=== PATIENT | female | born 1990 | race Two or more races ===

== ENCOUNTER 2016-10-07 01:01 | Emergency (ER) | payer MEDICARE ==
[~2016-10-07] VITALS: Ht 157.5 cm; Wt 86.2 kg
[~2016-10-07 01:01] MED LIST: CLOB10TA PO; CLON0.5T3 PO; ESCI10TA PO; LEVE10007 PO; LORA0.5T96 PO; PERA2TAB PO; PERA6TAB PO; ZONI100C PO; [UNRECOGNIZED DRUG - CODE] PO
[2016-10-07] MEDS ORDERED: 0.9 % SODIUM CHLORIDE 10 ML DISP.SYRIN. IV PRN (01:15)
[2016-10-07 01:32] LABS: BARBITURATES NEG (NEG); BENZODIAZEPINES POS (NEG); CANNABINOIDS NEG (NEG); COCAINE NEG (NEG); METHADONE NEG (NEG); OPIATES NEG (NEG); PHENCYCLIDINE NEG (NEG)
[2016-10-07 01:33] LABS: ETHANOL, URINE NEG (NEG)
[2016-10-07 01:50] LABS: NEG OBC UR NEG; POS OBC UR POS
[2016-10-07 01:53] LABS: BILIRUBIN,URINE NEGATIVE (NEG); GLUCOSE,URINE NEGATIVE (NEG); NITRITE,URINE NEGATIVE (NEG); PH,URINE 7.5; PROTEIN,URINE NEGATIVE (NEG-TRACE); UROBILINOGEN,URINE 0.2 mg/dL (0.2 mg/dL)
[2016-10-07 01:58] LABS: BACTERIA,URINE MODERATE /HPF (0-FEW); RBC,URINE 0 /HPF (0-2); SQUAMOUS EPITHELIAL CELL,UR MOD /LPF; WBC,URINE >40 /HPF (0-4)
[2016-10-07 02:18] LABS: BASO % 1 % (0-3); EOS % 2 % (0-3); HEMATOCRIT 32.2 % (36.0-47.0); HEMOGLOBIN 10.5 g/dL (12.0-15.5); LYMPH # 2.3 x10^3/uL (1.0-4.8); LYMPH % 28 % (24-48); MEAN CORPUSCULAR HEMOGLOBIN 29 pg (25-35); MEAN CORPUSCULAR HGB CONC 33 g/dL (31-37); MEAN CORPUSCULAR VOLUME 90 fL (79-100); MONO % 8 % (0-9); NEUT % 61 % (31-73); PLATELET COUNT 179 x10^3/uL (140-400); RED BLOOD COUNT 3.59 x10^6/uL (3.50-5.40); RED CELL DISTRIBUTION WIDTH 14.6 % (11.5-14.5)
[2016-10-07 02:29] LABS: CALCIUM 8.7 mg/dL (8.5-10.1); CREATININE 0.6 mg/dL (0.6-1.0); GFR 123.9; POTASSIUM 3.5 mmol/L (3.5-5.1)
[2016-10-07 02:34] LABS: ALBUMIN 3.2 g/dL (3.4-5.0); DIRECT BILIRUBIN 0.1 mg/dL (0.0-0.2); TOTAL BILIRUBIN 0.2 mg/dL (0.2-1.0); TOTAL PROTEIN 7.3 g/dL (6.4-8.2)
[2016-10-07 02:42] LABS: INR 1.2 (0.8-1.1); PROTHROMBIN TIME PATIENT 14.4 SEC (11.7-14.0)
[2016-10-07 03:30] VITALS: BP 93/57
[2016-10-07] MEDS ORDERED: NITR100C62 PO (03:43)
--- NOTE | 2016-10-07 03:43 | PHYS DOC ---
Past Medical History Past Medical History: Anxiety, Depression, Seizure, UTI Past Surgical History: Other Additional Past Surgical Histo: anti seizure device Alcohol Use: None Drug Use: None Adult General Chief Complaint Chief Complaint: SEIZURE HPI HPI 25-year-old female presenting to the emergency department today after having a seizure. She's had 2 seizures today and currently follows at the [facility]. They currently are aware that her seizures are getting worse. They're planning a surgery currently to attempt helping her with his epilepsy. She also reports lower abdominal pain in the suprapubic region that is sharp nonradiating without alleviating factors intermittent. Review of systems is negative for chest pain shortness of breath fevers chills. She denies being . All other review of systems is negative unless otherwise noted in history of present illness. Review of Systems Review of Systems See above. Current Medications Current Medications Current Medications Medications (Trade) Dose Ordered Sig/Brittny Start Time Stop Time Status Last Admin Dose Admin Sodium Chloride (Normal Saline Flush) 10 ml QSHIFT PRN 10/07/16 01:15 10/07/16 04:03 DC Allergies Allergies Allergies Coded Allergies Type Severity Reaction Last Updated Verified peanut Allergy Intermediate PEANUT BUTTER 08/30/14 Yes Physical Exam Physical Exam Constitutional: Well developed, well nourished, no acute distress, non-toxic appearance. HENT: Normocephalic, atraumatic, bilateral external ears normal, oropharynx moist, no oral exudates, nose normal. Eyes: PERRLA, EOMI, conjunctiva normal, no discharge. [] Neck: Normal range of motion, no tenderness, supple, no stridor. Cardiovascular:Heart rate regular rhythm, no murmur [] Lungs & Thorax: Bilateral breath sounds clear to auscultation Abdomen: Soft and nontender to palpation. Negative McBurney's point. Negative Watkins sign. No rebound tenderness or guarding present. Nondistended. Vaginal exam performed in the presence of a female nurse was unremarkable. No evidence of cervical motion tenderness or cervicitis. Normal vaginal discharge present. Skin: Warm, dry, no erythema, no rash. [] Back: No tenderness, no CVA tenderness. [] Extremities: No tenderness, no cyanosis, no clubbing, ROM intact, no edema. Neurologic: Mental status: Awake oriented and alert x3 Cranial nerves: Extraocular movements intact, eyebrows georgie bilaterally smile symmetric, uvula elevation, shoulder shrug intact, tongue protrusion normal DTRs: 2+ Sensation: equal and normal in all extremities Strength: 5/5 in upper and lower extremities bilaterally Psychologic: Affect normal, judgement normal, mood normal. [] Current Patient Data Vital Signs Vital Signs Date Time Temp Pulse Resp B/P Pulse Ox O2 Delivery O2 Flow Rate FiO2 10/07/16 03:30 76 16 93/57 98 Room Air Lab Values Laboratory Tests Test 10/07/16 01:09 10/07/16 01:10 10/07/16 02:10 10/07/16 02:24 Urine Collection Type Unknown Urine Color Yellow Urine Clarity Cloudy Urine pH 7.5 Urine Specific Wiseman 1.020 Urine Protein Negativemg/dL (NEG-TRACE) Urine Glucose (UA) Negativemg/dL (NEG) Urine Ketones (Stick) Negativemg/dL (NEG) Urine Blood Negative (NEG) Urine Nitrite Negative (NEG) Urine Bilirubin Negative (NEG) Urine Urobilinogen Dipstick 0.2mg/dL (0.2 mg/dL) Urine Leukocyte Esterase Large (NEG) Urine RBC 0/HPF (0-2) Urine WBC >40/HPF (0-4) Urine Squamous Epithelial Cells Mod/LPF Urine Amorphous Sediment Present/HPF Urine Bacteria Moderate/HPF (0-FEW) Urine Mucus Mod/LPF Urine Test Negative (NEG) Urine Opiates Screen Neg (NEG) Urine Methadone Screen Neg (NEG) Urine Barbiturates Neg (NEG) Urine Phencyclidine Screen Neg (NEG) Urine Amphetamine/Methamphetamine Neg (NEG) Urine Benzodiazepines Screen Pos (NEG) Urine Cocaine Screen Neg (NEG) Urine Cannabinoids Screen Neg (NEG) Urine Ethyl Alcohol Neg (NEG) White Blood Count 8.0x10^3/uL (4.0-11.0) Red Blood Count 3.59x10^6/uL (3.50-5.40) Hemoglobin 10.5g/dL (12.0-15.5) L Hematocrit 32.2% (36.0-47.0) L Mean Corpuscular Volume 90fL (79-100) Mean Corpuscular Hemoglobin 29pg (25-35) Mean Corpuscular Hemoglobin Concent 33g/dL (31-37) Red Cell Distribution Width 14.6% (11.5-14.5) H Platelet Count 179x10^3/uL (140-400) Neutrophils (%) (Auto) 61% (31-73) Lymphocytes (%) (Auto) 28% (24-48) Monocytes (%) (Auto) 8% (0-9) Eosinophils (%) (Auto) 2% (0-3) Basophils (%) (Auto) 1% (0-3) Neutrophils # (Auto) 4.8x10^3uL (1.8-7.7) Lymphocytes # (Auto) 2.3x10^3/uL (1.0-4.8) Monocytes # (Auto) 0.7x10^3/uL (0.0-1.1) Eosinophils # (Auto) 0.2x10^3/uL (0.0-0.7) Basophils # (Auto) 0.0x10^3/uL (0.0-0.2) Prothrombin Time 14.4SEC (11.7-14.0) H Prothrombin Time INR 1.2 (0.8-1.1) H PTT 39SEC (24-38) H Sodium Level 143mmol/L (136-145) Potassium Level 3.5mmol/L (3.5-5.1) Chloride Level 108mmol/L (98-107) H Carbon Dioxide Level 26mmol/L (21-32) Anion Gap 9 (6-14) Blood Urea Nitrogen 13mg/dL (7-20) Creatinine 0.6mg/dL (0.6-1.0) Estimated GFR (Cockcroft-Gault) 123.9 Glucose Level 90mg/dL (70-99) Lactic Acid Level 1.0mmol/L (0.4-2.0) Calcium Level 8.7mg/dL (8.5-10.1) Total Bilirubin 0.2mg/dL (0.2-1.0) Direct Bilirubin 0.1mg/dL (0.0-0.2) Aspartate Amino Transferase (AST) 11U/L (15-37) L Alanine Aminotransferase (ALT) 18U/L (14-59) Alkaline Phosphatase 157U/L (46-116) H Total Protein 7.3g/dL (6.4-8.2) Albumin 3.2g/dL (3.4-5.0) L Chlamydia DNA Probe Negative (Negative) Neisseria gonorrhoeae DNA Probe Negative (Negative) Laboratory Tests 10/07/16 02:10 Laboratory Tests 10/07/16 02:10 Microbiology 10/07/16 Wet Prep - Final, Complete 10/07/16 Urine Culture - Preliminary, Resulted 10/07/16 Urine Culture Result 1 (CLIFF) - Preliminary, Resulted EKG EKG [] Radiology/Procedures Radiology/Procedures [] Course & Med Decision Making Course & Med Decision Making Pertinent Labs and Imaging studies reviewed. (See chart for details) [25-year-old female presenting to the emergency department today with having 2 seizures over the past 4 hours and abdominal pain. Abdomen was soft and nontender. Neurologic exam was unremarkable. Vital signs showed mild probably physiologic soft systolic blood pressure. Otherwise blood work was sent. EKG obtained which was unremarkable. I discussed the case with the neurology team at the [facility] admissions counselor. I asked if they would be able to follow- up the patient in the short-term in the next day or 2. They stated that they would be able to convey this information to the patient's neurologist and get him in the clinic. The patient was back to baseline. Abdomen exam on repeat evaluation was nontender. Patient was escorted discharged home to follow-up with neurology at the [facility] in 1-2 days. Urinalysis suggestive of urinary tract infection. Patient was treated with antibiotics upon discharge. Dragon Disclaimer Dragon Disclaimer This electronic medical record was generated, in whole or in part, using a voice recognition dictation system. Departure Departure Impression: Primary Impression: Abdominal pain Additional Impressions: Seizure UTI (urinary tract infection) Disposition: 01 HOME, SELF-CARE Condition: STABLE Referrals: NO PCP (PCP) Patient Instructions: Seizure, Adult Additional Instructions: Thank you for allowing us to participate in your care today. Followup with your neurologist in 3-4 days. If you do not have a primary care provider you can ask for a list of our primary care providers. Return to the emergency department you have any new or concerning findings. This should be evaluated by the primary care physician and any necessary consulting services for continued management within a few days after discharge. Return to emergency room if you have any new or concerning symptoms including but not limited to fever, chills, nausea, vomiting, intractable pain, any new rashes, chest pain, shortness of air, uncontrolled bleeding, difficulty breathing, and/or vision loss. Scripts Nitrofurantoin Monohyd/M-Cryst (Macrobid 100 Mg Capsule)100 Mg Capsule1 Cap PO BID #[id number] CAP Prov:NEIL DAILEY MD 10/07/16 Problem Qualifiers NEIL DAILEY MD Oct 07, 2016 03:43
--- NOTE | 2016-10-07 06:16 | EKG ---
[facility] [address] [place] [address] Test Date: 2016-10-07 Test Time: 01:26:03 Pat Name: MISAEL JEWELL Department: Room: Gender: F [employer] Tender: : 1990 Requested By: NEIL DAILEY Order Number: [id number] Reading MD: Measurements Intervals [place] Rate: 80 P: 32 ID: 140 QRS: -18 QRSD: 112 T: 2 QT: 392 QTc: 456 Interpretive Statements SINUS RHYTHM LEFTWARD AXIS INCOMPLETE RIGHT BUNDLE BRANCH BLOCK OTHERWISE NORMAL ECG RI6.01 No previous ECG available for comparison
--- NOTE | 2016-10-09 14:30 | VNOTE ---
CALL BACK NOTE CALL BACK Microbiology 10/07/16 Wet Prep - Final, Complete 10/07/16 Urine Culture - Final, Complete 10/07/16 Urine Culture Result 1 (CLIFF) - Final, Complete 10/07/16 Antimicrobic Susceptibility - Final, Complete Patient was treated for UTI with Macrobid. She is resistant to it. I attempted to call patient to talk to her. Left a voicemail. I did attempt to call the alternate number provided, spoke with a boyfriend who hanged up on me. DIANE DUNN APRN Oct 09, 2016 14:30
--- NOTE | 2016-10-10 16:53 | VNOTE ---
CALL BACK NOTE CALL BACK Microbiology 10/07/16 Wet Prep - Final, Complete 10/07/16 Urine Culture - Final, Complete 10/07/16 Urine Culture Result 1 (CLIFF) - Final, Complete 10/07/16 Antimicrobic Susceptibility - Final, Complete Spoke with patient in regards to culture being positive for proteus mirabilis and gram negative rods. Patient had been placed on Macrobid which the sensitivity shows that it was resistant to this antibiotic. She was called in a prescription of Bactrim to the [facility] on [address]. Patient was instructed to stop taking the Macrobid and start on the Bactrim as soon as she picks its up. CHRISTOPHER MIGUEL HAUL TRUCK DRIVER Oct 10, 2016 16:53
== END 2016-10-07 04:03 | disposition home or self-care (01) ==
LOC: ER 01:01
DX: R56.9 Unspecified convulsions (principal); N39.0 Urinary tract infection, site not specified; Z91.010 Allergy to peanuts
CPT/HCPCS: 36415; 80048; 80076; 81001; 81025; 83605; 85027; 85610; 85730; 87086; 87491; 87591; 93005; 99285; G0481; Q0111

== ENCOUNTER 2016-12-24 22:06 | Emergency (ER) | payer MEDICARE, OTHER ==
[~2016-12-24 22:06] MED LIST changes: +NITR100C62 PO
[2016-12-24] MEDS ORDERED: LEVETIRACETAM 500 MG TABLET. PO ONE (23:00)
--- NOTE | 2016-12-24 23:02 | PHYS DOC ---
Past Medical History Past Medical History: Anxiety, Depression, Seizure, UTI Past Surgical History: Other Additional Past Surgical Histo: anti seizure device Alcohol Use: None Drug Use: None Adult General Chief Complaint Chief Complaint: SEIZURE HPI HPI 26-year-old female with a history of seizures and epilepsy who currently follows with the [facility] neurology team who presents the emergency department after having 3 seizures today she reports him being less than 5 minutes. Seizures spontaneously resolved. There with this by her boyfriend he who is here with her today. She also takes 1 g of Keppra every day for antiepileptic medications. She reports taking her medications as prescribed. She also has noticed some bumps in her left groin and has pain in her groin. Review of systems is negative for chest pain shortness of breath abdominal pain nausea vomiting fevers or chills. All other review of systems is negative unless otherwise noted in history of present illness. Review of Systems Review of Systems SEE ABOVE. Allergies Allergies Allergies Coded Allergies Type Severity Reaction Last Updated Verified peanut Allergy Intermediate PEANUT BUTTER 08/30/14 Yes Physical Exam Physical Exam Constitutional: Well developed, well nourished, no acute distress, non-toxic appearance. HENT: Normocephalic, atraumatic, bilateral external ears normal, oropharynx moist, no oral exudates, nose normal. [] Eyes: PERRLA, EOMI, conjunctiva normal, no discharge. Neck: Normal range of motion, no tenderness, supple, no stridor. [] Cardiovascular:Heart rate regular rhythm, no murmur Lungs & Thorax: Bilateral breath sounds clear to auscultation [] Abdomen: Bowel sounds normal, soft, no tenderness, no masses, no pulsatile masses. External genitalia exam performed in the presence of a female nurse shows small umbilicated papules on the left groin consistent with molluscum contagiosum. Skin: Warm, dry, no erythema, no rash. [] Back: No tenderness, no CVA tenderness. Extremities: No tenderness, no cyanosis, no clubbing, ROM intact, no edema. [] Neurologic: Mental status: Awake oriented and alert x3 Cranial nerves: Extraocular movements intact, eyebrows georgie bilaterally smile symmetric, uvula elevation, shoulder shrug intact, tongue protrusion normal DTRs: 2+ Sensation: equal and normal in all extremities Strength: 5/5 in upper and lower extremities bilaterally Psychologic: Affect normal, judgement normal, mood normal. Current Patient Data Vital Signs Vital Signs Date Time Temp Pulse Resp B/P Pulse Ox O2 Delivery O2 Flow Rate FiO2 12/24/16 22:15 97.5 76 16 109/67 100 Room Air 97.5 EKG EKG [] Radiology/Procedures Radiology/Procedures [] Course & Med Decision Making Course & Med Decision Making Pertinent Labs and Imaging studies reviewed. (See chart for details) [] 26-year-old female presenting after having 3 seizures today. Patient is feeling better now. Normal neurologic exam. Vaginal exam shows molluscum contagiosum I recommended she follow up with her primary care doctor for probable molluscum contagiosum. I discussed the case with our neurologist Dr. Navarrete who recommended that we give the patient 500 mg of oral Keppra in the emergency department and have the patient follow-up with her neurologist tomorrow morning for further evaluation workup and care. The patient was in discharged home in stable condition. Dragon Disclaimer Dragon Disclaimer This electronic medical record was generated, in whole or in part, using a voice recognition dictation system. Departure Departure Impression: Primary Impression: Seizures Additional Impression: Molluscum contagiosum Disposition: 01 HOME, SELF-CARE Condition: STABLE Referrals: NO PCP (PCP) LUZ MARINA DUMONT MD Patient Instructions: Seizure, Adult Additional Instructions: Thank you for allowing us to participate in your care today. Followup with your neurologist tomorrow morning. Follow-up with your primary care doctor within the next 4-5 days. If you do not have a primary care provider you can ask for a list of our primary care providers. Return to the emergency department you have any new or concerning findings. This should be evaluated by the primary care physician and any necessary consulting services for continued management within a few days after discharge. Return to emergency room if you have any new or concerning symptoms including but not limited to fever, chills, nausea, vomiting, intractable pain, any new rashes, chest pain, shortness of air, uncontrolled bleeding, difficulty breathing, and/or vision loss. You may have been prescribed medication that can change in your level of thinking and ability to operate machinery. These medications include hydrocodone and Ativan. Also, Benadryl has been known to do this as well. Be sure to check with your pharmacist and ask if the medications you've prescribed can affect your level of consciousness. I recommend not operating heavy machinery or driving while on medication such as these. Problem Qualifiers NEIL DAILEY MD Dec 24, 2016 23:02
[2016-12-24 23:11] VITALS: BP 108/65
== END 2016-12-24 23:19 | disposition home or self-care (01) ==
LOC: ER 22:06
DX: G40.909 Epilepsy, unspecified, not intractable, without status epilepticus (principal); B08.1 Molluscum contagiosum; F41.9 Anxiety disorder, unspecified; F32.9 Major depressive disorder, single episode, unspecified; Z87.440 Personal history of urinary (tract) infections; Z79.899 Other long term (current) drug therapy; Z91.010 Allergy to peanuts
CPT/HCPCS: 81025; 99282

== ENCOUNTER 2017-03-02 23:47 | Emergency (ER) | payer MEDICARE, OTHER ==
[~2017-03-02] VITALS: Ht 162.6 cm; Wt 90.7 kg
[~2017-03-02 23:47] MED LIST changes: -ESCI10TA PO; +ESCITALOPRAM OX10 MG PO
[2017-03-03] MEDS ORDERED: AMMONIA AROMATIC 15% INHALANT AMPUL. ONE (00:11)
--- NOTE | 2017-03-03 00:34 | RAD ---
EXAM: CT head without contrast HISTORY: Altered mental status. COMPARISON: March 03, 2016 TECHNIQUE: Computed tomographic images of the head were obtained without contrast. PQRS compliance statement: One or more of the following individualized dose reduction techniques were utilized for this examination: 1. Automated exposure control 2. Adjustment of the mA and/or kV according to patient size 3. Use of iterative reconstruction technique FINDINGS: There is no acute intracranial process identified. Specifically, there are no intracranial blood products, extra-axial fluid collections, mass effect or midline shift. Ventricles and basilar cisterns are maintained. The visualized portions of the orbits, paranasal sinuses and mastoid air cells are unremarkable. No suspicious calvarial lesion is seen. IMPRESSION: No acute intracranial findings. Electronically signed by: Alondra Anderson MD (03/03/2017 12:30 AM)
[2017-03-03 00:38] LABS: BASO # 0.1 x10^3/uL (0.0-0.2); BASO % 1 % (0-3); EOS % 2 % (0-3); HEMATOCRIT 36.5 % (36.0-47.0); HEMOGLOBIN 11.8 g/dL (12.0-15.5); LYMPH # 2.6 x10^3/uL (1.0-4.8); LYMPH % 35 % (24-48); MEAN CORPUSCULAR HEMOGLOBIN 30 pg (25-35); MEAN CORPUSCULAR HGB CONC 32 g/dL (31-37); MEAN CORPUSCULAR VOLUME 91 fL (79-100); MONO % 8 % (0-9); NEUT % 54 % (31-73); PLATELET COUNT 182 x10^3/uL (140-400); RED BLOOD COUNT 4.01 x10^6/uL (3.50-5.40); RED CELL DISTRIBUTION WIDTH 15.1 % (11.5-14.5); WHITE BLOOD COUNT 7.4 x10^3/uL (4.0-11.0)
--- NOTE | 2017-03-03 00:49 | PHYS DOC ---
Past Medical History Past Medical History: Anxiety, Depression, Seizure, UTI Past Surgical History: Other Additional Past Surgical Histo: anti seizure device Alcohol Use: None Drug Use: None Adult General Chief Complaint Chief Complaint: mental status changes HPI HPI 26-year-old female presenting to the emergency department today with generalized weakness and pain in the chest. He describes pain in her chest as a sharp shooting pain or sweats deep breaths. She denies unilateral leg swelling hemoptysis personal or family history of blood clotting disorders. She denies recent surgery or immobilization. She denies diabetes hypertension or hyperlipidemia. Her boyfriend is here with her today and reports she has been having decreased mental status since approximately noon today. She feels generally weak without a focus. She denies facial drooping or unilateral weakness. She denies vision changes. She denies abdominal pain nausea vomiting fevers or chills. She denies being suicidal or homicidal. Onset today. Location generalized. Duration intermittent. No alleviating or exacerbating factors. Review of systems is negative for headache fevers chills nausea or vomiting. All other review of systems is negative unless otherwise noted in history of present illness. ED course: 26-year-old female presenting to the emergency department with decreased mental status. Initially the patient opened her eyes spontaneously but would not answer our questions. Initial mental status was opens eyes spontaneously, does not answer questions verbally however this was seemingly intentional. Follows commands. Initially nursing report of non reactive pupils. on my exam pupils are equal and reactive. Neuro exam shows equal round reactive pupils. Symmetric facial smile. 5 out of 5 strength in all extremities. Sensation equal throughout. (Nursing documents different sensation) related to poor historian. During the patient's emergency department course her mental status improved significantly. She was able to walk without any assistance throughout the emergency department. She reports feeling better. Physical exam shows normal range of motion of the neck. Negative Brudzinski sign. Negative Kernig sign. pt is feeling much better. She was then discharged home. The patient was then discharged home in stable condition to follow up with their primary care physician over the next 2-3 days. They were to return if their symptoms worsened or if they were concerned for any reason. [id number] discharge instructions and return precautions were given. Patient's questions were answered to their satisfaction. Patient is comfortable plan. Review of Systems Review of Systems SEE ABOVE. Current Medications Current Medications Current Medications Medications (Trade) Dose Ordered Sig/Brittny Start Time Stop Time Status Last Admin Dose Admin Ammonia (Aromatic Spirit) (Amoply) 1 each STK-MED ONCE 03/03/17 00:11 03/03/17 00:12 DC Allergies Allergies Allergies Coded Allergies Type Severity Reaction Last Updated Verified peanut Allergy Intermediate PEANUT BUTTER 08/30/14 Yes Physical Exam Physical Exam Constitutional: Well developed, well nourished, no acute distress, non-toxic appearance. [] HENT: Normocephalic, atraumatic, bilateral external ears normal, oropharynx moist, no oral exudates, nose normal. [] Eyes: PERRLA, EOMI, conjunctiva normal, no discharge. [] Neck: Normal range of motion, no tenderness, supple, no stridor. [] Cardiovascular:Heart rate regular rhythm, no murmur [] Lungs & Thorax: Bilateral breath sounds clear to auscultation [] Abdomen: Bowel sounds normal, soft, no tenderness, no masses, no pulsatile masses. [] Skin: Warm, dry, no erythema, no rash. [] Back: No tenderness, no CVA tenderness. [] Extremities: No tenderness, no cyanosis, no clubbing, ROM intact, no edema. [] Neurologic: Alert and oriented X 3, normal motor function, normal sensory function, no focal deficits noted. [] Psychologic: Affect normal, judgement normal, mood normal. [] Current Patient Data Vital Signs Vital Signs Date Time Temp Pulse Resp B/P (MAP) Pulse Ox O2 Delivery O2 Flow Rate FiO2 03/03/17 00:14 98.4 59 12 100/55 (70) 100 Room Air 98.4 Lab Values Laboratory Tests Test 03/03/17 00:05 03/03/17 00:12 03/03/17 00:30 03/03/17 00:45 Glucose (Fingerstick) 72 mg/dL (70-99) White Blood Count 7.4 x10^3/uL (4.0-11.0) Red Blood Count 4.01 x10^6/uL (3.50-5.40) Hemoglobin 11.8 g/dL (12.0-15.5) L Hematocrit 36.5 % (36.0-47.0) Mean Corpuscular Volume 91 fL (79-100) Mean Corpuscular Hemoglobin 30 pg (25-35) Mean Corpuscular Hemoglobin Concent 32 g/dL (31-37) Red Cell Distribution Width 15.1 % (11.5-14.5) H Platelet Count 182 x10^3/uL (140-400) Neutrophils (%) (Auto) 54 % (31-73) Lymphocytes (%) (Auto) 35 % (24-48) Monocytes (%) (Auto) 8 % (0-9) Eosinophils (%) (Auto) 2 % (0-3) Basophils (%) (Auto) 1 % (0-3) Neutrophils # (Auto) 4.0 x10^3uL (1.8-7.7) Lymphocytes # (Auto) 2.6 x10^3/uL (1.0-4.8) Monocytes # (Auto) 0.6 x10^3/uL (0.0-1.1) Eosinophils # (Auto) 0.1 x10^3/uL (0.0-0.7) Basophils # (Auto) 0.1 x10^3/uL (0.0-0.2) Sodium Level 145 mmol/L (136-145) Potassium Level 3.7 mmol/L (3.5-5.1) Chloride Level 110 mmol/L (98-107) H Carbon Dioxide Level 25 mmol/L (21-32) Anion Gap 10 (6-14) Blood Urea Nitrogen 15 mg/dL (7-20) Creatinine 0.6 mg/dL (0.6-1.0) Estimated GFR (Cockcroft-Gault) 122.8 Glucose Level 86 mg/dL (70-99) Serum Osmolality 297 mOsm/Kg (279-304) Calcium Level 8.9 mg/dL (8.5-10.1) Total Bilirubin 0.2 mg/dL (0.2-1.0) Direct Bilirubin < 0.1 mg/dL (0.0-0.2) Aspartate Amino Transferase (AST) 16 U/L (15-37) Alanine Aminotransferase (ALT) 21 U/L (14-59) Alkaline Phosphatase 147 U/L (46-116) H Total Protein 7.5 g/dL (6.4-8.2) Albumin 3.9 g/dL (3.4-5.0) Lipase 116 U/L (73-393) Salicylates Level < 2.8 mg/dL (2.8-20.0) L Salicylate Last Dose Date Salicylate Last Dose Time Acetaminophen Level < 2 mcg/ml (10-30) L Acetaminophen Last Dose Date Acetaminophen Last Dose Time Ethyl Alcohol Level < 10 mg/dL (0-10) Urine Collection Type U cath Urine Color Yellow Urine Clarity Turbid Urine pH 7.0 Urine Specific [place] 1.025 Urine Protein Negative mg/dL (NEG-TRACE) Urine Glucose (UA) Negative mg/dL (NEG) Urine Ketones (Stick) Negative mg/dL (NEG) Urine Blood Large (NEG) Urine Nitrite Negative (NEG) Urine Bilirubin Negative (NEG) Urine Urobilinogen Dipstick 0.2 mg/dL (0.2 mg/dL) Urine Leukocyte Esterase Trace (NEG) Urine RBC Occ /HPF (0-2) Urine WBC Occ /HPF (0-4) Urine Squamous Epithelial Cells Occ /LPF Urine Amorphous Sediment Present /HPF Urine Bacteria 0 /HPF (0-FEW) Urine Mucus Marked /LPF Urine Opiates Screen Neg (NEG) Urine Methadone Screen Neg (NEG) Urine Barbiturates Neg (NEG) Urine Phencyclidine Screen Neg (NEG) Urine Amphetamine/Methamphetamine Neg (NEG) Urine Benzodiazepines Screen Pos (NEG) Urine Cocaine Screen Neg (NEG) Urine Cannabinoids Screen Neg (NEG) Urine Ethyl Alcohol Neg (NEG) Laboratory Tests 03/03/17 00:12 Laboratory Tests 03/03/17 00:12 EKG EKG [] Radiology/Procedures Radiology/Procedures [] Course & Med Decision Making Course & Med Decision Making Pertinent Labs and Imaging studies reviewed. (See chart for details) [] Dragon Disclaimer Dragon Disclaimer This electronic medical record was generated, in whole or in part, using a voice recognition dictation system. Departure Departure Impression: Primary Impression: Chest pain Disposition: 01 HOME, SELF-CARE Condition: STABLE Referrals: UNKNOWN PCP NAME (PCP) LUZ MARINA DUMONT MD Patient Instructions: Chest Pain (Nonspecific) Additional Instructions: Thank you for allowing us to participate in your care today. Followup with your primary care physician in 3 days if your symptoms do not improve. Call your Primary Doctor tomorrow and inform them of your visit today. If you do not have a primary care provider you can ask for a list of our primary care providers. Return to the emergency department you have any new or concerning findings. This should be evaluated by the primary care physician and any necessary consulting services for continued management within a few days after discharge. Return to emergency room if you have any new or concerning symptoms including but not limited to fever, chills, nausea, vomiting, intractable pain, any new rashes, chest pain, shortness of air, uncontrolled bleeding, difficulty breathing, and/or vision loss. NEIL DAILEY MD Mar 03, 2017 00:49
[2017-03-03 00:54] LABS: BILIRUBIN,URINE NEGATIVE (NEG); GLUCOSE,URINE NEGATIVE (NEG); NITRITE,URINE NEGATIVE (NEG); PROTEIN,URINE NEGATIVE (NEG-TRACE); UROBILINOGEN,URINE 0.2 mg/dL (0.2 mg/dL)
[2017-03-03 00:57] LABS: ANION GAP 10 (6-14); BLOOD UREA NITROGEN 15 mg/dL (7-20); CALCIUM 8.9 mg/dL (8.5-10.1); CARBON DIOXIDE 25 mmol/L (21-32); CHLORIDE 110 mmol/L (98-107); CREATININE 0.6 mg/dL (0.6-1.0); GFR 122.8; GLUCOSE 86 mg/dL (70-99); POTASSIUM 3.7 mmol/L (3.5-5.1); SODIUM 145 mmol/L (136-145)
[2017-03-03 01:04] LABS: ETHANOL < 10 mg/dL (0-10)
[2017-03-03 01:10] LABS: ALBUMIN 3.9 g/dL (3.4-5.0); ALK PHOS 147 U/L (46-116); ALT (SGPT) 21 U/L (14-59); AST (SGOT) 16 U/L (15-37); DIRECT BILIRUBIN < 0.1 mg/dL (0.0-0.2); TOTAL BILIRUBIN 0.2 mg/dL (0.2-1.0); TOTAL PROTEIN 7.5 g/dL (6.4-8.2)
[2017-03-03 01:10] LABS: BACTERIA,URINE 0 /HPF (0-FEW); RBC,URINE OCC /HPF (0-2); SQUAMOUS EPITHELIAL CELL,UR OCC /LPF; WBC,URINE OCC /HPF (0-4)
[2017-03-03 01:14] LABS: BARBITURATES NEG (NEG); BENZODIAZEPINES POS (NEG); CANNABINOIDS NEG (NEG); COCAINE NEG (NEG); METHADONE NEG (NEG); OPIATES NEG (NEG); PHENCYCLIDINE NEG (NEG)
[2017-03-03 01:54] VITALS: BP 109/65
== END 2017-03-03 02:08 | disposition home or self-care (01) ==
LOC: ER 23:47
DX: R07.89 Other chest pain (principal); R53.1 Weakness; R41.82 Altered mental status, unspecified; F32.9 Major depressive disorder, single episode, unspecified; F41.9 Anxiety disorder, unspecified; Z87.440 Personal history of urinary (tract) infections; Z91.010 Allergy to peanuts
CPT/HCPCS: 36415; 70450; 80048; 80076; 80305; 81001; 82962; 83690; 83930; 85027; 87086; 99285; G0480; P9612; 80320; 80329; G0481

== ENCOUNTER 2017-03-22 23:58 | Observation (INO) | payer MEDICARE, OTHER ==
[~2017-03-22] VITALS: Ht 157.5 cm; Wt 95.3 kg
[~2017-03-22 23:58] MED LIST changes: +CEPH-264 PO; +LEVE100020 PO; +PERA8TAB PO
[2017-03-23 00:59] LABS: BILIRUBIN,URINE NEGATIVE (NEG); GLUCOSE,URINE NEGATIVE (NEG); NITRITE,URINE NEGATIVE (NEG); PH,URINE 7.5; PROTEIN,URINE NEGATIVE (NEG-TRACE)
[2017-03-23] MEDS ORDERED: IV NORMAL SALINE 1000ML BAG 1,000 ML IV SCH ×2 (01:00→06:30)
[2017-03-23 01:04] LABS: BACTERIA,URINE MANY /HPF (0-FEW); RBC,URINE 0 /HPF (0-2); SQUAMOUS EPITHELIAL CELL,UR FEW /LPF; YEAST,URINE PRESENT /HPF
[2017-03-23 01:51] LABS: BASO % 1 % (0-3); EOS % 2 % (0-3); HEMATOCRIT 31.3 % (36.0-47.0); HEMOGLOBIN 10.3 g/dL (12.0-15.5); LYMPH # 1.8 x10^3/uL (1.0-4.8); LYMPH % 38 % (24-48); MEAN CORPUSCULAR HEMOGLOBIN 30 pg (25-35); MEAN CORPUSCULAR HGB CONC 33 g/dL (31-37); MEAN CORPUSCULAR VOLUME 92 fL (79-100); MONO % 10 % (0-9); NEUT % 49 % (31-73); PLATELET COUNT 182 x10^3/uL (140-400); RED BLOOD COUNT 3.41 x10^6/uL (3.50-5.40); RED CELL DISTRIBUTION WIDTH 15.3 % (11.5-14.5); WHITE BLOOD COUNT 4.7 x10^3/uL (4.0-11.0)
[2017-03-23 02:13] LABS: CALCIUM 8.2 mg/dL (8.5-10.1); CREATININE 0.7 mg/dL (0.6-1.0); GFR 102.8; POTASSIUM 3.5 mmol/L (3.5-5.1)
[2017-03-23 02:19] LABS: ALBUMIN 3.6 g/dL (3.4-5.0); ALBUMIN/GLOBULIN RATIO 1.1 (1.0-1.7); TOTAL BILIRUBIN 0.3 mg/dL (0.2-1.0); TOTAL PROTEIN 6.9 g/dL (6.4-8.2)
--- NOTE | 2017-03-23 02:32 | RAD ---
OB < 14 WKS Clinical Indication: PREG PELVIC PAIN . Quantitative beta hCG not available. Comparison: None. TECHNIQUE: Real-time ultrasound imaging of the pelvis is performed using transabdominal and transvaginal window. Findings: Transabdominal window is nondiagnostic. Uterus measures 6.8 x 5 x 4.8 cm. Uterus is retroverted. Endometrial stripe measures 16 mm. An intrauterine gestational sac is not identified. Right ovary measures 3.7 x 2.7 x 2.6 cm. There is a right ovarian cyst measuring 2.5 x 2 x 1.8 cm. There are a few internal echoes. Left ovary measures 2.9 x 1.3 x 1.2 cm. Normal blood flow in the ovaries. There is pelvic free fluid. IMPRESSION: Intrauterine is not identified. There is pelvic free fluid. There is a right ovarian complex cyst. Considerations include failed first trimester , early intrauterine , or ectopic . Suggest correlation with serial quantitative beta hCG. Electronically signed by: J Luis Khanna MD (03/23/2017 2:29 AM) [facility]
[2017-03-23 04:50] VITALS: BP 92/53
[2017-03-23] MEDS ORDERED: ONDANSETRON PF 4 MG/2 ML VIAL. IV PRN (06:30)
[2017-03-23] MEDS ORDERED: fentaNYL PF VIAL 100 MCG/2 ML VIAL IV PRN (06:30)
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
== END 2017-03-23 07:41 | disposition home or self-care (01) ==
LOC: ER 23:58 → 3 NORTH 03-23 03:17
PROVIDERS: ADMIT Specialist; ATTEND Specialist
DX: O20.9 Hemorrhage in early pregnancy, unspecified (principal); O99.351 Diseases of the nervous system complicating pregnancy, first trimester; G40.909 Epilepsy, unspecified, not intractable, without status epilepticus; O34.81 Maternal care for other abnormalities of pelvic organs, first trimester; N83.291 Other ovarian cyst, right side; O99.341 Other mental disorders complicating pregnancy, first trimester; F41.9 Anxiety disorder, unspecified; F32.9 Major depressive disorder, single episode, unspecified; Z3A.14 14 weeks gestation of pregnancy
CPT/HCPCS: 36415; 76801; 80053; 81001; 81025; 84702; 85027; 86900; 86901; 87086; 87491; 87591; 96360; 99285; G0378; J7030; Q0111; G0379

== ENCOUNTER 2017-03-29 23:43 | Emergency (ER) | payer MEDICARE ==
[~2017-03-29] VITALS: Ht 157.5 cm; Wt 99.8 kg
[2017-03-29 23:54] VITALS: BP 111/64
[2017-03-30 01:08] LABS: BILIRUBIN,URINE NEGATIVE (NEG); GLUCOSE,URINE NEGATIVE (NEG); PH,URINE 5.5
[2017-03-30 01:09] LABS: BACTERIA,URINE MODERATE /HPF (0-FEW); NITRITE,URINE NEGATIVE (NEG); PROTEIN,URINE NEGATIVE (NEG-TRACE); RBC,URINE 0 /HPF (0-2); SQUAMOUS EPITHELIAL CELL,UR MANY /LPF; UROBILINOGEN,URINE 0.2 mg/dL (0.2 mg/dL); YEAST,URINE PRESENT /HPF
--- NOTE | 2017-03-30 06:14 | PHYS DOC ---
Past Medical History Past Medical History: Seizure Past Surgical History: Other Additional Past Surgical Histo: Deep brain stimulator Alcohol Use: None Drug Use: None Adult General Chief Complaint Chief Complaint: MULTIPLE COMPLAINTS HPI HPI Patient is a 26 year old female who presents here today secondary to not feel well. Patient reports that she was seen at several hours ago and had an ultrasound that did not identify the fetus. Patient reports that after she was seen there she was sent to the [facility] doctors who evaluated her and also did an ultrasound that did not reveal the baby. Patient is . Patient reports she just feels like her stomach is big and she feels sick. Patient has no specific other complaints. Patient has any fevers shakes chills nausea vomiting diarrhea chest pain or short of breath. Patient has any cough cold runny nose. Patient is feels weak and tired and wants us to help her with that. Patient reports that she had a full workup at earlier on Wednesday which was less than 24 hours prior to arrival here in the told her everything looked normal. Patient's physical exam here is unremarkable. I discussed with the patient that we will check her labs, CBC chemistry and UA to assess her further and see if we can help her feel better. I did encourage the patient to seek medical care from one facility especially while she is so that they can coordinate her care better. I encouraged her to always other utilize [facility] ER always utilize for her care so that all her ultrasounds test results could be in one location. Patient's physical exam is unremarkable. Patient's alert awake oriented 3. Patient's abdomen was soft nontender no rebound or guarding. Assessment and plan this is a 26-year-old female who is who presents here today with generalized weakness and malaise. Patient left the ER without notifying me prior to completion of workup. Review of Systems Review of Systems Constitutional: Denies fever or chills [] Eyes: Denies change in visual acuity, redness, or eye pain [] Allergies Allergies Allergies Coded Allergies Type Severity Reaction Last Updated Verified No Known Drug Allergies 07/12/16 No Physical Exam Physical Exam Constitutional: Well developed, well nourished, no acute distress, non-toxic appearance. [] HENT: Normocephalic, atraumatic, bilateral external ears normal, oropharynx moist, no oral exudates, nose normal. [] Eyes: PERRLA, EOMI, conjunctiva normal, no discharge. [] Neck: Normal range of motion, no tenderness, supple, no stridor. [] Cardiovascular:Heart rate regular rhythm, no murmur [] Lungs & Thorax: Bilateral breath sounds clear to auscultation [] Abdomen: Bowel sounds normal, soft, no tenderness, no masses, no pulsatile masses. [] Skin: Warm, dry, no erythema, no rash. [] Back: No tenderness, no CVA tenderness. [] Extremities: No tenderness, no cyanosis, no clubbing, ROM intact, no edema. [] Neurologic: Alert and oriented X 3, normal motor function, normal sensory function, no focal deficits noted. [] Psychologic: Affect normal, judgement normal, mood normal. [] Current Patient Data Vital Signs Vital Signs Date Time Temp Pulse Resp B/P (MAP) Pulse Ox O2 Delivery O2 Flow Rate FiO2 03/29/17 23:54 98.3 70 16 111/64 (80) 100 Room Air 98.3 Lab Values Laboratory Tests Test 03/29/17 23:12 03/30/17 00:01 POC Urine HCG, Qualitative Hcg positive (Negative) Urine Collection Type U cath Urine Color Yellow Urine Clarity Cloudy Urine pH 5.5 Urine Specific [place] >=1.030 Urine Protein Negative mg/dL (NEG-TRACE) Urine Glucose (UA) Negative mg/dL (NEG) Urine Ketones (Stick) Negative mg/dL (NEG) Urine Blood Negative (NEG) Urine Nitrite Negative (NEG) Urine Bilirubin Negative (NEG) Urine Urobilinogen Dipstick 0.2 mg/dL (0.2 mg/dL) Urine Leukocyte Esterase Negative (NEG) Urine RBC 0 /HPF (0-2) Urine WBC 1-4 /HPF (0-4) Urine Squamous Epithelial Cells Many /LPF Urine Bacteria Moderate /HPF (0-FEW) Urine Mucus Marked /LPF Urine Yeast Present /HPF EKG EKG [] Radiology/Procedures Radiology/Procedures [] Course & Med Decision Making Course & Med Decision Making Pertinent Labs and Imaging studies reviewed. (See chart for details) [] Dragon Disclaimer Dragon Disclaimer This electronic medical record was generated, in whole or in part, using a voice recognition dictation system. Departure Departure Impression: Primary Impression: Left against medical advice Disposition: AGAINST MEDICAL ADVICE Condition: STABLE LUDY RAY MD Mar 30, 2017 06:14
== END 2017-03-30 01:03 | disposition left against medical advice (07) ==
LOC: ER 23:43 → MERGE 23:43 → ER 03-30 01:03
DX: O26.891 Other specified pregnancy related conditions, first trimester (principal); R53.1 Weakness; Z3A.01 Less than 8 weeks gestation of pregnancy
CPT/HCPCS: 81001; 81025; 87086; 99284

== ENCOUNTER 2017-06-19 00:12 | Emergency (ER) | payer MEDICARE ==
[~2017-06-19] VITALS: Ht 160 cm; Wt 95.3 kg
[2017-06-19 00:25] VITALS: BP 158/78
[2017-06-19 00:51] LABS: BILIRUBIN,URINE NEGATIVE (NEG); GLUCOSE,URINE NEGATIVE (NEG); NITRITE,URINE NEGATIVE (NEG); PH,URINE 7.5; PROTEIN,URINE NEGATIVE (NEG-TRACE); UROBILINOGEN,URINE 0.2 mg/dL (0.2 mg/dL)
[2017-06-19] MEDS ORDERED: fentaNYL PF VIAL 100 MCG/2 ML VIAL IV PRN (01:00)
[2017-06-19 01:08] LABS: BACTERIA,URINE 0 /HPF (0-FEW); RBC,URINE OCC /HPF (0-2); SQUAMOUS EPITHELIAL CELL,UR FEW /LPF; WBC,URINE OCC /HPF (0-4)
--- NOTE | 2017-06-19 01:09 | PHYS DOC ---
Past Medical History Past Medical History: Anxiety, Depression, Seizure, UTI Past Surgical History: Other Additional Past Surgical Histo: anti seizure device Alcohol Use: None Drug Use: None Adult General Chief Complaint Chief Complaint: ABDOMINAL PAIN IN HPI HPI Patient is a 26 year old female who presents with complaint of abdominal pain. Patient is reportedly 17 weeks though patient does not accurately confirm her last menstrual period. On chart review, the patient had a positive test and an observation admission on March 23, 2017. Her hCG level at that time was 829 consistent with an early . Ultrasound imaging showed no evidence of intrauterine at that time. The patient states that she has been following at [facility] for care. Patient states that suddenly at 2000 this evening she started to experience severe abdominal cramping and pain. The patient states that on the way here to the emergency department she suddenly felt like she may have lost fluid. Patient rates her pain as 10 out of 10. Patient denies any associated nausea or vomiting. Patient has not taken anything for her pain. Patient states that the pain feels like pressure and feels like "the baby is coming." Review of Systems Review of Systems Constitutional: Denies fever or chills [] Eyes: Denies change in visual acuity, redness, or eye pain [] HENT: Denies nasal congestion or sore throat [] Respiratory: Denies cough or shortness of breath [] Cardiovascular: Denies chest pain or edema[] GI: Abdominal pain, denies nausea, vomiting, bloody stools or diarrhea [] : Pelvic pressure, denies vaginal bleeding, dysuria or hematuria [] Musculoskeletal: Denies back pain or joint pain [] Integument: Denies rash or skin lesions [] Neurologic: Denies headache, focal weakness or sensory changes [] Current Medications Current Medications Current Medications Medications (Trade) Dose Ordered Sig/Brittny Start Time Stop Time Status Last Admin Dose Admin Fentanyl Citrate (Fentanyl 2ml Vial) 50 mcg PRN Q15MIN PRN 06/19/17 01:00 06/20/17 00:59 Ondansetron HCl (Zofran) 4 mg 1X ONCE 06/19/17 01:30 06/19/17 01:31 DC 06/19/17 01:34 4 MG Sodium Chloride 1,000 ml @ 1,000 mls/hr Q1H 06/19/17 01:30 06/19/17 02:29 DC 06/19/17 01:33 1,000 MLS/HR Allergies Allergies Allergies Coded Allergies Type Severity Reaction Last Updated Verified peanut Allergy Intermediate PEANUT BUTTER 08/30/14 Yes Physical Exam Physical Exam Constitutional: Alert, afebrile, appears in moderate to severe discomfort. [] HENT: Normocephalic, atraumatic, bilateral external ears normal, oropharynx moist, no oral exudates, nose normal. [] Eyes: PERRLA, EOMI, conjunctiva normal, no discharge. [] Neck: Normal range of motion, no tenderness, supple, no stridor. [] Cardiovascular:Heart rate regular rhythm, no murmur [] Lungs & Thorax: Bilateral breath sounds clear to auscultation [] Abdomen: Bowel sounds normal, soft, generalized tenderness to palpation in all 4 quadrants, no masses, no pulsatile masses. [] Skin: Warm, dry, no erythema, no rash. [] Back: No tenderness, no CVA tenderness. [] Extremities: No tenderness, no cyanosis, no clubbing, ROM intact, no edema. [] Neurologic: Alert and oriented X 3, normal motor function, normal sensory function, no focal deficits noted. [] Current Patient Data Vital Signs Vital Signs Date Time Temp Pulse Resp B/P (MAP) Pulse Ox O2 Delivery O2 Flow Rate FiO2 06/19/17 00:25 97.6 80 22 158/78 (104) 99 Room Air 97.6 Lab Values Laboratory Tests Test 06/19/17 00:35 06/19/17 00:38 06/19/17 01:25 Urine Collection Type Unknown Urine Color Yellow Urine Clarity Cloudy Urine pH 7.5 Urine Specific [place] 1.020 Urine Protein Negative mg/dL (NEG-TRACE) Urine Glucose (UA) Negative mg/dL (NEG) Urine Ketones (Stick) Negative mg/dL (NEG) Urine Blood Negative (NEG) Urine Nitrite Negative (NEG) Urine Bilirubin Negative (NEG) Urine Urobilinogen Dipstick 0.2 mg/dL (0.2 mg/dL) Urine Leukocyte Esterase Trace (NEG) Urine RBC Occ /HPF (0-2) Urine WBC Occ /HPF (0-4) Urine Squamous Epithelial Cells Few /LPF Urine Amorphous Sediment Present /HPF Urine Bacteria 0 /HPF (0-FEW) Urine Mucus Slight /LPF POC Urine HCG, Qualitative Hcg positive (Negative) White Blood Count 6.8 x10^3/uL (4.0-11.0) Red Blood Count 3.49 x10^6/uL (3.50-5.40) L Hemoglobin 10.8 g/dL (12.0-15.5) L Hematocrit 31.4 % (36.0-47.0) L Mean Corpuscular Volume 90 fL (79-100) Mean Corpuscular Hemoglobin 31 pg (25-35) Mean Corpuscular Hemoglobin Concent 34 g/dL (31-37) Red Cell Distribution Width 14.8 % (11.5-14.5) H Platelet Count 187 x10^3/uL (140-400) Neutrophils (%) (Auto) 62 % (31-73) Lymphocytes (%) (Auto) 28 % (24-48) Monocytes (%) (Auto) 8 % (0-9) Eosinophils (%) (Auto) 2 % (0-3) Basophils (%) (Auto) 1 % (0-3) Neutrophils # (Auto) 4.2 x10^3uL (1.8-7.7) Lymphocytes # (Auto) 1.9 x10^3/uL (1.0-4.8) Monocytes # (Auto) 0.5 x10^3/uL (0.0-1.1) Eosinophils # (Auto) 0.1 x10^3/uL (0.0-0.7) Basophils # (Auto) 0.1 x10^3/uL (0.0-0.2) Maternal Serum HCG Beta Subunit 65395 mIU/mL (0-5) H Sodium Level 139 mmol/L (136-145) Potassium Level 4.0 mmol/L (3.5-5.1) Chloride Level 107 mmol/L (98-107) Carbon Dioxide Level 22 mmol/L (21-32) Anion Gap 10 (6-14) Blood Urea Nitrogen 9 mg/dL (7-20) Creatinine 0.6 mg/dL (0.6-1.0) Estimated GFR (Cockcroft-Gault) 122.8 BUN/Creatinine Ratio 15 (6-20) Glucose Level 92 mg/dL (70-99) Calcium Level 9.1 mg/dL (8.5-10.1) Magnesium Level 1.5 mg/dL (1.8-2.4) L Total Bilirubin 0.1 mg/dL (0.2-1.0) L Aspartate Amino Transferase (AST) 28 U/L (15-37) Alanine Aminotransferase (ALT) 30 U/L (14-59) Alkaline Phosphatase 113 U/L (46-116) Total Protein 7.1 g/dL (6.4-8.2) Albumin 2.8 g/dL (3.4-5.0) L Albumin/Globulin Ratio 0.7 (1.0-1.7) L Laboratory Tests 06/19/17 01:25 Laboratory Tests 06/19/17 01:25 Microbiology 06/19/17 Wet Prep - Final, Complete EKG EKG Not performed[] Radiology/Procedures Radiology/Procedures [facility] [address] [place] [address] IMAGING REPORT Signed PATIENT: MISAEL JEWELL ACCOUNT: [id number] : 1990 LOCATION: ER AGE: 26 SEX: F EXAM STATUS: REG ER ORD. PHYSICIAN: YANY MALHOTRA MD REASON: abdominal pain, patient reports approximately 17 weeks EGA PROCEDURE: PREG MORE THAN OR EQ TO 14 WKS INDICATION: severe abd pain today COMPARISON: March 23, 2017 TECHNIQUE: Grayscale and color ultrasound images uterus and adnexa. FINDINGS: Placenta at anterior wall. Intrauterine is identified with a heart beat of 155. Estimated gestational age 17 weeks and 3 days with estimated due date of November 24, 2017. position is transverse at time of exam. Cervix is 4.8 cm. Placental edge is approximately 19 mm from the cervix at this time. Fluid is seen in the bladder. The maternal ovaries are not well seen in the adnexa. Estimated weight 198 g IMPRESSION: 1. Intrauterine gestational sac is identified with a pole with estimated gestational age of 17 weeks and 3 days with positive heartbeat. 2. The placenta is anterior and located approximately 19 mm from the internal cervical os. This should be followed on future examinations to ensure that there is no migration towards the cervical os. Recommend routine anomaly screening at 18-22 weeks. Electronically signed by: Yuval Mackey MD (06/19/2017 1:49 AM) [facility] DICTATED and SIGNED BY: YUVAL MACKEY MD DATE: 06/19/17 0144 CC: YANY MALHOTRA MD; NO PCP ~ [] Course & Med Decision Making Course & Med Decision Making Pertinent Labs and Imaging studies reviewed. (See chart for details) Patient was given IV fluids, fentanyl, and Zofran in the emergency department. Patient's ultrasound shows an intrauterine at 17 weeks and 3 days with normal heart rate and frequent movements. Patient shows no evidence of high white count and patient's metabolic panel is normal with exception of mildly decreased magnesium level. I do not identify a severe or potentially surgical cause for the patient's abdominal pain at this time. On reevaluation, the patient's pain has improved. Advised that the patient continue with oral hydration at home and continue with daily vitamin. Advise no strenuous activity and follow-up in 2 days with patient's RECLAMATION FURNACE OPERATOR for reevaluation. Recommended return to the emergency department for any worsening or severe symptoms. The patient voiced understanding and in agreement with treatment plan. Dragon Disclaimer Dragon Disclaimer This electronic medical record was generated, in whole or in part, using a voice recognition dictation system. Departure Departure Impression: Primary Impression: Abdominal pain during Disposition: 01 HOME, SELF-CARE Condition: IMPROVED Referrals: UNKNOWN PCP NAME (PCP) Patient Instructions: Abdominal Pain During Additional Instructions: Follow-up with your RECLAMATION FURNACE OPERATOR in 2 days for reevaluation. Be sure not to engage in any strenuous activity this weekend until you have followed up with her RECLAMATION FURNACE OPERATOR. Return to the emergency department for any worsening symptoms. Problem Qualifiers Primary Impression: Abdominal pain during Trimester: second trimester Qualified Codes: O26.892 - Other specified related conditions, second trimester; R10.9 - Unspecified abdominal pain YANY MALHOTRA MD Jun 19, 2017 01:09
[2017-06-19] MEDS ORDERED: ONDANSETRON PF 4 MG/2 ML VIAL. IV ONE (01:30)
[2017-06-19] MEDS ORDERED: IV NORMAL SALINE 1000ML BAG 1,000 ML IV SCH (01:30)
[2017-06-19 01:40] LABS: BASO # 0.1 x10^3/uL (0.0-0.2); BASO % 1 % (0-3); EOS % 2 % (0-3); HEMATOCRIT 31.4 % (36.0-47.0); HEMOGLOBIN 10.8 g/dL (12.0-15.5); LYMPH # 1.9 x10^3/uL (1.0-4.8); LYMPH % 28 % (24-48); MEAN CORPUSCULAR HEMOGLOBIN 31 pg (25-35); MEAN CORPUSCULAR HGB CONC 34 g/dL (31-37); MEAN CORPUSCULAR VOLUME 90 fL (79-100); MONO % 8 % (0-9); NEUT % 62 % (31-73); PLATELET COUNT 187 x10^3/uL (140-400); RED BLOOD COUNT 3.49 x10^6/uL (3.50-5.40); RED CELL DISTRIBUTION WIDTH 14.8 % (11.5-14.5); WHITE BLOOD COUNT 6.8 x10^3/uL (4.0-11.0)
--- NOTE | 2017-06-19 01:52 | RAD ---
INDICATION: severe abd pain today COMPARISON: March 23, 2017 TECHNIQUE: Grayscale and color ultrasound images uterus and adnexa. FINDINGS: Placenta at anterior wall. Intrauterine is identified with a heart beat of 155. Estimated gestational age 17 weeks and 3 days with estimated due date of November 24, 2017. position is transverse at time of exam. Cervix is 4.8 cm. Placental edge is approximately 19 mm from the cervix at this time. Fluid is seen in the bladder. The maternal ovaries are not well seen in the adnexa. Estimated weight 198 g IMPRESSION: 1. Intrauterine gestational sac is identified with a pole with estimated gestational age of 17 weeks and 3 days with positive heartbeat. 2. The placenta is anterior and located approximately 19 mm from the internal cervical os. This should be followed on future examinations to ensure that there is no migration towards the cervical os. Recommend routine anomaly screening at 18-22 weeks. Electronically signed by: Kenny Mackey MD (06/19/2017 1:49 AM) [facility]
[2017-06-19 02:03] LABS: CALCIUM 9.1 mg/dL (8.5-10.1); CREATININE 0.6 mg/dL (0.6-1.0); GFR 122.8
[2017-06-19 02:09] LABS: ALBUMIN 2.8 g/dL (3.4-5.0); ALBUMIN/GLOBULIN RATIO 0.7 (1.0-1.7); MAGNESIUM 1.5 mg/dL (1.8-2.4); TOTAL BILIRUBIN 0.1 mg/dL (0.2-1.0); TOTAL PROTEIN 7.1 g/dL (6.4-8.2)
== END 2017-06-19 03:40 | disposition home or self-care (01) ==
LOC: ER 00:12
DX: O26.892 Other specified pregnancy related conditions, second trimester (principal); R10.84 Generalized abdominal pain; O23.42 Unspecified infection of urinary tract in pregnancy, second trimester; Z3A.17 17 weeks gestation of pregnancy; Z91.010 Allergy to peanuts
CPT/HCPCS: 76805; 80053; 81001; 81025; 83735; 84702; 85025; 86850; 86900; 86901; 87086; 96361; 96374; 99285; J2405; J7030; P9612; Q0111; 36415; 87491; 87591

== ENCOUNTER 2017-06-24 05:19 | Emergency (ER) | payer MEDICARE ==
[~2017-06-24] VITALS: Ht 157.5 cm; Wt 99.8 kg
[2017-06-24 06:37] LABS: BILIRUBIN,URINE NEGATIVE (NEG); GLUCOSE,URINE NEGATIVE (NEG); NITRITE,URINE NEGATIVE (NEG); PH,URINE 6.5; PROTEIN,URINE 100 mg/dL (NEG-TRACE); UROBILINOGEN,URINE 0.2 mg/dL (0.2 mg/dL)
[2017-06-24 06:46] LABS: SQUAMOUS EPITHELIAL CELL,UR MANY /LPF
[2017-06-24 06:47] LABS: BACTERIA,URINE MANY /HPF (0-FEW); WBC,URINE >40 /HPF (0-4)
--- NOTE | 2017-06-24 06:49 | ED.ADGEN ---
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 Patient is , 17 weeks by ultrasound performed 4 days ago in the emergency department at [facility], states she has following a [facility] for her , and that her neurologist is aware of status, is managing her medications. Patient denies any missed doses of medications, states that she has been taking vitamins as instructed. Patient states that she is experiencing burning with urination, no significant change in vaginal discharge, which is white, no leakage of fluid, no vaginal bleeding, states was last sexually active in April, denies any possibility of STI exposure. She denies any nausea or vomiting, any fevers or chills, any weakness, numbness, tingling, headache, chest pain, shortness of breath or other complaints. States that she is experiencing suprapubic abdominal cramping worse with urination as well. No pain currently. Urinalysis pending. Patient states her next appointment with her OB is in 2 weeks. Review of Systems Review of Systems Constitutional: Denies fever or chills. [] Eyes: Denies change in visual acuity. [] HENT: Denies nasal congestion or sore throat. [] Respiratory: Denies cough or shortness of breath. [] Cardiovascular: Denies chest pain or edema. [] GI: Denies abdominal pain, nausea, vomiting, bloody stools or diarrhea. [] : Dysuria, denies any frequency or urgency. No hematuria. Denies any change in vaginal discharge aside from her typical white discharge. Musculoskeletal: Denies back pain or joint pain. [] Integument: Denies rash. [] Neurologic: Denies headache, focal weakness or sensory changes. [] Endocrine: Denies polyuria or polydipsia. [] Lymphatic: Denies swollen glands. [] Psychiatric: Denies depression or anxiety. [] Current Medications Current Medications Current Medications Medications (Trade) Dose Ordered Sig/Brittny Start Time Stop Time Status Last Admin Dose Admin Acetaminophen (Tylenol) 1,000 mg 1X ONCE 06/24/17 07:45 06/24/17 07:46 Cephalexin HCl (Keflex) 500 mg 1X ONCE 06/24/17 07:30 06/24/17 07:31 Phenazopyridine HCl (Pyridium) 200 mg 1X ONCE 06/24/17 07:45 06/24/17 07:46 Allergies Allergies Allergies Coded Allergies Type Severity Reaction Last Updated Verified peanut Allergy Intermediate PEANUT BUTTER 08/30/14 Yes Physical Exam Physical Exam Constitutional: Well developed, well nourished, no acute distress, non-toxic appearance. [] HENT: Normocephalic, atraumatic, bilateral external ears normal, oropharynx moist, no oral exudates, nose normal. [] Eyes: PERRLA, EOMI, conjunctiva normal, no discharge. [] Neck: Normal range of motion, no tenderness, supple, no stridor. [] Cardiovascular:Heart rate regular rhythm, no murmur, S1, S2, rubs or gallops. [] Lungs & Thorax: Bilateral breath sounds clear to auscultation, no wheezing, rhonchi, rales. No chest or crepitus or tenderness. [] Abdomen: Bowel sounds normal, soft, mild tenderness palpation in the suprapubic region, no rebound, rigidity, no guarding, no masses, no pulsatile masses. [] Skin: Warm, dry, no erythema, no rash. [] Back: No tenderness, no CVA tenderness. [] Extremities: No tenderness, no cyanosis, no clubbing, ROM intact, no edema. [] Neurologic: Alert and oriented X 3, normal motor function, normal sensory function, no focal deficits noted. [] Psychologic: Affect normal, judgement normal, mood normal. [] Pelvic examination: Patient with an external examination is unremarkable, no lesions or abnormalities identified. Bimanual examination reveals a closed os, with no adnexal masses or tenderness identified, no CMT. Patient with a small amount of white discharge noted on glove. Speculum examination performed without issue, normal-appearing cervix, slightly engorged, no evidence of friability or other abnormalities identified. Specimens taken without issue. heart tones: 140s to 160s by Doppler at bedside. Current Patient Data Vital Signs Vital Signs Date Time Temp Pulse Resp B/P (MAP) Pulse Ox O2 Delivery O2 Flow Rate FiO2 06/24/17 06:44 82 17 129/70 (89) Room Air 06/24/17 06:14 100 06/24/17 05:45 97.8 97.8 Lab Values Laboratory Tests Test 06/24/17 05:39 06/24/17 05:45 Urine Collection Type Void Urine Color Yellow Urine Clarity Cloudy Urine pH 6.5 Urine Specific [place] 1.020 Urine Protein 100 mg/dL (NEG-TRACE) Urine Glucose (UA) Negative mg/dL (NEG) Urine Ketones (Stick) Negative mg/dL (NEG) Urine Blood Trace (NEG) Urine Nitrite Negative (NEG) Urine Bilirubin Negative (NEG) Urine Urobilinogen Dipstick 0.2 mg/dL (0.2 mg/dL) Urine Leukocyte Esterase Moderate (NEG) Urine RBC 1-2 /HPF (0-2) Urine WBC >40 /HPF (0-4) Urine Squamous Epithelial Cells Many /LPF Urine Bacteria Many /HPF (0-FEW) Urine Mucus Marked /LPF POC Urine HCG, Qualitative Hcg positive (Negative) Microbiology 06/24/17 Wet Prep - Final, Complete EKG EKG Not indicated.[] Radiology/Procedures Radiology/Procedures [][facility] [address] [place], [place] [id number] IMAGING REPORT Signed PATIENT: MISAEL JEWELL ACCOUNT: [id number] : 1990 LOCATION: ER AGE: 26 SEX: F EXAM STATUS: REG ER ORD. PHYSICIAN: YANY MALHOTRA MD REASON: abdominal pain, patient reports approximately 17 weeks EGA PROCEDURE: PREG MORE THAN OR EQ TO 14 WKS INDICATION: severe abd pain today COMPARISON: March 23, 2017 TECHNIQUE: Grayscale and color ultrasound images uterus and adnexa. FINDINGS: Placenta at anterior wall. Intrauterine is identified with a heart beat of 155. Estimated gestational age 17 weeks and 3 days with estimated due date of November 24, 2017. position is transverse at time of exam. Cervix is 4.8 cm. Placental edge is approximately 19 mm from the cervix at this time. Fluid is seen in the bladder. The maternal ovaries are not well seen in the adnexa. Estimated weight 198 g IMPRESSION: 1. Intrauterine gestational sac is identified with a pole with estimated gestational age of 17 weeks and 3 days with positive heartbeat. 2. The placenta is anterior and located approximately 19 mm from the internal cervical os. This should be followed on future examinations to ensure that there is no migration towards the cervical os. Recommend routine anomaly screening at 18-22 weeks. Electronically signed by: Yuval Ashley MD (06/19/2017 1:49 AM) [facility] DICTATED and SIGNED BY: YUVAL ASHLEY MD DATE: 06/19/17 0144 CC: YANY MALHOTRA MD; NO PCP ~ Course & Med Decision Making Course & Med Decision Making Pertinent Labs and Imaging studies reviewed. (See chart for details) Patient's complaining of dysuria, no frequency or urgency, no discharge, bleeding, no flank or back pain, fevers, vomiting, or other concerning symptoms. Examination and history consistent with an uncomplicated urinary tract infection in a woman. No evidence of pyelonephritis and examination. Patient's urinalysis is positive for many bacteria, although also many wbc's greater than 40, and epithelial cells. Will treat with Keflex, review of cultures of previous cultures were normal matthew, given first dose of Keflex and Pyridium in the emergency department without issue, cultures are pending, wet prep is unremarkable, discussed importance of staying well-hydrated , continuing vitamins, and completing antibiotic course. Patient states she is an appointment to follow-up with her AD OPERATIONS COORDINATOR in 2 weeks, patient encouraged to call for an earlier appointment for test of cure in one week. We discussed concerning symptoms that prompt return to the ED for additional evaluation, patient voiced understanding and agreement with plan and precautions , discharged with prescription for Keflex, Pyridium, to continue acetaminophen as needed, and to return to the ED for any new or concerning symptoms as discussed. Dragon Disclaimer Dragon Disclaimer This electronic medical record was generated, in whole or in part, using a voice recognition dictation system. Departure Impression: Primary Impression: UTI (urinary tract infection) Additional Impression: Second trimester Disposition: HOME, SELF-CARE Condition: IMPROVED Scripts Cephalexin (KEFLEX) 500 Mg Capsule 1 CAP PO BID, #13 CAP 112 by mouth twice daily for 7 days to treat infection. First dose given in the ED, morning of 06/24. Prov: RUSSELL JACOBO DO 06/24/17 Phenazopyridine Hcl (PYRIDIUM) 200 Mg Tablet 200 MG PO TID, #9 TAB Prov: RUSSELL JACOBO DO 06/24/17 Problem Qualifiers RUSSELL JACOBO DO Jun 24, 2017 06:49
[2017-06-24] MEDS ORDERED: PHEN-318 PO (07:25)
[2017-06-24] MEDS ORDERED: CEPH-264 PO (07:25)
[2017-06-24 07:30] VITALS: BP 103/66
[2017-06-24] MEDS ORDERED: CEPHALEXIN 250 MG CAPSULE. PO ONE (07:30)
[2017-06-24] MEDS ORDERED: PHENAZOPYRIDINE 200 MG TABLET. PO ONE (07:45)
[2017-06-24] MEDS ORDERED: ACETAMINOPHEN 500 MG TABLET PO ONE (07:45)
== END 2017-06-24 07:48 | disposition home or self-care (01) ==
LOC: ER 05:19
DX: O23.42 Unspecified infection of urinary tract in pregnancy, second trimester (principal); Z3A.17 17 weeks gestation of pregnancy; Z91.010 Allergy to peanuts
CPT/HCPCS: 81001; 81025; 87086; 87186; 87491; 87591; 99284; Q0111

== ENCOUNTER 2017-06-25 20:29 | Emergency (ER) | payer MEDICARE ==
[~2017-06-25 20:29] MED LIST changes: +PHEN-318 PO
[2017-06-25] MEDS ORDERED: IV NORMAL SALINE 1000ML BAG 1,000 ML IV ONE (21:30)
[2017-06-25 21:35] VITALS: BP 114/71
--- NOTE | 2017-06-25 21:37 | PHYS DOC ---
Past Medical History Past Medical History: Anxiety, Depression, Hypotension, Seizure, UTI Additional Past Medical Histor: bradycardia Past Surgical History: Other Additional Past Surgical Histo: anti seizure device Alcohol Use: None Drug Use: None Adult General Chief Complaint Chief Complaint: SEIZURE HPI HPI Patient is a 26 year old F who presents with multiple seizures today. Patient has a known seizure disorder and her neurologist at . Patient states she's been having seizures every day for the past week. Patient denies any fevers. Patient states she's been compliant with her antiseizure medication. Patient states she contacted her neurologist today and told her to go the emergency room. Patient is postictal in the emergency room however is somnolent but arousable to answer questions. Patient has no complaints. Patient states she did not hit her head. Review of Systems Review of Systems GEN: Denies fevers, chills, sweats HEENT: Denies blurred vision, sore throat CV: Denies chest pain RESP: Denies shortness of air, cough GI: Denies n/v/d NEURO: Seizure MSK: Denies weakness, joint pain/swelling Current Medications Current Medications Current Medications Medications (Trade) Dose Ordered Sig/Brittny Start Time Stop Time Status Last Admin Dose Admin Sodium Chloride 1,000 ml @ 1,000 mls/hr 1X ONCE 06/25/17 21:30 06/25/17 22:29 Allergies Allergies Allergies Coded Allergies Type Severity Reaction Last Updated Verified peanut Allergy Intermediate PEANUT BUTTER 08/30/14 Yes Physical Exam Physical Exam GEN.: No apparent distress. Alert and oriented. HEENT: Head is normocephalic, atraumatic NECK: Supple. LUNGS: CTAB. HEART: RRR, S1, S2 present. Peripheral pulses intact ABDOMEN: Soft, nontender. Positive bowel sounds. EXTREMITIES: Without any cyanosis. NEUROLOGIC: Normal speech, normal tone, patient is somnolent however arousable and is alert and oriented 3 PSYCHIATRIC: Normal affect, normal mood. SKIN: No ulcerations Current Patient Data Vital Signs Vital Signs Date Time Temp Pulse Resp B/P (MAP) Pulse Ox O2 Delivery O2 Flow Rate FiO2 06/25/17 20:45 99.2 87 16 114/64 (81) 99 Room Air 99.2 EKG EKG [] Radiology/Procedures Radiology/Procedures [] Course & Med Decision Making Course & Med Decision Making Pertinent Labs and Imaging studies reviewed. (See chart for details) ED course: Patient was seen and examined emergency room CBC, CMP, UA, and urine drug screen , CT scan of the head were ordered 2135: Patient is requesting to be transferred to because her neurologist is there. Explained to the patient that we would work her up and discussed the case with our neurologist here to determine whether or not the patient needs to be admitted or can be safely discharged home with short-term follow-up. Explained to the patient that if our neurologist here felt she needed to be transferred to we would transfer her. Explained the EMTALA situation to the patient and since [facility] has a capability to taking care of her we will do such and contact our neurologist first. Patient has decided that she would like to sign out AGAINST MEDICAL ADVICE understanding all the risks including and disability and also to herself. I have offered the patient alternative and that we would obtain blood work and CT scan of head and our facility and discussed the case with the neurologist however the patient does not want that and has declined further treatment and will leave AGAINST MEDICAL ADVICE. [] Dragon Disclaimer Dragon Disclaimer This electronic medical record was generated, in whole or in part, using a voice recognition dictation system. Departure Departure Impression: Primary Impression: Seizure Additional Impression: Left against medical advice Disposition: 07 AGAINST MEDICAL ADVICE Condition: STABLE Referrals: NO PCP (PCP) Patient Instructions: Seizure, Adult Additional Instructions: Patient is leaving AGAINST MEDICAL ADVICE however recommended that if symptoms get worse or anything changes she is more welcome to return to the emergency room for further evaluation and management. Problem Qualifiers KUN MONTES DO Jun 25, 2017 21:37
== END 2017-06-25 21:35 | disposition left against medical advice (07) ==
LOC: ER 20:29
DX: G40.909 Epilepsy, unspecified, not intractable, without status epilepticus (principal); F41.9 Anxiety disorder, unspecified; F32.9 Major depressive disorder, single episode, unspecified; I95.9 Hypotension, unspecified; Z87.440 Personal history of urinary (tract) infections; Z91.010 Allergy to peanuts
CPT/HCPCS: 99284

== ENCOUNTER 2017-08-07 | Emergency (ER) | payer MEDICARE ==
[~2017-08-07] VITALS: Ht 157.5 cm; Wt 99.8 kg
[2017-08-07 00:55] VITALS: BP 108/62
[2017-08-07 01:09] LABS: BILIRUBIN,URINE SMALL (NEG); GLUCOSE,URINE NEGATIVE (NEG); NITRITE,URINE NEGATIVE (NEG); PROTEIN,URINE NEGATIVE (NEG-TRACE)
[2017-08-07 01:41] LABS: BACTERIA,URINE MANY /HPF (0-FEW); RBC,URINE 0 /HPF (0-2); SQUAMOUS EPITHELIAL CELL,UR MOD /LPF; WBC,URINE 0 /HPF (0-4)
[2017-08-07] MEDS ORDERED: CEPH-263 PO (02:03)
--- NOTE | 2017-08-07 02:03 | PHYS DOC ---
Past Medical History Past Medical History: Anxiety, Depression, Hypotension, Seizure, UTI Additional Past Medical Histor: bradycardia Past Surgical History: Other Additional Past Surgical Histo: anti seizure device Alcohol Use: None Drug Use: None Adult General Chief Complaint Chief Complaint: PAIN ON URINATION [facility] Preliminary note: 26-year-old female who is approximately 24 weeks by last menstrual period presenting with dysuria. OB labor and delivery evaluated the patient in the emergency department and discussed the case with Dr. Trujillo their clam shucking machine tender who feels the patient is cleared from an obstetrics point of view. The patient has symptomatology suggestive of urinary tract infection. She was given oral Keflex to follow-up with Dr. Trujillo. I also discussed the case on the phone with Dr. Trujillo who agrees with the plan of care. onset today. location . duration intermittent. Review of Systems Review of Systems Patient denies chest pain shortness of breath fevers chills. She denies nausea vomiting. All of the review of systems is negative unless otherwise noted in HPI Allergies Allergies Allergies Coded Allergies Type Severity Reaction Last Updated Verified peanut Allergy Intermediate PEANUT BUTTER 08/30/14 Yes Physical Exam Physical Exam Constitutional: Well developed, well nourished, no acute distress, non-toxic appearance. [] HENT: Normocephalic, atraumatic, bilateral external ears normal, oropharynx moist, no oral exudates, nose normal. [] Eyes: PERRLA, EOMI, conjunctiva normal, no discharge. [] Neck: Normal range of motion, no tenderness, supple, no stridor. [] Cardiovascular:Heart rate regular rhythm, no murmur [] Lungs & Thorax: Bilateral breath sounds clear to auscultation [] Abdomen: gravid abd, Bowel sounds normal, soft, no tenderness, no masses, no pulsatile masses. [] Skin: Warm, dry, no erythema, no rash. [] Back: No tenderness, no CVA tenderness. [] Extremities: No tenderness, no cyanosis, no clubbing, ROM intact, no edema. [] Neurologic: Alert and oriented X 3, normal motor function, normal sensory function, no focal deficits noted. [] Psychologic: Affect normal, judgement normal, mood normal. [] Current Patient Data Vital Signs Vital Signs Date Time Temp Pulse Resp B/P (MAP) Pulse Ox O2 Delivery O2 Flow Rate FiO2 08/07/17 00:55 98.1 77 16 108/62 (77) 98 Room Air 98.1 Lab Values Laboratory Tests Test 08/07/17 01:00 08/07/17 01:02 Urine Collection Type Unknown Urine Color Lashanda Urine Clarity Cloudy Urine pH 7.0 Urine Specific [place] >=1.030 Urine Protein Negative mg/dL (NEG-TRACE) Urine Glucose (UA) Negative mg/dL (NEG) Urine Ketones (Stick) Negative mg/dL (NEG) Urine Blood Negative (NEG) Urine Nitrite Negative (NEG) Urine Bilirubin Small (NEG) Urine Urobilinogen Dipstick 1.0 mg/dL (0.2 mg/dL) Urine Leukocyte Esterase Negative (NEG) Urine RBC 0 /HPF (0-2) Urine WBC 0 /HPF (0-4) Urine Squamous Epithelial Cells Mod /LPF Urine Bacteria Many /HPF (0-FEW) Urine Mucus Mod /LPF POC Urine HCG, Qualitative Hcg positive (Negative) EKG EKG [] Radiology/Procedures Radiology/Procedures [] Course & Med Decision Making Course & Med Decision Making Pertinent Labs and Imaging studies reviewed. (See chart for details) [] Dragon Disclaimer Dragon Disclaimer This electronic medical record was generated, in whole or in part, using a voice recognition dictation system. Departure Departure Impression: Primary Impression: UTI (urinary tract infection) Disposition: HOME, SELF-CARE Condition: STABLE Referrals: NO PCP (PCP) JAMAAL EPPS MD Patient Instructions: Urinary Tract Infection Additional Instructions: Thank you for allowing us to participate in your care today. Followup with your primary care physician in 3 days if your symptoms do not improve. Call your Primary Doctor tomorrow and inform them of your visit today. If you do not have a primary care provider you can ask for a list of our primary care providers. Return to the emergency department you have any new or concerning findings. This should be evaluated by the primary care physician and any necessary consulting services for continued management within a few days after discharge. Return to emergency room if you have any new or concerning symptoms including but not limited to fever, chills, nausea, vomiting, intractable pain, any new rashes, chest pain, shortness of air, uncontrolled bleeding, difficulty breathing, and/or vision loss. Scripts Cephalexin (KEFLEX) 250 Mg Capsule 1 CAP PO QID, #28 CAP Prov: NEIL DAILEY MD 08/07/17 NEIL DAILEY MD Aug 07, 2017 02:03
== END 2017-08-07 02:36 | disposition home or self-care (01) ==
LOC: ER
DX: O23.42 Unspecified infection of urinary tract in pregnancy, second trimester (principal); O99.342 Other mental disorders complicating pregnancy, second trimester; F41.9 Anxiety disorder, unspecified; F32.9 Major depressive disorder, single episode, unspecified; Z3A.24 24 weeks gestation of pregnancy; Z91.010 Allergy to peanuts
CPT/HCPCS: 81001; 81025; 87086; 99284

== ENCOUNTER 2017-08-16 00:44 | Emergency (ER) | payer MEDICARE ==
[~2017-08-16] VITALS: Ht 157.5 cm; Wt 99.8 kg
[~2017-08-16 00:44] MED LIST changes: +CEPH-263 PO
--- NOTE | 2017-08-16 00:46 | PHYS DOC ---
Past Medical History Past Medical History: Anxiety, Depression, Hypotension, Seizure, UTI Additional Past Medical Histor: bradycardia Past Surgical History: Other Additional Past Surgical Histo: anti seizure device Alcohol Use: None Drug Use: None Adult General Chief Complaint Chief Complaint: MECHANICAL FALL HPI HPI Patient is a 26 year old female who presents with diffuse back pain and headache. She states pressure 2 hours prior to arrival she was in the bathroom and woke up on the floor. She is unsure she had a seizure. She denies any shortness of breath or neck pain. She states she has diffuse back pain. She also complains about the right side of her scalp hurting. She has not taken anything for pain or discomfort. She currently complains of a mild headache to the right side of her head, she also complains about her entire back hurting. She states she is approximately 5 weeks and has an OB at . She also complains of some abdominal discomfort, she denies any vaginal bleeding or discharge. Review of Systems Review of Systems Constitutional: Denies fever or chills [] Eyes: Denies change in visual acuity, redness, or eye pain [] HENT: Denies nasal congestion or sore throat [] Respiratory: Denies cough or shortness of breath [] Cardiovascular: No additional information not addressed in HPI [] GI: Denies abdominal pain, nausea, vomiting, bloody stools or diarrhea [] : Denies dysuria or hematuria [] Musculoskeletal: Positive for back pain, Denies joint pain [] Integument: Denies rash or skin lesions [] Neurologic: As it for headache,Denies focal weakness or sensory changes [] Endocrine: Denies polyuria or polydipsia [] All other systems were reviewed and found to be within normal limits, except as documented in this note. Current Medications Current Medications Current Medications Medications (Trade) Dose Ordered Sig/Brittny Start Time Stop Time Status Last Admin Dose Admin Acetaminophen (Tylenol) 1,000 mg 1X ONCE 08/16/17 01:30 08/16/17 01:31 DC 08/16/17 01:33 1,000 MG Allergies Allergies Allergies Coded Allergies Type Severity Reaction Last Updated Verified peanut Allergy Intermediate PEANUT BUTTER 08/30/14 Yes Physical Exam Physical Exam Constitutional: Well developed, well nourished, no acute distress, non-toxic appearance. [] HENT: Normocephalic, atraumatic, bilateral external ears normal, oropharynx moist, no oral exudates, nose normal. Mild tender palpation in the right parietal scalp without any obvious deformity noted Eyes: PERRLA, EOMI, conjunctiva normal, no discharge. [] Neck: Normal range of motion, no tenderness, supple, no stridor. [] Cardiovascular:Heart rate regular rhythm, no murmur [] Lungs & Thorax: Bilateral breath sounds clear to auscultation [] Abdomen: Bowel sounds normal, soft, mild tender palpation diffusely, gravid uterus, no rebound or guarding, no masses, no pulsatile masses. [] Skin: Warm, dry, no erythema, no rash. [] Back: No tenderness, no CVA tenderness. [] Extremities: No midline tenderness, tender palpation paraspinally throughout the entire back, no step-offs appreciated, no cyanosis, no clubbing, ROM intact , no edema. [] Neurologic: Alert and oriented X 3, normal motor function, normal sensory function, no focal deficits noted. [] Psychologic: Affect normal, judgement normal, mood normal. [] Current Patient Data Vital Signs Vital Signs Date Time Temp Pulse Resp B/P (MAP) Pulse Ox O2 Delivery O2 Flow Rate FiO2 08/16/17 00:58 98.7 79 20 105/58 (74) 98 Room Air 98.7 Lab Values Laboratory Tests Test 08/16/17 01:45 Urine Collection Type Unknown Urine Color Yellow Urine Clarity Turbid Urine pH 8.0 Urine Specific [place] 1.020 Urine Protein Negative mg/dL (NEG-TRACE) Urine Glucose (UA) Negative mg/dL (NEG) Urine Ketones (Stick) Negative mg/dL (NEG) Urine Blood Negative (NEG) Urine Nitrite Negative (NEG) Urine Bilirubin Negative (NEG) Urine Urobilinogen Dipstick 1.0 mg/dL (0.2 mg/dL) Urine Leukocyte Esterase Negative (NEG) Urine RBC 0 /HPF (0-2) Urine WBC 0 /HPF (0-4) Urine Squamous Epithelial Cells Few /LPF Urine Amorphous Sediment Present /HPF Urine Bacteria Few /HPF (0-FEW) Urine Mucus Slight /LPF EKG EKG [] Radiology/Procedures Radiology/Procedures [] Impressions: Muscle skeletal back pain Abdominal pain and Bacteriuria Course & Med Decision Making Course & Med Decision Making Pertinent Labs and Imaging studies reviewed. (See chart for details) Patient fell in her bathroom and she's not sure if she got knocked out or not. She does have a mild headache that improved with Tylenol. Do not appreciate any midline back pain. She is have bacteriuria therefore we will discharge with Macrobid 100 twice a day for 7 days. Patient's being discharged to go up to the OB floor to have monitoring of her baby since she's currently 20 weeks . She denied any vaginal bleeding, dysuria at this time. Return precautions given. She is agreeable plan being discharged in stable condition. Dragon Disclaimer Dragon Disclaimer This electronic medical record was generated, in whole or in part, using a voice recognition dictation system. Departure Departure Impression: Primary Impression: Abdominal pain Additional Impression: Back pain Disposition: 01 HOME, SELF-CARE Condition: STABLE Referrals: NO PCP (PCP) Patient Instructions: Back Pain, Adult, [id number] Additional Instructions: You were seen tonight after you fell in the bathroom and you had a headache and back pain. Your headache improved with Tylenol. You've been acting normal. I do not feel that you need any x-rays at this time. You have bacteria in your urine and you'll need take antibiotics for next 7 days. Please follow instructions on the prescription. Your being discharged to go up to the OB floor to have your baby checked out. Return back to ER if you become confused, lightheaded dizzy, have neck pain, numbness or tingling in arms or legs, or other concerns. Scripts Nitrofurantoin Monohyd/M-Cryst (MACROBID 100 MG CAPSULE) 100 Mg Capsule 1 CAP PO BID, #14 CAP Prov: JOEL CABRERA MD 08/16/17 Problem Qualifiers JOEL CABRERA MD Aug 16, 2017 00:46
[2017-08-16 00:58] VITALS: BP 105/58
[2017-08-16] MEDS ORDERED: ACETAMINOPHEN 500 MG TABLET PO ONE (01:30)
[2017-08-16 01:52] LABS: BILIRUBIN,URINE NEGATIVE (NEG); GLUCOSE,URINE NEGATIVE (NEG); NITRITE,URINE NEGATIVE (NEG); PROTEIN,URINE NEGATIVE (NEG-TRACE)
[2017-08-16 01:59] LABS: BACTERIA,URINE FEW /HPF (0-FEW); RBC,URINE 0 /HPF (0-2); SQUAMOUS EPITHELIAL CELL,UR FEW /LPF; WBC,URINE 0 /HPF (0-4)
[2017-08-16] MEDS ORDERED: NITR100C62 PO (02:02)
== END 2017-08-16 02:10 | disposition home or self-care (01) ==
LOC: ER 00:44
DX: O26.892 Other specified pregnancy related conditions, second trimester (principal); R10.84 Generalized abdominal pain; M54.89 Other dorsalgia; R82.71 Bacteriuria; O99.342 Other mental disorders complicating pregnancy, second trimester; F32.9 Major depressive disorder, single episode, unspecified; F41.9 Anxiety disorder, unspecified; Z87.440 Personal history of urinary (tract) infections; Z91.010 Allergy to peanuts; Z3A.20 20 weeks gestation of pregnancy
CPT/HCPCS: 81001; 99284

== ENCOUNTER 2017-09-03 23:35 | Observation (INO) | payer MEDICARE ==
[2017-09-03] MEDS ORDERED: IV RINGERS,LACTATED 1000ML 1,000 ML IV (23:45)
[2017-09-04 00:28] LABS: BILIRUBIN,URINE NEGATIVE (NEG); GLUCOSE,URINE NEGATIVE (NEG); NITRITE,URINE NEGATIVE (NEG); PROTEIN,URINE NEGATIVE (NEG-TRACE)
[2017-09-04 00:34] LABS: BARBITURATES NEG (NEG); BENZODIAZEPINES POS (NEG); CANNABINOIDS NEG (NEG); COCAINE NEG (NEG); METHADONE NEG (NEG); OPIATES NEG (NEG); PHENCYCLIDINE NEG (NEG)
[2017-09-04 00:36] LABS: BACTERIA,URINE MANY /HPF (0-FEW); RBC,URINE 0 /HPF (0-2); SQUAMOUS EPITHELIAL CELL,UR MOD /LPF; WBC,URINE OCC /HPF (0-4)
[2017-09-04 00:39] LABS: ETHANOL, URINE NEG (NEG)
== END 2017-09-04 01:18 | disposition home or self-care (01) ==
LOC: 3 SO LND 23:35
DX: O26.892 Other specified pregnancy related conditions, second trimester (principal); R10.9 Unspecified abdominal pain; Z3A.25 25 weeks gestation of pregnancy
CPT/HCPCS: 80307; 81001; 87086; G0378; G0379

== ENCOUNTER 2017-10-14 00:23 | Observation (INO) | payer OTHER, MEDICARE ==
[2017-10-14 01:26] LABS: BILIRUBIN,URINE NEGATIVE (NEG); CLARITY,URINE CLOUDY; COLOR,URINE YELLOW; GLUCOSE,URINE NEGATIVE (NEG); NITRITE,URINE NEGATIVE (NEG); PH,URINE 6.5; PROTEIN,URINE NEGATIVE (NEG-TRACE)
[2017-10-14 01:32] LABS: BACTERIA,URINE MODERATE /HPF (0-FEW); RBC,URINE OCC /HPF (0-2)
[2017-10-14 01:33] LABS: AMORPHOUS SEDIMENT,UR PRESENT /HPF; BARBITURATES NEG (NEG); BENZODIAZEPINES POS (NEG); CANNABINOIDS NEG (NEG); COCAINE NEG (NEG); METHADONE NEG (NEG); OPIATES NEG (NEG); PHENCYCLIDINE NEG (NEG); SQUAMOUS EPITHELIAL CELL,UR MANY /LPF
[2017-10-14 01:37] LABS: AMPHETAMINE/METHAMPHETAMINE NEG (NEG); ETHANOL, URINE NEG (NEG)
[2017-10-14 02:03] LABS: POC GLUCOSE 84 mg/dL (70-99)
[2017-10-14 02:17] LABS: GLUCOSE 88 mg/dL (70-99)
[2017-10-14 02:17] LABS: MAGNESIUM 1.7 mg/dL (1.8-2.4)
[2017-10-14] MEDS: IV RINGERS,LACTATED 1000ML 1,000 ML IV ×2 (03:37)
[2017-10-14 07:00] LABS: ADD MAN DIFF? NO
[2017-10-14 07:16] LABS: BASO % 0 % (0-3); EOS # 0.1 x10^3/uL (0.0-0.7); EOS % 1 % (0-3); HEMATOCRIT 30.9 % (36.0-47.0); HEMOGLOBIN 10.5 g/dL (12.0-15.5); LYMPH # 1.8 x10^3/uL (1.0-4.8); LYMPH % 25 % (24-48); MEAN CORPUSCULAR HEMOGLOBIN 32 pg (25-35); MEAN CORPUSCULAR HGB CONC 34 g/dL (31-37); MEAN CORPUSCULAR VOLUME 93 fL (79-100); MONO # 0.7 x10^3/uL (0.0-1.1); MONO % 9 % (0-9); NEUT # 4.6 x10^3uL (1.8-7.7); NEUT % 65 % (31-73); PLATELET COUNT 206 x10^3/uL (140-400); RED BLOOD COUNT 3.32 x10^6/uL (3.50-5.40); RED CELL DISTRIBUTION WIDTH 15.2 % (11.5-14.5); WHITE BLOOD COUNT 7.2 x10^3/uL (4.0-11.0)
== END 2017-10-14 08:05 | disposition home or self-care (01) ==
LOC: 3 SO LND 00:23
DX: O26.893 Other specified pregnancy related conditions, third trimester (principal); M54.5 Low back pain; R30.9 Painful micturition, unspecified; Z3A.38 38 weeks gestation of pregnancy
CPT/HCPCS: 36415; 80307; 81001; 82947; 82962; 83735; 85025; 87086; 96360; 96361; G0378; G0379; J7120

== ENCOUNTER 2017-10-20 04:17 | Observation (INO) | payer OTHER ==
[2017-10-20] MEDS ORDERED: IV RINGERS,LACTATED 1000ML 1,000 ML IV ×2 (04:45)
[2017-10-20 05:09] LABS: BILIRUBIN,URINE NEGATIVE (NEG); CLARITY,URINE CLOUDY; COLOR,URINE YELLOW; GLUCOSE,URINE NEGATIVE (NEG); NITRITE,URINE NEGATIVE (NEG); PROTEIN,URINE NEGATIVE (NEG-TRACE)
[2017-10-20 05:18] LABS: BARBITURATES NEG (NEG); BENZODIAZEPINES POS (NEG); CANNABINOIDS NEG (NEG); COCAINE NEG (NEG); METHADONE NEG (NEG); OPIATES NEG (NEG); PHENCYCLIDINE NEG (NEG)
[2017-10-20 05:19] LABS: AMPHETAMINE/METHAMPHETAMINE NEG (NEG); BACTERIA,URINE MANY /HPF (0-FEW); ETHANOL, URINE NEG (NEG); RBC,URINE OCC /HPF (0-2); SQUAMOUS EPITHELIAL CELL,UR MOD /LPF; WBC,URINE OCC /HPF (0-4)
[2017-10-20 05:28] LABS: INFLUENZA A PATIENT NEGATIVE (NEGATIVE); INFLUENZA B PATIENT NEGATIVE (NEGATIVE); OBC FLU VALID
[2017-10-20] MEDS: ONDANSETRON ODT 4 MG TAB.RAPDIS. PO ×2 (05:58)
[2017-10-20] MEDS: PANTOPRAZOLE 40 MG TABLET.DR. PO ×2 (05:59)
== END 2017-10-20 06:05 | disposition home or self-care (01) ==
LOC: 3 SO LND 04:17
DX: O21.2 Late vomiting of pregnancy (principal); Z3A.34 34 weeks gestation of pregnancy
CPT/HCPCS: 80307; 81001; 87086; 87186; 87804; 87804-59; G0378; G0379; Q0162

== ENCOUNTER 2017-12-28 14:09 | Emergency (ER) | payer OTHER ==
[2017-12-28 15:42] LABS: ADD MAN DIFF? NO
[2017-12-28 15:47] LABS: BASO % 0 % (0-3); EOS # 0.1 x10^3/uL (0.0-0.7); EOS % 1 % (0-3); HEMATOCRIT 35.1 % (36.0-47.0); HEMOGLOBIN 12.1 g/dL (12.0-15.5); LYMPH # 1.4 x10^3/uL (1.0-4.8); LYMPH % 25 % (24-48); MEAN CORPUSCULAR HEMOGLOBIN 32 pg (25-35); MEAN CORPUSCULAR HGB CONC 34 g/dL (31-37); MEAN CORPUSCULAR VOLUME 93 fL (79-100); MONO # 0.4 x10^3/uL (0.0-1.1); MONO % 7 % (0-9); NEUT # 3.9 x10^3uL (1.8-7.7); NEUT % 67 % (31-73); PLATELET COUNT 209 x10^3/uL (140-400); RED BLOOD COUNT 3.78 x10^6/uL (3.50-5.40); RED CELL DISTRIBUTION WIDTH 13.8 % (11.5-14.5); WHITE BLOOD COUNT 5.9 x10^3/uL (4.0-11.0)
[2017-12-28 15:59] LABS: ANION GAP 11 (6-14); BLOOD UREA NITROGEN 12 mg/dL (7-20); BUN/CREATININE RATIO 20 (6-20); CALCIUM 8.8 mg/dL (8.5-10.1); CARBON DIOXIDE 25 mmol/L (21-32); CHLORIDE 109 mmol/L (98-107); CREATININE 0.6 mg/dL (0.6-1.0); GFR 121.8; GLUCOSE 99 mg/dL (70-99); POTASSIUM 3.4 mmol/L (3.5-5.1); SODIUM 145 mmol/L (136-145)
[2017-12-28] MEDS: ONDANSETRON PF 4 MG/2 ML VIAL. IV (16:01)
[2017-12-28] MEDS: IV NORMAL SALINE 1000ML BAG 1,000 ML IV (16:01)
[2017-12-28] MEDS: PHENAZOPYRIDINE 200 MG TABLET. PO (16:01)
[2017-12-28 16:04] LABS: ALBUMIN 3.5 g/dL (3.4-5.0); ALBUMIN/GLOBULIN RATIO 0.9 (1.0-1.7); ALK PHOS 186 U/L (46-116); ALT (SGPT) 94 U/L (14-59); AST (SGOT) 21 U/L (15-37); LIPASE 134 U/L (73-393); TOTAL BILIRUBIN 0.3 mg/dL (0.2-1.0); TOTAL PROTEIN 7.2 g/dL (6.4-8.2)
[2017-12-28] MEDS: POTASSIUM CHLORIDE 20 MEQ TABLET.ER. PO (16:44)
[2017-12-28] MEDS: MORPHINE SULFATE 4 MG/ML DISP.SYRIN. IV (16:44)
[2017-12-28 17:11] LABS: URINE HCG POC HCG NEGATIVE (Negative)
[2017-12-28 17:24] LABS: BILIRUBIN,URINE SMALL (NEG); CLARITY,URINE CLOUDY; COLOR,URINE AMBER; GLUCOSE,URINE NEGATIVE (NEG); NITRITE,URINE NEGATIVE (NEG); PROTEIN,URINE 30 mg/dL (NEG-TRACE)
[2017-12-28 17:39] LABS: BACTERIA,URINE 0 /HPF (0-FEW); RBC,URINE TNTC /HPF (0-2); SQUAMOUS EPITHELIAL CELL,UR MANY /LPF; WBC,URINE 0 /HPF (0-4)
[2017-12-28] MEDS: cefTRIAXone IM 250 MG VIAL IM (19:30)
[2017-12-28] MEDS: AZITHROMYCIN 250 MG TABLET. PO (19:30)
== END 2017-12-28 20:30 | disposition home or self-care (01) ==
LOC: ER 14:09
DX: R30.0 Dysuria (principal); R31.9 Hematuria, unspecified; R10.30 Lower abdominal pain, unspecified; Z87.440 Personal history of urinary (tract) infections; Z91.010 Allergy to peanuts
CPT/HCPCS: 36415; 74176; 76856; 80053; 81001; 81025; 83690; 85025; 87491; 87591; 96361; 96372; 96374; 96375; 99285-25; J0696; J2270; J2405; J7030; Q0144

== ENCOUNTER 2018-05-23 07:11 | Inpatient (IN) | payer OTHER ==
[~2018-05-23] VITALS: Ht 157.5 cm; Wt 94.8 kg
[~2018-05-23 07:11] MED LIST changes: +CLON0.5T11 PO; -CLON0.5T3 PO; +DOXY100T9 PO
[2018-05-23] MEDS ORDERED: IV NORMAL SALINE 1000ML BAG 1,000 ML IV SCH (07:26)
[2018-05-23] MEDS ORDERED: ONDANSETRON PF 4 MG/2 ML VIAL. IV ONE (07:30)
--- NOTE | 2018-05-23 07:31 | PHYS DOC ---
Past Medical History Past Medical History: Anxiety, Depression, Hypotension, Seizure, UTI Additional Past Medical Histor: bradycardia Past Surgical History: Other Additional Past Surgical Histo: anti seizure device Alcohol Use: None Drug Use: None Adult General Chief Complaint Chief Complaint: ABDOMINAL PAIN HPI HPI Patient is a 27 year old female presented to the ER today for evaluation nausea, vomiting, diarrhea for 3 days. She also complains of lower abdominal pain since last night. Patient denied any fever, no vaginal bleeding or discharge. Patient denied any chest pain, no shortness of air. She denied any blood in her stool. She denied that she is . Review of Systems Review of Systems Constitutional: Denies fever or chills [] Eyes: Denies change in visual acuity, redness, or eye pain [] HENT: Denies nasal congestion or sore throat [] Respiratory: Denies cough or shortness of breath [] Cardiovascular: No additional information not addressed in HPI [] GI: Positive for abdominal pain, nausea, vomiting, diarrhea, no bloody stools or diarrhea [] : Denies dysuria or hematuria [] Musculoskeletal: Denies back pain or joint pain [] Integument: Denies rash or skin lesions [] Neurologic: Denies headache, focal weakness or sensory changes [] Endocrine: Denies polyuria or polydipsia [] All other systems were reviewed and found to be within normal limits, except as documented in this note. Current Medications Current Medications Current Medications Medications (Trade) Dose Ordered Sig/Brittny Start Time Stop Time Status Last Admin Dose Admin Iohexol (Omnipaque 300 Mg/ml) 75 ml 1X ONCE 05/23/18 10:00 05/23/18 10:01 DC Ondansetron HCl (Zofran) 8 mg 1X ONCE 05/23/18 07:30 05/23/18 07:35 DC 05/23/18 07:57 8 MG Piperacillin Sod/ Tazobactam Sod 3.375 gm/Sodium Chloride 50 ml @ 100 mls/hr 1X ONCE 05/23/18 11:45 05/23/18 12:14 Sodium Chloride 1,000 ml @ 1,000 mls/hr 1X ONCE 05/23/18 10:00 05/23/18 10:59 DC 05/23/18 10:00 1,000 MLS/HR Allergies Allergies Allergies Coded Allergies Type Severity Reaction Last Updated Verified peanut Allergy Intermediate PEANUT BUTTER 08/30/14 Yes Physical Exam Physical Exam Constitutional: Well developed, well nourished, no acute distress, appeared discomfortable. [] HENT: Normocephalic, atraumatic, bilateral external ears normal, oropharynx moist, no oral exudates, nose normal. [] Eyes: PERRLA, EOMI, conjunctiva normal, no discharge. [] Neck: Normal range of motion, no tenderness, supple, no stridor. [] Cardiovascular:Heart rate regular rhythm, no murmur [] Lungs & Thorax: Bilateral breath sounds clear to auscultation [] Abdomen: Tender to palpation at suprapubic and RLQ, no rebound, no guarding. Skin: Warm, dry, no erythema, no rash. [] Back: No tenderness, no CVA tenderness. [] Extremities: No tenderness, no cyanosis, no clubbing, ROM intact, no edema. [] Neurologic: Alert and oriented X 3, normal motor function, normal sensory function, no focal deficits noted. [] Psychologic: Affect normal, judgement normal, mood normal. [] Current Patient Data Vital Signs Vital Signs Date Time Temp Pulse Resp B/P (MAP) Pulse Ox O2 Delivery O2 Flow Rate FiO2 05/23/18 09:40 58 21 90/60 (70) 99 Room Air 05/23/18 07:24 98.0 98.0 Lab Values Laboratory Tests Test 05/23/18 07:40 05/23/18 08:37 05/23/18 08:40 05/23/18 09:09 White Blood Count 5.1 x10^3/uL (4.0-11.0) Red Blood Count 3.76 x10^6/uL (3.50-5.40) Hemoglobin 12.0 g/dL (12.0-15.5) Hematocrit 35.5 % (36.0-47.0) L Mean Corpuscular Volume 95 fL (79-100) Mean Corpuscular Hemoglobin 32 pg (25-35) Mean Corpuscular Hemoglobin Concent 34 g/dL (31-37) Red Cell Distribution Width 14.0 % (11.5-14.5) Platelet Count 267 x10^3/uL (140-400) Neutrophils (%) (Auto) 50 % (31-73) Lymphocytes (%) (Auto) 36 % (24-48) Monocytes (%) (Auto) 12 % (0-9) H Eosinophils (%) (Auto) 2 % (0-3) Basophils (%) (Auto) 1 % (0-3) Neutrophils # (Auto) 2.5 x10^3uL (1.8-7.7) Lymphocytes # (Auto) 1.8 x10^3/uL (1.0-4.8) Monocytes # (Auto) 0.6 x10^3/uL (0.0-1.1) Eosinophils # (Auto) 0.1 x10^3/uL (0.0-0.7) Basophils # (Auto) 0.0 x10^3/uL (0.0-0.2) Sodium Level 142 mmol/L (136-145) Potassium Level 3.8 mmol/L (3.5-5.1) Chloride Level 109 mmol/L (98-107) H Carbon Dioxide Level 23 mmol/L (21-32) Anion Gap 10 (6-14) Blood Urea Nitrogen 10 mg/dL (7-20) Creatinine 0.6 mg/dL (0.6-1.0) Estimated GFR (Cockcroft-Gault) 121.8 BUN/Creatinine Ratio 17 (6-20) Glucose Level 99 mg/dL (70-99) Calcium Level 7.6 mg/dL (8.5-10.1) L Total Bilirubin 0.1 mg/dL (0.2-1.0) L Aspartate Amino Transferase (AST) 11 U/L (15-37) L Alanine Aminotransferase (ALT) 18 U/L (14-59) Alkaline Phosphatase 171 U/L (46-116) H Total Protein 6.9 g/dL (6.4-8.2) Albumin 3.3 g/dL (3.4-5.0) L Albumin/Globulin Ratio 0.9 (1.0-1.7) L Lipase 166 U/L (73-393) Prothrombin Time 13.0 SEC (11.7-14.0) Prothrombin Time INR 1.0 (0.8-1.1) PTT 30 SEC (24-38) Urine Collection Type U cath Urine Color Yellow Urine Clarity Clear Urine pH 6.5 Urine Specific [place] >=1.030 Urine Protein Negative mg/dL (NEG-TRACE) Urine Glucose (UA) Negative mg/dL (NEG) Urine Ketones (Stick) Negative mg/dL (NEG) Urine Blood Negative (NEG) Urine Nitrite Positive (NEG) Urine Bilirubin Negative (NEG) Urine Urobilinogen Dipstick 0.2 mg/dL (0.2 mg/dL) Urine Leukocyte Esterase Small (NEG) Urine RBC Occ /HPF (0-2) Urine WBC 11-20 /HPF (0-4) Urine Bacteria Moderate /HPF (0-FEW) Urine Mucus Marked /LPF Test 05/23/18 09:13 POC Urine HCG, Qualitative Hcg negative (Negative) Laboratory Tests 05/23/18 07:40 Laboratory Tests 05/23/18 08:37 EKG EKG [] Radiology/Procedures Radiology/Procedures [][facility] [address] [place] [address] IMAGING REPORT Signed PATIENT: MISAEL JEWELL ACCOUNT: [id number] : 1990 LOCATION: ER AGE: 27 SEX: F EXAM STATUS: REG ER ORD. PHYSICIAN: CHRISTINE SANABRIA DO REASON: abdominal pain, nausea and vomiting PROCEDURE: CT ABD PELV W/ IV CONTRST ONLY CT abdomen and pelvis with contrast History: Right lower quadrant abdominal pain, nausea and vomiting Technique: After the administration of intravenous contrast, CT imaging was performed of the abdomen and pelvis. No oral contrast was given as per request. Multiplanar images are reviewed. Exposure: One or more of the following individualized dose reduction techniques were utilized for this examination: 1. Automated exposure control 2. Adjustment of the mA and/or kV according to patient size 3. Use of iterative reconstruction technique. Contrast: 75 cc Omnipaque 300 Comparison: December 28, 2017 Findings: There is minimal atelectasis at the visualized lung bases. There is mild motion degradation. There is no significant abnormality of the liver, spleen, pancreas, adrenal glands. Both kidneys enhance without hydronephrosis. Gallbladder is present without obvious intraluminal abnormality by CT. Accurate evaluation of bowel is limited without oral contrast. Appendix is visualized, best seen on axial images 56-64, courses more medially to the central aspect of the abdomen. Distal aspect of the appendix is somewhat dilated about 7 to 8 mm with possible mild wall thickening more distally. More proximal caliber is within normal limits and there is no significant inflammatory change of the periappendiceal fat. There is retained stool greater of the rectosigmoid colon. Small bowel is not significantly dilated. There is no free air or free fluid. There is probable right adnexal cyst about 1.3 cm. Impression: 1. There is nonspecific mild dilatation more distal appendix 7-8 mm with possible mild wall thickening distally, distal early acute appendicitis not excludable by imaging although there is no significant inflammatory change of the adjacent fat. 2. There is probable small right adnexal cyst. Electronically signed by: Beth Mata MD (05/23/2018 11:16 AM) [id number] DICTATED and SIGNED BY: BETH MATA MD DATE: 05/23/18 1108 Course & Med Decision Making Course & Med Decision Making Pertinent Labs and Imaging studies reviewed. (See chart for details) Discussed with Dr. Bishop, General surgeon DISPLAY TRIMMER, regarding RLQ abdominal pain with dilated appendix but no inflammation, suggested that patient can be admitted to medicine service and he will see as design sales consultant, not convinced that patient has acute appendicitis. Dragon Disclaimer Dragon Disclaimer This electronic medical record was generated, in whole or in part, using a voice recognition dictation system. Departure Departure Impression: Primary Impression: Abdominal pain Additional Impression: UTI (urinary tract infection) Disposition: ADMITTED INPATIENT Condition: STABLE Referrals: TONYA PRUETT DO (PCP) Problem Qualifiers CHRISTINE SANABRIA DO May 23, 2018 07:31
[2018-05-23 07:54] LABS: BASO % 1 % (0-3); EOS # 0.1 x10^3/uL (0.0-0.7); EOS % 2 % (0-3); HEMATOCRIT 35.5 % (36.0-47.0); LYMPH # 1.8 x10^3/uL (1.0-4.8); LYMPH % 36 % (24-48); MEAN CORPUSCULAR HEMOGLOBIN 32 pg (25-35); MEAN CORPUSCULAR HGB CONC 34 g/dL (31-37); MEAN CORPUSCULAR VOLUME 95 fL (79-100); MONO # 0.6 x10^3/uL (0.0-1.1); MONO % 12 % (0-9); NEUT # 2.5 x10^3uL (1.8-7.7); NEUT % 50 % (31-73); PLATELET COUNT 267 x10^3/uL (140-400); RED BLOOD COUNT 3.76 x10^6/uL (3.50-5.40); WHITE BLOOD COUNT 5.1 x10^3/uL (4.0-11.0)
[2018-05-23 09:21] LABS: BILIRUBIN,URINE NEGATIVE (NEG); CLARITY,URINE CLEAR; COLOR,URINE YELLOW; NITRITE,URINE POSITIVE (NEG); PH,URINE 6.5; PROTEIN,URINE NEGATIVE (NEG-TRACE); UROBILINOGEN,URINE 0.2 mg/dL (0.2 mg/dL)
[2018-05-23 09:37] LABS: BACTERIA,URINE MODERATE /HPF (0-FEW)
[2018-05-23 09:38] LABS: RBC,URINE OCC /HPF (0-2)
[2018-05-23] MEDS ORDERED: IOHEXOL 300 MG/ML 100ML VIAL. PO ONE (10:00)
[2018-05-23] MEDS ORDERED: IV NORMAL SALINE 1000ML BAG 1,000 ML IV ONE (10:00)
[2018-05-23 10:05] LABS: ALBUMIN 3.3 g/dL (3.4-5.0); ALBUMIN/GLOBULIN RATIO 0.9 (1.0-1.7); CALCIUM 7.6 mg/dL (8.5-10.1); CREATININE 0.6 mg/dL (0.6-1.0); GFR 121.8; POTASSIUM 3.8 mmol/L (3.5-5.1); TOTAL BILIRUBIN 0.1 mg/dL (0.2-1.0); TOTAL PROTEIN 6.9 g/dL (6.4-8.2)
--- NOTE | 2018-05-23 11:19 | RAD ---
CT abdomen and pelvis with contrast History: Right lower quadrant abdominal pain, nausea and vomiting Technique: After the administration of intravenous contrast, CT imaging was performed of the abdomen and pelvis. No oral contrast was given as per request. Multiplanar images are reviewed. Exposure: One or more of the following individualized dose reduction techniques were utilized for this examination: 1. Automated exposure control 2. Adjustment of the mA and/or kV according to patient size 3. Use of iterative reconstruction technique. Contrast: 75 cc Omnipaque 300 Comparison: December 28, 2017 Findings: There is minimal atelectasis at the visualized lung bases. There is mild motion degradation. There is no significant abnormality of the liver, spleen, pancreas, adrenal glands. Both kidneys enhance without hydronephrosis. Gallbladder is present without obvious intraluminal abnormality by CT. Accurate evaluation of bowel is limited without oral contrast. Appendix is visualized, best seen on axial images 56-64, courses more medially to the central aspect of the abdomen. Distal aspect of the appendix is somewhat dilated about 7 to 8 mm with possible mild wall thickening more distally. More proximal caliber is within normal limits and there is no significant inflammatory change of the periappendiceal fat. There is retained stool greater of the rectosigmoid colon. Small bowel is not significantly dilated. There is no free air or free fluid. There is probable right adnexal cyst about 1.3 cm. Impression: 1. There is nonspecific mild dilatation more distal appendix 7-8 mm with possible mild wall thickening distally, distal early acute appendicitis not excludable by imaging although there is no significant inflammatory change of the adjacent fat. 2. There is probable small right adnexal cyst. Electronically signed by: Christian Coleman MD (05/23/2018 11:16 AM) [email or web address]
[2018-05-23] MEDS ORDERED: PIPERACILLIN/TAZOBACTAM 3.375 GM in IV NORMAL SALINE 50ML 50 ML IV ONE (11:45)
[2018-05-23] MEDS ORDERED: CONTRAST GIVEN. MC PRN (12:15)
[2018-05-23] MEDS ORDERED: ONDANSETRON PF 4 MG/2 ML VIAL. IV PRN ×2 (12:15→14:30)
--- NOTE | 2018-05-23 12:15 | PDOC2 ---
YAIR GARCÍA MECHANICAL SPECIALIST 05/23/18 1215: CONSULT Date of Consult Date of Consult DATE: 05/23/18 TIME: 12:06 Reason for Consult Reason for Consult: RLQ pain Referring Physician Referring Physician: ER Identification/Chief Complaint Chief Complaint abdominal pain Source Source: Chart review, Patient History of Present Illness Reason for Visit: Reports 2 weeks of abdominal pain, pain back. 3 days ago started having diarrhea and yesterday worsening pain. Reports 3 loose stools yesterday. Associated nausea. Past Medical History CENTRAL NERVOUS SYSTEM: Seizure Psych: Anxiety, Depression Past Surgical History Past Surgical History: Other, No pertinent history (no previous abdominal surgeries ) Family History Family History: Other (noncontributory to current illness ) Social History No ALCOHOL: none Drugs: None Lives: with Family Current Problem List Problem List Problems Medical Problems: (1) Abdominal pain Status: Acute (2) UTI (urinary tract infection) Status: Acute Current Medications Current Medications Current Medications Sodium Chloride 1,000 ml @ 1,000 mls/hr Q1H IV Last administered on 05/23/18at 07:53; Start 05/23/18 at 07:26; Stop 05/23/18 at 08:25; Status DC Ondansetron HCl (Zofran) 8 mg 1X ONCE IV Last administered on 05/23/18at 07:57 ; Start 05/23/18 at 07:30; Stop 05/23/18 at 07:35; Status DC Sodium Chloride 1,000 ml @ 1,000 mls/hr 1X ONCE IV Last administered on at 10:00; Start 05/23/18 at 10:00; Stop 05/23/18 at 10:59; Status DC Iohexol (Omnipaque 300 Mg/ml) 75 ml 1X ONCE PO ; Start 05/23/18 at 10:00; Stop 05/23/18 at 10:01; Status DC Piperacillin Sod/ Tazobactam Sod 3.375 gm/Sodium Chloride 50 ml @ 100 mls/hr 1X ONCE IV ; Start 05/23/18 at 11:45; Stop 05/23/18 at 12:14 Active Scripts Active Pyridium (Phenazopyridine Hcl) 200 Mg Tablet 200 Mg PO TID Doxycycline Hyclate 100 Mg Tablet.dr 1 Tab PO BID 7 Days Macrobid 100 Mg Capsule (Nitrofurantoin Monohyd/M-Cryst) 100 Mg Capsule 1 Cap PO BID Keflex (Cephalexin) 250 Mg Capsule 1 Cap PO QID Keflex (Cephalexin) 500 Mg Capsule 1 Cap PO BID 112 by mouth twice daily for 7 days to treat infection. First dose given in the ED, morning of 06/24. Pyridium (Phenazopyridine Hcl) 200 Mg Tablet 200 Mg PO TID Keflex (Cephalexin) 500 Mg Capsule 500 Mg PO QID 7 Days Macrobid 100 Mg Capsule (Nitrofurantoin Monohyd/M-Cryst) 100 Mg Capsule 1 Cap PO BID Macrobid 100 Mg Capsule (Nitrofurantoin Monohyd/M-Cryst) 100 Mg Capsule 1 Cap PO BID Ativan (Lorazepam) 0.5 Mg Tablet 0.5 Mg PO BID Reported Keppra (Levetiracetam) 1,000 Mg Tablet 2 Tab PO BID Zonisamide 100 Mg Capsule 200 Mg PO BID Clonazepam 0.5 Mg Tablet 1 Tab PO BID Onfi (Clobazam) 10 Mg Tablet 20 Mg PO BID Fycompa (Perampanel) 8 Mg Tablet 8 Mg PO QHS Fycompa (Perampanel) 6 Mg Tablet 6 Mg PO DAILY Escitalopram Oxalate 10 Mg Tablet 10 Mg PO DAILY Onfi (Clobazam) 10 Mg Tablet 10 Mg PO BID Clonazepam 0.5 Mg Tablet 1 Tab PO TID PRN PRN seizures Levetiracetam 1,000 Mg Tablet 1,000 Mg PO BID Potiga (Ezogabine) 200 Mg Tablet 400 Mg PO TID Zonisamide 100 Mg Capsule 200 Mg PO BID Allergies Allergies: Coded Allergies: peanut (Verified Allergy, Intermediate, PEANUT BUTTER, 08/30/14) ROS General: YES: Appetite (loss); No: Chills, Other (fevers) PSYCHOLOGICAL ROS: No: Anxiety, Depression Eyes: No Blurry vision, No Double vision Hematological and Lymphatic: No: Bleeding Problems, Blood Clots Respiratory: No: Cough, Shortness of breath Cardiovascular: No Chest Pain, No Palpitations Gastrointestinal: Yes Other (see hpi) Genitourinary: No Dysuria, No Hematuria Musculoskeletal: No Joint Pain, No Muscle Pain Neurological: No Confusion, No Impaired Coord/balance Skin: No Pruritus, No Rash Physical Exam General: Alert, Oriented X3, Cooperative, No acute distress HEENT: PERRLA, Mucous membr. moist/pink Lungs: Clear to auscultation, Normal air movement Heart: Regular rate, Normal S1, Normal S2, No murmurs Abdomen: Soft, Other (generalized tenderness on exam, no guarding or rebound) Extremities: No clubbing, No cyanosis Skin: No rashes, No breakdown Neuro: Normal gait, Normal speech Psych/Mental Status: Mental status NL, Mood NL MUSCULOSKELETAL: No deformity, No swelling Vitals VITALS Vital Signs Date Time Temp Pulse Resp B/P (MAP) Pulse Ox O2 Delivery O2 Flow Rate FiO2 05/23/18 09:40 58 21 90/60 (70) 99 Room Air 05/23/18 07:24 98.0 98.0 Labs Labs Laboratory Tests Test 05/23/18 07:40 05/23/18 08:37 05/23/18 08:40 05/23/18 09:09 White Blood Count 5.1 x10^3/uL (4.0-11.0) Red Blood Count 3.76 x10^6/uL (3.50-5.40) Hemoglobin 12.0 g/dL (12.0-15.5) Hematocrit 35.5 % (36.0-47.0) Mean Corpuscular Volume 95 fL (79-100) Mean Corpuscular Hemoglobin 32 pg (25-35) Mean Corpuscular Hemoglobin Concent 34 g/dL (31-37) Red Cell Distribution Width 14.0 % (11.5-14.5) Platelet Count 267 x10^3/uL (140-400) Neutrophils (%) (Auto) 50 % (31-73) Lymphocytes (%) (Auto) 36 % (24-48) Monocytes (%) (Auto) 12 % (0-9) Eosinophils (%) (Auto) 2 % (0-3) Basophils (%) (Auto) 1 % (0-3) Neutrophils # (Auto) 2.5 x10^3uL (1.8-7.7) Lymphocytes # (Auto) 1.8 x10^3/uL (1.0-4.8) Monocytes # (Auto) 0.6 x10^3/uL (0.0-1.1) Eosinophils # (Auto) 0.1 x10^3/uL (0.0-0.7) Basophils # (Auto) 0.0 x10^3/uL (0.0-0.2) Sodium Level 142 mmol/L (136-145) Potassium Level 3.8 mmol/L (3.5-5.1) Chloride Level 109 mmol/L (98-107) Carbon Dioxide Level 23 mmol/L (21-32) Anion Gap 10 (6-14) Blood Urea Nitrogen 10 mg/dL (7-20) Creatinine 0.6 mg/dL (0.6-1.0) Estimated GFR (Cockcroft-Gault) 121.8 BUN/Creatinine Ratio 17 (6-20) Glucose Level 99 mg/dL (70-99) Calcium Level 7.6 mg/dL (8.5-10.1) Total Bilirubin 0.1 mg/dL (0.2-1.0) Aspartate Amino Transf (AST/SGOT) 11 U/L (15-37) Alanine Aminotransferase (ALT/SGPT) 18 U/L (14-59) Alkaline Phosphatase 171 U/L (46-116) Total Protein 6.9 g/dL (6.4-8.2) Albumin 3.3 g/dL (3.4-5.0) Albumin/Globulin Ratio 0.9 (1.0-1.7) Lipase 166 U/L (73-393) Prothrombin Time 13.0 SEC (11.7-14.0) Prothromb Time International Ratio 1.0 (0.8-1.1) Activated Partial Thromboplast Time 30 SEC (24-38) Urine Collection Type U cath Urine Color Yellow Urine Clarity Clear Urine pH 6.5 Urine Specific [place] >=1.030 Urine Protein Negative mg/dL (NEG-TRACE) Urine Glucose (UA) Negative mg/dL (NEG) Urine Ketones (Stick) Negative mg/dL (NEG) Urine Blood Negative (NEG) Urine Nitrite Positive (NEG) Urine Bilirubin Negative (NEG) Urine Urobilinogen Dipstick 0.2 mg/dL (0.2 mg/dL) Urine Leukocyte Esterase Small (NEG) Urine RBC Occ /HPF (0-2) Urine WBC 11-20 /HPF (0-4) Urine Bacteria Moderate /HPF (0-FEW) Urine Mucus Marked /LPF Test 05/23/18 09:13 Bedside Urine HCG, Qualitative Hcg negative (Negative) Laboratory Tests Test 05/23/18 07:40 05/23/18 08:37 05/23/18 08:40 05/23/18 09:09 White Blood Count 5.1 x10^3/uL (4.0-11.0) Red Blood Count 3.76 x10^6/uL (3.50-5.40) Hemoglobin 12.0 g/dL (12.0-15.5) Hematocrit 35.5 % (36.0-47.0) Mean Corpuscular Volume 95 fL (79-100) Mean Corpuscular Hemoglobin 32 pg (25-35) Mean Corpuscular Hemoglobin Concent 34 g/dL (31-37) Red Cell Distribution Width 14.0 % (11.5-14.5) Platelet Count 267 x10^3/uL (140-400) Neutrophils (%) (Auto) 50 % (31-73) Lymphocytes (%) (Auto) 36 % (24-48) Monocytes (%) (Auto) 12 % (0-9) Eosinophils (%) (Auto) 2 % (0-3) Basophils (%) (Auto) 1 % (0-3) Neutrophils # (Auto) 2.5 x10^3uL (1.8-7.7) Lymphocytes # (Auto) 1.8 x10^3/uL (1.0-4.8) Monocytes # (Auto) 0.6 x10^3/uL (0.0-1.1) Eosinophils # (Auto) 0.1 x10^3/uL (0.0-0.7) Basophils # (Auto) 0.0 x10^3/uL (0.0-0.2) Sodium Level 142 mmol/L (136-145) Potassium Level 3.8 mmol/L (3.5-5.1) Chloride Level 109 mmol/L (98-107) Carbon Dioxide Level 23 mmol/L (21-32) Anion Gap 10 (6-14) Blood Urea Nitrogen 10 mg/dL (7-20) Creatinine 0.6 mg/dL (0.6-1.0) Estimated GFR (Cockcroft-Gault) 121.8 BUN/Creatinine Ratio 17 (6-20) Glucose Level 99 mg/dL (70-99) Calcium Level 7.6 mg/dL (8.5-10.1) Total Bilirubin 0.1 mg/dL (0.2-1.0) Aspartate Amino Transf (AST/SGOT) 11 U/L (15-37) Alanine Aminotransferase (ALT/SGPT) 18 U/L (14-59) Alkaline Phosphatase 171 U/L (46-116) Total Protein 6.9 g/dL (6.4-8.2) Albumin 3.3 g/dL (3.4-5.0) Albumin/Globulin Ratio 0.9 (1.0-1.7) Lipase 166 U/L (73-393) Prothrombin Time 13.0 SEC (11.7-14.0) Prothromb Time International Ratio 1.0 (0.8-1.1) Activated Partial Thromboplast Time 30 SEC (24-38) Urine Collection Type U cath Urine Color Yellow Urine Clarity Clear Urine pH 6.5 Urine Specific [place] >=1.030 Urine Protein Negative mg/dL (NEG-TRACE) Urine Glucose (UA) Negative mg/dL (NEG) Urine Ketones (Stick) Negative mg/dL (NEG) Urine Blood Negative (NEG) Urine Nitrite Positive (NEG) Urine Bilirubin Negative (NEG) Urine Urobilinogen Dipstick 0.2 mg/dL (0.2 mg/dL) Urine Leukocyte Esterase Small (NEG) Urine RBC Occ /HPF (0-2) Urine WBC 11-20 /HPF (0-4) Urine Bacteria Moderate /HPF (0-FEW) Urine Mucus Marked /LPF Test 05/23/18 09:13 Bedside Urine HCG, Qualitative Hcg negative (Negative) Assessment/Plan Assessment/Plan abdominal pain x 2 weeks, 3 days of diarrhea normal wbc, no definite appendicitis on CT will consult GI NPO after mn, cbc and exam in AM, no abx to allow for reevaluation of symptoms, fevers, white count ect MARJORIE SKY MD 05/24/18 0924: CONSULT Assessment/Plan Assessment/Plan Agree with above, presentation unusual for appendicitis, no inflammatory changes on CT and WBC normal; rec GI eval, will observe YAIR GARCÍA MECHANICAL SPECIALIST May 23, 2018 12:15 MARJORIE SKY MD May 24, 2018 09:24
[2018-05-23] MEDS: IV NORMAL SALINE 1000ML BAG 1,000 ML IV SCH ×2 (12:52→22:15)
[2018-05-23 14:05] VITALS: BP 106/70
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
[2018-05-23] MEDS ORDERED: MORPHINE SULFATE 2 MG/ML VIAL. IV PRN (14:30)
[2018-05-23] MEDS ORDERED: clonazePAM 0.5 MG TABLET PO PRN (14:30)
--- NOTE | 2018-05-23 14:36 | HP ---
ADMIT DATE: 05/23/2018 CHIEF COMPLAINT: Abdominal pain. HISTORY OF PRESENT ILLNESS: The patient is a pleasant middle-aged white female who presented to the ER today with abdominal pain that is in the lower quadrants, it is worse on the right, it has been occurring for several days. She states she went to her doctor at primary care and they told her to go the ER. While in the ER we did some imaging, showing that appendix is enlarged, but not necessarily inflamed. She does have a UTI. I will discuss the case with the ER physician. We are going to admit the patient, give her IV antibiotics and consult General Surgery. PAST MEDICAL HISTORY: Depression, anxiety, hypotension, seizures, UTI, bradycardia, seizure device. ALLERGIES: PEANUTS. FAMILY HISTORY: Seizure. SOCIAL HISTORY: She does not drink, smoke or take drugs. She has a 7-month-old child at home. She has a boyfriend. MEDICATIONS: Reviewed, please refer to the MRAD. REVIEW OF SYSTEMS: GENERAL: No history of weight change, weakness or fevers. SKIN: No bruising, hair changes or rashes. EYES: No blurred, double or loss of vision. NOSE AND THROAT: No history of nosebleeds, hoarseness or sore throat. HEART: No history of palpitations, chest pain or shortness of breath on exertion. LUNGS: Denies cough, hemoptysis, wheezing or shortness of breath. GASTROINTESTINAL: Denies changes in appetite, nausea, vomiting, diarrhea or constipation. GENITOURINARY: No history of frequency, urgency, hesitancy or nocturia. She complains of abdominal pain. NEUROLOGIC: Denies history of numbness, tingling, tremor or weakness. PSYCHIATRIC: No history of panic, anxiety. She complains of depression. ENDOCRINE: No history of heat or cold intolerance, polyuria or polydipsia. EXTREMITIES: Denies muscle weakness, joint pain, pain on walking or stiffness. PHYSICAL EXAMINATION: VITAL SIGNS: Temperature afebrile, pulse 60, respirations 20, blood pressure 109/90. GENERAL: She is alert, very flat affect. HEART: Normal S1, S2. LUNGS: Clear. ABDOMEN: Soft and tender. ENDOCRINE: No thyromegaly. EXTREMITIES: No edema. SKIN: She has got striae from her , but otherwise no rashes. PSYCHIATRIC: She is depressed. NEUROLOGICAL: Very flat affect. IMAGING: CT of the abdomen shows an enlarged appendix, but no inflammation. LABORATORY DATA: Urinalysis has leukocyte esterase and few white cells. Hematology is normal. Electrolytes normal. ASSESSMENT AND PLAN: Abdominal pain with a slightly abnormal CAT scan. We are concerned she could have appendicitis. She also has a urinary tract infection. The patient has been admitted. We will start IV Rocephin, IV fluids, IV procalamine, p.r.n. narcotics, p.r.n. Zofran. Continue home medicines, frequent labs. NIAL Gina CH DO DR: DILMA/lennie JOB#: [id number] / [id number]
[2018-05-23] MEDS: cefTRIAXone IV Push 1 GM VIAL. IVP SCH (15:00)
[2018-05-23] MEDS: PANTOPRAZOLE IV PUSH 40 MG VIAL. IVP SCH (15:00)
[2018-05-23] MEDS: CITALOPRAM 20 MG TABLET. PO SCH (15:00)
[2018-05-23] MEDS: PHENAZOPYRIDINE 200 MG TABLET. PO SCH ×2 (15:00→21:00)
[2018-05-23] MEDS ORDERED: AMINO AC 3%/ELECTROLYTE/GLYCER 1,000 ML IV SCH (15:00)
[2018-05-23 17:37] LABS: BARBITURATES NEG (NEG); BENZODIAZEPINES POS (NEG); CANNABINOIDS NEG (NEG); COCAINE NEG (NEG); METHADONE NEG (NEG); OPIATES NEG (NEG); PHENCYCLIDINE NEG (NEG)
[2018-05-23 17:43] LABS: AMPHETAMINE/METHAMPHETAMINE NEG (NEG)
[2018-05-23 19:00] VITALS: BP 97/55
[2018-05-23] MEDS: [UNRECOGNIZED DRUG - OTHER] PO SCH (21:00)
[2018-05-23] MEDS: LORazepam 0.5 MG TABLET PO SCH (21:00)
[2018-05-23] MEDS ORDERED: CLOBAZAM 10 MG PO SCH (21:00)
[2018-05-23] MEDS: clonazePAM 0.5 MG TABLET PO SCH (21:00)
[2018-05-23] MEDS: CLOBAZAM 20 MG PO SCH (21:00)
[2018-05-23] MEDS ORDERED: LEVETIRACETAM 1000 MG PO SCH (21:00)
[2018-05-23] MEDS: levETIRAcetam 500 MG TABLET PO SCH (21:21)
[2018-05-23] MEDS: ZONISAMIDE 100 MG CAPSULE. PO SCH (21:21)
[2018-05-23 23:00] VITALS: BP 108/61
[2018-05-24] MEDS: AMINO AC 3%/ELECTROLYTE/GLYCER 1,000 ML IV SCH ×2 (00:02→15:43)
[2018-05-24] MEDS ORDERED: NALOXONE 0.4 MG/ML VIAL. ONE (00:26)
[2018-05-24] MEDS ORDERED: NALOXONE 0.4 MG/ML VIAL. IV ONE (00:30)
--- NOTE | 2018-05-24 01:20 | RAD ---
CT HEAD INDICATION: altered mental status, weakness COMPARISON: 03/03/2017 TECHNIQUE: 5 mm contiguous axial images were obtained from the skull base to the vertex Exposure: One or more of the following individualized dose reduction techniques were utilized for this examination: 1. Automated exposure control 2. Adjustment of the mA and/or kV according to patient size 3. Use of iterative reconstruction technique FINDINGS: No abnormal attenuation within the brain parenchyma. Left middle cranial fossa small arachnoid cyst is similar to prior exam. No evidence of acute intracranial hemorrhage. No extra-axial fluid collections. No mass effect or midline shift. Ventricular size is appropriate. Basal cisterns are patent. No fractures identified.Salmon-white differentiation is preserved.Globes and orbits are within normal limits. Paranasal sinuses and mastoid air cells are clear. IMPRESSION: No acute intracranial findings. Patient's nurse informed at time of dictation Electronically signed by: Fabricio Schmidt MD (05/24/2018 1:17 AM) [id number]
[2018-05-24 01:28] LABS: BASO % 1 % (0-3); EOS # 0.1 x10^3/uL (0.0-0.7); EOS % 1 % (0-3); HEMATOCRIT 35.9 % (36.0-47.0); HEMOGLOBIN 12.2 g/dL (12.0-15.5); LYMPH # 1.7 x10^3/uL (1.0-4.8); LYMPH % 34 % (24-48); MEAN CORPUSCULAR HEMOGLOBIN 32 pg (25-35); MEAN CORPUSCULAR HGB CONC 34 g/dL (31-37); MEAN CORPUSCULAR VOLUME 95 fL (79-100); MONO # 0.4 x10^3/uL (0.0-1.1); MONO % 8 % (0-9); NEUT # 2.9 x10^3uL (1.8-7.7); NEUT % 57 % (31-73); PLATELET COUNT 242 x10^3/uL (140-400); RED BLOOD COUNT 3.77 x10^6/uL (3.50-5.40); RED CELL DISTRIBUTION WIDTH 13.9 % (11.5-14.5)
[2018-05-24 01:41] LABS: ALBUMIN 3.2 g/dL (3.4-5.0); ALBUMIN/GLOBULIN RATIO 0.9 (1.0-1.7); CALCIUM 8.5 mg/dL (8.5-10.1); CREATININE 0.5 mg/dL (0.6-1.0); GFR 150.3; POTASSIUM 3.9 mmol/L (3.5-5.1); TOTAL BILIRUBIN 0.2 mg/dL (0.2-1.0); TOTAL PROTEIN 6.9 g/dL (6.4-8.2)
[2018-05-24] MEDS ORDERED: ASPIRIN 325 MG TABLET PO ONE (02:15)
[2018-05-24 03:00] VITALS: BP 111/61
--- NOTE | 2018-05-24 05:59 | EKG ---
[facility] [address] [place] [address] Test Date: 2018-05-24 Test Time: 00:03:48 Pat Name: MISAEL JEWELL Department: Room: 402 1 Gender: F Facilities And Grounds Director: : 1990 Requested By: VINAYAK CH Order Number: [id number] Reading MD: Pietro Boo MD Measurements Intervals [place] Rate: 55 P: 34 [place]: 134 QRS: -27 QRSD: 94 T: -7 QT: 456 QTc: 438 Interpretive Statements SINUS RHYTHM Electronically Signed On 05-24-2018 12:50:29 CDT by Pietro Boo MD
[2018-05-24 07:00] VITALS: BP 89/55
[2018-05-24] MEDS: IV NORMAL SALINE 1000ML BAG 1,000 ML IV SCH (08:15)
[2018-05-24] MEDS: [UNRECOGNIZED DRUG - OTHER] PO SCH ×3 (09:00→20:00)
[2018-05-24] MEDS: clonazePAM 0.5 MG TABLET PO SCH (09:00)
[2018-05-24] MEDS: CLOBAZAM 20 MG PO SCH ×2 (09:00→19:59)
[2018-05-24] MEDS: LORazepam 0.5 MG TABLET PO SCH (09:00)
[2018-05-24] MEDS: PERAMPANEL 6 MG PO SCH (09:00)
--- NOTE | 2018-05-24 09:19 | PDOC ---
Subjective: Subjective: History is difficult again today - has pain, points to LLQ spreading to RLQ. I asked about vomiting or diarrhea/stooling - she denies. I asked about bleeding - "a little bit in the shower, little balls from my vagina but not like a period." Objective: Objective: Reviewed events overnight - rapid response after morphine, had head CT, plans for neuro eval and brain MRI, told staff she had a stroke this year. NPO on PPN and IV PPI, also Rocephin. Vital Signs: Vital Signs Date Time Temp Pulse Resp B/P (MAP) Pulse Ox O2 Delivery O2 Flow Rate FiO2 05/24/18 07:00 98.7 47 18 89/55 (66) 96 Room Air 98.7 Labs: Laboratory Tests Test 05/23/18 09:13 05/24/18 00:24 05/24/18 01:10 Bedside Urine HCG, Qualitative Hcg negative Glucose (Fingerstick) 77 mg/dL White Blood Count 5.0 x10^3/uL Red Blood Count 3.77 x10^6/uL Hemoglobin 12.2 g/dL Hematocrit 35.9 % Mean Corpuscular Volume 95 fL Mean Corpuscular Hemoglobin 32 pg Mean Corpuscular Hemoglobin Concent 34 g/dL Red Cell Distribution Width 13.9 % Platelet Count 242 x10^3/uL Neutrophils (%) (Auto) 57 % Lymphocytes (%) (Auto) 34 % Monocytes (%) (Auto) 8 % Eosinophils (%) (Auto) 1 % Basophils (%) (Auto) 1 % Neutrophils # (Auto) 2.9 x10^3uL Lymphocytes # (Auto) 1.7 x10^3/uL Monocytes # (Auto) 0.4 x10^3/uL Eosinophils # (Auto) 0.1 x10^3/uL Basophils # (Auto) 0.0 x10^3/uL Sodium Level 142 mmol/L Potassium Level 3.9 mmol/L Chloride Level 109 mmol/L Carbon Dioxide Level 23 mmol/L Anion Gap 10 Blood Urea Nitrogen 3 mg/dL Creatinine 0.5 mg/dL Estimated GFR (Cockcroft-Gault) 150.3 BUN/Creatinine Ratio 6 Glucose Level 89 mg/dL Calcium Level 8.5 mg/dL Total Bilirubin 0.2 mg/dL Aspartate Amino Transf (AST/SGOT) 13 U/L Alanine Aminotransferase (ALT/SGPT) 19 U/L Alkaline Phosphatase 141 U/L Total Protein 6.9 g/dL Albumin 3.2 g/dL Albumin/Globulin Ratio 0.9 Imaging: Head CT IMPRESSION: No acute intracranial findings. PE: GEN: NAD LUNGS: CTAB HEART: RRR ABD: BS+, soft, tender diffusely but worst LLQ to suprapubic to RLQ NEURO/PSYCH: very flat, answers slowly A/P: Abd pain -no vomiting or stools since admission UTI Abnormal CT -?early appendicitis, small right adnexal cyst, retained stool greater of the rectosigmoid colon -- Abd pain - unclear etiology w/ difficult history. ?psych issues ?UTI... she initially reported diarrhea, but has retained stool on imaging Neuro to see, also surg to revisit. Urine culture pending. GI-funk could try clears, even consider suppository. ?[employer] EXPERT SAMI JEAN BAPTISTE May 24, 2018 09:18
[2018-05-24] MEDS: PANTOPRAZOLE IV PUSH 40 MG VIAL. IVP SCH (09:44)
[2018-05-24] MEDS: levETIRAcetam 500 MG TABLET PO SCH ×2 (09:44→20:04)
[2018-05-24] MEDS: PHENAZOPYRIDINE 200 MG TABLET. PO SCH ×3 (09:45→20:03)
[2018-05-24] MEDS: ZONISAMIDE 100 MG CAPSULE. PO SCH ×2 (09:45→20:04)
[2018-05-24] MEDS: CITALOPRAM 20 MG TABLET. PO SCH (09:45)
--- NOTE | 2018-05-24 11:29 | PDOC ---
YAIR GARCÍA CADD DRAFTER 05/24/18 1129: SURGICAL PROGRESS NOTE Subjective slow response to answering questions(similar to in ER yesterday) reports pain across abdomen no stool since yesterday reports vaginal bleeding while in shower Vital Signs Vital Signs Date Time Temp Pulse Resp B/P (MAP) Pulse Ox O2 Delivery O2 Flow Rate FiO2 05/24/18 07:00 98.7 47 18 89/55 (66) 96 Room Air 98.7 I&O Intake and Output 05/24/18 07:00 Intake Total 4800 ml Balance 4800 ml Intake Oral 100 ml IV Total 3350 ml Other 1350 ml # Voids 4 General: Cooperative, No acute distress Abdomen: Soft, Other (generalized TTP, no guarding or rebound tenderness) Labs Laboratory Tests Test 05/23/18 07:40 05/23/18 08:37 05/23/18 08:40 05/23/18 09:09 White Blood Count 5.1 x10^3/uL (4.0-11.0) Red Blood Count 3.76 x10^6/uL (3.50-5.40) Hemoglobin 12.0 g/dL (12.0-15.5) Hematocrit 35.5 % (36.0-47.0) Mean Corpuscular Volume 95 fL (79-100) Mean Corpuscular Hemoglobin 32 pg (25-35) Mean Corpuscular Hemoglobin Concent 34 g/dL (31-37) Red Cell Distribution Width 14.0 % (11.5-14.5) Platelet Count 267 x10^3/uL (140-400) Neutrophils (%) (Auto) 50 % (31-73) Lymphocytes (%) (Auto) 36 % (24-48) Monocytes (%) (Auto) 12 % (0-9) Eosinophils (%) (Auto) 2 % (0-3) Basophils (%) (Auto) 1 % (0-3) Neutrophils # (Auto) 2.5 x10^3uL (1.8-7.7) Lymphocytes # (Auto) 1.8 x10^3/uL (1.0-4.8) Monocytes # (Auto) 0.6 x10^3/uL (0.0-1.1) Eosinophils # (Auto) 0.1 x10^3/uL (0.0-0.7) Basophils # (Auto) 0.0 x10^3/uL (0.0-0.2) Sodium Level 142 mmol/L (136-145) Potassium Level 3.8 mmol/L (3.5-5.1) Chloride Level 109 mmol/L (98-107) Carbon Dioxide Level 23 mmol/L (21-32) Anion Gap 10 (6-14) Blood Urea Nitrogen 10 mg/dL (7-20) Creatinine 0.6 mg/dL (0.6-1.0) Estimated GFR (Cockcroft-Gault) 121.8 BUN/Creatinine Ratio 17 (6-20) Glucose Level 99 mg/dL (70-99) Calcium Level 7.6 mg/dL (8.5-10.1) Total Bilirubin 0.1 mg/dL (0.2-1.0) Aspartate Amino Transf (AST/SGOT) 11 U/L (15-37) Alanine Aminotransferase (ALT/SGPT) 18 U/L (14-59) Alkaline Phosphatase 171 U/L (46-116) Total Protein 6.9 g/dL (6.4-8.2) Albumin 3.3 g/dL (3.4-5.0) Albumin/Globulin Ratio 0.9 (1.0-1.7) Lipase 166 U/L (73-393) Prothrombin Time 13.0 SEC (11.7-14.0) Prothromb Time International Ratio 1.0 (0.8-1.1) Activated Partial Thromboplast Time 30 SEC (24-38) Urine Collection Type U cath Urine Color Yellow Urine Clarity Clear Urine pH 6.5 Urine Specific [place] >=1.030 Urine Protein Negative mg/dL (NEG-TRACE) Urine Glucose (UA) Negative mg/dL (NEG) Urine Ketones (Stick) Negative mg/dL (NEG) Urine Blood Negative (NEG) Urine Nitrite Positive (NEG) Urine Bilirubin Negative (NEG) Urine Urobilinogen Dipstick 0.2 mg/dL (0.2 mg/dL) Urine Leukocyte Esterase Small (NEG) Urine RBC Occ /HPF (0-2) Urine WBC 11-20 /HPF (0-4) Urine Bacteria Moderate /HPF (0-FEW) Urine Mucus Marked /LPF Urine Opiates Screen Neg (NEG) Urine Methadone Screen Neg (NEG) Urine Barbiturates Neg (NEG) Urine Phencyclidine Screen Neg (NEG) Urine Amphetamine/Methamphetamine Neg (NEG) Urine Benzodiazepines Screen Pos (NEG) Urine Cocaine Screen Neg (NEG) Urine Cannabinoids Screen Neg (NEG) Urine Ethyl Alcohol Neg (NEG) Test 05/23/18 09:13 05/24/18 00:24 05/24/18 01:10 Bedside Urine HCG, Qualitative Hcg negative (Negative) Glucose (Fingerstick) 77 mg/dL (70-99) White Blood Count 5.0 x10^3/uL (4.0-11.0) Red Blood Count 3.77 x10^6/uL (3.50-5.40) Hemoglobin 12.2 g/dL (12.0-15.5) Hematocrit 35.9 % (36.0-47.0) Mean Corpuscular Volume 95 fL (79-100) Mean Corpuscular Hemoglobin 32 pg (25-35) Mean Corpuscular Hemoglobin Concent 34 g/dL (31-37) Red Cell Distribution Width 13.9 % (11.5-14.5) Platelet Count 242 x10^3/uL (140-400) Neutrophils (%) (Auto) 57 % (31-73) Lymphocytes (%) (Auto) 34 % (24-48) Monocytes (%) (Auto) 8 % (0-9) Eosinophils (%) (Auto) 1 % (0-3) Basophils (%) (Auto) 1 % (0-3) Neutrophils # (Auto) 2.9 x10^3uL (1.8-7.7) Lymphocytes # (Auto) 1.7 x10^3/uL (1.0-4.8) Monocytes # (Auto) 0.4 x10^3/uL (0.0-1.1) Eosinophils # (Auto) 0.1 x10^3/uL (0.0-0.7) Basophils # (Auto) 0.0 x10^3/uL (0.0-0.2) Sodium Level 142 mmol/L (136-145) Potassium Level 3.9 mmol/L (3.5-5.1) Chloride Level 109 mmol/L (98-107) Carbon Dioxide Level 23 mmol/L (21-32) Anion Gap 10 (6-14) Blood Urea Nitrogen 3 mg/dL (7-20) Creatinine 0.5 mg/dL (0.6-1.0) Estimated GFR (Cockcroft-Gault) 150.3 BUN/Creatinine Ratio 6 (6-20) Glucose Level 89 mg/dL (70-99) Calcium Level 8.5 mg/dL (8.5-10.1) Total Bilirubin 0.2 mg/dL (0.2-1.0) Aspartate Amino Transf (AST/SGOT) 13 U/L (15-37) Alanine Aminotransferase (ALT/SGPT) 19 U/L (14-59) Alkaline Phosphatase 141 U/L (46-116) Total Protein 6.9 g/dL (6.4-8.2) Albumin 3.2 g/dL (3.4-5.0) Albumin/Globulin Ratio 0.9 (1.0-1.7) Laboratory Tests Test 05/24/18 00:24 05/24/18 01:10 Glucose (Fingerstick) 77 mg/dL (70-99) White Blood Count 5.0 x10^3/uL (4.0-11.0) Red Blood Count 3.77 x10^6/uL (3.50-5.40) Hemoglobin 12.2 g/dL (12.0-15.5) Hematocrit 35.9 % (36.0-47.0) Mean Corpuscular Volume 95 fL (79-100) Mean Corpuscular Hemoglobin 32 pg (25-35) Mean Corpuscular Hemoglobin Concent 34 g/dL (31-37) Red Cell Distribution Width 13.9 % (11.5-14.5) Platelet Count 242 x10^3/uL (140-400) Neutrophils (%) (Auto) 57 % (31-73) Lymphocytes (%) (Auto) 34 % (24-48) Monocytes (%) (Auto) 8 % (0-9) Eosinophils (%) (Auto) 1 % (0-3) Basophils (%) (Auto) 1 % (0-3) Neutrophils # (Auto) 2.9 x10^3uL (1.8-7.7) Lymphocytes # (Auto) 1.7 x10^3/uL (1.0-4.8) Monocytes # (Auto) 0.4 x10^3/uL (0.0-1.1) Eosinophils # (Auto) 0.1 x10^3/uL (0.0-0.7) Basophils # (Auto) 0.0 x10^3/uL (0.0-0.2) Sodium Level 142 mmol/L (136-145) Potassium Level 3.9 mmol/L (3.5-5.1) Chloride Level 109 mmol/L (98-107) Carbon Dioxide Level 23 mmol/L (21-32) Anion Gap 10 (6-14) Blood Urea Nitrogen 3 mg/dL (7-20) Creatinine 0.5 mg/dL (0.6-1.0) Estimated GFR (Cockcroft-Gault) 150.3 BUN/Creatinine Ratio 6 (6-20) Glucose Level 89 mg/dL (70-99) Calcium Level 8.5 mg/dL (8.5-10.1) Total Bilirubin 0.2 mg/dL (0.2-1.0) Aspartate Amino Transf (AST/SGOT) 13 U/L (15-37) Alanine Aminotransferase (ALT/SGPT) 19 U/L (14-59) Alkaline Phosphatase 141 U/L (46-116) Total Protein 6.9 g/dL (6.4-8.2) Albumin 3.2 g/dL (3.4-5.0) Albumin/Globulin Ratio 0.9 (1.0-1.7) Problem List Problems Medical Problems: (1) Abdominal pain Status: Acute (2) UTI (urinary tract infection) Status: Acute Assessment/Plan wbc normal, not c/w with appendicitis sterile processing technologist consulted GI following no surgical plans at this point neuro consult pending MARJORIE SKY MD 05/25/18 0808: SURGICAL PROGRESS NOTE Assessment/Plan Agree with above YAIR GARCÍA CADD DRAFTER May 24, 2018 11:29 MARJORIE SKY MD May 25, 2018 08:08
[2018-05-24 11:55] VITALS: BP 90/54
--- NOTE | 2018-05-24 13:40 | PDOC2 ---
NEUROLOGY CONSULT Date of Admission Date of Admission DATE: 05/24/18 TIME: 13:24 Reason for Consult Reason for Consult: Seizure? Pseudoseizure. UTI. Abdominal pain. RECOMMENDATIONS/PLAN: Continue her home AEDs. EEG No driving x 6 months anytime after a seizure or seizure like episode. FU with PCP. HISTORY OF THE PRESENT ILLNESS: 27-y-old [place] origin female came to the ER of [facility] with complaints of abdominal pain, nausea, vomiting and diarrhea. She said she had a seizure the day before as shaking movements in her extremities, but was unable to provide detail about her seizure. In fact, she had frequent ER visits in the past and pseudoseizures were documented. Per her boyfriend in the past, she had seizures since childhood and has been treated with multiple AEDs and VNS placement. Her seizures were described as eye open, UE bend, shaking movements in UE and LE for seconds or minutes. PAST MEDICAL HISTORY: Seizure. PAST SURGERY HISTORY: No major surgery recently. SOCIAL HISTORY: Lives in [place]. Denies illicit drugs. REVIEW OF SYSTEMS: Constitutional: No fever, chills, malnutrition, weight loss, night sweats, cachexia. Head: No traumatic brain or head injury. Skin: No edema, or rash. Ear: No infection, tinnitus. Eyes: No vision loss, color blindness. Nose: No bleeding or purulent discharges. Neck: No injury, lymph note enlargement. Cardiac: No IA, arrhythmia. Pulmonary: URI. GI: No melena, hematochezia. Urinary/genital: No dysuria, hematuria, incontinence, urinary retention. Endocrinologic: No symptoms of gigantism, dwarf, hyperphasia, cousin face, craniofacial dysmorphism, polydactyly, goiter. Skeletomuscular: No muscular atrophy, deformity. Neurological: see HP. Psychiatric: Denies drug use/abuse. Otherwise, not [id number] review of systems. PHYSICAL EXAMINATION: General appearance is in no acute distress. HEENT: Normocephalic and nontraumatic. Eyes, nose, ears, and throat are unremarkable. Neck is supple. No lymphadenopathy. No bruits are heard over the carotid artery. No crepitus. Cardiovascular: S1, S2, regular rate and rhythm. Pulmonary: Clear to auscultation bilaterally. Abdomen: Bowel sounds are positive. Abdomen is soft, nontender, and nondistended. Extremities: No rash, lesions, or edema. No restriction of range of motion NEUROLOGICAL EXAMINATION: Awake. Oriented to time, place and person. PERRL. EOMI. CN: no focal findings. Muscle tone: normal. Muscle strength: 5 DTR: 2 Plantar reflex: Flexor response bilaterally Gait: not examined in bed. Sensory exam: no abnormal findings. No cerebellar signs elicited. Current Medications Current Medications Current Medications Sodium Chloride 1,000 ml @ 1,000 mls/hr Q1H IV Last administered on 05/23/18at 07:53; Start 05/23/18 at 07:26; Stop 05/23/18 at 08:25; Status DC Ondansetron HCl (Zofran) 8 mg 1X ONCE IV Last administered on 05/23/18at 07:57 ; Start 05/23/18 at 07:30; Stop 05/23/18 at 07:35; Status DC Sodium Chloride 1,000 ml @ 1,000 mls/hr 1X ONCE IV Last administered on at 10:00; Start 05/23/18 at 10:00; Stop 05/23/18 at 10:59; Status DC Iohexol (Omnipaque 300 Mg/ml) 75 ml 1X ONCE PO Last administered on 05/23/18at 10:00; Start 05/23/18 at 10:00; Stop 05/23/18 at 10:01; Status DC Piperacillin Sod/ Tazobactam Sod 3.375 gm/Sodium Chloride 50 ml @ 100 mls/hr 1X ONCE IV ; Start 05/23/18 at 11:45; Stop 05/23/18 at 12:14; Status Cancel Info (CONTRAST GIVEN -- Rx MONITORING) 1 each PRN DAILY PRN MC SEE COMMENTS; Start 05/23/18 at 12:15; Stop 05/25/18 at 12:14 Ondansetron HCl (Zofran) 4 mg PRN Q8HRS PRN IV NAUSEA/VOMITING; Start 05/23/18 at 12:15; Stop 05/23/18 at 14:20; Status DC Sodium Chloride 1,000 ml @ 100 mls/hr Q10H IV Last administered on 05/23/18at 12:52; Start 05/23/18 at 12:15; Stop 05/24/18 at 12:14; Status DC Ceftriaxone Sodium 1 gm/ Dextrose 50 ml @ 100 mls/hr Q24H IV ; Start 05/23/18 at 14:30; Status UNV Ondansetron HCl (Zofran) 4 mg PRN Q6HRS PRN IV NAUSEA/VOMITING; Start 05/23/18 at 14:30 Morphine Sulfate (Morphine Sulfate) 2 mg PRN Q2HR PRN IV PAIN Last administered on 05/24/18at 00:01; Start 05/23/18 at 14:30 Amino Acids/ Glycerin/ Electrolytes 1,000 ml @ 75 mls/hr [id number] IV ; Start at 15:00; Stop 05/23/18 at 23:55; Status DC Ceftriaxone Sodium (Rocephin) 1 gm Q24H IVP Last administered on 05/23/18at 15: 00; Start 05/23/18 at 15:00 Pantoprazole Sodium (PROTONIX VIAL for IV PUSH) 40 mg DAILYAC IVP Last administered on 05/24/18at 09:44; Start 05/23/18 at 15:00 Clonazepam (KlonoPIN) 0.5 mg BID PO ; Start 05/23/18 at 21:00 Clonazepam (KlonoPIN) 0.5 mg TID PRN PRN PO SEIZURES.; Start 05/23/18 at 14:30 Lorazepam (Ativan) 0.5 mg BID PO ; Start 05/23/18 at 21:00 Non-Formulary Medication (Clobazam (Onfi)) 10 mg BID PO ; Start 05/23/18 at 21: 00; Status UNV Non-Formulary Medication (Clobazam (Onfi)) 20 mg BID PO ; Start 05/23/18 at 21: 00; Status UNV Citalopram Hydrobromide (CeleXA) 20 mg DAILY PO Last administered on 05/24/18at 09:45; Start 05/23/18 at 15:00 Non-Formulary Medication (Ezogabine (Potiga)) 400 mg TID PO ; Start 05/23/18 at 21:00; Status UNV Non-Formulary Medication (Levetiracetam ) 1,000 mg BID PO ; Start 05/23/18 at 21 :00; Status UNV Levetiracetam (Keppra) 2,000 mg BID PO Last administered on 05/24/18at 09:44; Start 05/23/18 at 21:00 Non-Formulary Medication (Perampanel (Fycompa)) 6 mg DAILY PO ; Start 05/24/18 at 09:00; Status UNV Phenazopyridine HCl (Pyridium) 200 mg TID PO Last administered on 05/24/18at 09: 45; Start 05/23/18 at 15:00 Zonisamide (Zonegran) 200 mg BID PO Last administered on 05/24/18at 09:45; Start 05/23/18 at 21:00 Amino Acids/ Glycerin/ Electrolytes 1,000 ml @ 75 mls/hr [id number] IV Last administered on 05/24/18at 00:02; Start 05/24/18 at 00:00 Naloxone HCl (Narcan) 0.4 mg STK-MED ONCE .ROUTE ; Start 05/24/18 at 00:26; Stop 05/24/18 at 00:27; Status DC Naloxone HCl (Narcan) 0.4 mg 1X ONCE IV Last administered on 05/24/18at 00:31; Start 05/24/18 at 00:30; Stop 05/24/18 at 00:47; Status DC Aspirin (Jc Aspirin) 325 mg 1X ONCE PO ; Start 05/24/18 at 02:15; Stop 05/24 at 02:16; Status DC Active Scripts Active Pyridium (Phenazopyridine Hcl) 200 Mg Tablet 200 Mg PO TID Ativan (Lorazepam) 0.5 Mg Tablet 0.5 Mg PO BID Reported Keppra (Levetiracetam) 1,000 Mg Tablet 2 Tab PO BID Clonazepam 0.5 Mg Tablet 1 Tab PO BID Onfi (Clobazam) 10 Mg Tablet 20 Mg PO BID Fycompa (Perampanel) 8 Mg Tablet 8 Mg PO QHS Fycompa (Perampanel) 6 Mg Tablet 6 Mg PO DAILY Escitalopram Oxalate 10 Mg Tablet 10 Mg PO DAILY Clonazepam 0.5 Mg Tablet 1 Tab PO TID PRN PRN seizures Potiga (Ezogabine) 200 Mg Tablet 400 Mg PO TID Zonisamide 100 Mg Capsule 200 Mg PO BID Allergies Allergies: Allergies Coded Allergies Type Severity Reaction Last Updated Verified peanut Allergy Intermediate PEANUT BUTTER 08/30/14 Yes ROS Review of System The patient denies any associated fevers, chills, headache, ear pain, rhinorrhea , sore throat, stiff neck, productive cough, chest pain, shortness of breath, back or flank pain, abdominal pain, nausea, vomiting, diarrhea, constipation, dysuria, rash, numbness, weakness, tingling, incontinence, difficulty ambulating, or diaphoresis. Physical Exam Physical Exam General: Well developed, well nourished, no acute distress, well appearing HEENT: Pupils equally round and reactive to light, EOMI, no discharge, normal conjunctiva Neck: Supple, no nuchal rigidity, no JVD, trachea midline, no tenderness Cardiac: RRR, no murmurs, no gallops, no rubs Chest/Lungs: CTAB, no wheeze, no rhonchi, no crackles Abdomen: soft, non-distended, no guarding, no peritoneal signs, non-tender Back: No tenderness Extremities: no edema, pulses intact, non-tender,capillary refill <3 sec bilateral upper and lower extremities, Neuro: Alert and oriented x 4, no focal deficits, normal speech Vitals Vitals: Vital Signs Date Time Temp Pulse Resp B/P (MAP) Pulse Ox O2 Delivery O2 Flow Rate FiO2 05/24/18 11:55 97.9 49 16 90/54 (66) 97 Room Air 97.9 Labs Labs Laboratory Tests Test 05/23/18 07:40 05/23/18 08:37 05/23/18 08:40 05/23/18 09:09 White Blood Count 5.1 x10^3/uL (4.0-11.0) Red Blood Count 3.76 x10^6/uL (3.50-5.40) Hemoglobin 12.0 g/dL (12.0-15.5) Hematocrit 35.5 % (36.0-47.0) Mean Corpuscular Volume 95 fL (79-100) Mean Corpuscular Hemoglobin 32 pg (25-35) Mean Corpuscular Hemoglobin Concent 34 g/dL (31-37) Red Cell Distribution Width 14.0 % (11.5-14.5) Platelet Count 267 x10^3/uL (140-400) Neutrophils (%) (Auto) 50 % (31-73) Lymphocytes (%) (Auto) 36 % (24-48) Monocytes (%) (Auto) 12 % (0-9) Eosinophils (%) (Auto) 2 % (0-3) Basophils (%) (Auto) 1 % (0-3) Neutrophils # (Auto) 2.5 x10^3uL (1.8-7.7) Lymphocytes # (Auto) 1.8 x10^3/uL (1.0-4.8) Monocytes # (Auto) 0.6 x10^3/uL (0.0-1.1) Eosinophils # (Auto) 0.1 x10^3/uL (0.0-0.7) Basophils # (Auto) 0.0 x10^3/uL (0.0-0.2) Sodium Level 142 mmol/L (136-145) Potassium Level 3.8 mmol/L (3.5-5.1) Chloride Level 109 mmol/L (98-107) Carbon Dioxide Level 23 mmol/L (21-32) Anion Gap 10 (6-14) Blood Urea Nitrogen 10 mg/dL (7-20) Creatinine 0.6 mg/dL (0.6-1.0) Estimated GFR (Cockcroft-Gault) 121.8 BUN/Creatinine Ratio 17 (6-20) Glucose Level 99 mg/dL (70-99) Calcium Level 7.6 mg/dL (8.5-10.1) Total Bilirubin 0.1 mg/dL (0.2-1.0) Aspartate Amino Transf (AST/SGOT) 11 U/L (15-37) Alanine Aminotransferase (ALT/SGPT) 18 U/L (14-59) Alkaline Phosphatase 171 U/L (46-116) Total Protein 6.9 g/dL (6.4-8.2) Albumin 3.3 g/dL (3.4-5.0) Albumin/Globulin Ratio 0.9 (1.0-1.7) Lipase 166 U/L (73-393) Prothrombin Time 13.0 SEC (11.7-14.0) Prothromb Time International Ratio 1.0 (0.8-1.1) Activated Partial Thromboplast Time 30 SEC (24-38) Urine Collection Type U cath Urine Color Yellow Urine Clarity Clear Urine pH 6.5 Urine Specific [place] >=1.030 Urine Protein Negative mg/dL (NEG-TRACE) Urine Glucose (UA) Negative mg/dL (NEG) Urine Ketones (Stick) Negative mg/dL (NEG) Urine Blood Negative (NEG) Urine Nitrite Positive (NEG) Urine Bilirubin Negative (NEG) Urine Urobilinogen Dipstick 0.2 mg/dL (0.2 mg/dL) Urine Leukocyte Esterase Small (NEG) Urine RBC Occ /HPF (0-2) Urine WBC 11-20 /HPF (0-4) Urine Bacteria Moderate /HPF (0-FEW) Urine Mucus Marked /LPF Urine Opiates Screen Neg (NEG) Urine Methadone Screen Neg (NEG) Urine Barbiturates Neg (NEG) Urine Phencyclidine Screen Neg (NEG) Urine Amphetamine/Methamphetamine Neg (NEG) Urine Benzodiazepines Screen Pos (NEG) Urine Cocaine Screen Neg (NEG) Urine Cannabinoids Screen Neg (NEG) Urine Ethyl Alcohol Neg (NEG) Test 05/23/18 09:13 05/24/18 00:24 05/24/18 01:10 Bedside Urine HCG, Qualitative Hcg negative (Negative) Glucose (Fingerstick) 77 mg/dL (70-99) White Blood Count 5.0 x10^3/uL (4.0-11.0) Red Blood Count 3.77 x10^6/uL (3.50-5.40) Hemoglobin 12.2 g/dL (12.0-15.5) Hematocrit 35.9 % (36.0-47.0) Mean Corpuscular Volume 95 fL (79-100) Mean Corpuscular Hemoglobin 32 pg (25-35) Mean Corpuscular Hemoglobin Concent 34 g/dL (31-37) Red Cell Distribution Width 13.9 % (11.5-14.5) Platelet Count 242 x10^3/uL (140-400) Neutrophils (%) (Auto) 57 % (31-73) Lymphocytes (%) (Auto) 34 % (24-48) Monocytes (%) (Auto) 8 % (0-9) Eosinophils (%) (Auto) 1 % (0-3) Basophils (%) (Auto) 1 % (0-3) Neutrophils # (Auto) 2.9 x10^3uL (1.8-7.7) Lymphocytes # (Auto) 1.7 x10^3/uL (1.0-4.8) Monocytes # (Auto) 0.4 x10^3/uL (0.0-1.1) Eosinophils # (Auto) 0.1 x10^3/uL (0.0-0.7) Basophils # (Auto) 0.0 x10^3/uL (0.0-0.2) Sodium Level 142 mmol/L (136-145) Potassium Level 3.9 mmol/L (3.5-5.1) Chloride Level 109 mmol/L (98-107) Carbon Dioxide Level 23 mmol/L (21-32) Anion Gap 10 (6-14) Blood Urea Nitrogen 3 mg/dL (7-20) Creatinine 0.5 mg/dL (0.6-1.0) Estimated GFR (Cockcroft-Gault) 150.3 BUN/Creatinine Ratio 6 (6-20) Glucose Level 89 mg/dL (70-99) Calcium Level 8.5 mg/dL (8.5-10.1) Total Bilirubin 0.2 mg/dL (0.2-1.0) Aspartate Amino Transf (AST/SGOT) 13 U/L (15-37) Alanine Aminotransferase (ALT/SGPT) 19 U/L (14-59) Alkaline Phosphatase 141 U/L (46-116) Total Protein 6.9 g/dL (6.4-8.2) Albumin 3.2 g/dL (3.4-5.0) Albumin/Globulin Ratio 0.9 (1.0-1.7) Laboratory Tests Test 05/24/18 00:24 05/24/18 01:10 Glucose (Fingerstick) 77 mg/dL (70-99) White Blood Count 5.0 x10^3/uL (4.0-11.0) Red Blood Count 3.77 x10^6/uL (3.50-5.40) Hemoglobin 12.2 g/dL (12.0-15.5) Hematocrit 35.9 % (36.0-47.0) Mean Corpuscular Volume 95 fL (79-100) Mean Corpuscular Hemoglobin 32 pg (25-35) Mean Corpuscular Hemoglobin Concent 34 g/dL (31-37) Red Cell Distribution Width 13.9 % (11.5-14.5) Platelet Count 242 x10^3/uL (140-400) Neutrophils (%) (Auto) 57 % (31-73) Lymphocytes (%) (Auto) 34 % (24-48) Monocytes (%) (Auto) 8 % (0-9) Eosinophils (%) (Auto) 1 % (0-3) Basophils (%) (Auto) 1 % (0-3) Neutrophils # (Auto) 2.9 x10^3uL (1.8-7.7) Lymphocytes # (Auto) 1.7 x10^3/uL (1.0-4.8) Monocytes # (Auto) 0.4 x10^3/uL (0.0-1.1) Eosinophils # (Auto) 0.1 x10^3/uL (0.0-0.7) Basophils # (Auto) 0.0 x10^3/uL (0.0-0.2) Sodium Level 142 mmol/L (136-145) Potassium Level 3.9 mmol/L (3.5-5.1) Chloride Level 109 mmol/L (98-107) Carbon Dioxide Level 23 mmol/L (21-32) Anion Gap 10 (6-14) Blood Urea Nitrogen 3 mg/dL (7-20) Creatinine 0.5 mg/dL (0.6-1.0) Estimated GFR (Cockcroft-Gault) 150.3 BUN/Creatinine Ratio 6 (6-20) Glucose Level 89 mg/dL (70-99) Calcium Level 8.5 mg/dL (8.5-10.1) Total Bilirubin 0.2 mg/dL (0.2-1.0) Aspartate Amino Transf (AST/SGOT) 13 U/L (15-37) Alanine Aminotransferase (ALT/SGPT) 19 U/L (14-59) Alkaline Phosphatase 141 U/L (46-116) Total Protein 6.9 g/dL (6.4-8.2) Albumin 3.2 g/dL (3.4-5.0) Albumin/Globulin Ratio 0.9 (1.0-1.7) ESTEPHANIA ARNOLD MD May 24, 2018 13:40
--- NOTE | 2018-05-24 13:50 | PDOC ---
PROGRESS NOTES Chief Complaint Chief Complaint abd pain, not clear etiology, doubt acute appendicitis left side weakness, numbness, subjective, doubt stroke h/o Depression, anxiety, hypotension, h/o seizures, bradycardia, seizure device. possible UTI plan: fu with neuro, head ct neg MRI ordered EEG pending cont home seizure meds npo, ivf with PPN dvt, gi ppx fu with sx, GI, get ob consult check web prep, check tsh, cortisol level tmr am PTOT asked nurse to talk to family to see what is pt's baseline ceftriaxone for now History of Present Illness History of Present Illness ROS: no fever, chills, sob or chest pain pt talks and moves very slowly not sure she has some psych issues i was paged at 1am nurse reporting pt c/o left side numbness and weakness, pt said so again today, but neg on exam. Pt has bl ext weakness c/o bl abd pain, rt worse, tenderness. last period in March , but told nurse some vaginal bleeding today Vitals Vitals Vital Signs Date Time Temp Pulse Resp B/P (MAP) Pulse Ox O2 Delivery O2 Flow Rate FiO2 05/24/18 11:55 97.9 49 16 90/54 (66) 97 Room Air 97.9 Physical Exam Physical Exam talks and moves very slow General: Alert, Cooperative, No acute distress Heart: Regular rate, Normal S1, Normal S2, No murmurs Lungs: Clear Abdomen: Normal bowel sounds, Soft, Other (generalized TTP, rt side worse, no guarding or rebound tenderness) Extremities: No clubbing, No cyanosis Skin: No rashes, No breakdown Labs LABS Laboratory Tests Test 05/24/18 00:24 05/24/18 01:10 Glucose (Fingerstick) 77 mg/dL (70-99) White Blood Count 5.0 x10^3/uL (4.0-11.0) Red Blood Count 3.77 x10^6/uL (3.50-5.40) Hemoglobin 12.2 g/dL (12.0-15.5) Hematocrit 35.9 % (36.0-47.0) Mean Corpuscular Volume 95 fL (79-100) Mean Corpuscular Hemoglobin 32 pg (25-35) Mean Corpuscular Hemoglobin Concent 34 g/dL (31-37) Red Cell Distribution Width 13.9 % (11.5-14.5) Platelet Count 242 x10^3/uL (140-400) Neutrophils (%) (Auto) 57 % (31-73) Lymphocytes (%) (Auto) 34 % (24-48) Monocytes (%) (Auto) 8 % (0-9) Eosinophils (%) (Auto) 1 % (0-3) Basophils (%) (Auto) 1 % (0-3) Neutrophils # (Auto) 2.9 x10^3uL (1.8-7.7) Lymphocytes # (Auto) 1.7 x10^3/uL (1.0-4.8) Monocytes # (Auto) 0.4 x10^3/uL (0.0-1.1) Eosinophils # (Auto) 0.1 x10^3/uL (0.0-0.7) Basophils # (Auto) 0.0 x10^3/uL (0.0-0.2) Sodium Level 142 mmol/L (136-145) Potassium Level 3.9 mmol/L (3.5-5.1) Chloride Level 109 mmol/L (98-107) Carbon Dioxide Level 23 mmol/L (21-32) Anion Gap 10 (6-14) Blood Urea Nitrogen 3 mg/dL (7-20) Creatinine 0.5 mg/dL (0.6-1.0) Estimated GFR (Cockcroft-Gault) 150.3 BUN/Creatinine Ratio 6 (6-20) Glucose Level 89 mg/dL (70-99) Calcium Level 8.5 mg/dL (8.5-10.1) Total Bilirubin 0.2 mg/dL (0.2-1.0) Aspartate Amino Transf (AST/SGOT) 13 U/L (15-37) Alanine Aminotransferase (ALT/SGPT) 19 U/L (14-59) Alkaline Phosphatase 141 U/L (46-116) Total Protein 6.9 g/dL (6.4-8.2) Albumin 3.2 g/dL (3.4-5.0) Albumin/Globulin Ratio 0.9 (1.0-1.7) Assessment and Plan Assessmemt and Plan Problems Medical Problems: (1) Abdominal pain Status: Acute (2) UTI (urinary tract infection) Status: Acute Comment Review of Relevant I have reviewed the following items irma (where applicable) has been applied. Labs Laboratory Tests Test 05/23/18 07:40 05/23/18 08:37 05/23/18 08:40 05/23/18 09:09 White Blood Count 5.1 x10^3/uL (4.0-11.0) Red Blood Count 3.76 x10^6/uL (3.50-5.40) Hemoglobin 12.0 g/dL (12.0-15.5) Hematocrit 35.5 % (36.0-47.0) Mean Corpuscular Volume 95 fL (79-100) Mean Corpuscular Hemoglobin 32 pg (25-35) Mean Corpuscular Hemoglobin Concent 34 g/dL (31-37) Red Cell Distribution Width 14.0 % (11.5-14.5) Platelet Count 267 x10^3/uL (140-400) Neutrophils (%) (Auto) 50 % (31-73) Lymphocytes (%) (Auto) 36 % (24-48) Monocytes (%) (Auto) 12 % (0-9) Eosinophils (%) (Auto) 2 % (0-3) Basophils (%) (Auto) 1 % (0-3) Neutrophils # (Auto) 2.5 x10^3uL (1.8-7.7) Lymphocytes # (Auto) 1.8 x10^3/uL (1.0-4.8) Monocytes # (Auto) 0.6 x10^3/uL (0.0-1.1) Eosinophils # (Auto) 0.1 x10^3/uL (0.0-0.7) Basophils # (Auto) 0.0 x10^3/uL (0.0-0.2) Sodium Level 142 mmol/L (136-145) Potassium Level 3.8 mmol/L (3.5-5.1) Chloride Level 109 mmol/L (98-107) Carbon Dioxide Level 23 mmol/L (21-32) Anion Gap 10 (6-14) Blood Urea Nitrogen 10 mg/dL (7-20) Creatinine 0.6 mg/dL (0.6-1.0) Estimated GFR (Cockcroft-Gault) 121.8 BUN/Creatinine Ratio 17 (6-20) Glucose Level 99 mg/dL (70-99) Calcium Level 7.6 mg/dL (8.5-10.1) Total Bilirubin 0.1 mg/dL (0.2-1.0) Aspartate Amino Transf (AST/SGOT) 11 U/L (15-37) Alanine Aminotransferase (ALT/SGPT) 18 U/L (14-59) Alkaline Phosphatase 171 U/L (46-116) Total Protein 6.9 g/dL (6.4-8.2) Albumin 3.3 g/dL (3.4-5.0) Albumin/Globulin Ratio 0.9 (1.0-1.7) Lipase 166 U/L (73-393) Prothrombin Time 13.0 SEC (11.7-14.0) Prothromb Time International Ratio 1.0 (0.8-1.1) Activated Partial Thromboplast Time 30 SEC (24-38) Urine Collection Type U cath Urine Color Yellow Urine Clarity Clear Urine pH 6.5 Urine Specific [place] >=1.030 Urine Protein Negative mg/dL (NEG-TRACE) Urine Glucose (UA) Negative mg/dL (NEG) Urine Ketones (Stick) Negative mg/dL (NEG) Urine Blood Negative (NEG) Urine Nitrite Positive (NEG) Urine Bilirubin Negative (NEG) Urine Urobilinogen Dipstick 0.2 mg/dL (0.2 mg/dL) Urine Leukocyte Esterase Small (NEG) Urine RBC Occ /HPF (0-2) Urine WBC 11-20 /HPF (0-4) Urine Bacteria Moderate /HPF (0-FEW) Urine Mucus Marked /LPF Urine Opiates Screen Neg (NEG) Urine Methadone Screen Neg (NEG) Urine Barbiturates Neg (NEG) Urine Phencyclidine Screen Neg (NEG) Urine Amphetamine/Methamphetamine Neg (NEG) Urine Benzodiazepines Screen Pos (NEG) Urine Cocaine Screen Neg (NEG) Urine Cannabinoids Screen Neg (NEG) Urine Ethyl Alcohol Neg (NEG) Test 05/23/18 09:13 05/24/18 00:24 05/24/18 01:10 Bedside Urine HCG, Qualitative Hcg negative (Negative) Glucose (Fingerstick) 77 mg/dL (70-99) White Blood Count 5.0 x10^3/uL (4.0-11.0) Red Blood Count 3.77 x10^6/uL (3.50-5.40) Hemoglobin 12.2 g/dL (12.0-15.5) Hematocrit 35.9 % (36.0-47.0) Mean Corpuscular Volume 95 fL (79-100) Mean Corpuscular Hemoglobin 32 pg (25-35) Mean Corpuscular Hemoglobin Concent 34 g/dL (31-37) Red Cell Distribution Width 13.9 % (11.5-14.5) Platelet Count 242 x10^3/uL (140-400) Neutrophils (%) (Auto) 57 % (31-73) Lymphocytes (%) (Auto) 34 % (24-48) Monocytes (%) (Auto) 8 % (0-9) Eosinophils (%) (Auto) 1 % (0-3) Basophils (%) (Auto) 1 % (0-3) Neutrophils # (Auto) 2.9 x10^3uL (1.8-7.7) Lymphocytes # (Auto) 1.7 x10^3/uL (1.0-4.8) Monocytes # (Auto) 0.4 x10^3/uL (0.0-1.1) Eosinophils # (Auto) 0.1 x10^3/uL (0.0-0.7) Basophils # (Auto) 0.0 x10^3/uL (0.0-0.2) Sodium Level 142 mmol/L (136-145) Potassium Level 3.9 mmol/L (3.5-5.1) Chloride Level 109 mmol/L (98-107) Carbon Dioxide Level 23 mmol/L (21-32) Anion Gap 10 (6-14) Blood Urea Nitrogen 3 mg/dL (7-20) Creatinine 0.5 mg/dL (0.6-1.0) Estimated GFR (Cockcroft-Gault) 150.3 BUN/Creatinine Ratio 6 (6-20) Glucose Level 89 mg/dL (70-99) Calcium Level 8.5 mg/dL (8.5-10.1) Total Bilirubin 0.2 mg/dL (0.2-1.0) Aspartate Amino Transf (AST/SGOT) 13 U/L (15-37) Alanine Aminotransferase (ALT/SGPT) 19 U/L (14-59) Alkaline Phosphatase 141 U/L (46-116) Total Protein 6.9 g/dL (6.4-8.2) Albumin 3.2 g/dL (3.4-5.0) Albumin/Globulin Ratio 0.9 (1.0-1.7) Laboratory Tests Test 05/24/18 00:24 05/24/18 01:10 Glucose (Fingerstick) 77 mg/dL (70-99) White Blood Count 5.0 x10^3/uL (4.0-11.0) Red Blood Count 3.77 x10^6/uL (3.50-5.40) Hemoglobin 12.2 g/dL (12.0-15.5) Hematocrit 35.9 % (36.0-47.0) Mean Corpuscular Volume 95 fL (79-100) Mean Corpuscular Hemoglobin 32 pg (25-35) Mean Corpuscular Hemoglobin Concent 34 g/dL (31-37) Red Cell Distribution Width 13.9 % (11.5-14.5) Platelet Count 242 x10^3/uL (140-400) Neutrophils (%) (Auto) 57 % (31-73) Lymphocytes (%) (Auto) 34 % (24-48) Monocytes (%) (Auto) 8 % (0-9) Eosinophils (%) (Auto) 1 % (0-3) Basophils (%) (Auto) 1 % (0-3) Neutrophils # (Auto) 2.9 x10^3uL (1.8-7.7) Lymphocytes # (Auto) 1.7 x10^3/uL (1.0-4.8) Monocytes # (Auto) 0.4 x10^3/uL (0.0-1.1) Eosinophils # (Auto) 0.1 x10^3/uL (0.0-0.7) Basophils # (Auto) 0.0 x10^3/uL (0.0-0.2) Sodium Level 142 mmol/L (136-145) Potassium Level 3.9 mmol/L (3.5-5.1) Chloride Level 109 mmol/L (98-107) Carbon Dioxide Level 23 mmol/L (21-32) Anion Gap 10 (6-14) Blood Urea Nitrogen 3 mg/dL (7-20) Creatinine 0.5 mg/dL (0.6-1.0) Estimated GFR (Cockcroft-Gault) 150.3 BUN/Creatinine Ratio 6 (6-20) Glucose Level 89 mg/dL (70-99) Calcium Level 8.5 mg/dL (8.5-10.1) Total Bilirubin 0.2 mg/dL (0.2-1.0) Aspartate Amino Transf (AST/SGOT) 13 U/L (15-37) Alanine Aminotransferase (ALT/SGPT) 19 U/L (14-59) Alkaline Phosphatase 141 U/L (46-116) Total Protein 6.9 g/dL (6.4-8.2) Albumin 3.2 g/dL (3.4-5.0) Albumin/Globulin Ratio 0.9 (1.0-1.7) Medications Current Medications Sodium Chloride 1,000 ml @ 1,000 mls/hr Q1H IV Last administered on 05/23/18at 07:53; Start 05/23/18 at 07:26; Stop 05/23/18 at 08:25; Status DC Ondansetron HCl (Zofran) 8 mg 1X ONCE IV Last administered on 05/23/18at 07:57 ; Start 05/23/18 at 07:30; Stop 05/23/18 at 07:35; Status DC Sodium Chloride 1,000 ml @ 1,000 mls/hr 1X ONCE IV Last administered on at 10:00; Start 05/23/18 at 10:00; Stop 05/23/18 at 10:59; Status DC Iohexol (Omnipaque 300 Mg/ml) 75 ml 1X ONCE PO Last administered on 05/23/18at 10:00; Start 05/23/18 at 10:00; Stop 05/23/18 at 10:01; Status DC Piperacillin Sod/ Tazobactam Sod 3.375 gm/Sodium Chloride 50 ml @ 100 mls/hr 1X ONCE IV ; Start 05/23/18 at 11:45; Stop 05/23/18 at 12:14; Status Cancel Info (CONTRAST GIVEN -- Rx MONITORING) 1 each PRN DAILY PRN MC SEE COMMENTS; Start 05/23/18 at 12:15; Stop 05/25/18 at 12:14 Ondansetron HCl (Zofran) 4 mg PRN Q8HRS PRN IV NAUSEA/VOMITING; Start 05/23/18 at 12:15; Stop 05/23/18 at 14:20; Status DC Sodium Chloride 1,000 ml @ 100 mls/hr Q10H IV Last administered on 05/23/18at 12:52; Start 05/23/18 at 12:15; Stop 05/24/18 at 12:14; Status DC Ceftriaxone Sodium 1 gm/ Dextrose 50 ml @ 100 mls/hr Q24H IV ; Start 05/23/18 at 14:30; Status UNV Ondansetron HCl (Zofran) 4 mg PRN Q6HRS PRN IV NAUSEA/VOMITING; Start 05/23/18 at 14:30 Morphine Sulfate (Morphine Sulfate) 2 mg PRN Q2HR PRN IV PAIN Last administered on 05/24/18at 00:01; Start 05/23/18 at 14:30 Amino Acids/ Glycerin/ Electrolytes 1,000 ml @ 75 mls/hr [id number] IV ; Start at 15:00; Stop 05/23/18 at 23:55; Status DC Ceftriaxone Sodium (Rocephin) 1 gm Q24H IVP Last administered on 05/23/18at 15: 00; Start 05/23/18 at 15:00 Pantoprazole Sodium (PROTONIX VIAL for IV PUSH) 40 mg DAILYAC IVP Last administered on 05/24/18at 09:44; Start 05/23/18 at 15:00 Clonazepam (KlonoPIN) 0.5 mg BID PO ; Start 05/23/18 at 21:00 Clonazepam (KlonoPIN) 0.5 mg TID PRN PRN PO SEIZURES.; Start 05/23/18 at 14:30 Lorazepam (Ativan) 0.5 mg BID PO ; Start 05/23/18 at 21:00 Non-Formulary Medication (Clobazam (Onfi)) 10 mg BID PO ; Start 05/23/18 at 21: 00; Status UNV Non-Formulary Medication (Clobazam (Onfi)) 20 mg BID PO ; Start 05/23/18 at 21: 00; Status UNV Citalopram Hydrobromide (CeleXA) 20 mg DAILY PO Last administered on 05/24/18at 09:45; Start 05/23/18 at 15:00 Non-Formulary Medication (Ezogabine (Potiga)) 400 mg TID PO ; Start 05/23/18 at 21:00; Status UNV Non-Formulary Medication (Levetiracetam ) 1,000 mg BID PO ; Start 05/23/18 at 21 :00; Status UNV Levetiracetam (Keppra) 2,000 mg BID PO Last administered on 05/24/18at 09:44; Start 05/23/18 at 21:00 Non-Formulary Medication (Perampanel (Fycompa)) 6 mg DAILY PO ; Start 05/24/18 at 09:00; Status UNV Phenazopyridine HCl (Pyridium) 200 mg TID PO Last administered on 05/24/18at 09: 45; Start 05/23/18 at 15:00 Zonisamide (Zonegran) 200 mg BID PO Last administered on 05/24/18at 09:45; Start 05/23/18 at 21:00 Amino Acids/ Glycerin/ Electrolytes 1,000 ml @ 75 mls/hr [id number] IV Last administered on 05/24/18at 00:02; Start 05/24/18 at 00:00 Naloxone HCl (Narcan) 0.4 mg STK-MED ONCE .ROUTE ; Start 05/24/18 at 00:26; Stop 05/24/18 at 00:27; Status DC Naloxone HCl (Narcan) 0.4 mg 1X ONCE IV Last administered on 05/24/18at 00:31; Start 05/24/18 at 00:30; Stop 05/24/18 at 00:47; Status DC Aspirin (Jc Aspirin) 325 mg 1X ONCE PO ; Start 05/24/18 at 02:15; Stop 05/24 at 02:16; Status DC Active Scripts Active Pyridium (Phenazopyridine Hcl) 200 Mg Tablet 200 Mg PO TID Ativan (Lorazepam) 0.5 Mg Tablet 0.5 Mg PO BID Reported Keppra (Levetiracetam) 1,000 Mg Tablet 2 Tab PO BID Clonazepam 0.5 Mg Tablet 1 Tab PO BID Onfi (Clobazam) 10 Mg Tablet 20 Mg PO BID Fycompa (Perampanel) 8 Mg Tablet 8 Mg PO QHS Fycompa (Perampanel) 6 Mg Tablet 6 Mg PO DAILY Escitalopram Oxalate 10 Mg Tablet 10 Mg PO DAILY Clonazepam 0.5 Mg Tablet 1 Tab PO TID PRN PRN seizures Potiga (Ezogabine) 200 Mg Tablet 400 Mg PO TID Zonisamide 100 Mg Capsule 200 Mg PO BID Vitals/I & O Vital Sign - Last 24 Hours 05/23/18 05/23/18 05/23/18 05/23/18 14:05 15:00 19:00 19:30 Temp 97.7 97.7 97.7 97.7 Pulse 56 52 Resp 16 14 B/P (MAP) 106/70 (82) 97/55 (69) Pulse Ox 99 98 O2 Delivery Room Air Room Air Room Air Room Air 05/23/18 05/24/18 05/24/18 05/24/18 23:00 00:01 03:00 07:00 Temp 98.2 98.8 98.7 98.2 98.8 98.7 Pulse 52 58 47 Resp 14 18 18 B/P (MAP) 108/61 (77) 111/61 (78) 89/55 (66) Pulse Ox 99 92 96 O2 Delivery Room Air Room Air Room Air Room Air 05/24/18 05/24/18 08:00 11:55 Temp 97.9 97.9 Pulse 49 Resp 16 B/P (MAP) 90/54 (66) Pulse Ox 97 O2 Delivery Room Air Room Air Intake and Output 05/23/18 05/23/18 05/24/18 15:00 23:00 07:00 Intake Total 2000 ml 50 ml 2750 ml Balance 2000 ml 50 ml 2750 ml ERICKSON FISCHER MD May 24, 2018 13:50
[2018-05-24 15:00] VITALS: BP 92/60
[2018-05-24] MEDS ORDERED: DICYCLOMINE HCL 10 MG CAPSULE PO PRN (15:30)
[2018-05-24] MEDS: cefTRIAXone IV Push 1 GM VIAL. IVP SCH (15:43)
[2018-05-24] MEDS: POLYETHYLENE GLYCOL 3350 17 GM PACKET. PO SCH (16:00)
--- NOTE | 2018-05-24 18:30 | PDOC2 ---
CONSULT Date of Consult Date of Consult DATE: 05/24/18 TIME: 18:25 Reason for Consult Reason for Consult: abd pain Referring Physician Referring Physician: Dr. Estevez Identification/Chief Complaint Chief Complaint abd pain History of Present Illness Reason for Visit: 27 y/o presented with abd pain. CT scan demonstrated ROV cyst 1.5 cm size. She reports 2 wks of RLQ pain that is constant and same intensity. She is being treated for UTI at this time. She has Nexplanon in Left arm for control. Past Medical History CENTRAL NERVOUS SYSTEM: Seizure Psych: Anxiety, Depression Past Surgical History Past Surgical History: Other, No pertinent history (no previous abdominal surgeries ) Family History Family History: Other (noncontributory to current illness ) Social History No ALCOHOL: none Drugs: None Lives: with Family Current Problem List Problem List Problems Medical Problems: (1) Abdominal pain Status: Acute (2) UTI (urinary tract infection) Status: Acute Current Medications Current Medications Current Medications Sodium Chloride 1,000 ml @ 1,000 mls/hr Q1H IV Last administered on 05/23/18at 07:53; Start 05/23/18 at 07:26; Stop 05/23/18 at 08:25; Status DC Ondansetron HCl (Zofran) 8 mg 1X ONCE IV Last administered on 05/23/18at 07:57 ; Start 05/23/18 at 07:30; Stop 05/23/18 at 07:35; Status DC Sodium Chloride 1,000 ml @ 1,000 mls/hr 1X ONCE IV Last administered on at 10:00; Start 05/23/18 at 10:00; Stop 05/23/18 at 10:59; Status DC Iohexol (Omnipaque 300 Mg/ml) 75 ml 1X ONCE PO Last administered on 05/23/18at 10:00; Start 05/23/18 at 10:00; Stop 05/23/18 at 10:01; Status DC Piperacillin Sod/ Tazobactam Sod 3.375 gm/Sodium Chloride 50 ml @ 100 mls/hr 1X ONCE IV ; Start 05/23/18 at 11:45; Stop 05/23/18 at 12:14; Status Cancel Info (CONTRAST GIVEN -- Rx MONITORING) 1 each PRN DAILY PRN MC SEE COMMENTS; Start 05/23/18 at 12:15; Stop 05/25/18 at 12:14 Ondansetron HCl (Zofran) 4 mg PRN Q8HRS PRN IV NAUSEA/VOMITING; Start 05/23/18 at 12:15; Stop 05/23/18 at 14:20; Status DC Sodium Chloride 1,000 ml @ 100 mls/hr Q10H IV Last administered on 05/23/18at 12:52; Start 05/23/18 at 12:15; Stop 05/24/18 at 12:14; Status DC Ceftriaxone Sodium 1 gm/ Dextrose 50 ml @ 100 mls/hr Q24H IV ; Start 05/23/18 at 14:30; Status UNV Ondansetron HCl (Zofran) 4 mg PRN Q6HRS PRN IV NAUSEA/VOMITING; Start 05/23/18 at 14:30 Morphine Sulfate (Morphine Sulfate) 2 mg PRN Q2HR PRN IV PAIN Last administered on 05/24/18at 00:01; Start 05/23/18 at 14:30 Amino Acids/ Glycerin/ Electrolytes 1,000 ml @ 75 mls/hr [id number] IV ; Start at 15:00; Stop 05/23/18 at 23:55; Status DC Ceftriaxone Sodium (Rocephin) 1 gm Q24H IVP Last administered on 05/24/18at 15: 43; Start 05/23/18 at 15:00 Pantoprazole Sodium (PROTONIX VIAL for IV PUSH) 40 mg DAILYAC IVP Last administered on 05/24/18at 09:44; Start 05/23/18 at 15:00 Clonazepam (KlonoPIN) 0.5 mg BID PO ; Start 05/23/18 at 21:00; Stop 05/24/18 at 16:08; Status DC Clonazepam (KlonoPIN) 0.5 mg TID PRN PRN PO SEIZURES.; Start 05/23/18 at 14:30 Lorazepam (Ativan) 0.5 mg BID PO ; Start 05/23/18 at 21:00; Stop 05/24/18 at 16: 08; Status DC Non-Formulary Medication (Clobazam (Onfi)) 10 mg BID PO ; Start 05/23/18 at 21: 00; Status UNV Non-Formulary Medication (Clobazam (Onfi)) 20 mg BID PO ; Start 05/23/18 at 21: 00; Status UNV Citalopram Hydrobromide (CeleXA) 20 mg DAILY PO Last administered on 05/24/18at 09:45; Start 05/23/18 at 15:00 Non-Formulary Medication (Ezogabine (Potiga)) 400 mg TID PO ; Start 05/23/18 at 21:00; Status UNV Non-Formulary Medication (Levetiracetam ) 1,000 mg BID PO ; Start 05/23/18 at 21 :00; Status UNV Levetiracetam (Keppra) 2,000 mg BID PO Last administered on 05/24/18at 09:44; Start 05/23/18 at 21:00 Non-Formulary Medication (Perampanel (Fycompa)) 6 mg DAILY PO ; Start 05/24/18 at 09:00; Status UNV Phenazopyridine HCl (Pyridium) 200 mg TID PO Last administered on 05/24/18at 09: 45; Start 05/23/18 at 15:00 Zonisamide (Zonegran) 200 mg BID PO Last administered on 05/24/18at 09:45; Start 05/23/18 at 21:00 Amino Acids/ Glycerin/ Electrolytes 1,000 ml @ 75 mls/hr [id number] IV Last administered on 05/24/18at 15:43; Start 05/24/18 at 00:00 Naloxone HCl (Narcan) 0.4 mg STK-MED ONCE .ROUTE ; Start 05/24/18 at 00:26; Stop 05/24/18 at 00:27; Status DC Naloxone HCl (Narcan) 0.4 mg 1X ONCE IV Last administered on 05/24/18at 00:31; Start 05/24/18 at 00:30; Stop 05/24/18 at 00:47; Status DC Aspirin (Jc Aspirin) 325 mg 1X ONCE PO ; Start 05/24/18 at 02:15; Stop 05/24 at 02:16; Status DC Polyethylene Glycol (miraLAX PACKET) 17 gm DAILY PO ; Start 05/24/18 at 16:00 Dicyclomine HCl (Bentyl) 10 mg QID PRN PO abd pain; Start 05/24/18 at 15:30 Active Scripts Active Pyridium (Phenazopyridine Hcl) 200 Mg Tablet 200 Mg PO TID Ativan (Lorazepam) 0.5 Mg Tablet 0.5 Mg PO BID Reported Keppra (Levetiracetam) 1,000 Mg Tablet 2 Tab PO BID Clonazepam 0.5 Mg Tablet 1 Tab PO BID Onfi (Clobazam) 10 Mg Tablet 20 Mg PO BID Fycompa (Perampanel) 8 Mg Tablet 8 Mg PO QHS Fycompa (Perampanel) 6 Mg Tablet 6 Mg PO DAILY Escitalopram Oxalate 10 Mg Tablet 10 Mg PO DAILY Clonazepam 0.5 Mg Tablet 1 Tab PO TID PRN PRN seizures Potiga (Ezogabine) 200 Mg Tablet 400 Mg PO TID Zonisamide 100 Mg Capsule 200 Mg PO BID Allergies Allergies: Coded Allergies: peanut (Verified Allergy, Intermediate, PEANUT BUTTER, 08/30/14) ROS General: YES: Fatigue, Malaise; No: Chills, Appetite, Other PSYCHOLOGICAL ROS: YES: Anxiety; No: Behavioral Disorder, Concentration difficultie, Decreased libido, Depression, Disorientation, Hallucinations, Hostility, Irritablity, Memory difficulties, Mood Swings, Obsessive thoughts, Physical abuse, Sexual abuse, Sleep disturbances, Suicidal ideation, Other Eyes: No Blurry vision, No Decreased vision, No Double vision, No Dry eyes, No Excessive tearing, No Eye Pain, No Itchy Eyes, No Loss of vision, No Photophobia , No Scotomata, No Uses contacts, No Uses glasses, No Other HEENT: No: Heacaches, Visual Changes, Hearing change, Nasal congestion, Nasal discharge, Oral lesions, Sinus pain, Sore Throat, Epistaxis, Sneezing, Snoring, Tinnitus, Vertigo, Vocal changes, Other Hematological and Lymphatic: No: Bleeding Problems, Blood Clots, Blood Transfusions, Brusing, Night Sweats, Pallor, Swollen Lymph Nodes, Other ENDOCRINE: No: Breast Changes, Galactorrhea, Hair Pattern Changes, Hot Flashes , Malaise/lethargy, Mood Swings, Palpitations, Polydipsia/polyuria, Skin Changes , Temperature Intolerance, Unexpected Weight Changes, Other Breast: No New/Changing Breast Lumps, No Nipple changes, No Nipple discharge, No Other Respiratory: No: Cough, Hemoptysis, Orthopnea, Pleuritic Pain, Shortness of breath, SOB with excertion, Sputum Changes, Stridor, Tachypnea, Wheezing, Other Cardiovascular: No Chest Pain, No Palpitations, No Orthopnea, No Paroxysmal Noc. Dyspnea, No Edema, No Lt Headedness, No Other Gastrointestinal: Yes Abdominal Pain; No Nausea, No Vomiting, No Diarrhea, No Constipation, No Melena, No Hematochezia, No Other Neurological: No Behavorial Changes, No Bowel/Bladder ControlChng, No Confusion , No Dizziness, No Gait Disturbance, No Headaches, No Impaired Coord/balance, No Memory Loss, No Numbness/Tingling, No Seizures, No Speech Problems, No Tremors, No Visual Changes, No Weakness, No Other Physical Exam General: Alert, Oriented X3, Cooperative HEENT: Atraumatic Lungs: Clear to auscultation Heart: Regular rate Abdomen: Normal bowel sounds, Soft, No masses, Other (RLQ tenderness to palpation. No rebound tenderness. Mild CVA tenderness.) Vitals VITALS Vital Signs Date Time Temp Pulse Resp B/P (MAP) Pulse Ox O2 Delivery O2 Flow Rate FiO2 05/24/18 15:00 98.9 58 18 92/60 (71) 99 Room Air 98.9 Labs Labs Laboratory Tests Test 05/23/18 07:40 05/23/18 08:37 05/23/18 08:40 05/23/18 09:09 White Blood Count 5.1 x10^3/uL (4.0-11.0) Red Blood Count 3.76 x10^6/uL (3.50-5.40) Hemoglobin 12.0 g/dL (12.0-15.5) Hematocrit 35.5 % (36.0-47.0) Mean Corpuscular Volume 95 fL (79-100) Mean Corpuscular Hemoglobin 32 pg (25-35) Mean Corpuscular Hemoglobin Concent 34 g/dL (31-37) Red Cell Distribution Width 14.0 % (11.5-14.5) Platelet Count 267 x10^3/uL (140-400) Neutrophils (%) (Auto) 50 % (31-73) Lymphocytes (%) (Auto) 36 % (24-48) Monocytes (%) (Auto) 12 % (0-9) Eosinophils (%) (Auto) 2 % (0-3) Basophils (%) (Auto) 1 % (0-3) Neutrophils # (Auto) 2.5 x10^3uL (1.8-7.7) Lymphocytes # (Auto) 1.8 x10^3/uL (1.0-4.8) Monocytes # (Auto) 0.6 x10^3/uL (0.0-1.1) Eosinophils # (Auto) 0.1 x10^3/uL (0.0-0.7) Basophils # (Auto) 0.0 x10^3/uL (0.0-0.2) Sodium Level 142 mmol/L (136-145) Potassium Level 3.8 mmol/L (3.5-5.1) Chloride Level 109 mmol/L (98-107) Carbon Dioxide Level 23 mmol/L (21-32) Anion Gap 10 (6-14) Blood Urea Nitrogen 10 mg/dL (7-20) Creatinine 0.6 mg/dL (0.6-1.0) Estimated GFR (Cockcroft-Gault) 121.8 BUN/Creatinine Ratio 17 (6-20) Glucose Level 99 mg/dL (70-99) Calcium Level 7.6 mg/dL (8.5-10.1) Total Bilirubin 0.1 mg/dL (0.2-1.0) Aspartate Amino Transf (AST/SGOT) 11 U/L (15-37) Alanine Aminotransferase (ALT/SGPT) 18 U/L (14-59) Alkaline Phosphatase 171 U/L (46-116) Total Protein 6.9 g/dL (6.4-8.2) Albumin 3.3 g/dL (3.4-5.0) Albumin/Globulin Ratio 0.9 (1.0-1.7) Lipase 166 U/L (73-393) Prothrombin Time 13.0 SEC (11.7-14.0) Prothromb Time International Ratio 1.0 (0.8-1.1) Activated Partial Thromboplast Time 30 SEC (24-38) Urine Collection Type U cath Urine Color Yellow Urine Clarity Clear Urine pH 6.5 Urine Specific [place] >=1.030 Urine Protein Negative mg/dL (NEG-TRACE) Urine Glucose (UA) Negative mg/dL (NEG) Urine Ketones (Stick) Negative mg/dL (NEG) Urine Blood Negative (NEG) Urine Nitrite Positive (NEG) Urine Bilirubin Negative (NEG) Urine Urobilinogen Dipstick 0.2 mg/dL (0.2 mg/dL) Urine Leukocyte Esterase Small (NEG) Urine RBC Occ /HPF (0-2) Urine WBC 11-20 /HPF (0-4) Urine Bacteria Moderate /HPF (0-FEW) Urine Mucus Marked /LPF Urine Opiates Screen Neg (NEG) Urine Methadone Screen Neg (NEG) Urine Barbiturates Neg (NEG) Urine Phencyclidine Screen Neg (NEG) Urine Amphetamine/Methamphetamine Neg (NEG) Urine Benzodiazepines Screen Pos (NEG) Urine Cocaine Screen Neg (NEG) Urine Cannabinoids Screen Neg (NEG) Urine Ethyl Alcohol Neg (NEG) Test 05/23/18 09:13 05/24/18 00:24 05/24/18 01:10 Bedside Urine HCG, Qualitative Hcg negative (Negative) Glucose (Fingerstick) 77 mg/dL (70-99) White Blood Count 5.0 x10^3/uL (4.0-11.0) Red Blood Count 3.77 x10^6/uL (3.50-5.40) Hemoglobin 12.2 g/dL (12.0-15.5) Hematocrit 35.9 % (36.0-47.0) Mean Corpuscular Volume 95 fL (79-100) Mean Corpuscular Hemoglobin 32 pg (25-35) Mean Corpuscular Hemoglobin Concent 34 g/dL (31-37) Red Cell Distribution Width 13.9 % (11.5-14.5) Platelet Count 242 x10^3/uL (140-400) Neutrophils (%) (Auto) 57 % (31-73) Lymphocytes (%) (Auto) 34 % (24-48) Monocytes (%) (Auto) 8 % (0-9) Eosinophils (%) (Auto) 1 % (0-3) Basophils (%) (Auto) 1 % (0-3) Neutrophils # (Auto) 2.9 x10^3uL (1.8-7.7) Lymphocytes # (Auto) 1.7 x10^3/uL (1.0-4.8) Monocytes # (Auto) 0.4 x10^3/uL (0.0-1.1) Eosinophils # (Auto) 0.1 x10^3/uL (0.0-0.7) Basophils # (Auto) 0.0 x10^3/uL (0.0-0.2) Sodium Level 142 mmol/L (136-145) Potassium Level 3.9 mmol/L (3.5-5.1) Chloride Level 109 mmol/L (98-107) Carbon Dioxide Level 23 mmol/L (21-32) Anion Gap 10 (6-14) Blood Urea Nitrogen 3 mg/dL (7-20) Creatinine 0.5 mg/dL (0.6-1.0) Estimated GFR (Cockcroft-Gault) 150.3 BUN/Creatinine Ratio 6 (6-20) Glucose Level 89 mg/dL (70-99) Calcium Level 8.5 mg/dL (8.5-10.1) Total Bilirubin 0.2 mg/dL (0.2-1.0) Aspartate Amino Transf (AST/SGOT) 13 U/L (15-37) Alanine Aminotransferase (ALT/SGPT) 19 U/L (14-59) Alkaline Phosphatase 141 U/L (46-116) Total Protein 6.9 g/dL (6.4-8.2) Albumin 3.2 g/dL (3.4-5.0) Albumin/Globulin Ratio 0.9 (1.0-1.7) Laboratory Tests Test 05/24/18 00:24 05/24/18 01:10 Glucose (Fingerstick) 77 mg/dL (70-99) White Blood Count 5.0 x10^3/uL (4.0-11.0) Red Blood Count 3.77 x10^6/uL (3.50-5.40) Hemoglobin 12.2 g/dL (12.0-15.5) Hematocrit 35.9 % (36.0-47.0) Mean Corpuscular Volume 95 fL (79-100) Mean Corpuscular Hemoglobin 32 pg (25-35) Mean Corpuscular Hemoglobin Concent 34 g/dL (31-37) Red Cell Distribution Width 13.9 % (11.5-14.5) Platelet Count 242 x10^3/uL (140-400) Neutrophils (%) (Auto) 57 % (31-73) Lymphocytes (%) (Auto) 34 % (24-48) Monocytes (%) (Auto) 8 % (0-9) Eosinophils (%) (Auto) 1 % (0-3) Basophils (%) (Auto) 1 % (0-3) Neutrophils # (Auto) 2.9 x10^3uL (1.8-7.7) Lymphocytes # (Auto) 1.7 x10^3/uL (1.0-4.8) Monocytes # (Auto) 0.4 x10^3/uL (0.0-1.1) Eosinophils # (Auto) 0.1 x10^3/uL (0.0-0.7) Basophils # (Auto) 0.0 x10^3/uL (0.0-0.2) Sodium Level 142 mmol/L (136-145) Potassium Level 3.9 mmol/L (3.5-5.1) Chloride Level 109 mmol/L (98-107) Carbon Dioxide Level 23 mmol/L (21-32) Anion Gap 10 (6-14) Blood Urea Nitrogen 3 mg/dL (7-20) Creatinine 0.5 mg/dL (0.6-1.0) Estimated GFR (Cockcroft-Gault) 150.3 BUN/Creatinine Ratio 6 (6-20) Glucose Level 89 mg/dL (70-99) Calcium Level 8.5 mg/dL (8.5-10.1) Total Bilirubin 0.2 mg/dL (0.2-1.0) Aspartate Amino Transf (AST/SGOT) 13 U/L (15-37) Alanine Aminotransferase (ALT/SGPT) 19 U/L (14-59) Alkaline Phosphatase 141 U/L (46-116) Total Protein 6.9 g/dL (6.4-8.2) Albumin 3.2 g/dL (3.4-5.0) Albumin/Globulin Ratio 0.9 (1.0-1.7) Assessment/Plan Assessment/Plan A: Abd pain ROV cyst P: Recommend pain management and pelvic sono for evaluation of ROV cyst. Will f /u on pelvic sono. If ROV cyst confirmed less than 5 cm size, then f/u in clinic. Thank you for consult. ARLINE MCKEON Jr, MD May 24, 2018 18:30
[2018-05-24 19:15] VITALS: BP 95/56
[2018-05-24 23:06] VITALS: BP 93/57
[2018-05-25] MEDS: AMINO AC 3%/ELECTROLYTE/GLYCER 1,000 ML IV SCH ×2 (02:40→23:20)
[2018-05-25 03:12] VITALS: BP 103/56
[2018-05-25 07:00] VITALS: BP 96/51
[2018-05-25 08:24] LABS: BASO % 1 % (0-3); EOS # 0.1 x10^3/uL (0.0-0.7); EOS % 1 % (0-3); HEMATOCRIT 34.3 % (36.0-47.0); HEMOGLOBIN 11.7 g/dL (12.0-15.5); LYMPH # 1.9 x10^3/uL (1.0-4.8); LYMPH % 38 % (24-48); MEAN CORPUSCULAR HEMOGLOBIN 32 pg (25-35); MEAN CORPUSCULAR HGB CONC 34 g/dL (31-37); MEAN CORPUSCULAR VOLUME 94 fL (79-100); MONO # 0.4 x10^3/uL (0.0-1.1); MONO % 8 % (0-9); NEUT # 2.6 x10^3uL (1.8-7.7); NEUT % 53 % (31-73); PLATELET COUNT 221 x10^3/uL (140-400); RED BLOOD COUNT 3.63 x10^6/uL (3.50-5.40); RED CELL DISTRIBUTION WIDTH 13.3 % (11.5-14.5)
[2018-05-25 08:45] LABS: CALCIUM 8.6 mg/dL (8.5-10.1); CREATININE 0.6 mg/dL (0.6-1.0); GFR 121.8; POTASSIUM 3.6 mmol/L (3.5-5.1)
[2018-05-25] MEDS: POLYETHYLENE GLYCOL 3350 17 GM PACKET. PO SCH (09:00)
[2018-05-25] MEDS: CLOBAZAM 20 MG PO SCH ×2 (09:00→20:12)
[2018-05-25] MEDS: PERAMPANEL 6 MG PO SCH (09:00)
[2018-05-25] MEDS: [UNRECOGNIZED DRUG - OTHER] PO SCH ×3 (09:00→20:13)
[2018-05-25] MEDS: PHENAZOPYRIDINE 200 MG TABLET. PO SCH ×3 (09:17→20:51)
[2018-05-25] MEDS: ZONISAMIDE 100 MG CAPSULE. PO SCH ×2 (09:17→20:51)
[2018-05-25] MEDS: PANTOPRAZOLE IV PUSH 40 MG VIAL. IVP SCH (09:17)
[2018-05-25] MEDS: levETIRAcetam 500 MG TABLET PO SCH ×2 (09:17→20:51)
[2018-05-25] MEDS: CITALOPRAM 20 MG TABLET. PO SCH (09:18)
--- NOTE | 2018-05-25 09:48 | PDOC ---
PROGRESS NOTES Subjective Subjective pt sleepy, tired, admits to similar pain Objective Objective Vital Signs Date Time Temp Pulse Resp B/P (MAP) Pulse Ox O2 Delivery O2 Flow Rate FiO2 05/25/18 07:40 Room Air 05/25/18 07:00 98.1 60 18 96/51 (66) 96 98.1 Intake and Output 05/25/18 07:00 Intake Total 480 ml Output Total 0 ml Balance 480 ml Intake Oral 480 ml Output Urine Total 0 ml # Voids 7 Physical Exam Abdomen: Soft (reports tenderness in low and mid abdomen, worse right side, no guarding currently) Extremities: No cyanosis General: Other (tired) HEENT: Atraumatic Skin: No rashes, No breakdown Assessment Assessment Problems Medical Problems: (1) Abdominal pain Status: Acute (2) UTI (urinary tract infection) Status: Acute Plan Plan of Care Abdominal pain, ?etiology; WBC remains low, appendicitis seems unlikely, will repeat contrasted CT for comparison, assess evolution Comment Review of Relevant I have reviewed the following items irma (where applicable) has been applied. Labs Laboratory Tests Test 05/24/18 00:24 05/24/18 01:10 05/25/18 00:12 05/25/18 08:11 Glucose (Fingerstick) 77 mg/dL (70-99) 92 mg/dL (70-99) White Blood Count 5.0 x10^3/uL (4.0-11.0) 5.0 x10^3/uL (4.0-11.0) Red Blood Count 3.77 x10^6/uL (3.50-5.40) 3.63 x10^6/uL (3.50-5.40) Hemoglobin 12.2 g/dL (12.0-15.5) 11.7 g/dL (12.0-15.5) Hematocrit 35.9 % (36.0-47.0) 34.3 % (36.0-47.0) Mean Corpuscular Volume 95 fL (79-100) 94 fL (79-100) Mean Corpuscular Hemoglobin 32 pg (25-35) 32 pg (25-35) Mean Corpuscular Hemoglobin Concent 34 g/dL (31-37) 34 g/dL (31-37) Red Cell Distribution Width 13.9 % (11.5-14.5) 13.3 % (11.5-14.5) Platelet Count 242 x10^3/uL (140-400) 221 x10^3/uL (140-400) Neutrophils (%) (Auto) 57 % (31-73) 53 % (31-73) Lymphocytes (%) (Auto) 34 % (24-48) 38 % (24-48) Monocytes (%) (Auto) 8 % (0-9) 8 % (0-9) Eosinophils (%) (Auto) 1 % (0-3) 1 % (0-3) Basophils (%) (Auto) 1 % (0-3) 1 % (0-3) Neutrophils # (Auto) 2.9 x10^3uL (1.8-7.7) 2.6 x10^3uL (1.8-7.7) Lymphocytes # (Auto) 1.7 x10^3/uL (1.0-4.8) 1.9 x10^3/uL (1.0-4.8) Monocytes # (Auto) 0.4 x10^3/uL (0.0-1.1) 0.4 x10^3/uL (0.0-1.1) Eosinophils # (Auto) 0.1 x10^3/uL (0.0-0.7) 0.1 x10^3/uL (0.0-0.7) Basophils # (Auto) 0.0 x10^3/uL (0.0-0.2) 0.0 x10^3/uL (0.0-0.2) Sodium Level 142 mmol/L (136-145) 140 mmol/L (136-145) Potassium Level 3.9 mmol/L (3.5-5.1) 3.6 mmol/L (3.5-5.1) Chloride Level 109 mmol/L (98-107) 106 mmol/L (98-107) Carbon Dioxide Level 23 mmol/L (21-32) 23 mmol/L (21-32) Anion Gap 10 (6-14) 11 (6-14) Blood Urea Nitrogen 3 mg/dL (7-20) 10 mg/dL (7-20) Creatinine 0.5 mg/dL (0.6-1.0) 0.6 mg/dL (0.6-1.0) Estimated GFR (Cockcroft-Gault) 150.3 121.8 BUN/Creatinine Ratio 6 (6-20) Glucose Level 89 mg/dL (70-99) 93 mg/dL (70-99) Calcium Level 8.5 mg/dL (8.5-10.1) 8.6 mg/dL (8.5-10.1) Total Bilirubin 0.2 mg/dL (0.2-1.0) Aspartate Amino Transf (AST/SGOT) 13 U/L (15-37) Alanine Aminotransferase (ALT/SGPT) 19 U/L (14-59) Alkaline Phosphatase 141 U/L (46-116) Total Protein 6.9 g/dL (6.4-8.2) Albumin 3.2 g/dL (3.4-5.0) Albumin/Globulin Ratio 0.9 (1.0-1.7) Thyroid Stimulating Hormone (TSH) 4.242 uIU/mL (0.358-3.74) Laboratory Tests Test 05/25/18 00:12 05/25/18 08:11 Glucose (Fingerstick) 92 mg/dL (70-99) White Blood Count 5.0 x10^3/uL (4.0-11.0) Red Blood Count 3.63 x10^6/uL (3.50-5.40) Hemoglobin 11.7 g/dL (12.0-15.5) Hematocrit 34.3 % (36.0-47.0) Mean Corpuscular Volume 94 fL (79-100) Mean Corpuscular Hemoglobin 32 pg (25-35) Mean Corpuscular Hemoglobin Concent 34 g/dL (31-37) Red Cell Distribution Width 13.3 % (11.5-14.5) Platelet Count 221 x10^3/uL (140-400) Neutrophils (%) (Auto) 53 % (31-73) Lymphocytes (%) (Auto) 38 % (24-48) Monocytes (%) (Auto) 8 % (0-9) Eosinophils (%) (Auto) 1 % (0-3) Basophils (%) (Auto) 1 % (0-3) Neutrophils # (Auto) 2.6 x10^3uL (1.8-7.7) Lymphocytes # (Auto) 1.9 x10^3/uL (1.0-4.8) Monocytes # (Auto) 0.4 x10^3/uL (0.0-1.1) Eosinophils # (Auto) 0.1 x10^3/uL (0.0-0.7) Basophils # (Auto) 0.0 x10^3/uL (0.0-0.2) Sodium Level 140 mmol/L (136-145) Potassium Level 3.6 mmol/L (3.5-5.1) Chloride Level 106 mmol/L (98-107) Carbon Dioxide Level 23 mmol/L (21-32) Anion Gap 11 (6-14) Blood Urea Nitrogen 10 mg/dL (7-20) Creatinine 0.6 mg/dL (0.6-1.0) Estimated GFR (Cockcroft-Gault) 121.8 Glucose Level 93 mg/dL (70-99) Calcium Level 8.6 mg/dL (8.5-10.1) Thyroid Stimulating Hormone (TSH) 4.242 uIU/mL (0.358-3.74) Microbiology 05/23/18 Urine Culture - Preliminary, Resulted 05/23/18 Urine Culture Result 1 ([facility]) - Preliminary, Resulted Medications Current Medications Sodium Chloride 1,000 ml @ 1,000 mls/hr Q1H IV Last administered on 05/23/18at 07:53; Start 05/23/18 at 07:26; Stop 05/23/18 at 08:25; Status DC Ondansetron HCl (Zofran) 8 mg 1X ONCE IV Last administered on 05/23/18at 07:57 ; Start 05/23/18 at 07:30; Stop 05/23/18 at 07:35; Status DC Sodium Chloride 1,000 ml @ 1,000 mls/hr 1X ONCE IV Last administered on at 10:00; Start 05/23/18 at 10:00; Stop 05/23/18 at 10:59; Status DC Iohexol (Omnipaque 300 Mg/ml) 75 ml 1X ONCE PO Last administered on 05/23/18at 10:00; Start 05/23/18 at 10:00; Stop 05/23/18 at 10:01; Status DC Piperacillin Sod/ Tazobactam Sod 3.375 gm/Sodium Chloride 50 ml @ 100 mls/hr 1X ONCE IV ; Start 05/23/18 at 11:45; Stop 05/23/18 at 12:14; Status Cancel Info (CONTRAST GIVEN -- Rx MONITORING) 1 each PRN DAILY PRN MC SEE COMMENTS; Start 05/23/18 at 12:15; Stop 05/25/18 at 12:14 Ondansetron HCl (Zofran) 4 mg PRN Q8HRS PRN IV NAUSEA/VOMITING; Start 05/23/18 at 12:15; Stop 05/23/18 at 14:20; Status DC Sodium Chloride 1,000 ml @ 100 mls/hr Q10H IV Last administered on 05/23/18at 12:52; Start 05/23/18 at 12:15; Stop 05/24/18 at 12:14; Status DC Ceftriaxone Sodium 1 gm/ Dextrose 50 ml @ 100 mls/hr Q24H IV ; Start 05/23/18 at 14:30; Status UNV Ondansetron HCl (Zofran) 4 mg PRN Q6HRS PRN IV NAUSEA/VOMITING; Start 05/23/18 at 14:30 Morphine Sulfate (Morphine Sulfate) 2 mg PRN Q2HR PRN IV PAIN Last administered on 05/24/18at 00:01; Start 05/23/18 at 14:30 Amino Acids/ Glycerin/ Electrolytes 1,000 ml @ 75 mls/hr [id number] IV ; Start at 15:00; Stop 05/23/18 at 23:55; Status DC Ceftriaxone Sodium (Rocephin) 1 gm Q24H IVP Last administered on 05/24/18at 15: 43; Start 05/23/18 at 15:00 Pantoprazole Sodium (PROTONIX VIAL for IV PUSH) 40 mg DAILYAC IVP Last administered on 05/25/18at 09:17; Start 05/23/18 at 15:00 Clonazepam (KlonoPIN) 0.5 mg BID PO ; Start 05/23/18 at 21:00; Stop 05/24/18 at 16:08; Status DC Clonazepam (KlonoPIN) 0.5 mg TID PRN PRN PO SEIZURES.; Start 05/23/18 at 14:30 Lorazepam (Ativan) 0.5 mg BID PO ; Start 05/23/18 at 21:00; Stop 05/24/18 at 16: 08; Status DC Non-Formulary Medication (Clobazam (Onfi)) 10 mg BID PO ; Start 05/23/18 at 21: 00; Status UNV Non-Formulary Medication (Clobazam (Onfi)) 20 mg BID PO ; Start 05/23/18 at 21: 00; Status UNV Citalopram Hydrobromide (CeleXA) 20 mg DAILY PO Last administered on 05/25/18at 09:18; Start 05/23/18 at 15:00 Non-Formulary Medication (Ezogabine (Potiga)) 400 mg TID PO ; Start 05/23/18 at 21:00; Status UNV Non-Formulary Medication (Levetiracetam ) 1,000 mg BID PO ; Start 05/23/18 at 21 :00; Status UNV Levetiracetam (Keppra) 2,000 mg BID PO Last administered on 05/25/18at 09:17; Start 05/23/18 at 21:00 Non-Formulary Medication (Perampanel (Fycompa)) 6 mg DAILY PO ; Start 05/24/18 at 09:00; Status UNV Phenazopyridine HCl (Pyridium) 200 mg TID PO Last administered on 05/25/18at 09: 17; Start 05/23/18 at 15:00 Zonisamide (Zonegran) 200 mg BID PO Last administered on 05/25/18at 09:17; Start 05/23/18 at 21:00 Amino Acids/ Glycerin/ Electrolytes 1,000 ml @ 75 mls/hr [id number] IV Last administered on 05/25/18at 02:40; Start 05/24/18 at 00:00 Naloxone HCl (Narcan) 0.4 mg STK-MED ONCE .ROUTE ; Start 05/24/18 at 00:26; Stop 05/24/18 at 00:27; Status DC Naloxone HCl (Narcan) 0.4 mg 1X ONCE IV Last administered on 05/24/18at 00:31; Start 05/24/18 at 00:30; Stop 05/24/18 at 00:47; Status DC Aspirin (Jc Aspirin) 325 mg 1X ONCE PO ; Start 05/24/18 at 02:15; Stop 05/24 at 02:16; Status DC Polyethylene Glycol (miraLAX PACKET) 17 gm DAILY PO ; Start 05/24/18 at 16:00 Dicyclomine HCl (Bentyl) 10 mg QID PRN PO abd pain; Start 05/24/18 at 15:30 Lorazepam (Ativan) 1 mg 1X ONCE IV Last administered on 05/25/18at 03:52; Start 05/25/18 at 04:00; Stop 05/25/18 at 04:01; Status DC Active Scripts Active Pyridium (Phenazopyridine Hcl) 200 Mg Tablet 200 Mg PO TID Ativan (Lorazepam) 0.5 Mg Tablet 0.5 Mg PO BID Reported Keppra (Levetiracetam) 1,000 Mg Tablet 2 Tab PO BID Clonazepam 0.5 Mg Tablet 1 Tab PO BID Onfi (Clobazam) 10 Mg Tablet 20 Mg PO BID Fycompa (Perampanel) 8 Mg Tablet 8 Mg PO QHS Fycompa (Perampanel) 6 Mg Tablet 6 Mg PO DAILY Escitalopram Oxalate 10 Mg Tablet 10 Mg PO DAILY Clonazepam 0.5 Mg Tablet 1 Tab PO TID PRN PRN seizures Potiga (Ezogabine) 200 Mg Tablet 400 Mg PO TID Zonisamide 100 Mg Capsule 200 Mg PO BID Vitals/I & O Vital Sign - Last 24 Hours 05/24/18 05/24/18 05/24/18 05/24/18 11:55 15:00 19:15 20:00 Temp 97.9 98.9 97.8 97.9 98.9 97.8 Pulse 49 58 48 Resp 18 B/P (MAP) 90/54 (66) 92/60 (71) 95/56 (69) Pulse Ox 97 99 96 O2 Delivery Room Air Room Air Room Air Room Air 05/24/18 05/25/18 05/25/18 05/25/18 23:06 03:12 07:00 07:40 Temp 98.2 98.2 98.1 98.2 98.2 98.1 Pulse 48 53 60 Resp 18 18 B/P (MAP) 93/57 (69) 103/56 (72) 96/51 (66) Pulse Ox 95 96 96 O2 Delivery Room Air Room Air Room Air Intake and Output 05/24/18 05/24/18 05/25/18 15:00 23:00 07:00 Intake Total 0 ml 480 ml Output Total 0 ml Balance 0 ml 480 ml MARJORIE SKY MD May 25, 2018 09:48
[2018-05-25] MEDS ORDERED: IOHEXOL 300 MG/ML 50 ML VIAL. PO ONE (11:00)
[2018-05-25] MEDS ORDERED: IOHEXOL 240 MG/ML 100 ML VIAL. IV ONE (11:00)
[2018-05-25] MEDS ORDERED: CONTRAST GIVEN. MC PRN (11:15)
[2018-05-25] MEDS ORDERED: IOHEXOL 300 MG/ML 100ML VIAL. IV ONE (11:30)
[2018-05-25] MEDS ORDERED: IOHEXOL 240 MG/ML 50ML VIAL. PO ONE (11:30)
[2018-05-25 11:41] LABS: FREE T4 0.57 ng/dL (0.76-1.46)
--- NOTE | 2018-05-25 13:13 | PDOC ---
Objective: Objective: Reviewed w/ RN - out for EEG, then will go to CT. Does not c/o abd pain to RN but did to Dr. Bishop. No vomiting, no stools, refused Miralax. Reviewed notes from another rapid response overnight. "Pseudo seizure" discussed. Reviewed Dr. Mejia's note - pelv sono for right ovarian cyst, possible follow- up in clinic depending on size. Vital Signs: Vital Signs Date Time Temp Pulse Resp B/P (MAP) Pulse Ox O2 Delivery O2 Flow Rate FiO2 05/25/18 07:40 Room Air 05/25/18 07:00 98.1 60 18 96/51 (66) 96 98.1 Labs: Laboratory Tests Test 05/25/18 00:12 05/25/18 08:11 Glucose (Fingerstick) 92 mg/dL White Blood Count 5.0 x10^3/uL Red Blood Count 3.63 x10^6/uL Hemoglobin 11.7 g/dL Hematocrit 34.3 % Mean Corpuscular Volume 94 fL Mean Corpuscular Hemoglobin 32 pg Mean Corpuscular Hemoglobin Concent 34 g/dL Red Cell Distribution Width 13.3 % Platelet Count 221 x10^3/uL Neutrophils (%) (Auto) 53 % Lymphocytes (%) (Auto) 38 % Monocytes (%) (Auto) 8 % Eosinophils (%) (Auto) 1 % Basophils (%) (Auto) 1 % Neutrophils # (Auto) 2.6 x10^3uL Lymphocytes # (Auto) 1.9 x10^3/uL Monocytes # (Auto) 0.4 x10^3/uL Eosinophils # (Auto) 0.1 x10^3/uL Basophils # (Auto) 0.0 x10^3/uL Sodium Level 140 mmol/L Potassium Level 3.6 mmol/L Chloride Level 106 mmol/L Carbon Dioxide Level 23 mmol/L Anion Gap 11 Blood Urea Nitrogen 10 mg/dL Creatinine 0.6 mg/dL Estimated GFR (Cockcroft-Gault) 121.8 Glucose Level 93 mg/dL Calcium Level 8.6 mg/dL Thyroid Stimulating Hormone (TSH) 4.242 uIU/mL Free Thyroxine 0.57 ng/dL Free Triiodothyronine (T3) pg/mL 1.51 pg/mL Cortisol AM Sample 13.6 ug/dL PE: out of room A/P: Abd pain UTI, pseudo-seizure -- Difficult to obtain meaningful history, refusing Miralax. Out of room when I went by, await interval CT. SAMI JEAN BAPTISTE May 25, 2018 13:13
[2018-05-25 15:00] VITALS: BP 96/47
[2018-05-25] MEDS: cefTRIAXone IV Push 1 GM VIAL. IVP SCH (15:00)
--- NOTE | 2018-05-25 15:01 | PDOC ---
PROGRESS NOTES Chief Complaint Chief Complaint abd pain, not clear etiology, doubt acute appendicitis left side weakness, numbness, subjective, doubt stroke h/o Depression, anxiety, hypotension, h/o seizures, bradycardia, seizure device. possible UTI possible ovary cyst rt hypothyroidism plan: fu with neuro, head ct neg MRI ordered canot be done EEG pending cont home seizure meds clear liquid diet, ivf, fu with GI dvt, gi ppx fu with sx, GI, ob check web prep, check cortisol level tmr am PTOT asked nurse to talk to family to see what is pt's baseline, as per nurse, this is likely her baseline ceftriaxone for now given pt talks and moves so slow, add synthroid for now given high tsh, low t3, t4. seems she has pseudo seizure, but she is on 3 antin seizure meds and anti seizure device from [facility] CT abd, US pelvis for today History of Present Illness History of Present Illness ROS: no fever, chills, sob or chest pain pt talks and moves very slowly, i asked her why she is so slow and no energy, she cannot even answer me not sure she has some psych issues i was paged at 1am nurse reporting pt c/o left side numbness and weakness, pt said so again 05/24, mild 05/25, but neg on exam. Pt has bl ext weakness c/o bl abd pain, rt worse, tenderness. last period in March , but told nurse some vaginal bleeding 05/24 Vitals Vitals Vital Signs Date Time Temp Pulse Resp B/P (MAP) Pulse Ox O2 Delivery O2 Flow Rate FiO2 05/25/18 07:40 Room Air 05/25/18 07:00 98.1 60 18 96/51 (66) 96 98.1 Physical Exam Physical Exam talks and moves very slow General: Other (tired) Heart: Regular rate Lungs: Clear Abdomen: Soft (reports tenderness in low and mid abdomen, worse right side, no guarding currently) Extremities: No cyanosis Skin: No rashes, No breakdown Labs LABS Laboratory Tests Test 05/25/18 00:12 05/25/18 08:11 Glucose (Fingerstick) 92 mg/dL (70-99) White Blood Count 5.0 x10^3/uL (4.0-11.0) Red Blood Count 3.63 x10^6/uL (3.50-5.40) Hemoglobin 11.7 g/dL (12.0-15.5) Hematocrit 34.3 % (36.0-47.0) Mean Corpuscular Volume 94 fL (79-100) Mean Corpuscular Hemoglobin 32 pg (25-35) Mean Corpuscular Hemoglobin Concent 34 g/dL (31-37) Red Cell Distribution Width 13.3 % (11.5-14.5) Platelet Count 221 x10^3/uL (140-400) Neutrophils (%) (Auto) 53 % (31-73) Lymphocytes (%) (Auto) 38 % (24-48) Monocytes (%) (Auto) 8 % (0-9) Eosinophils (%) (Auto) 1 % (0-3) Basophils (%) (Auto) 1 % (0-3) Neutrophils # (Auto) 2.6 x10^3uL (1.8-7.7) Lymphocytes # (Auto) 1.9 x10^3/uL (1.0-4.8) Monocytes # (Auto) 0.4 x10^3/uL (0.0-1.1) Eosinophils # (Auto) 0.1 x10^3/uL (0.0-0.7) Basophils # (Auto) 0.0 x10^3/uL (0.0-0.2) Sodium Level 140 mmol/L (136-145) Potassium Level 3.6 mmol/L (3.5-5.1) Chloride Level 106 mmol/L (98-107) Carbon Dioxide Level 23 mmol/L (21-32) Anion Gap 11 (6-14) Blood Urea Nitrogen 10 mg/dL (7-20) Creatinine 0.6 mg/dL (0.6-1.0) Estimated GFR (Cockcroft-Gault) 121.8 Glucose Level 93 mg/dL (70-99) Calcium Level 8.6 mg/dL (8.5-10.1) Thyroid Stimulating Hormone (TSH) 4.242 uIU/mL (0.358-3.74) Free Thyroxine 0.57 ng/dL (0.76-1.46) Free Triiodothyronine (T3) pg/mL 1.51 pg/mL (2.18-3.98) Cortisol AM Sample 13.6 ug/dL (4.3-22.4) Assessment and Plan Assessmemt and Plan Problems Medical Problems: (1) Abdominal pain Status: Acute (2) UTI (urinary tract infection) Status: Acute Comment Review of Relevant I have reviewed the following items irma (where applicable) has been applied. Labs Laboratory Tests Test 05/24/18 00:24 05/24/18 01:10 05/25/18 00:12 05/25/18 08:11 Glucose (Fingerstick) 77 mg/dL (70-99) 92 mg/dL (70-99) White Blood Count 5.0 x10^3/uL (4.0-11.0) 5.0 x10^3/uL (4.0-11.0) Red Blood Count 3.77 x10^6/uL (3.50-5.40) 3.63 x10^6/uL (3.50-5.40) Hemoglobin 12.2 g/dL (12.0-15.5) 11.7 g/dL (12.0-15.5) Hematocrit 35.9 % (36.0-47.0) 34.3 % (36.0-47.0) Mean Corpuscular Volume 95 fL (79-100) 94 fL (79-100) Mean Corpuscular Hemoglobin 32 pg (25-35) 32 pg (25-35) Mean Corpuscular Hemoglobin Concent 34 g/dL (31-37) 34 g/dL (31-37) Red Cell Distribution Width 13.9 % (11.5-14.5) 13.3 % (11.5-14.5) Platelet Count 242 x10^3/uL (140-400) 221 x10^3/uL (140-400) Neutrophils (%) (Auto) 57 % (31-73) 53 % (31-73) Lymphocytes (%) (Auto) 34 % (24-48) 38 % (24-48) Monocytes (%) (Auto) 8 % (0-9) 8 % (0-9) Eosinophils (%) (Auto) 1 % (0-3) 1 % (0-3) Basophils (%) (Auto) 1 % (0-3) 1 % (0-3) Neutrophils # (Auto) 2.9 x10^3uL (1.8-7.7) 2.6 x10^3uL (1.8-7.7) Lymphocytes # (Auto) 1.7 x10^3/uL (1.0-4.8) 1.9 x10^3/uL (1.0-4.8) Monocytes # (Auto) 0.4 x10^3/uL (0.0-1.1) 0.4 x10^3/uL (0.0-1.1) Eosinophils # (Auto) 0.1 x10^3/uL (0.0-0.7) 0.1 x10^3/uL (0.0-0.7) Basophils # (Auto) 0.0 x10^3/uL (0.0-0.2) 0.0 x10^3/uL (0.0-0.2) Sodium Level 142 mmol/L (136-145) 140 mmol/L (136-145) Potassium Level 3.9 mmol/L (3.5-5.1) 3.6 mmol/L (3.5-5.1) Chloride Level 109 mmol/L (98-107) 106 mmol/L (98-107) Carbon Dioxide Level 23 mmol/L (21-32) 23 mmol/L (21-32) Anion Gap 10 (6-14) 11 (6-14) Blood Urea Nitrogen 3 mg/dL (7-20) 10 mg/dL (7-20) Creatinine 0.5 mg/dL (0.6-1.0) 0.6 mg/dL (0.6-1.0) Estimated GFR (Cockcroft-Gault) 150.3 121.8 BUN/Creatinine Ratio 6 (6-20) Glucose Level 89 mg/dL (70-99) 93 mg/dL (70-99) Calcium Level 8.5 mg/dL (8.5-10.1) 8.6 mg/dL (8.5-10.1) Total Bilirubin 0.2 mg/dL (0.2-1.0) Aspartate Amino Transf (AST/SGOT) 13 U/L (15-37) Alanine Aminotransferase (ALT/SGPT) 19 U/L (14-59) Alkaline Phosphatase 141 U/L (46-116) Total Protein 6.9 g/dL (6.4-8.2) Albumin 3.2 g/dL (3.4-5.0) Albumin/Globulin Ratio 0.9 (1.0-1.7) Thyroid Stimulating Hormone (TSH) 4.242 uIU/mL (0.358-3.74) Free Thyroxine 0.57 ng/dL (0.76-1.46) Free Triiodothyronine (T3) pg/mL 1.51 pg/mL (2.18-3.98) Cortisol AM Sample 13.6 ug/dL (4.3-22.4) Laboratory Tests Test 05/25/18 00:12 05/25/18 08:11 Glucose (Fingerstick) 92 mg/dL (70-99) White Blood Count 5.0 x10^3/uL (4.0-11.0) Red Blood Count 3.63 x10^6/uL (3.50-5.40) Hemoglobin 11.7 g/dL (12.0-15.5) Hematocrit 34.3 % (36.0-47.0) Mean Corpuscular Volume 94 fL (79-100) Mean Corpuscular Hemoglobin 32 pg (25-35) Mean Corpuscular Hemoglobin Concent 34 g/dL (31-37) Red Cell Distribution Width 13.3 % (11.5-14.5) Platelet Count 221 x10^3/uL (140-400) Neutrophils (%) (Auto) 53 % (31-73) Lymphocytes (%) (Auto) 38 % (24-48) Monocytes (%) (Auto) 8 % (0-9) Eosinophils (%) (Auto) 1 % (0-3) Basophils (%) (Auto) 1 % (0-3) Neutrophils # (Auto) 2.6 x10^3uL (1.8-7.7) Lymphocytes # (Auto) 1.9 x10^3/uL (1.0-4.8) Monocytes # (Auto) 0.4 x10^3/uL (0.0-1.1) Eosinophils # (Auto) 0.1 x10^3/uL (0.0-0.7) Basophils # (Auto) 0.0 x10^3/uL (0.0-0.2) Sodium Level 140 mmol/L (136-145) Potassium Level 3.6 mmol/L (3.5-5.1) Chloride Level 106 mmol/L (98-107) Carbon Dioxide Level 23 mmol/L (21-32) Anion Gap 11 (6-14) Blood Urea Nitrogen 10 mg/dL (7-20) Creatinine 0.6 mg/dL (0.6-1.0) Estimated GFR (Cockcroft-Gault) 121.8 Glucose Level 93 mg/dL (70-99) Calcium Level 8.6 mg/dL (8.5-10.1) Thyroid Stimulating Hormone (TSH) 4.242 uIU/mL (0.358-3.74) Free Thyroxine 0.57 ng/dL (0.76-1.46) Free Triiodothyronine (T3) pg/mL 1.51 pg/mL (2.18-3.98) Cortisol AM Sample 13.6 ug/dL (4.3-22.4) Microbiology 05/23/18 Urine Culture - Preliminary, Resulted 05/23/18 Urine Culture Result 1 (CLIFF) - Preliminary, Resulted Medications Current Medications Sodium Chloride 1,000 ml @ 1,000 mls/hr Q1H IV Last administered on 05/23/18at 07:53; Start 05/23/18 at 07:26; Stop 05/23/18 at 08:25; Status DC Ondansetron HCl (Zofran) 8 mg 1X ONCE IV Last administered on 05/23/18at 07:57 ; Start 05/23/18 at 07:30; Stop 05/23/18 at 07:35; Status DC Sodium Chloride 1,000 ml @ 1,000 mls/hr 1X ONCE IV Last administered on at 10:00; Start 05/23/18 at 10:00; Stop 05/23/18 at 10:59; Status DC Iohexol (Omnipaque 300 Mg/ml) 75 ml 1X ONCE PO Last administered on 05/23/18at 10:00; Start 05/23/18 at 10:00; Stop 05/23/18 at 10:01; Status DC Piperacillin Sod/ Tazobactam Sod 3.375 gm/Sodium Chloride 50 ml @ 100 mls/hr 1X ONCE IV ; Start 05/23/18 at 11:45; Stop 05/23/18 at 12:14; Status Cancel Info (CONTRAST GIVEN -- Rx MONITORING) 1 each PRN DAILY PRN MC SEE COMMENTS; Start 05/23/18 at 12:15; Stop 05/25/18 at 11:24; Status DC Ondansetron HCl (Zofran) 4 mg PRN Q8HRS PRN IV NAUSEA/VOMITING; Start 05/23/18 at 12:15; Stop 05/23/18 at 14:20; Status DC Sodium Chloride 1,000 ml @ 100 mls/hr Q10H IV Last administered on 05/23/18at 12:52; Start 05/23/18 at 12:15; Stop 05/24/18 at 12:14; Status DC Ceftriaxone Sodium 1 gm/ Dextrose 50 ml @ 100 mls/hr Q24H IV ; Start 05/23/18 at 14:30; Status UNV Ondansetron HCl (Zofran) 4 mg PRN Q6HRS PRN IV NAUSEA/VOMITING; Start 05/23/18 at 14:30 Morphine Sulfate (Morphine Sulfate) 2 mg PRN Q2HR PRN IV PAIN Last administered on 05/24/18at 00:01; Start 05/23/18 at 14:30 Amino Acids/ Glycerin/ Electrolytes 1,000 ml @ 75 mls/hr [id number] IV ; Start at 15:00; Stop 05/23/18 at 23:55; Status DC Ceftriaxone Sodium (Rocephin) 1 gm Q24H IVP Last administered on 05/24/18at 15: 43; Start 05/23/18 at 15:00 Pantoprazole Sodium (PROTONIX VIAL for IV PUSH) 40 mg DAILYAC IVP Last administered on 05/25/18at 09:17; Start 05/23/18 at 15:00 Clonazepam (KlonoPIN) 0.5 mg BID PO ; Start 05/23/18 at 21:00; Stop 05/24/18 at 16:08; Status DC Clonazepam (KlonoPIN) 0.5 mg TID PRN PRN PO SEIZURES.; Start 05/23/18 at 14:30 Lorazepam (Ativan) 0.5 mg BID PO ; Start 05/23/18 at 21:00; Stop 05/24/18 at 16: 08; Status DC Non-Formulary Medication (Clobazam (Onfi)) 10 mg BID PO ; Start 05/23/18 at 21: 00; Status UNV Non-Formulary Medication (Clobazam (Onfi)) 20 mg BID PO ; Start 05/23/18 at 21: 00; Status UNV Citalopram Hydrobromide (CeleXA) 20 mg DAILY PO Last administered on 05/25/18at 09:18; Start 05/23/18 at 15:00 Non-Formulary Medication (Ezogabine (Potiga)) 400 mg TID PO ; Start 05/23/18 at 21:00; Status UNV Non-Formulary Medication (Levetiracetam ) 1,000 mg BID PO ; Start 05/23/18 at 21 :00; Status UNV Levetiracetam (Keppra) 2,000 mg BID PO Last administered on 05/25/18at 09:17; Start 05/23/18 at 21:00 Non-Formulary Medication (Perampanel (Fycompa)) 6 mg DAILY PO ; Start 05/24/18 at 09:00; Status UNV Phenazopyridine HCl (Pyridium) 200 mg TID PO Last administered on 05/25/18at 09: 17; Start 05/23/18 at 15:00 Zonisamide (Zonegran) 200 mg BID PO Last administered on 05/25/18at 09:17; Start 05/23/18 at 21:00 Amino Acids/ Glycerin/ Electrolytes 1,000 ml @ 75 mls/hr [id number] IV Last administered on 05/25/18at 02:40; Start 05/24/18 at 00:00 Naloxone HCl (Narcan) 0.4 mg STK-MED ONCE .ROUTE ; Start 05/24/18 at 00:26; Stop 05/24/18 at 00:27; Status DC Naloxone HCl (Narcan) 0.4 mg 1X ONCE IV Last administered on 05/24/18at 00:31; Start 05/24/18 at 00:30; Stop 05/24/18 at 00:47; Status DC Aspirin (Jc Aspirin) 325 mg 1X ONCE PO ; Start 05/24/18 at 02:15; Stop 05/24 at 02:16; Status DC Polyethylene Glycol (miraLAX PACKET) 17 gm DAILY PO ; Start 05/24/18 at 16:00 Dicyclomine HCl (Bentyl) 10 mg QID PRN PO abd pain; Start 05/24/18 at 15:30 Lorazepam (Ativan) 1 mg 1X ONCE IV Last administered on 05/25/18at 03:52; Start 05/25/18 at 04:00; Stop 05/25/18 at 04:01; Status DC Iohexol (Omnipaque 300 Mg/ml) 30 ml 1X ONCE PO ; Start 05/25/18 at 11:00; Stop 05/25/18 at 11:04; Status DC Iohexol (Omnipaque 240 Mg/ml) 75 ml 1X ONCE IV ; Start 05/25/18 at 11:00; Stop 05/25/18 at 11:04; Status DC Info (CONTRAST GIVEN -- Rx MONITORING) 1 each PRN DAILY PRN MC SEE COMMENTS; Start 05/25/18 at 11:15; Stop 05/27/18 at 11:14 Iohexol (Omnipaque 240 Mg/ml) 30 ml 1X ONCE PO ; Start 05/25/18 at 11:30; Stop 05/25/18 at 11:31; Status DC Iohexol (Omnipaque 300 Mg/ml) 75 ml 1X ONCE IV ; Start 05/25/18 at 11:30; Stop 05/25/18 at 11:31; Status DC Lactobacillus Rhamnosus (Culturelle) 1 cap BID PO ; Start 05/25/18 at 21:00 Active Scripts Active Pyridium (Phenazopyridine Hcl) 200 Mg Tablet 200 Mg PO TID Ativan (Lorazepam) 0.5 Mg Tablet 0.5 Mg PO BID Reported Keppra (Levetiracetam) 1,000 Mg Tablet 2 Tab PO BID Clonazepam 0.5 Mg Tablet 1 Tab PO BID Onfi (Clobazam) 10 Mg Tablet 20 Mg PO BID Fycompa (Perampanel) 8 Mg Tablet 8 Mg PO QHS Fycompa (Perampanel) 6 Mg Tablet 6 Mg PO DAILY Escitalopram Oxalate 10 Mg Tablet 10 Mg PO DAILY Clonazepam 0.5 Mg Tablet 1 Tab PO TID PRN PRN seizures Potiga (Ezogabine) 200 Mg Tablet 400 Mg PO TID Zonisamide 100 Mg Capsule 200 Mg PO BID Vitals/I & O Vital Sign - Last 24 Hours 05/24/18 05/24/18 05/24/1805/24/18 15:00 19:15 20:00 23:06 Temp 98.9 97.8 98.2 98.9 97.8 98.2 Pulse 58 48 48 Resp 18 B/P (MAP) 92/60 (71) 95/56 (69) 93/57 (69) Pulse Ox 99 96 95 O2 Delivery Room Air Room Air Room Air Room Air 05/25/18 05/25/18 05/25/18 03:12 07:00 07:40 Temp 98.2 98.1 98.2 98.1 Pulse 53 60 Resp 18 B/P (MAP) 103/56 (72) 96/51 (66) Pulse Ox 96 96 O2 Delivery Room Air Room Air Intake and Output 05/24/18 05/24/18 05/25/18 15:00 23:00 07:00 Intake Total 0 ml 480 ml Output Total 0 ml Balance 0 ml 480 ml ERICKSON FISCHER MD May 25, 2018 15:01
--- NOTE | 2018-05-25 15:19 | RAD ---
CT of the abdomen and pelvis with contrast, 05/25/2018: HISTORY: Right lower quadrant pain Multidetector CT imaging was performed following oral and IV administration of contrast. Comparison is made to a study from 05/23/2018. No hepatic abnormality is seen. No dense gallstones are evident. The pancreas is unremarkable. The spleen is of normal size. No renal or adrenal abnormality is detected. The abdominal aorta is unremarkable. Several small mesenteric lymph nodes are present in the right lower quadrant. They do not demonstrate pathologic enlargement. There are small cysts in both ovaries. The largest of these on the left measures 2.2 cm and appears unchanged. The bowel loops are not dilated. The appendix is visualized and extends medially from the cecum. Oral contrast material now extends into a portion of the appendix indicating a patent lumen. The appendix measures 9 mm in greatest width which is at the upper limits of normal. No periappendiceal inflammation is seen. No free air or free fluid is evident in the abdomen or pelvis. IMPRESSION: 1. The appendix remains at the upper limits of normal in size without evidence of periappendiceal inflammation. 2. Small bilateral ovarian cysts. 3. No acute abdominal or pelvic abnormality is detected. PQRS Compliance Statement: One or more of the following individualized dose reduction techniques were utilized for this examination: 1. Automated exposure control 2. Adjustment of the mA and/or kV according to patient size 3. Use of iterative reconstruction technique Electronically signed by: Ivan Jean MD (05/25/2018 3:15 PM) [facility]
--- NOTE | 2018-05-25 16:13 | PDOC ---
PROGRESS NOTES Assessment Assessment Seizure? No evidence of epileptic seizures so far. Pseudoseizures. UTI. Abdominal pain. RECOMMENDATIONS/PLAN: Continue her home AEDs. No driving x 6 months anytime after a seizure or seizure like episode. FU with PCP. HISTORY OF THE PRESENT ILLNESS: 27-y-old [place] origin female came to the ER of [facility] with complaints of abdominal pain, nausea, vomiting and diarrhea. She said she had a seizure the day before as shaking movements in her extremities, but was unable to provide detail about her seizure. In fact, she had frequent ER visits in the past and pseudoseizures were documented. Per her boyfriend in the past, she had seizures since childhood and has been treated with multiple AEDs and VNS placement. Her seizures were described as eye open, UE bend, shaking movements in UE and LE for seconds or minutes. On 05/24/18, she became "unresponsiveness" with some subjective shaking movements per EEG staff during EEG study, but no evidence of epileptic seizure activity on EEG. PAST MEDICAL HISTORY: Seizure. PAST SURGERY HISTORY: No major surgery recently. SOCIAL HISTORY: Lives at home with her mother, sisters, boyfriend and her 7 years old son. She moved from [place] to [place] a few years ago and receives [place] benefits. Denies illicit drug use. REVIEW OF SYSTEMS: Constitutional: No fever, chills, malnutrition, weight loss, night sweats, cachexia. Head: No traumatic brain or head injury. Skin: No edema, or rash. Ear: No infection, tinnitus. Eyes: No vision loss, color blindness. Nose: No bleeding or purulent discharges. Neck: No injury, lymph note enlargement. Cardiac: No MS, arrhythmia. Pulmonary: URI. GI: No melena, hematochezia. Urinary/genital: No dysuria, hematuria, incontinence, urinary retention. Endocrinologic: No symptoms of gigantism, dwarf, hyperphasia, cousin face, craniofacial dysmorphism, polydactyly, goiter. Skeletomuscular: No muscular atrophy, deformity. Neurological: see HP. Psychiatric: Denies drug use/abuse. Otherwise, not [id number] review of systems. PHYSICAL EXAMINATION: General appearance is in no acute distress. HEENT: Normocephalic and nontraumatic. Eyes, nose, ears, and throat are unremarkable. Neck is supple. No lymphadenopathy. No bruits are heard over the carotid artery. No crepitus. Cardiovascular: S1, S2, regular rate and rhythm. Pulmonary: Clear to auscultation bilaterally. Abdomen: Bowel sounds are positive. Abdomen is soft, nontender, and nondistended. Extremities: No rash, lesions, or edema. No restriction of range of motion NEUROLOGICAL EXAMINATION: Awake. Oriented to time, place and person. PERRL. EOMI. CN: no focal findings. Muscle tone: normal. Muscle strength: 5 DTR: 2 Plantar reflex: Flexor response bilaterally Gait: not examined in bed. Sensory exam: no abnormal findings. No cerebellar signs elicited. Objective Objective Vital Signs Date Time Temp Pulse Resp B/P (MAP) Pulse Ox O2 Delivery O2 Flow Rate FiO2 05/25/18 07:40 Room Air 05/25/18 07:00 98.1 60 18 96/51 (66) 96 98.1 Intake and Output 05/25/18 07:00 Intake Total 480 ml Output Total 0 ml Balance 480 ml Intake Oral 480 ml Output Urine Total 0 ml # Voids 7 Vitals Signs Vitals VS - Last 72 Hours, by Label Date Time Temp Pulse Resp B/P (MAP) Pulse Ox O2 Delivery O2 Flow Rate FiO2 05/25/18 07:40 Room Air 05/25/18 07:00 98.1 60 18 96/51 (66) 96 98.1 05/25/18 03:12 98.2 53 18 103/56 (72) 96 Room Air 98.2 05/24/18 23:06 98.2 48 18 93/57 (69) 95 Room Air 98.2 05/24/18 20:00 Room Air 05/24/18 19:15 97.8 48 18 95/56 (69) 96 Room Air 97.8 05/24/18 15:00 98.9 58 18 92/60 (71) 99 Room Air 98.9 05/24/18 11:55 97.9 49 16 90/54 (66) 97 Room Air 97.9 05/24/18 08:00 Room Air 05/24/18 07:00 98.7 47 18 89/55 (66) 96 Room Air 98.7 Laboratory Laboratory Laboratory Tests Test 05/25/18 00:12 05/25/18 08:11 Glucose (Fingerstick) 92 mg/dL (70-99) White Blood Count 5.0 x10^3/uL (4.0-11.0) Red Blood Count 3.63 x10^6/uL (3.50-5.40) Hemoglobin 11.7 g/dL (12.0-15.5) Hematocrit 34.3 % (36.0-47.0) Mean Corpuscular Volume 94 fL (79-100) Mean Corpuscular Hemoglobin 32 pg (25-35) Mean Corpuscular Hemoglobin Concent 34 g/dL (31-37) Red Cell Distribution Width 13.3 % (11.5-14.5) Platelet Count 221 x10^3/uL (140-400) Neutrophils (%) (Auto) 53 % (31-73) Lymphocytes (%) (Auto) 38 % (24-48) Monocytes (%) (Auto) 8 % (0-9) Eosinophils (%) (Auto) 1 % (0-3) Basophils (%) (Auto) 1 % (0-3) Neutrophils # (Auto) 2.6 x10^3uL (1.8-7.7) Lymphocytes # (Auto) 1.9 x10^3/uL (1.0-4.8) Monocytes # (Auto) 0.4 x10^3/uL (0.0-1.1) Eosinophils # (Auto) 0.1 x10^3/uL (0.0-0.7) Basophils # (Auto) 0.0 x10^3/uL (0.0-0.2) Sodium Level 140 mmol/L (136-145) Potassium Level 3.6 mmol/L (3.5-5.1) Chloride Level 106 mmol/L (98-107) Carbon Dioxide Level 23 mmol/L (21-32) Anion Gap 11 (6-14) Blood Urea Nitrogen 10 mg/dL (7-20) Creatinine 0.6 mg/dL (0.6-1.0) Estimated GFR (Cockcroft-Gault) 121.8 Glucose Level 93 mg/dL (70-99) Calcium Level 8.6 mg/dL (8.5-10.1) Thyroid Stimulating Hormone (TSH) 4.242 uIU/mL (0.358-3.74) Free Thyroxine 0.57 ng/dL (0.76-1.46) Free Triiodothyronine (T3) pg/mL 1.51 pg/mL (2.18-3.98) Cortisol AM Sample 13.6 ug/dL (4.3-22.4) Microbiology 05/23/18 Urine Culture - Final, Complete 05/23/18 Urine Culture Result 1 (CLIFF) - Final, Complete 05/23/18 Antimicrobic Susceptibility - Final, Complete Medication Medications Current Medications Info (CONTRAST GIVEN -- Rx MONITORING) 1 each PRN DAILY PRN MC SEE COMMENTS; Start 05/25/18 at 11:15; Stop 05/27/18 at 11:14 Iohexol (Omnipaque 240 Mg/ml) 30 ml 1X ONCE PO ; Start 05/25/18 at 11:30; Stop 05/25/18 at 11:31; Status DC Iohexol (Omnipaque 240 Mg/ml) 75 ml 1X ONCE IV Last administered on 05/25/18at 11:00; Start 05/25/18 at 11:00; Stop 05/25/18 at 11:04; Status DC Iohexol (Omnipaque 300 Mg/ml) 30 ml 1X ONCE PO Last administered on 05/25/18at 11:00; Start 05/25/18 at 11:00; Stop 05/25/18 at 11:04; Status DC Iohexol (Omnipaque 300 Mg/ml) 75 ml 1X ONCE IV ; Start 05/25/18 at 11:30; Stop 05/25/18 at 11:31; Status DC Lactobacillus Rhamnosus (Culturelle) 1 cap BID PO ; Start 05/25/18 at 21:00 Levothyroxine Sodium (Synthroid) 125 mcg DAILY07 PO ; Start 05/26/18 at 07:00 Lorazepam (Ativan) 1 mg 1X ONCE IV Last administered on 05/25/18at 03:52; Start 05/25/18 at 04:00; Stop 05/25/18 at 04:01; Status DC Comment Review of Relevant I have reviewed the following items irma (where applicable) has been applied. ESTEPHANIA ARNOLD MD May 25, 2018 16:13
[2018-05-25 19:00] VITALS: BP 89/40
[2018-05-25] MEDS: LACTOBACILLUS RHAMNOSUS GG 1 CAPSULE. PO SCH (20:51)
[2018-05-25 23:00] VITALS: BP 105/67
[2018-05-26 03:00] VITALS: BP 99/43
[2018-05-26 04:30] LABS: BASO % 1 % (0-3); EOS # 0.1 x10^3/uL (0.0-0.7); EOS % 1 % (0-3); HEMATOCRIT 34.5 % (36.0-47.0); HEMOGLOBIN 11.8 g/dL (12.0-15.5); LYMPH % 38 % (24-48); MEAN CORPUSCULAR HEMOGLOBIN 33 pg (25-35); MEAN CORPUSCULAR HGB CONC 34 g/dL (31-37); MEAN CORPUSCULAR VOLUME 95 fL (79-100); MONO # 0.4 x10^3/uL (0.0-1.1); MONO % 8 % (0-9); NEUT # 2.7 x10^3uL (1.8-7.7); NEUT % 52 % (31-73); PLATELET COUNT 215 x10^3/uL (140-400); RED BLOOD COUNT 3.62 x10^6/uL (3.50-5.40); RED CELL DISTRIBUTION WIDTH 13.6 % (11.5-14.5); WHITE BLOOD COUNT 5.2 x10^3/uL (4.0-11.0)
[2018-05-26 05:15] LABS: CALCIUM 8.6 mg/dL (8.5-10.1); CREATININE 0.5 mg/dL (0.6-1.0); GFR 150.3; POTASSIUM 3.9 mmol/L (3.5-5.1)
[2018-05-26] MEDS: AMINO AC 3%/ELECTROLYTE/GLYCER 1,000 ML IV SCH (05:20)
[2018-05-26 07:00] VITALS: BP 98/52
[2018-05-26] MEDS ORDERED: LEVOTHYROXINE 125 MCG TABLET PO SCH (07:00)
--- NOTE | 2018-05-26 07:44 | RAD ---
Pelvic ultrasound, 05/25/2018: HISTORY: Pelvic pain The pelvic structures were not well demonstrated on the transabdominal scans and therefore transvaginal scanning was performed. The uterus measures 7.1 x 5.0 x 3.7 cm. It is anteverted. A normal central uterine echo is present measuring 5 mm in AP dimension. The right ovary measures 3.8 x 2.2 x 2.4 cm. The contains several small cysts, the largest of which measures 2.3 cm. There is also a small 12 x 6 x 4 mm hyperechoic focus in the right ovary. The left ovary measures 3.3 x 2.3 x 2.2 cm. It contains a 2 cm cyst. Blood flow is present in both ovaries. The adnexal regions are otherwise unremarkable. No free fluid is evident in the pelvis. IMPRESSION: 1. Small bilateral ovarian cysts. 2. Small hyperechoic lesion in the right ovary may be a hemorrhagic cyst or solid lesion. Sonographic follow-up is suggested. 3. The pelvic ultrasound is otherwise unremarkable. Electronically signed by: Ivan Jean MD (05/26/2018 7:41 AM) [facility]
[2018-05-26] MEDS: LACTOBACILLUS RHAMNOSUS GG 1 CAPSULE. PO SCH (08:22)
[2018-05-26] MEDS: PHENAZOPYRIDINE 200 MG TABLET. PO SCH (08:23)
[2018-05-26] MEDS: levETIRAcetam 500 MG TABLET PO SCH (08:23)
[2018-05-26] MEDS: ZONISAMIDE 100 MG CAPSULE. PO SCH (08:23)
[2018-05-26] MEDS: POLYETHYLENE GLYCOL 3350 17 GM PACKET. PO SCH (08:23)
[2018-05-26] MEDS: PANTOPRAZOLE IV PUSH 40 MG VIAL. IVP SCH (08:23)
[2018-05-26] MEDS: CITALOPRAM 20 MG TABLET. PO SCH (08:23)
--- NOTE | 2018-05-26 08:42 | PDOC ---
SURGICAL PROGRESS NOTE Subjective awakens, however does not answer questions Vital Signs Vital Signs Date Time Temp Pulse Resp B/P (MAP) Pulse Ox O2 Delivery O2 Flow Rate FiO2 05/26/18 03:00 98.5 51 16 99/43 (61) 98 Room Air 98.5 I&O Intake and Output 05/26/18 07:00 # Voids 4 General: Alert, Oriented X3, Cooperative, No acute distress Abdomen: Soft, Other (grimaces with palpation to lower abdomen ) Labs Laboratory Tests Test 05/25/18 00:12 05/25/18 08:11 05/26/18 03:20 Glucose (Fingerstick) 92 mg/dL (70-99) White Blood Count 5.0 x10^3/uL (4.0-11.0) 5.2 x10^3/uL (4.0-11.0) Red Blood Count 3.63 x10^6/uL (3.50-5.40) 3.62 x10^6/uL (3.50-5.40) Hemoglobin 11.7 g/dL (12.0-15.5) 11.8 g/dL (12.0-15.5) Hematocrit 34.3 % (36.0-47.0) 34.5 % (36.0-47.0) Mean Corpuscular Volume 94 fL (79-100) 95 fL (79-100) Mean Corpuscular Hemoglobin 32 pg (25-35) 33 pg (25-35) Mean Corpuscular Hemoglobin Concent 34 g/dL (31-37) 34 g/dL (31-37) Red Cell Distribution Width 13.3 % (11.5-14.5) 13.6 % (11.5-14.5) Platelet Count 221 x10^3/uL (140-400) 215 x10^3/uL (140-400) Neutrophils (%) (Auto) 53 % (31-73) 52 % (31-73) Lymphocytes (%) (Auto) 38 % (24-48) 38 % (24-48) Monocytes (%) (Auto) 8 % (0-9) 8 % (0-9) Eosinophils (%) (Auto) 1 % (0-3) 1 % (0-3) Basophils (%) (Auto) 1 % (0-3) 1 % (0-3) Neutrophils # (Auto) 2.6 x10^3uL (1.8-7.7) 2.7 x10^3uL (1.8-7.7) Lymphocytes # (Auto) 1.9 x10^3/uL (1.0-4.8) 2.0 x10^3/uL (1.0-4.8) Monocytes # (Auto) 0.4 x10^3/uL (0.0-1.1) 0.4 x10^3/uL (0.0-1.1) Eosinophils # (Auto) 0.1 x10^3/uL (0.0-0.7) 0.1 x10^3/uL (0.0-0.7) Basophils # (Auto) 0.0 x10^3/uL (0.0-0.2) 0.0 x10^3/uL (0.0-0.2) Sodium Level 140 mmol/L (136-145) 140 mmol/L (136-145) Potassium Level 3.6 mmol/L (3.5-5.1) 3.9 mmol/L (3.5-5.1) Chloride Level 106 mmol/L (98-107) 105 mmol/L (98-107) Carbon Dioxide Level 23 mmol/L (21-32) 20 mmol/L (21-32) Anion Gap 11 (6-14) 15 (6-14) Blood Urea Nitrogen 10 mg/dL (7-20) 8 mg/dL (7-20) Creatinine 0.6 mg/dL (0.6-1.0) 0.5 mg/dL (0.6-1.0) Estimated GFR (Cockcroft-Gault) 121.8 150.3 Glucose Level 93 mg/dL (70-99) 81 mg/dL (70-99) Calcium Level 8.6 mg/dL (8.5-10.1) 8.6 mg/dL (8.5-10.1) Thyroid Stimulating Hormone (TSH) 4.242 uIU/mL (0.358-3.74) Free Thyroxine 0.57 ng/dL (0.76-1.46) Free Triiodothyronine (T3) pg/mL 1.51 pg/mL (2.18-3.98) Cortisol AM Sample 13.6 ug/dL (4.3-22.4) Laboratory Tests Test 05/26/18 03:20 White Blood Count 5.2 x10^3/uL (4.0-11.0) Red Blood Count 3.62 x10^6/uL (3.50-5.40) Hemoglobin 11.8 g/dL (12.0-15.5) Hematocrit 34.5 % (36.0-47.0) Mean Corpuscular Volume 95 fL (79-100) Mean Corpuscular Hemoglobin 33 pg (25-35) Mean Corpuscular Hemoglobin Concent 34 g/dL (31-37) Red Cell Distribution Width 13.6 % (11.5-14.5) Platelet Count 215 x10^3/uL (140-400) Neutrophils (%) (Auto) 52 % (31-73) Lymphocytes (%) (Auto) 38 % (24-48) Monocytes (%) (Auto) 8 % (0-9) Eosinophils (%) (Auto) 1 % (0-3) Basophils (%) (Auto) 1 % (0-3) Neutrophils # (Auto) 2.7 x10^3uL (1.8-7.7) Lymphocytes # (Auto) 2.0 x10^3/uL (1.0-4.8) Monocytes # (Auto) 0.4 x10^3/uL (0.0-1.1) Eosinophils # (Auto) 0.1 x10^3/uL (0.0-0.7) Basophils # (Auto) 0.0 x10^3/uL (0.0-0.2) Sodium Level 140 mmol/L (136-145) Potassium Level 3.9 mmol/L (3.5-5.1) Chloride Level 105 mmol/L (98-107) Carbon Dioxide Level 20 mmol/L (21-32) Anion Gap 15 (6-14) Blood Urea Nitrogen 8 mg/dL (7-20) Creatinine 0.5 mg/dL (0.6-1.0) Estimated GFR (Cockcroft-Gault) 150.3 Glucose Level 81 mg/dL (70-99) Calcium Level 8.6 mg/dL (8.5-10.1) Problem List Problems Medical Problems: (1) Abdominal pain Status: Acute (2) UTI (urinary tract infection) Status: Acute Assessment/Plan abd pain CT noted, no appendicitis findings, us shows small Right ovarian cyst vs lesion no surgical recs at this time YAIR GARCÍA APRN May 26, 2018 08:42
[2018-05-26] MEDS: PERAMPANEL 6 MG PO SCH (09:00)
[2018-05-26] MEDS: CLOBAZAM 20 MG PO SCH (09:00)
[2018-05-26] MEDS: [UNRECOGNIZED DRUG - OTHER] PO SCH (09:00)
--- NOTE | 2018-05-26 10:13 | PDOC ---
Subjective: Subjective: Opens eyes, won't answer questions, nods when asked about pain, nods when I asked if she wants to go home. Objective: Objective: Reviewed w/ RN - pt from [place], was on disability there, ?baseline mental status, non-communicative. Vital Signs: Vital Signs Date Time Temp Pulse Resp B/P (MAP) Pulse Ox O2 Delivery O2 Flow Rate FiO2 05/26/18 08:00 Room Air 05/26/18 07:00 97.7 53 16 98/52 (67) 97 97.7 Labs: Laboratory Tests Test 05/26/18 03:20 White Blood Count 5.2 x10^3/uL Red Blood Count 3.62 x10^6/uL Hemoglobin 11.8 g/dL Hematocrit 34.5 % Mean Corpuscular Volume 95 fL Mean Corpuscular Hemoglobin 33 pg Mean Corpuscular Hemoglobin Concent 34 g/dL Red Cell Distribution Width 13.6 % Platelet Count 215 x10^3/uL Neutrophils (%) (Auto) 52 % Lymphocytes (%) (Auto) 38 % Monocytes (%) (Auto) 8 % Eosinophils (%) (Auto) 1 % Basophils (%) (Auto) 1 % Neutrophils # (Auto) 2.7 x10^3uL Lymphocytes # (Auto) 2.0 x10^3/uL Monocytes # (Auto) 0.4 x10^3/uL Eosinophils # (Auto) 0.1 x10^3/uL Basophils # (Auto) 0.0 x10^3/uL Sodium Level 140 mmol/L Potassium Level 3.9 mmol/L Chloride Level 105 mmol/L Carbon Dioxide Level 20 mmol/L Anion Gap 15 Blood Urea Nitrogen 8 mg/dL Creatinine 0.5 mg/dL Estimated GFR (Cockcroft-Gault) 150.3 Glucose Level 81 mg/dL Calcium Level 8.6 mg/dL Imaging: CT A/P IMPRESSION: 1. The appendix remains at the upper limits of normal in size without evidence of periappendiceal inflammation. 2. Small bilateral ovarian cysts. 3. No acute abdominal or pelvic abnormality is detected. Pelv US IMPRESSION: 1. The appendix remains at the upper limits of normal in size without evidence of periappendiceal inflammation. 2. Small bilateral ovarian cysts. 3. No acute abdominal or pelvic abnormality is detected. PE: GEN: NAD LUNGS: CTAB HEART: RRR ABD: winces with palpation NEURO/PSYCH: won't talk A/P: Abd pain UTI Ovarian cysts Pseudo-seizures -- Difficult situation, pt not willing/able to communicate, refusing some meds. DC per primary. SAMI JEAN BAPTISTE May 26, 2018 10:13
[2018-05-26] MEDS ORDERED: LEVO125T PO (14:42)
--- NOTE | 2018-05-26 14:43 | PDOC3 ---
Discharge Summary [facility] Date of Admission: May 23, 2018 Discharge Date: May 26, 2018 Admitting Diagnosis abd pain, not clear etiology, doubt acute appendicitis left side weakness, numbness, subjective, doubt stroke h/o Depression, anxiety, hypotension, h/o seizures, on 3 meds, but as per neuro, likely pseudoseizures bradycardia, seizure device. possible UTI possible ovary cyst rt hypothyroidism bl small ovary cyst 2cms Final Diagnosis CONSULTS sx gi neuro Procedures EEG Brief Hospital Course Ms. Bonilla is a 27 oldF, with h/o seizure, on 3 seizure meds, some device for seizure, came for abd pain. initial CT showed possible acute appen, repeated ct neg. us pelvic showed bl small ovary cysts. ok to fu with ob as outpt. she c/o left side numbness, weakness, neg on PE, head CT neg. neuro consulted. neg EEG. she moves and talks very slow, possible has conversion syndrome, or psych issues, not willing to talk or cooperate. she said she moves more at home. family not surprised what she is doing tho. dc home with synthroid given high tsh, low t3, t4. pt moved from [place], asked her to find a pcp and neuro valentín. dc time 35min. talks and moves very slow General: Other (tired) Heart: Regular rate Lungs: Clear Abdomen: Soft (reports tenderness in low and mid abdomen, worse right side, no guarding currently) Extremities: No cyanosis Skin: No rashes, No breakdown Patient History: Diabetes mellitus 33 FATHER G8 BROTHER FH: epilepsy 33 FATHER, Onset:Unknown (error) grandmother Family history: Epilepsy (situation) 32 MOTHER uncle Unknown Disposition home CONDITION AT DISCHARGE: Improved, Stable Scheduled Clobazam (Onfi), 20 MG PO BID, (Reported) Clonazepam (Clonazepam), 1 TAB PO BID, (Reported) Escitalopram Oxalate (Escitalopram Oxalate), 10 MG PO DAILY, (Reported) Ezogabine (Potiga), 400 MG PO TID, (Reported) Levetiracetam (Keppra), 2 TAB PO BID, (Reported) Levothyroxine Sodium (Synthroid), 125 MCG PO DAILY07 Lorazepam (Ativan), 0.5 MG PO BID Perampanel (Fycompa), 6 MG PO DAILY, (Reported) Perampanel (Fycompa), 8 MG PO QHS, (Reported) Zonisamide (Zonisamide), 200 MG PO BID, (Reported) Scheduled PRN Clonazepam (Clonazepam), 1 TAB PO TID PRN PRN for SEE COMMENTS, (Reported) Discontinued Medications Phenazopyridine Hcl (Pyridium), 200 MG PO TID ERICKSON FISCHER MD May 26, 2018 14:43
--- NOTE | 2018-05-26 18:20 | PDOC ---
PROGRESS NOTES Assessment Assessment Seizure? No evidence of epileptic seizures so far. Pseudoseizures. UTI. Abdominal pain. Obesity. RECOMMENDATIONS/PLAN: Continue her home AEDs. No driving x 6 months anytime after a seizure or seizure like episode. FU with PCP. HISTORY OF THE PRESENT ILLNESS: 27-y-old [place] origin female came to the ER of [facility] with complaints of abdominal pain, nausea, vomiting and diarrhea. She said she had a seizure the day before as shaking movements in her extremities, but was unable to provide detail about her seizure. In fact, she had frequent ER visits in the past and pseudoseizures were documented. Per her boyfriend in the past, she had seizures since childhood and has been treated with multiple AEDs and VNS placement. Her seizures were described as eye open, UE bend, shaking movements in UE and LE for seconds or minutes. On 05/24/18, she became "unresponsiveness" with some subjective shaking movements per EEG staff during EEG study, but no evidence of epileptic seizure activity on EEG. PAST MEDICAL HISTORY: Seizure. PAST SURGERY HISTORY: No major surgery recently. SOCIAL HISTORY: Lives at home with her mother, sisters, boyfriend and her 7 years old son. She moved from [place] to [place] a few years ago and [place] benefits. Denies illicit drug use. REVIEW OF SYSTEMS: Constitutional: No fever, chills, malnutrition, weight loss, night sweats, cachexia. Head: No traumatic brain or head injury. Skin: No edema, or rash. Ear: No infection, tinnitus. Eyes: No vision loss, color blindness. Nose: No bleeding or purulent discharges. Neck: No injury, lymph note enlargement. Cardiac: No TX, arrhythmia. Pulmonary: URI. GI: No melena, hematochezia. Urinary/genital: No dysuria, hematuria, incontinence, urinary retention. Endocrinologic: No symptoms of gigantism, dwarf, hyperphasia, cousin face, craniofacial dysmorphism, polydactyly, goiter. Skeletomuscular: No muscular atrophy, deformity. Neurological: see HP. Psychiatric: Denies drug use/abuse. Otherwise, not -slhwx review of systems. PHYSICAL EXAMINATION: General appearance is in no acute distress. HEENT: Normocephalic and nontraumatic. Eyes, nose, ears, and throat are unremarkable. Neck is supple. No lymphadenopathy. No bruits are heard over the carotid artery. No crepitus. Cardiovascular: S1, S2, regular rate and rhythm. Pulmonary: Clear to auscultation bilaterally. Abdomen: Bowel sounds are positive. Abdomen is soft, nontender, and nondistended. Extremities: No rash, lesions, or edema. No restriction of range of motion NEUROLOGICAL EXAMINATION: Awake. Oriented to time, place and person. PERRL. EOMI. CN: no focal findings. Muscle tone: normal. Muscle strength: 5 DTR: 2 Plantar reflex: Flexor response bilaterally Gait: Normal. Sensory exam: no abnormal findings. No cerebellar signs elicited. Objective Objective Vital Signs Date Time Temp Pulse Resp B/P (MAP) Pulse Ox O2 Delivery O2 Flow Rate FiO2 05/26/18 08:00 Room Air 05/26/18 07:00 97.7 53 16 98/52 (67) 97 97.7 Intake and Output 05/26/18 07:00 # Voids 4 Vitals Signs Vitals VS - Last 72 Hours, by Label Date Time Temp Pulse Resp B/P (MAP) Pulse Ox O2 Delivery O2 Flow Rate FiO2 05/26/18 08:00 Room Air 05/26/18 07:00 97.7 53 16 98/52 (67) 97 Room Air 97.7 05/26/18 03:00 98.5 51 16 99/43 (61) 98 Room Air 98.5 05/25/18 23:00 99.5 50 16 105/67 (80) 96 Room Air 99.5 05/25/18 19:30 Room Air 05/25/18 19:00 98.8 55 16 89/40 (56) 97 Room Air 98.8 05/25/18 15:00 98.1 54 16 96/47 (63) 95 Room Air 98.1 05/25/18 07:40 Room Air 05/25/18 07:00 98.1 60 18 96/51 (66) 96 98.1 Laboratory Laboratory Laboratory Tests Test 05/26/18 03:20 White Blood Count 5.2 x10^3/uL (4.0-11.0) Red Blood Count 3.62 x10^6/uL (3.50-5.40) Hemoglobin 11.8 g/dL (12.0-15.5) Hematocrit 34.5 % (36.0-47.0) Mean Corpuscular Volume 95 fL (79-100) Mean Corpuscular Hemoglobin 33 pg (25-35) Mean Corpuscular Hemoglobin Concent 34 g/dL (31-37) Red Cell Distribution Width 13.6 % (11.5-14.5) Platelet Count 215 x10^3/uL (140-400) Neutrophils (%) (Auto) 52 % (31-73) Lymphocytes (%) (Auto) 38 % (24-48) Monocytes (%) (Auto) 8 % (0-9) Eosinophils (%) (Auto) 1 % (0-3) Basophils (%) (Auto) 1 % (0-3) Neutrophils # (Auto) 2.7 x10^3uL (1.8-7.7) Lymphocytes # (Auto) 2.0 x10^3/uL (1.0-4.8) Monocytes # (Auto) 0.4 x10^3/uL (0.0-1.1) Eosinophils # (Auto) 0.1 x10^3/uL (0.0-0.7) Basophils # (Auto) 0.0 x10^3/uL (0.0-0.2) Sodium Level 140 mmol/L (136-145) Potassium Level 3.9 mmol/L (3.5-5.1) Chloride Level 105 mmol/L (98-107) Carbon Dioxide Level 20 mmol/L (21-32) Anion Gap 15 (6-14) Blood Urea Nitrogen 8 mg/dL (7-20) Creatinine 0.5 mg/dL (0.6-1.0) Estimated GFR (Cockcroft-Gault) 150.3 Glucose Level 81 mg/dL (70-99) Calcium Level 8.6 mg/dL (8.5-10.1) Microbiology 05/23/18 Urine Culture - Final, Complete 05/23/18 Urine Culture Result 1 (CLIFF) - Final, Complete 05/23/18 Antimicrobic Susceptibility - Final, Complete Medication Medications Current Medications Lactobacillus Rhamnosus (Culturelle) 1 cap BID PO Last administered on at 08:22; Start 05/25/18 at 21:00 Levothyroxine Sodium (Synthroid) 125 mcg DAILY07 PO Last administered on at 05:40; Start 05/26/18 at 07:00 Pantoprazole Sodium (Protonix) 40 mg DAILYAC PO ; Start 05/27/18 at 07:30 Comment Review of Relevant I have reviewed the following items irma (where applicable) has been applied. ESTEPHANIA ARNOLD MD May 26, 2018 18:20
[2018-05-27] MEDS ORDERED: PANTOPRAZOLE 40 MG TABLET.DR. PO SCH (07:30)
--- NOTE | 2018-05-27 18:03 | EEG ---
DATE OF SERVICE: 05/25/2018 ELECTROENCEPHALOGRAM NUMBER: [id number] OBJECTIVE: This is a 27-year-old [place] origin female patient with history of seizure-like episodes and nonepileptic seizures. EEG was requested to evaluate seizure activity. METHODS: Twenty electrodes were applied according to the international 10-20 electrode placement system. EKG monitoring, hyperventilation, intermittent photic stimulation, monopolar and bipolar montages are routinely utilized. The record was obtained on a digital system with video monitoring. FINDINGS: 1. Background: The patient was recorded in the awake and drowsy states. No sleep state was recorded. The overall background amplitude is 10-30 microvolts. A posterior dominant rhythm of 8 Hz is observed. 2. Abnormalities: No specific epileptiform discharge or electrographic seizure is seen. No focal or diffuse slowing. 3. Activation: Hyperventilation was performed with fair efforts and normal response. Intermittent photic stimulation was performed with photic driving. No specific epileptiform discharge or electrographic seizure induced by hyperventilation or intermittent photic stimulation. IMPRESSION: This EEG is a normal study for the awake and drowsy states. No sleep state was recorded. No focal, lateralizing, specific epileptiform discharge or electrographic seizure is seen. ESTEPHANIA ARNOLD MD DR: RIZWANA/lennie JOB#: [id number] / [id number] KIKI
== END 2018-05-26 12:55 | disposition home or self-care (01) | DRG 690 ==
LOC: ER 07:11 → 4 NORTH 12:05
PROVIDERS: ADMIT Internal Medicine; ATTEND Internal Medicine
DX: N39.0 Urinary tract infection, site not specified (principal); F44.5 Conversion disorder with seizures or convulsions; R10.9 Unspecified abdominal pain; E03.9 Hypothyroidism, unspecified; E11.9 Type 2 diabetes mellitus without complications; E66.9 Obesity, unspecified; F32.9 Major depressive disorder, single episode, unspecified; F41.9 Anxiety disorder, unspecified; Z82.0 Family history of epilepsy and other diseases of the nervous system; K37 Unspecified appendicitis; N83.201 Unspecified ovarian cyst, right side; N83.202 Unspecified ovarian cyst, left side; I95.9 Hypotension, unspecified; Z68.38 Body mass index [BMI] 38.0-38.9, adult; Z91.010 Allergy to peanuts
CPT/HCPCS: 36415; 70450; 74177; 76830; 76856; 80048; 80053; 80307; 81001; 81025; 82533; 82962; 83690; 84439; 84443; 84481; 85025; 85610; 85730; 87086; 87186; 93005; 95816; 96360; 96361; C9113; J0696; J2060; J2270; J2310; J2405; J7030; Q9966; Q9967; 97116; 97535; 99285-25; G0479

== ENCOUNTER 2018-09-02 18:31 | Emergency (ER) | payer OTHER ==
[~2018-09-02] VITALS: Ht 157.5 cm; Wt 94.3 kg
[~2018-09-02 18:31] MED LIST changes: +LEVO125T PO
[2018-09-02 20:52] LABS: BILIRUBIN,URINE NEGATIVE (NEG); CLARITY,URINE CLOUDY; COLOR,URINE YELLOW; NITRITE,URINE NEGATIVE (NEG); PH,URINE 7.5; PROTEIN,URINE NEGATIVE (NEG-TRACE); UROBILINOGEN,URINE 0.2 mg/dL (0.2 mg/dL)
[2018-09-02 21:01] LABS: RBC,URINE 0 /HPF (0-2); SQUAMOUS EPITHELIAL CELL,UR FEW /LPF; WBC,URINE 0 /HPF (0-4)
[2018-09-02 21:02] LABS: BACTERIA,URINE MODERATE /HPF (0-FEW)
[2018-09-02] MEDS ORDERED: IV NORMAL SALINE 1000ML BAG 1,000 ML IV ONE (21:30)
[2018-09-02] MEDS ORDERED: HYDROcodone/APAP 5/325MG 1 TAB TABLET PO ONE (21:30)
[2018-09-02] MEDS ORDERED: ONDANSETRON PF 4 MG/2 ML VIAL. IV ONE (21:30)
[2018-09-02 21:39] LABS: BASO # 0.1 x10^3/uL (0.0-0.2); BASO % 1 % (0-3); EOS # 0.2 x10^3/uL (0.0-0.7); EOS % 3 % (0-3); HEMOGLOBIN 12.5 g/dL (12.0-15.5); LYMPH # 1.6 x10^3/uL (1.0-4.8); LYMPH % 26 % (24-48); MEAN CORPUSCULAR HEMOGLOBIN 32 pg (25-35); MEAN CORPUSCULAR HGB CONC 35 g/dL (31-37); MEAN CORPUSCULAR VOLUME 94 fL (79-100); MONO # 0.5 x10^3/uL (0.0-1.1); MONO % 9 % (0-9); NEUT # 3.8 x10^3uL (1.8-7.7); NEUT % 62 % (31-73); PLATELET COUNT 192 x10^3/uL (140-400); RED BLOOD COUNT 3.85 x10^6/uL (3.50-5.40); RED CELL DISTRIBUTION WIDTH 13.3 % (11.5-14.5); WHITE BLOOD COUNT 6.1 x10^3/uL (4.0-11.0)
[2018-09-02 21:49] LABS: CALCIUM 8.8 mg/dL (8.5-10.1); CREATININE 0.6 mg/dL (0.6-1.0); GFR 121.8; POTASSIUM 4.1 mmol/L (3.5-5.1)
[2018-09-02 21:54] LABS: ALBUMIN 3.5 g/dL (3.4-5.0); ALBUMIN/GLOBULIN RATIO 0.9 (1.0-1.7); TOTAL BILIRUBIN 0.1 mg/dL (0.2-1.0); TOTAL PROTEIN 7.5 g/dL (6.4-8.2)
--- NOTE | 2018-09-02 22:02 | PHYS DOC ---
Past Medical History Past Medical History: Anxiety, Asthma, Depression, Hypotension, Seizure, UTI Additional Past Medical Histor: bradycardia Past Surgical History: Other Additional Past Surgical Histo: anti seizure device Alcohol Use: None Drug Use: None Adult General Chief Complaint Chief Complaint: ABDOMINAL PAIN HPI HPI Patient is a 27 year old female who presents to the emergency room with complaints of upper abdominal pain, nausea, and vomiting times one today. Patient states that the pain radiates into her back on both sides. She also reports having intermittent diarrhea for the last month. She denies any diarrhea in the last 24 hours. Patient states she has had a fever, body aches, chills, and fatigue. Patient states that her fever has been up to 200. After further discussion, patient never measured her temperature and states she has been experiencing hot flashes and chills. Patient also complains of clear vaginal discharge that is abnormal for her. She denies any vaginal odor, vaginal bleeding, or vaginal itching. She reports a history of seizures, that she takes Keppra for and has been unable to keep medication down today. Her reports that pt last had a seizure at 0400 today that lasted approximately 20 seconds, he denies any confusion after the seizure. Review of Systems Review of Systems Constitutional: See HPI HENT: Denies nasal congestion or sore throat [] Respiratory: Denies cough or shortness of breath [] Cardiovascular: No additional information not addressed in HPI [] GI: See HPI : Denies dysuria or hematuria; see HPI[] Musculoskeletal: See HPI Integument: Denies rash or skin lesions [] Neurologic: Denies headache, focal weakness or sensory changes [] Complete systems were reviewed and found to be within normal limits, except as documented in this note. Current Medications Current Medications Current Medications Medications (Trade) Dose Ordered Sig/Brittny Start Time Stop Time Status Last Admin Dose Admin Acetaminophen/ Hydrocodone Bitart (Lortab 5/325) 1 tab 1X ONCE 09/02/18 21:30 09/02/18 21:31 DC 09/02/18 22:29 1 TAB Azithromycin (Zithromax) 1,000 mg 1X ONCE 09/02/18 22:15 09/02/18 22:16 DC 09/02/18 22:29 1,000 MG Ceftriaxone Sodium (Rocephin Im) 250 mg 1X ONCE 09/02/18 22:15 09/02/18 22:16 DC 09/02/18 22:29 250 MG Levetiracetam (Keppra) 1,000 mg 1X ONCE 09/02/18 22:15 09/02/18 22:16 DC 09/02/18 22:29 1,000 MG Ondansetron HCl (Zofran) 4 mg 1X ONCE 09/02/18 21:30 09/02/18 21:31 DC 09/02/18 21:53 4 MG Sodium Chloride 1,000 ml @ 1,000 mls/hr 1X ONCE 09/02/18 21:30 09/02/18 22:29 DC 09/02/18 21:54 1,000 MLS/HR Allergies Allergies Allergies Coded Allergies Type Severity Reaction Last Updated Verified ibuprofen Allergy Intermediate 09/02/18 Yes peanut Allergy Intermediate PEANUT BUTTER 08/30/14 Yes Physical Exam Physical Exam Constitutional: Well developed, well nourished, mild distress, ill appearing, obese. [] HENT: Normocephalic, atraumatic, bilateral external ears normal, oropharynx dry , no oral exudates, nose normal. [] Eyes: conjunctiva normal, no discharge. [] Lungs & Thorax: Bilateral breath sounds clear to auscultation [] Pelvic Exam: Network Lead present Abdomen: Soft, normal bowel sounds, no masses no pulsatile masses, left upper quadrant and right upper quadrant tenderness to palpation, mild suprapubic tenderness to palpation External Genitalia: Normal Skin Speculum: Normal vaginal mucosa with thick white vaginal discharge, normal cervical discharge Bimanual: No adnexal masses, left adnexal tenderness, no CMT. [] Skin: Warm, dry, pale, no erythema, no rash. [] Back: bilateral CVA tenderness. [] Extremities: No cyanosis, no clubbing, no edema. [] Neurologic: Alert and oriented X 3, normal motor function, normal sensory function, no focal deficits noted. [] Psychologic: Affect normal, judgement normal, mood normal. [] Current Patient Data Vital Signs Vital Signs Date Time Temp Pulse Resp B/P (MAP) Pulse Ox O2 Delivery O2 Flow Rate FiO2 09/02/18 23:55 50 16 105/58 (74) 99 Room Air 09/02/18 20:10 98.1 98.1 Lab Values Laboratory Tests Test 09/02/18 20:26 09/02/18 20:34 09/02/18 21:28 09/02/18 22:40 Urine Collection Type Unknown Urine Color Yellow Urine Clarity Cloudy Urine pH 7.5 Urine Specific [place] >=1.030 Urine Protein Negative mg/dL (NEG-TRACE) Urine Glucose (UA) Negative mg/dL (NEG) Urine Ketones (Stick) Negative mg/dL (NEG) Urine Blood Negative (NEG) Urine Nitrite Negative (NEG) Urine Bilirubin Negative (NEG) Urine Urobilinogen Dipstick 0.2 mg/dL (0.2 mg/dL) Urine Leukocyte Esterase Negative (NEG) Urine RBC 0 /HPF (0-2) Urine WBC 0 /HPF (0-4) Urine Squamous Epithelial Cells Few /LPF Urine Bacteria Moderate /HPF (0-FEW) Urine Mucus Slight /LPF POC Urine HCG, Qualitative Hcg negative (Negative) White Blood Count 6.1 x10^3/uL (4.0-11.0) Red Blood Count 3.85 x10^6/uL (3.50-5.40) Hemoglobin 12.5 g/dL (12.0-15.5) Hematocrit 36.0 % (36.0-47.0) Mean Corpuscular Volume 94 fL (79-100) Mean Corpuscular Hemoglobin 32 pg (25-35) Mean Corpuscular Hemoglobin Concent 35 g/dL (31-37) Red Cell Distribution Width 13.3 % (11.5-14.5) Platelet Count 192 x10^3/uL (140-400) Neutrophils (%) (Auto) 62 % (31-73) Lymphocytes (%) (Auto) 26 % (24-48) Monocytes (%) (Auto) 9 % (0-9) Eosinophils (%) (Auto) 3 % (0-3) Basophils (%) (Auto) 1 % (0-3) Neutrophils # (Auto) 3.8 x10^3uL (1.8-7.7) Lymphocytes # (Auto) 1.6 x10^3/uL (1.0-4.8) Monocytes # (Auto) 0.5 x10^3/uL (0.0-1.1) Eosinophils # (Auto) 0.2 x10^3/uL (0.0-0.7) Basophils # (Auto) 0.1 x10^3/uL (0.0-0.2) Sodium Level 142 mmol/L (136-145) Potassium Level 4.1 mmol/L (3.5-5.1) Chloride Level 109 mmol/L (98-107) H Carbon Dioxide Level 23 mmol/L (21-32) Anion Gap 10 (6-14) Blood Urea Nitrogen 11 mg/dL (7-20) Creatinine 0.6 mg/dL (0.6-1.0) Estimated GFR (Cockcroft-Gault) 121.8 BUN/Creatinine Ratio 18 (6-20) Glucose Level 101 mg/dL (70-99) H Calcium Level 8.8 mg/dL (8.5-10.1) Total Bilirubin 0.1 mg/dL (0.2-1.0) L Aspartate Amino Transferase (AST) 10 U/L (15-37) L Alanine Aminotransferase (ALT) 17 U/L (14-59) Alkaline Phosphatase 136 U/L (46-116) H Total Protein 7.5 g/dL (6.4-8.2) Albumin 3.5 g/dL (3.4-5.0) Albumin/Globulin Ratio 0.9 (1.0-1.7) L Lipase 147 U/L (73-393) Influenza Type A Antigen Negative (NEGATIVE) Influenza Type B Antigen Negative (NEGATIVE) Laboratory Tests 09/02/18 21:28 Laboratory Tests 09/02/18 21:28 Microbiology 09/02/18 Wet Prep - Final, Complete EKG EKG [] Radiology/Procedures Radiology/Procedures PROCEDURE: PELVIS W/TV INDICATION: Pelvic pain with irregular cycle COMPARISON: May 25, 2018 TECHNIQUE: Grayscale and color ultrasound images uterus and adnexa. Transabdominal and transvaginal images obtained. FINDINGS: Uterus: 66 x 43 x 29 mm. Endometrial Stripe: 8 mm. Some portions of the uterus are not well seen with some heterogeneity in the region. Right Ovary: 31 x 20 x 19 mm. Left Ovary: 29 x 27 x 17 mm. Vascular flow identified to bilateral ovaries. Small free fluid IMPRESSION: 1. Vascular flow seen to the suspected ovaries. PROCEDURE: PELVIS W/TV INDICATION: Pelvic pain with irregular cycle COMPARISON: May 25, 2018 TECHNIQUE: Grayscale and color ultrasound images uterus and adnexa. Transabdominal and transvaginal images obtained. FINDINGS: Uterus: 66 x 43 x 29 mm. Endometrial Stripe: 8 mm. Some portions of the uterus are not well seen with some heterogeneity in the region. Right Ovary: 31 x 20 x 19 mm. Left Ovary: 29 x 27 x 17 mm. Vascular flow identified to bilateral ovaries. Small free fluid IMPRESSION: 1. Vascular flow seen to the suspected ovaries. [] Course & Med Decision Making Course & Med Decision Making Pertinent Labs and Imaging studies reviewed. (See chart for details) Dx: bacterial vaginosis, suspected STI, nausea, vomiting Patient was treated prophylactically with 250 mg of IM Rocephin, and 1 g of PO Zithromax. Patient was instructed to avoid having intercourse until the results of gonorrhea and chlamydia testing were available, patient was notified that these results would not be available for 48 hours. If one or both of these tests is positive, patient needs to refrain from intercourse for approximately 2 weeks following the treatment of any current partners. Staff Physician Addendum: I was working in the ER during the course of this patient's visit. I was available for consultation as needed, but I was not directly involved in the care of this patient. [] Dragon Disclaimer Dragon Disclaimer This electronic medical record was generated, in whole or in part, using a voice recognition dictation system. Departure Departure Impression: Primary Impression: Abdominal pain Additional Impressions: Bacterial vaginosis Nausea & vomiting Gallstones Disposition: 01 HOME, SELF-CARE Condition: STABLE Referrals: TONYA PRUETT DO (PCP) ALO REY MD Patient Instructions: Bacterial Vaginosis, [id number], Cholelithiasis, Easy- to-Read, Nausea, Adult, [id number] Additional Instructions: Follow up with Dr. Rey about your gallstones. Avoid eating fried, greasy, or fatty foods. Return to the ER for increased pain or fever. Fill the prescription and use as directed for bacterial vaginosis and nausea. You were treated prophylactically for a suspected sexually transmitted infection. STD results will not be available for 48 hours. You need to refrain from having intercourse until these results are available. If your gonorrhea or chlamydia testing is positive, you will need to notify any current partners and avoid having intercourse with them until 2 weeks have passed after the time that they received treatment. Scripts Ondansetron (ONDANSETRON ODT) 4 Mg Tab.rapdis 1 TAB PO PRN Q6-8HRS PRN for NAUSEA/VOMITING for 4 Days, #16 TAB 0 Refills Prov: KAREN WATERS DEVELOPMENT SPEC 09/02/18 Metronidazole (METRONIDAZOLE) 500 Mg Tablet 1 TAB PO BID, #14 TAB 0 Refills Prov: KAREN WATERS APRN 09/02/18 Problem Qualifiers Primary Impression: Abdominal pain Abdominal location: unspecified location Qualified Codes: R10.9 - Unspecified abdominal pain Additional Impressions: Nausea & vomiting Vomiting type: unspecified Vomiting Intractability: unspecified Qualified Codes: R11.2 - Nausea with vomiting, unspecified KAREN WATERS APRN Sep 02, 2018 22:02 RICHAR MARTIN MD Sep 03, 2018 03:08
[2018-09-02] MEDS ORDERED: cefTRIAXone IM 250 MG VIAL IM ONE (22:15)
[2018-09-02] MEDS ORDERED: AZITHROMYCIN 250 MG TABLET. PO ONE (22:15)
[2018-09-02] MEDS ORDERED: levETIRAcetam 500 MG TABLET PO ONE (22:15)
--- NOTE | 2018-09-02 22:58 | RAD ---
INDICATION: Pelvic pain with irregular cycle COMPARISON: May 25, 2018 TECHNIQUE: Grayscale and color ultrasound images uterus and adnexa. Transabdominal and transvaginal images obtained. FINDINGS: Uterus: 66 x 43 x 29 mm. Endometrial Stripe: 8 mm. Some portions of the uterus are not well seen with some heterogeneity in the region. Right Ovary: 31 x 20 x 19 mm. Left Ovary: 29 x 27 x 17 mm. Vascular flow identified to bilateral ovaries. Small free fluid IMPRESSION: 1. Vascular flow seen to the suspected ovaries. Electronically signed by: Kenny Mackey MD (09/02/2018 10:54 PM) [facility]
--- NOTE | 2018-09-02 23:00 | RAD ---
INDICATION : Abdomen pain COMPARISON: May 25, 2018 CT TECHNIQUE: Multiple ultrasound images obtained through the abdomen in grayscale and color. FINDINGS: Liver: Echogenic appearance with some portions not well seen. There is some heterogeneity. Gallbladder: Partially contracted with gallstones. IVC: Partially distended at level of liver. Common Bile Duct: Not dilated. Pancreas: Not well seen secondary to overlying structures obscuring Right Kidney: No hydronephrosis. IMPRESSION: 1. The gallbladder appears partially contracted with a suspected stones seen near the gallbladder neck. Gallbladder wall is near the upper limits of normal in size. Liver appears echogenic. Nonspecific but can be seen with fatty infiltration Electronically signed by: Kenny Mackey MD (09/02/2018 10:57 PM) [facility]
[2018-09-02 23:12] LABS: INFLUENZA A PATIENT NEGATIVE (NEGATIVE); INFLUENZA B PATIENT NEGATIVE (NEGATIVE)
[2018-09-02] MEDS ORDERED: METR-84 PO (23:35)
[2018-09-02] MEDS ORDERED: ONDA4TAB12 PO (23:35)
[2018-09-02 23:55] VITALS: BP 105/58
[2018-09-05 14:20] LABS: GC PROBE Negative (Negative)
== END 2018-09-02 23:58 | disposition home or self-care (01) ==
LOC: ER 18:31
DX: N76.0 Acute vaginitis (principal); R11.2 Nausea with vomiting, unspecified; B96.89 Other specified bacterial agents as the cause of diseases classified elsewhere; K80.20 Calculus of gallbladder without cholecystitis without obstruction; R10.12 Left upper quadrant pain; R10.11 Right upper quadrant pain; R10.30 Lower abdominal pain, unspecified; F41.9 Anxiety disorder, unspecified; J45.909 Unspecified asthma, uncomplicated; F32.9 Major depressive disorder, single episode, unspecified; R00.1 Bradycardia, unspecified; Z88.8 Allergy status to other drugs, medicaments and biological substances; Z91.010 Allergy to peanuts
CPT/HCPCS: 36415; 76705; 76830; 76856; 80053; 81001; 81025; 83690; 85025; 87086; 87491; 87591; 87804; 96361; 96372; 96374; 99284; J0696; J2405; J7030; Q0111; Q0144

== ENCOUNTER 2018-09-27 00:05 | Emergency (ER) | payer OTHER ==
[~2018-09-27] VITALS: Ht 157.5 cm; Wt 94.3 kg
[~2018-09-27 00:05] MED LIST changes: +METR-84 PO; +ONDA4TAB12 PO
[2018-09-27 00:54] LABS: BILIRUBIN,URINE SMALL (NEG); CLARITY,URINE TURBID; COLOR,URINE AMBER; NITRITE,URINE NEGATIVE (NEG); PH,URINE 7.5; PROTEIN,URINE NEGATIVE (NEG-TRACE)
[2018-09-27 00:59] LABS: BACTERIA,URINE 0 /HPF (0-FEW); RBC,URINE 0 /HPF (0-2); SQUAMOUS EPITHELIAL CELL,UR FEW /LPF; WBC,URINE RARE /HPF (0-4)
[2018-09-27 01:00] LABS: AMORPHOUS SEDIMENT,UR PRESENT /HPF
[2018-09-27] MEDS ORDERED: MORPHINE SULFATE 4 MG/ML VIAL. IV ONE ×2 (01:00→03:30)
[2018-09-27] MEDS ORDERED: IV NORMAL SALINE 1000ML BAG 1,000 ML IV ONE ×2 (01:00→02:30)
[2018-09-27 01:13] LABS: BASO % 1 % (0-3); EOS # 0.1 x10^3/uL (0.0-0.7); EOS % 2 % (0-3); HEMATOCRIT 36.8 % (36.0-47.0); HEMOGLOBIN 12.6 g/dL (12.0-15.5); LYMPH # 1.8 x10^3/uL (1.0-4.8); LYMPH % 38 % (24-48); MEAN CORPUSCULAR HEMOGLOBIN 32 pg (25-35); MEAN CORPUSCULAR HGB CONC 34 g/dL (31-37); MEAN CORPUSCULAR VOLUME 93 fL (79-100); MONO # 0.4 x10^3/uL (0.0-1.1); MONO % 9 % (0-9); NEUT # 2.4 x10^3uL (1.8-7.7); NEUT % 51 % (31-73); PLATELET COUNT 184 x10^3/uL (140-400); RED BLOOD COUNT 3.96 x10^6/uL (3.50-5.40); RED CELL DISTRIBUTION WIDTH 13.8 % (11.5-14.5); WHITE BLOOD COUNT 4.7 x10^3/uL (4.0-11.0)
[2018-09-27 01:14] LABS: CREATININE 0.8 mg/dL (0.6-1.0); GFR 87.4; POTASSIUM 3.5 mmol/L (3.5-5.1)
--- NOTE | 2018-09-27 01:18 | PHYS DOC ---
Past Medical History Past Medical History: Anxiety, Asthma, Depression, Hypotension, Seizure, UTI Additional Past Medical Histor: bradycardia Past Surgical History: Other Additional Past Surgical Histo: anti seizure device Alcohol Use: None Drug Use: None Adult General Chief Complaint Chief Complaint: DIZZY/LIGHT HEADED HPI HPI Patient is a 27 year old female who presents with neck pain. Patient states she fell last week. She does have a known seizure disorder and states she had a seizure and fell. She complains tonight of neck pain and headache from her fall. She states she has been having pain consistently and it has not improved. She did not have nausea or vomiting. She has no fever or chills. Her pain symptoms are worse with movement. No weakness, numbness, tingling in the extremities. Patient does take Keppra 1000 mg twice a day and has been compliant with her medications. That said, the patient does endorse that she has frequent breakthrough seizures despite medication compliance. She took some Tylenol at home for pain but this did not relieve her pain symptoms. Review of Systems Review of Systems Constitutional: Denies fever or chills Eyes: Denies change in visual acuity HENT: Denies Respiratory: Denies cough or shortness of breath Cardiovascular: No additional information not addressed in HPI GI: Denies abdominal pain, nausea Musculoskeletal: Denies back pain Integument: Denies rash or skin lesions All other systems were reviewed and found to be within normal limits, except as documented in this note. Current Medications Current Medications Current Medications Medications (Trade) Dose Ordered Sig/Brittny Start Time Stop Time Status Last Admin Dose Admin Diphenhydramine HCl (Benadryl) 12.5 mg 1X ONCE 09/27/18 02:00 09/27/18 02:01 DC 09/27/18 01:44 12.5 MG Morphine Sulfate (Morphine Sulfate) 6 mg 1X ONCE 09/27/18 03:30 09/27/18 03:31 DC 09/27/18 03:09 6 MG Prochlorperazine Edisylate (Compazine) 10 mg 1X ONCE 09/27/18 02:00 09/27/18 02:01 DC 09/27/18 01:44 10 MG Sodium Chloride 1,000 ml @ 1,000 mls/hr 1X ONCE 09/27/18 02:30 09/27/18 03:29 DC 09/27/18 02:23 1,000 MLS/HR Allergies Allergies Allergies Coded Allergies Type Severity Reaction Last Updated Verified ibuprofen Allergy Intermediate 09/02/18 Yes peanut Allergy Intermediate PEANUT BUTTER 08/30/14 Yes Physical Exam Physical Exam Constitutional: Well developed, well nourished, no acute distress, non-toxic appearance. [] HENT: Normocephalic, atraumatic, bilateral external ears normal, oropharynx moist, no oral exudates, nose normal. [] Eyes: PERRLA, EOMI, conjunctiva normal, no discharge. [] Neck: Normal range of motion, no tenderness, supple, no stridor. [] Cardiovascular:Heart rate regular rhythm, no murmur [] Lungs & Thorax: Bilateral breath sounds clear to auscultation [] Abdomen: Bowel sounds normal, soft, no tenderness, no masses, no pulsatile masses. [] Skin: Warm, dry, no erythema, no rash. [] Back: No tenderness, no CVA tenderness. [] Extremities: No tenderness, no cyanosis, no clubbing, ROM intact, no edema. [] Neurologic: Alert and oriented X 3, normal motor function, normal sensory function, no focal deficits noted. [] Psychologic: Affect normal, judgement normal, mood normal. [] Current Patient Data Vital Signs Vital Signs Date Time Temp Pulse Resp B/P (MAP) Pulse Ox O2 Delivery O2 Flow Rate FiO2 09/27/18 03:30 54 95 09/27/18 03:09 18 Room Air 09/27/18 00:10 97.5 114/64 (81) 97.5 Lab Values Laboratory Tests Test 09/27/18 00:45 09/27/18 00:55 Urine Collection Type U cath Urine Color [place] Urine Clarity Turbid Urine pH 7.5 Urine Specific [place] >=1.030 Urine Protein Negative mg/dL (NEG-TRACE) Urine Glucose (UA) Negative mg/dL (NEG) Urine Ketones (Stick) Negative mg/dL (NEG) Urine Blood Negative (NEG) Urine Nitrite Negative (NEG) Urine Bilirubin Small (NEG) Urine Urobilinogen Dipstick 1.0 mg/dL (0.2 mg/dL) Urine Leukocyte Esterase Negative (NEG) Urine RBC 0 /HPF (0-2) Urine WBC Rare /HPF (0-4) Urine Squamous Epithelial Cells Few /LPF Urine Amorphous Sediment Present /HPF Urine Bacteria 0 /HPF (0-FEW) Urine Mucus Marked /LPF Urine Test Negative (NEG) White Blood Count 4.7 x10^3/uL (4.0-11.0) Red Blood Count 3.96 x10^6/uL (3.50-5.40) Hemoglobin 12.6 g/dL (12.0-15.5) Hematocrit 36.8 % (36.0-47.0) Mean Corpuscular Volume 93 fL (79-100) Mean Corpuscular Hemoglobin 32 pg (25-35) Mean Corpuscular Hemoglobin Concent 34 g/dL (31-37) Red Cell Distribution Width 13.8 % (11.5-14.5) Platelet Count 184 x10^3/uL (140-400) Neutrophils (%) (Auto) 51 % (31-73) Lymphocytes (%) (Auto) 38 % (24-48) Monocytes (%) (Auto) 9 % (0-9) Eosinophils (%) (Auto) 2 % (0-3) Basophils (%) (Auto) 1 % (0-3) Neutrophils # (Auto) 2.4 x10^3uL (1.8-7.7) Lymphocytes # (Auto) 1.8 x10^3/uL (1.0-4.8) Monocytes # (Auto) 0.4 x10^3/uL (0.0-1.1) Eosinophils # (Auto) 0.1 x10^3/uL (0.0-0.7) Basophils # (Auto) 0.0 x10^3/uL (0.0-0.2) Sodium Level 139 mmol/L (136-145) Potassium Level 3.5 mmol/L (3.5-5.1) Chloride Level 107 mmol/L (98-107) Carbon Dioxide Level 26 mmol/L (21-32) Anion Gap 6 (6-14) Blood Urea Nitrogen 11 mg/dL (7-20) Creatinine 0.8 mg/dL (0.6-1.0) Estimated GFR (Cockcroft-Gault) 87.4 Glucose Level 106 mg/dL (70-99) H Calcium Level 9.0 mg/dL (8.5-10.1) Creatine Kinase 43 U/L (26-192) Influenza Type A Antigen Negative (NEGATIVE) Influenza Type B Antigen Negative (NEGATIVE) Laboratory Tests 09/27/18 00:55 Laboratory Tests 09/27/18 00:55 EKG EKG [] Radiology/Procedures Radiology/Procedures CT head and C-spine w/o: FINDINGS: No abnormal attenuation within the brain parenchyma. Small left middle cranial fossa arachnoid cyst identified. No evidence of acute intracranial hemorrhage. No extra-axial fluid collections. No mass effect or midline shift. Ventricular size is appropriate. Basal cisterns are patent. No fractures identified.Salmon-white differentiation is preserved.Globes and orbits are within normal limits. Paranasal sinuses and mastoid air cells are clear. IMPRESSION: No acute intracranial findings. CT CERVICAL SPINE INDICATION: seizure; head/neck pain COMPARISON: None Available. Technique: 2.5 mm contiguous axial images were obtained from the skull base through the cervicothoracic junction in both bone and soft tissue algorithm. Additional sagittal and coronal reconstructions were also performed. FINDINGS: Vertebral body height and alignment are maintained. Cervical lordosis is preserved. The lateral masses of C1 are aligned upon C2. No fractures identified. The bony canal is patent throughout. No significant degenerative changes are identified. The paraspinous soft tissues are unremarkable. Visualized intracranial contents are unremarkable. Lung apices are clear. IMPRESSION: 1. No acute fracture cervical spine. Correlate clinically. Course & Med Decision Making Course & Med Decision Making Pertinent Labs and Imaging studies reviewed. (See chart for details) Patient was evaluated in the emergency department. She primarily complained of head and neck pain from a fall. She also had some secondary complaints of feeling lightheaded and having some dizziness. Basic lab panel did not reveal acute findings. CT head and cervical spine revealed no bony abnormality or intracranial pathology. Urinalysis was not infected. Patient was given a dose of morphine in the ER which did relieve her pain symptoms. She was then discharged home with some Pierz for severe pain. She was advised to follow-up with her primary care doctor or return to the ER for any new or worsening symptoms. She was accompanied by her boyfriend today who was driving her home. Dragon Disclaimer Dragon Disclaimer This electronic medical record was generated, in whole or in part, using a voice recognition dictation system. Departure Departure Disposition: 01 HOME, SELF-CARE Condition: GOOD Referrals: TONYA PRUETT DO (PCP) Scripts Hydrocodone/Apap 5-325 (NORCO 5-325 TABLET) 1 Each Tablet 1-2 EACH PO PRN Q6HRS PRN for SEVERE PAIN, #15 as needed for pain Prov: CORETTA OCASIO DO 09/27/18 CORETTA OCASIO DO Sep 27, 2018 01:18
[2018-09-27 01:25] LABS: INFLUENZA A PATIENT NEGATIVE (NEGATIVE); INFLUENZA B PATIENT NEGATIVE (NEGATIVE)
[2018-09-27] MEDS ORDERED: PROCHLORPERAZINE 10 MG/2 ML VIAL. IV ONE (02:00)
[2018-09-27] MEDS ORDERED: diphenhydrAMINE 50 MG/ML VIAL IVP ONE (02:00)
[2018-09-27 02:08] LABS: U PREG PATIENT NEGATIVE (NEG)
--- NOTE | 2018-09-27 02:39 | RAD ---
Examination: CT head and cervical spine without contrast CT HEAD INDICATION: seizure; head/neck pain COMPARISON: 05/14/2018 Exposure: One or more of the following individualized dose reduction techniques were utilized for this examination: 1. Automated exposure control 2. Adjustment of the mA and/or kV according to patient size 3. Use of iterative reconstruction technique TECHNIQUE: 5 mm contiguous axial images were obtained from the skull base to the vertex in both bone and soft tissue algorithm. FINDINGS: No abnormal attenuation within the brain parenchyma. Small left middle cranial fossa arachnoid cyst identified. No evidence of acute intracranial hemorrhage. No extra-axial fluid collections. No mass effect or midline shift. Ventricular size is appropriate. Basal cisterns are patent. No fractures identified.Salmon-white differentiation is preserved.Globes and orbits are within normal limits. Paranasal sinuses and mastoid air cells are clear. IMPRESSION: No acute intracranial findings. CT CERVICAL SPINE INDICATION: seizure; head/neck pain COMPARISON: None Available. Technique: 2.5 mm contiguous axial images were obtained from the skull base through the cervicothoracic junction in both bone and soft tissue algorithm. Additional sagittal and coronal reconstructions were also performed. FINDINGS: Vertebral body height and alignment are maintained. Cervical lordosis is preserved. The lateral masses of C1 are aligned upon C2. No fractures identified. The bony canal is patent throughout. No significant degenerative changes are identified. The paraspinous soft tissues are unremarkable. Visualized intracranial contents are unremarkable. Lung apices are clear. IMPRESSION: 1. No acute fracture cervical spine. Correlate clinically. Electronically signed by: Fabricio Schmidt MD (09/27/2018 2:35 AM) [place] [id number]
[2018-09-27 03:30] VITALS: BP 92/50
[2018-09-27] MEDS ORDERED: HYDR-3164 PO (03:46)
== END 2018-09-27 03:59 | disposition home or self-care (01) ==
LOC: ER 00:05
DX: M54.2 Cervicalgia (principal); R51 Headache; G89.11 Acute pain due to trauma; G40.909 Epilepsy, unspecified, not intractable, without status epilepticus; R42 Dizziness and giddiness; J45.909 Unspecified asthma, uncomplicated; F41.9 Anxiety disorder, unspecified; F32.9 Major depressive disorder, single episode, unspecified; Z88.8 Allergy status to other drugs, medicaments and biological substances; Z91.010 Allergy to peanuts; W18.39XA Other fall on same level, initial encounter; Y93.89 Activity, other specified; Y92.89 Other specified places as the place of occurrence of the external cause; Y99.8 Other external cause status
CPT/HCPCS: 36415; 70450; 72125; 80048; 81001; 81025; 82550; 85025; 87804; 96361; 96374; 96375; 96376; 99284; J0780; J1200; J2270; J7030

== ENCOUNTER 2018-12-30 00:54 | Emergency (ER) | payer MEDICARE, OTHER ==
[~2018-12-30] VITALS: Ht 157.5 cm; Wt 96.2 kg
[~2018-12-30 00:54] MED LIST changes: +FLUO20CA8 PO; +HYDR-3164 PO; +METR-34 PO; -METR-84 PO
[2018-12-30] MEDS ORDERED: IV NORMAL SALINE 1000ML BAG 1,000 ML IV SCH (01:30)
--- NOTE | 2018-12-30 01:37 | PHYS DOC ---
Past Medical History Past Medical History: Asthma, Diabetes-Type II, Seizure, Other Additional Past Medical Histor: 10-01-18 UNKNOWN HISTORY. PRO HISTORIAN. (ALEX BENÍTEZ APRN) Past Surgical History: Other Additional Past Surgical Histo: 10-01-18 UNKNOWN SURGICAL HISTORY. PRO HISTORI AN. (ALEX BENÍTEZ APRN) Additional Information: non smoker Alcohol Use: None Drug Use: Other (ALEX BENÍTEZ APRN) Adult General Chief Complaint Chief Complaint: ABDOMINAL PAIN HPI HPI Patient is a 28-year-old female who presents to the ER this evening after having 5 days of nausea, vomiting, and diarrhea accompanied by abdominal pain. She has been feeling hot and cold at home. The patient states the symptoms are getting worse and that she is unable to keep fluids or food down at home. The pain is a severity of 10 out of 10 and is described as sharp. The abdominal pain is diffuse throughout the abdomen. The patient's been taking Tylenol at home and this is not helped per the patient. Patient also has a history of asthma and says that she is short of breath. The patient is unsure if she is . Patient denies vaginal bleeding. (ALEX BENÍTEZ APRN) Review of Systems Review of Systems Constitutional: Reports fever and chills. Eyes: Denies eye pain or changes in vision. HENT: Denies sore throat or nasal congestion. Respiratory: Denies cough. Report shortness of breath. Cardiovascular: Report mid-sternal chest pain. Denies palpitations or syncope. GI: Reports abdominal pain, nausea, vomiting, and diarrhea [] : Denies dysuria or hematuria [] Musculoskeletal: Reports back pain. Denies joint pain. Integument: Denies rash or skin lesions. Neurologic: Denies headache, or dizziness. Endocrine: Denies polyuria or polydipsia [] Complete systems were reviewed and found to be within normal limits, except as documented in this note. (ALEX BENÍTEZ APRN) Family History Family History unknown (AELX BENÍTEZ APRN) Current Medications Current Medications Current Medications Medications (Trade) Dose Ordered Sig/Brittny Start Time Stop Time Status Last Admin Dose Admin Acetaminophen (Tylenol) 500 mg 1X ONCE 12/30/18 03:00 12/30/18 03:01 DC 12/30/18 02:46 500 MG Albuterol/ Ipratropium (Duoneb) 3 ml 1X ONCE 12/30/18 02:00 12/30/18 02:01 DC 12/30/18 02:03 3 ML Famotidine (Pepcid Vial) 20 mg 1X ONCE 12/30/18 03:00 12/30/18 03:01 DC 12/30/18 02:46 20 MG Morphine Sulfate (Morphine Sulfate) 4 mg 1X ONCE 12/30/18 02:00 12/30/18 02:25 DC Ondansetron HCl (Zofran) 4 mg 1X ONCE 12/30/18 02:00 12/30/18 02:01 DC 12/30/18 02:47 4 MG Sodium Chloride 1,000 ml @ 1,000 mls/hr Q1H 12/30/18 01:30 12/30/18 02:29 DC 12/30/18 01:30 1,000 MLS/HR (ALEX SAWYER DO) Allergies Allergies Allergies Coded Allergies Type Severity Reaction Last Updated Verified ibuprofen Allergy Intermediate 09/02/18 Yes peanut Allergy Intermediate PEANUT BUTTER 08/30/14 Yes (ALEX SAWYER DO) Physical Exam Physical Exam Constitutional: Pale, no acute distress, appears not feeling well. [] HENT: Normocephalic, atraumatic, oropharynx dry. [] Eyes: PERRLA, conjunctiva normal, no discharge. [] Neck: No tenderness, full range of motion, no stridor [] Cardiovascular:Heart rate regular rhythm, no murmur [] Lungs & Thorax: Wheezing heard in the Right Upper Lobe, Breath sounds otherwise clear. [] Abdomen: Bowel sounds hyporeactive, soft, diffuse tenderness, no rebound tenderness, no rovsing's sign, negative heel tap sign, no masses, no pulsatile masses. [] Skin: Warm, dry, no erythema, no rash. Back: No CVA tenderness. Extremities: No tenderness, no cyanosis, no clubbing, ROM intact, no edema. [] Neurologic: Alert and oriented X 3, normal motor function, normal sensory function. [] Psychologic: Affect normal, judgement normal, mood normal. [] (ALEX BENÍTEZ APRN) Physical Exam Constitutional: No acute distress Cardiovascular: Heart rate regular rhythm Lungs & Thorax: No respiratory distress Abdomen: Soft, diffuse tenderness, no rebound tenderness/guarding/distention (ALEX SAWYER DO) Current Patient Data Vital Signs Vital Signs Date Time Temp Pulse Resp B/P (MAP) Pulse Ox O2 Delivery O2 Flow Rate FiO2 12/30/18 05:26 72 135/66 (89) 96 12/30/18 02:05 Room Air 12/30/18 01:10 97.4 16 97.4 (ALEX SAWYER DO) Lab Values Laboratory Tests Test 12/30/18 01:10 12/30/18 01:50 Urine Collection Type U cath Urine Color Yellow Urine Clarity Turbid Urine pH 8.0 Urine Specific [place] >=1.030 Urine Protein Negative mg/dL (NEG-TRACE) Urine Glucose (UA) Negative mg/dL (NEG) Urine Ketones (Stick) Negative mg/dL (NEG) Urine Blood Negative (NEG) Urine Nitrite Negative (NEG) Urine Bilirubin Negative (NEG) Urine Urobilinogen Dipstick 0.2 mg/dL (0.2 mg/dL) Urine Leukocyte Esterase Negative (NEG) Urine RBC 0 /HPF (0-2) Urine WBC Occ /HPF (0-4) Urine Squamous Epithelial Cells Few /LPF Urine Amorphous Sediment Present /HPF Urine Bacteria Few /HPF (0-FEW) Urine Mucus Marked /LPF Urine Test Positive (NEG) Urine Opiates Screen Neg (NEG) Urine Methadone Screen Neg (NEG) Urine Barbiturates Neg (NEG) Urine Phencyclidine Screen Neg (NEG) Urine Amphetamine/Methamphetamine Neg (NEG) Urine Benzodiazepines Screen Pos (NEG) Urine Cocaine Screen Neg (NEG) Urine Cannabinoids Screen Neg (NEG) Urine Ethyl Alcohol Neg (NEG) White Blood Count 5.0 x10^3/uL (4.0-11.0) Red Blood Count 3.58 x10^6/uL (3.50-5.40) Hemoglobin 11.1 g/dL (12.0-15.5) L Hematocrit 33.2 % (36.0-47.0) L Mean Corpuscular Volume 93 fL (79-100) Mean Corpuscular Hemoglobin 31 pg (25-35) Mean Corpuscular Hemoglobin Concent 33 g/dL (31-37) Red Cell Distribution Width 14.1 % (11.5-14.5) Platelet Count 235 x10^3/uL (140-400) Neutrophils (%) (Auto) 52 % (31-73) Lymphocytes (%) (Auto) 36 % (24-48) Monocytes (%) (Auto) 9 % (0-9) Eosinophils (%) (Auto) 2 % (0-3) Basophils (%) (Auto) 1 % (0-3) Neutrophils # (Auto) 2.6 x10^3uL (1.8-7.7) Lymphocytes # (Auto) 1.8 x10^3/uL (1.0-4.8) Monocytes # (Auto) 0.4 x10^3/uL (0.0-1.1) Eosinophils # (Auto) 0.1 x10^3/uL (0.0-0.7) Basophils # (Auto) 0.0 x10^3/uL (0.0-0.2) Maternal Serum HCG Beta Subunit 143 mIU/mL (0-5) H Sodium Level 138 mmol/L (136-145) Potassium Level 3.8 mmol/L (3.5-5.1) Chloride Level 106 mmol/L (98-107) Carbon Dioxide Level 21 mmol/L (21-32) Anion Gap 11 (6-14) Blood Urea Nitrogen 9 mg/dL (7-20) Creatinine 0.8 mg/dL (0.6-1.0) Estimated GFR (Cockcroft-Gault) 86.7 BUN/Creatinine Ratio 11 (6-20) Glucose Level 103 mg/dL (70-99) H Calcium Level 8.9 mg/dL (8.5-10.1) Total Bilirubin 0.1 mg/dL (0.2-1.0) L Aspartate Amino Transferase (AST) 12 U/L (15-37) L Alanine Aminotransferase (ALT) 14 U/L (14-59) Alkaline Phosphatase 140 U/L (46-116) H Total Protein 7.2 g/dL (6.4-8.2) Albumin 3.3 g/dL (3.4-5.0) L Albumin/Globulin Ratio 0.8 (1.0-1.7) L Lipase 106 U/L (73-393) Laboratory Tests 12/30/18 01:50 Laboratory Tests 12/30/18 01:50 (ALEX SAWYER DO) Lab Values Laboratory Tests Test 12/30/18 01:10 12/30/18 01:50 Urine Collection Type U cath Urine Color Yellow Urine Clarity Turbid Urine pH 8.0 Urine Specific [place] >=1.030 Urine Protein Negative mg/dL (NEG-TRACE) Urine Glucose (UA) Negative mg/dL (NEG) Urine Ketones (Stick) Negative mg/dL (NEG) Urine Blood Negative (NEG) Urine Nitrite Negative (NEG) Urine Bilirubin Negative (NEG) Urine Urobilinogen Dipstick 0.2 mg/dL (0.2 mg/dL) Urine Leukocyte Esterase Negative (NEG) Urine RBC 0 /HPF (0-2) Urine WBC Occ /HPF (0-4) Urine Squamous Epithelial Cells Few /LPF Urine Amorphous Sediment Present /HPF Urine Bacteria Few /HPF (0-FEW) Urine Mucus Marked /LPF Urine Test Positive (NEG) Urine Opiates Screen Neg (NEG) Urine Methadone Screen Neg (NEG) Urine Barbiturates Neg (NEG) Urine Phencyclidine Screen Neg (NEG) Urine Amphetamine/Methamphetamine Neg (NEG) Urine Benzodiazepines Screen Pos (NEG) Urine Cocaine Screen Neg (NEG) Urine Cannabinoids Screen Neg (NEG) Urine Ethyl Alcohol Neg (NEG) White Blood Count 5.0 x10^3/uL (4.0-11.0) Red Blood Count 3.58 x10^6/uL (3.50-5.40) Hemoglobin 11.1 g/dL (12.0-15.5) L Hematocrit 33.2 % (36.0-47.0) L Mean Corpuscular Volume 93 fL (79-100) Mean Corpuscular Hemoglobin 31 pg (25-35) Mean Corpuscular Hemoglobin Concent 33 g/dL (31-37) Red Cell Distribution Width 14.1 % (11.5-14.5) Platelet Count 235 x10^3/uL (140-400) Neutrophils (%) (Auto) 52 % (31-73) Lymphocytes (%) (Auto) 36 % (24-48) Monocytes (%) (Auto) 9 % (0-9) Eosinophils (%) (Auto) 2 % (0-3) Basophils (%) (Auto) 1 % (0-3) Neutrophils # (Auto) 2.6 x10^3uL (1.8-7.7) Lymphocytes # (Auto) 1.8 x10^3/uL (1.0-4.8) Monocytes # (Auto) 0.4 x10^3/uL (0.0-1.1) Eosinophils # (Auto) 0.1 x10^3/uL (0.0-0.7) Basophils # (Auto) 0.0 x10^3/uL (0.0-0.2) Maternal Serum HCG Beta Subunit 143 mIU/mL (0-5) H Sodium Level 138 mmol/L (136-145) Potassium Level 3.8 mmol/L (3.5-5.1) Chloride Level 106 mmol/L (98-107) Carbon Dioxide Level 21 mmol/L (21-32) Anion Gap 11 (6-14) Blood Urea Nitrogen 9 mg/dL (7-20) Creatinine 0.8 mg/dL (0.6-1.0) Estimated GFR (Cockcroft-Gault) 86.7 BUN/Creatinine Ratio 11 (6-20) Glucose Level 103 mg/dL (70-99) H Calcium Level 8.9 mg/dL (8.5-10.1) Total Bilirubin 0.1 mg/dL (0.2-1.0) L Aspartate Amino Transferase (AST) 12 U/L (15-37) L Alanine Aminotransferase (ALT) 14 U/L (14-59) Alkaline Phosphatase 140 U/L (46-116) H Total Protein 7.2 g/dL (6.4-8.2) Albumin 3.3 g/dL (3.4-5.0) L Albumin/Globulin Ratio 0.8 (1.0-1.7) L Lipase 106 U/L (73-393) Laboratory Tests 12/30/18 01:50 Laboratory Tests 12/30/18 01:50 (ALEX BENÍTEZ APRN) EKG EKG [] (ALEX BENÍTEZ APRN) Radiology/Procedures Radiology/Procedures [] (ALEX BENÍTEZ APRN) Radiology/Procedures PROCEDURE: OB <14 WKS W/TV INDICATION: pelvic pain x 3 hrs, unsure lmp COMPARISON: May 2018 TECHNIQUE: Grayscale and color ultrasound images uterus and adnexa. Transabdominal and transvaginal images obtained. FINDINGS: Uterus: 70 x 43 x 36 mm. Endometrial Stripe: 15 mm. Hypoechoic structure endometrial stripe measuring 3 mm.. Difficult to visualize given location. 21 x 17 x 18 mm hypoechoic heterogenous structure right adnexa which may be within the right ovary or abutting it. There is also a suspected 7 mm hyperechoic lesion at right ovary. Right Ovary: 38 x 21 x 20 mm. Left Ovary: 27 x 21 x 15 mm. Vascular flow identified to bilateral ovaries. Free fluid is seen within the pelvis. IMPRESSION: 1. There is a small hypoechoic region seen within the endometrial stripe however this area is only faintly visualized given difficult location and a very early gestational sac could have this appearance however its also possible that this is secondary to a tiny amount of fluid or debris within the endometrial stripe rather than a intrauterine gestational sac given that a definite pole is not seen. The patient will need to be monitored to assess for development of a gestational sac given this finding and reported history of positive hCG with pelvic pain. 2. At the right ovary there is suggestion of a irregular hypoechoic masslike structure identified. One possible cause would include a corpus luteal cyst with hemorrhage or debris within but given that the patient does not have a definitive intrauterine gestational sac and will need to be reevaluated to ensure appropriate development of a gestational sac with pole to ensure that there is not an alternative cause of positive hCG such as ectopic . 3. Small free fluid in the pelvis. 4. Additional echogenic lesion of the right ovary which can be followed on future exams to ensure no increase. Electronically signed by: Kenny Mackey MD (12/30/2018 4:50 AM) [facility] (ALEX SAWYER DO) Course & Med Decision Making Course & Med Decision Making Pertinent Labs and Imaging studies reviewed. (See chart for details) 0115: The patient appears to not be feeling well. Has been having symptoms for 5 days and symptoms are not improving. The chest pain from the history appears to be from vomiting from the timing. Will check labs, urine, and test. Will hydrate with fluids and give nausea medication. Has history of asthma and f eels short of breath and has slight wheezing and so will give breathing treatment. Patient is agreeable to the plan of care. 0235: The test for the patient came back negative. Will continue supportive treatment and order a quantitative test to estimate how far along the patient is. 0317: Went to reevaluate patient. Patient now states that she has had two episodes of moderate vaginal bleeding over the last 5 days. Will order pelvic ultrasound to r/o ectopic . 0400: Signed patient out to Dr. Sawyer. He is aware of what is going on with the patient and that we are waiting on the results of pelvic ultrasound. (ALEX BENÍTEZ APRN) Course & Med Decision Making 0400- Sign out received from Alex CUMMINS for patient with abdominal pain. Patien t with positive Upreg. Patient pending US results. Labs reviewed. Patient seen and evaluated by myself. US with findings of right ovarian cyst and small gestational sac. Patient reports history of known right ovarian cyst. A copy of US provided to patient to given to her PCP/OB. Patient stable for discharge with outpatient follow-up with PCP/OB. OB referral provided. Discussed findings and plan with patient and family, who acknowledge understanding and agreement. (ALEX SAWYER DO) Dragon Disclaimer Dragon Disclaimer This electronic medical record was generated, in whole or in part, using a voice recognition dictation system. (ALEX BENÍTEZ APRN) Departure Departure Impression: Primary Impression: Abdominal pain Additional Impressions: Nausea vomiting and diarrhea Ovarian cyst Disposition: HOME, SELF-CARE Condition: IMPROVED Referrals: TONYA PRUETT DO (PCP) JAMAAL EPPS MD Patient Instructions: ABCs of , Abdominal Pain During , [id number], Diarrhea, [id number], Diet for Diarrhea, Adult, Nausea and Vomiting, Trvg-[id number], Ovarian Cyst, [id number] Additional Instructions: Your test was positive. Please follow up with OB for care. I have prescribed pre- vitamins to take during . I have also prescribed nausea medicine to help. If symptoms worsen come back to ER. Scripts Famotidine (PEPCID) 20 Mg Tablet 20 MG PO BID, #14 TAB Prov: ALEX SAWYER DO 12/30/18 Vits W-Ca,Fe,Fa(<1MG) ( VITAMINS) 1 Each Tablet 1 TAB PO DAILY, #90 TAB 0 Refills Prov: ALEX BENÍTEZ APRN 12/30/18 Ondansetron (ONDANSETRON ODT) 4 Mg Tab.rapdis 1 TAB PO PRN Q6-8HRS PRN for NAUSEA, #16 TAB Prov: ALEX BENÍTEZ APRN 12/30/18 Attending Signature Attending Signature I have personally interviewed and examined the patient. All charts, labs, and imaging studies were reviewed. I agree with the PA/FILLER PICKER's findings, exam, and plan. (ALEX SAWYER DO) Problem Qualifiers Primary Impression: Abdominal pain Abdominal location: unspecified location Qualified Codes: R10.9 - Unspecified abdominal pain Additional Impressions: Weeks of gestation: unspecified Qualified Codes: Z34.90 - Encounter for supervision of normal , unspecified, unspecified trimester Ovarian cyst Laterality: right Qualified Codes: N83.201 - Unspecified ovarian cyst, right side ALEX BENÍTEZ APRN Dec 30, 2018 01:37 ALEX SAWYER DO Dec 30, 2018 06:02
[2018-12-30] MEDS ORDERED: ONDANSETRON PF 4 MG/2 ML VIAL. IV ONE (02:00)
[2018-12-30] MEDS ORDERED: IPRATRPIUM/ALBUTEROL 0.5/2.5MG 3 ML NEBU. NEB ONE (02:00)
[2018-12-30] MEDS ORDERED: MORPHINE SULFATE 4 MG/ML VIAL. IV ONE (02:00)
[2018-12-30 02:06] LABS: BASO % 1 % (0-3); EOS # 0.1 x10^3/uL (0.0-0.7); EOS % 2 % (0-3); HEMATOCRIT 33.2 % (36.0-47.0); HEMOGLOBIN 11.1 g/dL (12.0-15.5); LYMPH # 1.8 x10^3/uL (1.0-4.8); LYMPH % 36 % (24-48); MEAN CORPUSCULAR HEMOGLOBIN 31 pg (25-35); MEAN CORPUSCULAR HGB CONC 33 g/dL (31-37); MEAN CORPUSCULAR VOLUME 93 fL (79-100); MONO # 0.4 x10^3/uL (0.0-1.1); MONO % 9 % (0-9); NEUT # 2.6 x10^3uL (1.8-7.7); NEUT % 52 % (31-73); PLATELET COUNT 235 x10^3/uL (140-400); RED BLOOD COUNT 3.58 x10^6/uL (3.50-5.40); RED CELL DISTRIBUTION WIDTH 14.1 % (11.5-14.5)
[2018-12-30 02:08] LABS: BILIRUBIN,URINE NEGATIVE (NEG); CLARITY,URINE TURBID; COLOR,URINE YELLOW; NITRITE,URINE NEGATIVE (NEG); PROTEIN,URINE NEGATIVE (NEG-TRACE); UROBILINOGEN,URINE 0.2 mg/dL (0.2 mg/dL)
[2018-12-30 02:14] LABS: AMORPHOUS SEDIMENT,UR PRESENT /HPF; BACTERIA,URINE FEW /HPF (0-FEW); BARBITURATES NEG (NEG); BENZODIAZEPINES POS (NEG); CANNABINOIDS NEG (NEG); COCAINE NEG (NEG); METHADONE NEG (NEG); OPIATES NEG (NEG); PHENCYCLIDINE NEG (NEG); RBC,URINE 0 /HPF (0-2); SQUAMOUS EPITHELIAL CELL,UR FEW /LPF; WBC,URINE OCC /HPF (0-4)
[2018-12-30 02:15] LABS: CALCIUM 8.9 mg/dL (8.5-10.1); CREATININE 0.8 mg/dL (0.6-1.0); GFR 86.7; POTASSIUM 3.8 mmol/L (3.5-5.1)
[2018-12-30 02:16] LABS: U PREG PATIENT POSITIVE (NEG)
[2018-12-30 02:17] LABS: AMPHETAMINE/METHAMPHETAMINE NEG (NEG)
[2018-12-30 02:21] LABS: ALBUMIN 3.3 g/dL (3.4-5.0); ALBUMIN/GLOBULIN RATIO 0.8 (1.0-1.7); TOTAL BILIRUBIN 0.1 mg/dL (0.2-1.0); TOTAL PROTEIN 7.2 g/dL (6.4-8.2)
[2018-12-30] MEDS ORDERED: ACETAMINOPHEN 500 MG TABLET PO ONE (03:00)
[2018-12-30] MEDS ORDERED: FAMOTIDINE 20 MG/2 ML VIAL IVP ONE (03:00)
[2018-12-30] MEDS ORDERED: PREN1TAB58 PO (03:12)
[2018-12-30] MEDS ORDERED: ONDA4TAB12 PO (03:12)
--- NOTE | 2018-12-30 04:53 | RAD ---
INDICATION: pelvic pain x 3 hrs, unsure lmp COMPARISON: May 2018 TECHNIQUE: Grayscale and color ultrasound images uterus and adnexa. Transabdominal and transvaginal images obtained. FINDINGS: Uterus: 70 x 43 x 36 mm. Endometrial Stripe: 15 mm. Hypoechoic structure endometrial stripe measuring 3 mm.. Difficult to visualize given location. 21 x 17 x 18 mm hypoechoic heterogenous structure right adnexa which may be within the right ovary or abutting it. There is also a suspected 7 mm hyperechoic lesion at right ovary. Right Ovary: 38 x 21 x 20 mm. Left Ovary: 27 x 21 x 15 mm. Vascular flow identified to bilateral ovaries. Free fluid is seen within the pelvis. IMPRESSION: 1. There is a small hypoechoic region seen within the endometrial stripe however this area is only faintly visualized given difficult location and a very early gestational sac could have this appearance however its also possible that this is secondary to a tiny amount of fluid or debris within the endometrial stripe rather than a intrauterine gestational sac given that a definite pole is not seen. The patient will need to be monitored to assess for development of a gestational sac given this finding and reported history of positive hCG with pelvic pain. 2. At the right ovary there is suggestion of a irregular hypoechoic masslike structure identified. One possible cause would include a corpus luteal cyst with hemorrhage or debris within but given that the patient does not have a definitive intrauterine gestational sac and will need to be reevaluated to ensure appropriate development of a gestational sac with pole to ensure that there is not an alternative cause of positive hCG such as ectopic . 3. Small free fluid in the pelvis. 4. Additional echogenic lesion of the right ovary which can be followed on future exams to ensure no increase. Electronically signed by: Kenny Mackey MD (12/30/2018 4:50 AM) [facility]
[2018-12-30 05:26] VITALS: BP 135/66
[2018-12-30] MEDS ORDERED: FAMO-63 PO (06:01)
--- NOTE | 2019-01-04 09:59 | NUR ---
Late entry made to Medical Record. IV Stop time transcribed from eMAR to IV spreadsheet
== END 2018-12-30 06:15 | disposition home or self-care (01) ==
LOC: ER 00:54
DX: Z33.1 Pregnant state, incidental (principal); N83.201 Unspecified ovarian cyst, right side; R11.2 Nausea with vomiting, unspecified; R19.7 Diarrhea, unspecified; E11.9 Type 2 diabetes mellitus without complications; J45.909 Unspecified asthma, uncomplicated; Z91.010 Allergy to peanuts; Z88.8 Allergy status to other drugs, medicaments and biological substances
CPT/HCPCS: 36415; 51701; 76801; 76817; 80053; 80307; 81001; 81025; 83690; 84702; 85025; 94640; 96361; 96374; 96375; 99285; J2405; J3490; J7030; J7620

== ENCOUNTER 2019-01-15 01:56 | Emergency (ER) | payer MEDICARE, OTHER ==
[~2019-01-15] VITALS: Ht 157.5 cm; Wt 96.2 kg
[~2019-01-15 01:56] MED LIST changes: +FAMO-63 PO; +PREN1TAB58 PO
[2019-01-15 02:45] LABS: BASO % 1 % (0-3); EOS # 0.1 x10^3/uL (0.0-0.7); EOS % 1 % (0-3); LYMPH # 1.9 x10^3/uL (1.0-4.8); LYMPH % 28 % (24-48); MEAN CORPUSCULAR HEMOGLOBIN 32 pg (25-35); MEAN CORPUSCULAR HGB CONC 33 g/dL (31-37); MEAN CORPUSCULAR VOLUME 95 fL (79-100); MONO # 0.5 x10^3/uL (0.0-1.1); MONO % 8 % (0-9); NEUT # 4.2 x10^3uL (1.8-7.7); NEUT % 62 % (31-73); PLATELET COUNT 206 x10^3/uL (140-400); RED CELL DISTRIBUTION WIDTH 14.6 % (11.5-14.5); WHITE BLOOD COUNT 6.7 x10^3/uL (4.0-11.0)
[2019-01-15 03:14] LABS: BILIRUBIN,URINE NEGATIVE (NEG); CLARITY,URINE TURBID; COLOR,URINE YELLOW; NITRITE,URINE NEGATIVE (NEG); PH,URINE 7.5; PROTEIN,URINE NEGATIVE (NEG-TRACE)
[2019-01-15 03:15] LABS: CALCIUM 9.3 mg/dL (8.5-10.1); CREATININE 0.6 mg/dL (0.6-1.0); GFR 120.8; POTASSIUM 3.5 mmol/L (3.5-5.1)
[2019-01-15 03:19] LABS: AMORPHOUS SEDIMENT,UR PRESENT /HPF; BACTERIA,URINE FEW /HPF (0-FEW); RBC,URINE OCC /HPF (0-2); SQUAMOUS EPITHELIAL CELL,UR FEW /LPF; WBC,URINE OCC /HPF (0-4)
--- NOTE | 2019-01-15 05:14 | RAD ---
OB <14 WKS W/TV Clinical Indication: Pelvic pain and spotting. Comparison: Obstetric ultrasound, 12/30/2017. TECHNIQUE: Real-time ultrasound imaging of the pelvis using transabdominal and transvaginal window is performed. Findings: Uterus measures 8.2 x 4.7 x 4.3 cm. Mild cul-de-sac free fluid. The right maternal ovary is normal. The left ovary is not visualized. Left adnexa not well-visualized due to overlying bowel gas. There is intrauterine gestational sac, contour is smooth. No perigestational hemorrhage is seen. Internally a yolk sac and pole are identified. Estimated heart rate 145 bpm. [place]-rump length 0.6 cm, 6 weeks and 3 days. EDC ultrasound is September 07, 2019. IMPRESSION: 1. Single live intrauterine gestation, estimated sonographic gestational age 6 weeks and 3 days. 2. Mild cul-de-sac free fluid. 3. The left ovary is not visualized. Electronically signed by: J Luis Khanna MD (01/15/2019 5:11 AM) [facility]
[2019-01-15] MEDS ORDERED: ACETAMINOPHEN 325 MG TABLET. PO ONE (05:15)
[2019-01-15] MEDS ORDERED: ONDANSETRON ODT 4 MG TAB.RAPDIS. PO ONE (05:15)
[2019-01-15] MEDS ORDERED: IV NORMAL SALINE 1000ML BAG 1,000 ML IV ONE ×2 (05:30→06:30)
--- NOTE | 2019-01-15 05:45 | PHYS DOC ---
Past Medical History Past Medical History: Asthma, Diabetes-Type II, Seizure, Other Additional Past Medical Histor: 10-01-18 UNKNOWN HISTORY. POOR HISTORIAN. Past Surgical History: Other Additional Past Surgical Histo: 10-01-18 UNKNOWN SURGICAL HISTORY. POOR HISTORIAN. Alcohol Use: None Drug Use: Other Adult General Chief Complaint Chief Complaint: VAGINAL BLEEDING HPI HPI Patient is a 28 year old G2, P1 female who is approximately 7 weeks presents with nausea, lower abdominal pain and diarrhea. Symptom onset was yesterday. Patient also reports vaginal bleeding or spotting prior to ED arrival. Seen by her FREELANCE RECRUITER last week and told that she was high risk. Patient is not scheduled to follow-up with her FREELANCE RECRUITER for another 7 weeks. Denies dizz iness lightheadedness chest pain palpitations. No fevers or chills. No other acute symptoms or complaints. [] Review of Systems Review of Systems Review symptoms as per history of present illness. All other review symptoms are negative. All other systems were reviewed and found to be within normal limits, except as documented in this note. Current Medications Current Medications Current Medications Medications (Trade) Dose Ordered Sig/Brittny Start Time Stop Time Status Last Admin Dose Admin Acetaminophen (Tylenol) 650 mg 1X ONCE 01/15/19 05:15 01/15/19 05:16 DC 01/15/19 05:04 650 MG Ondansetron HCl (Zofran Odt) 4 mg 1X ONCE 01/15/19 05:15 01/15/19 05:16 DC 01/15/19 05:04 4 MG Prochlorperazine Edisylate (Compazine) 10 mg 1X ONCE 01/15/19 06:00 01/15/19 06:01 01/15/19 05:46 10 MG Sodium Chloride 1,000 ml @ 1,000 mls/hr 1X ONCE 01/15/19 05:30 01/15/19 06:29 01/15/19 05:27 1,000 MLS/HR Allergies Allergies Allergies Coded Allergies Type Severity Reaction Last Updated Verified ibuprofen Allergy Intermediate 09/02/18 Yes peanut Allergy Intermediate PEANUT BUTTER 08/30/14 Yes Physical Exam Physical Exam Constitutional: Pale and clammy appearing, moderate discomfort secondary to pain. [] HENT: Normocephalic, atraumatic, bilateral external ears normal, oropharynx moist, no oral exudates, nose normal. [] Eyes: PERRLA, EOMI, conjunctiva normal, no discharge. [] Neck: Normal range of motion, no tenderness, supple, no stridor. [] Cardiovascular:Heart rate regular rhythm, no murmur [] Lungs & Thorax: Bilateral breath sounds clear to auscultation [] Abdomen: Bowel sounds normal, soft, no tenderness, diffuse lower abdominal pain, tenderness. [] Skin: Warm, dry, no erythema, no rash. [] Back: No tenderness, no CVA tenderness. [] Extremities: No tenderness, no cyanosis, no clubbing, ROM intact, no edema. [] Neurologic: Alert and oriented X 3, normal motor function, normal sensory function, no focal deficits noted. [] Psychologic: Affect normal, judgement normal, mood normal. [] Current Patient Data Vital Signs Vital Signs Date Time Temp Pulse Resp B/P (MAP) Pulse Ox O2 Delivery O2 Flow Rate FiO2 01/15/19 02:00 98.0 71 16 97/56 (70) 99 Room Air 98.0 Lab Values Laboratory Tests Test 01/15/19 02:10 01/15/19 02:35 01/15/19 02:44 White Blood Count 6.7 x10^3/uL (4.0-11.0) Red Blood Count 3.80 x10^6/uL (3.50-5.40) Hemoglobin 12.0 g/dL (12.0-15.5) Hematocrit 36.0 % (36.0-47.0) Mean Corpuscular Volume 95 fL (79-100) Mean Corpuscular Hemoglobin 32 pg (25-35) Mean Corpuscular Hemoglobin Concent 33 g/dL (31-37) Red Cell Distribution Width 14.6 % (11.5-14.5) H Platelet Count 206 x10^3/uL (140-400) Neutrophils (%) (Auto) 62 % (31-73) Lymphocytes (%) (Auto) 28 % (24-48) Monocytes (%) (Auto) 8 % (0-9) Eosinophils (%) (Auto) 1 % (0-3) Basophils (%) (Auto) 1 % (0-3) Neutrophils # (Auto) 4.2 x10^3uL (1.8-7.7) Lymphocytes # (Auto) 1.9 x10^3/uL (1.0-4.8) Monocytes # (Auto) 0.5 x10^3/uL (0.0-1.1) Eosinophils # (Auto) 0.1 x10^3/uL (0.0-0.7) Basophils # (Auto) 0.0 x10^3/uL (0.0-0.2) Maternal Serum HCG Beta Subunit 84990 mIU/mL (0-5) H Sodium Level 137 mmol/L (136-145) Potassium Level 3.5 mmol/L (3.5-5.1) Chloride Level 103 mmol/L (98-107) Carbon Dioxide Level 24 mmol/L (21-32) Anion Gap 10 (6-14) Blood Urea Nitrogen 12 mg/dL (7-20) Creatinine 0.6 mg/dL (0.6-1.0) Estimated GFR (Cockcroft-Gault) 120.8 Glucose Level 91 mg/dL (70-99) Calcium Level 9.3 mg/dL (8.5-10.1) Urine Collection Type Unknown Urine Color Yellow Urine Clarity Turbid Urine pH 7.5 Urine Specific [place] 1.025 Urine Protein Negative mg/dL (NEG-TRACE) Urine Glucose (UA) Negative mg/dL (NEG) Urine Ketones (Stick) Negative mg/dL (NEG) Urine Blood Small (NEG) Urine Nitrite Negative (NEG) Urine Bilirubin Negative (NEG) Urine Urobilinogen Dipstick 1.0 mg/dL (0.2 mg/dL) Urine Leukocyte Esterase Negative (NEG) Urine RBC Occ /HPF (0-2) Urine WBC Occ /HPF (0-4) Urine Squamous Epithelial Cells Few /LPF Urine Amorphous Sediment Present /HPF Urine Bacteria Few /HPF (0-FEW) Urine Mucus Mod /LPF POC Urine HCG, Qualitative Hcg positive (Negative) Laboratory Tests 01/15/19 02:10 Laboratory Tests 01/15/19 02:10 EKG EKG [] Radiology/Procedures Radiology/Procedures [OB Ultrasound: nance IUP, 6 weeks 7 days.] Course & Med Decision Making Course & Med Decision Making Pertinent Labs and Imaging studies reviewed. (See chart for details) [Nondescript lower abdominal pain. Viable IUP on ultrasound with vaginal bleeding. No vomiting or diarrhea in the ED. Patient remains pale and clammy appearing with systolic blood pressure in low 80s. Labs reviewed and are normal. IV fluids and repeat antiemetics given. Will obtain MRI this a.m. Care endorsed to oncoming ERP at 07:00. ] Melia Disclaimer Melia Disclaimer This electronic medical record was generated, in whole or in part, using a voice recognition dictation system. Departure Departure Referrals: TONYA PRUETT DO (PCP) AYDEN LORA DO January 15, 2019 05:45
[2019-01-15 05:46] VITALS: BP 92/52
[2019-01-15] MEDS ORDERED: PROCHLORPERAZINE 10 MG/2 ML VIAL. IV ONE (06:00)
== END 2019-01-15 06:15 | disposition left against medical advice (07) ==
LOC: ER 01:56
DX: O26.891 Other specified pregnancy related conditions, first trimester (principal); R10.84 Generalized abdominal pain; R19.7 Diarrhea, unspecified; O99.511 Diseases of the respiratory system complicating pregnancy, first trimester; J45.909 Unspecified asthma, uncomplicated; O24.911 Unspecified diabetes mellitus in pregnancy, first trimester; Z3A.01 Less than 8 weeks gestation of pregnancy; Z88.6 Allergy status to analgesic agent; Z91.010 Allergy to peanuts
CPT/HCPCS: 36415; 76801; 76817; 80048; 81001; 81025; 84702; 85025; 96361; 96374; 99285; J0780; J7030; Q0162

== ENCOUNTER 2019-01-27 22:44 | Emergency (ER) | payer MEDICARE, OTHER ==
[~2019-01-27] VITALS: Ht 157.5 cm; Wt 96.2 kg
--- NOTE | 2019-01-27 23:57 | PHYS DOC ---
Past Medical History Past Medical History: Anxiety, Asthma, GERD, Hypotension, Stroke Additional Past Medical Histor: "STRESS INDUCED STROKE" Past Surgical History: Other Additional Past Surgical Histo: "LEADS IN MY HEAD" Alcohol Use: None Drug Use: None Adult General Chief Complaint Chief Complaint: ABDOMINAL PAIN IN [facility] HPI Patient is a 28 year old F who presents with lower abd pain. She is , . She says she has a one year old and she had a baby born without a heart. She has had lower abd cramping for weeks. She reports 3 days of vag bleeding last week. She was seen in the ER on 01/15/19 and had an US which revealed a 6w 3d with EDC of 09/07/2019. She was supposed to be admitted during that visit but she eloped. Review of Systems Review of Systems Constitutional: Denies fever or chills Eyes: Denies change in visual acuity, redness, or eye pain HENT: Denies nasal congestion or sore throat Respiratory: Denies cough or shortness of breath Cardiovascular: No additional information not addressed in HPI GI: Endorses lower abd pain : Denies dysuria or hematuria Musculoskeletal: Denies back pain or joint pain Integument: Denies rash or skin lesions Neurologic: Denies headache, focal weakness or sensory changes Endocrine: Denies polyuria or polydipsia All other systems were reviewed and found to be within normal limits, except as documented in this note. Allergies Allergies Allergies Coded Allergies Type Severity Reaction Last Updated Verified ibuprofen Allergy Intermediate 09/02/18 Yes peanut Allergy Intermediate PEANUT BUTTER 08/30/14 Yes Physical Exam Physical Exam Constitutional: Well developed, well nourished, no acute distress, non-toxic appearance. [] HENT: Normocephalic, atraumatic, bilateral external ears normal, oropharynx moist, no oral exudates, nose normal. [] Eyes: PERRLA, EOMI, conjunctiva normal, no discharge. [] Neck: Normal range of motion, no tenderness, supple, no stridor. [] Cardiovascular:Heart rate regular rhythm, no murmur [] Lungs & Thorax: Bilateral breath sounds clear to auscultation [] Abdomen: Bowel sounds normal, soft, no tenderness, no masses, no pulsatile masses. [] Skin: Warm, dry, no erythema, no rash. [] Back: No tenderness, no CVA tenderness. [] Extremities: No tenderness, no cyanosis, no clubbing, ROM intact, no edema. [] Neurologic: Alert and oriented X 3, normal motor function, normal sensory function, no focal deficits noted. [] Psychologic: Affect normal, judgement normal, mood normal. [] Pelvic exam: Cervix without discharge, not red, not friable, os is closed. No cervical motion tenderness, no ovarian tenderness. No rashes or lesions. No blood in the vaginal vault. Current Patient Data Vital Signs Vital Signs Date Time Temp Pulse Resp B/P (MAP) Pulse Ox O2 Delivery O2 Flow Rate FiO2 01/28/19 01:34 60 20 96/55 (69) 98 Room Air 01/27/19 23:01 97.8 97.8 Lab Values Laboratory Tests Test 01/27/19 23:00 01/27/19 23:03 01/27/19 23:45 Urine Collection Type Unknown Urine Color Yellow Urine Clarity Cloudy Urine pH 6.0 Urine Specific [place] >=1.030 Urine Protein Negative mg/dL (NEG-TRACE) Urine Glucose (UA) Negative mg/dL (NEG) Urine Ketones (Stick) Trace mg/dL (NEG) Urine Blood Negative (NEG) Urine Nitrite Negative (NEG) Urine Bilirubin Negative (NEG) Urine Urobilinogen Dipstick 1.0 mg/dL (0.2 mg/dL) Urine Leukocyte Esterase Negative (NEG) Urine RBC Occ /HPF (0-2) Urine WBC Occ /HPF (0-4) Urine Squamous Epithelial Cells Mod /LPF Urine Bacteria Few /HPF (0-FEW) Urine Mucus Slight /LPF POC Urine HCG, Qualitative Hcg positive (Negative) White Blood Count 6.1 x10^3/uL (4.0-11.0) Red Blood Count 3.52 x10^6/uL (3.50-5.40) Hemoglobin 11.1 g/dL (12.0-15.5) L Hematocrit 33.3 % (36.0-47.0) L Mean Corpuscular Volume 95 fL (79-100) Mean Corpuscular Hemoglobin 32 pg (25-35) Mean Corpuscular Hemoglobin Concent 33 g/dL (31-37) Red Cell Distribution Width 14.5 % (11.5-14.5) Platelet Count 211 x10^3/uL (140-400) Neutrophils (%) (Auto) 59 % (31-73) Lymphocytes (%) (Auto) 29 % (24-48) Monocytes (%) (Auto) 10 % (0-9) H Eosinophils (%) (Auto) 1 % (0-3) Basophils (%) (Auto) 1 % (0-3) Neutrophils # (Auto) 3.6 x10^3uL (1.8-7.7) Lymphocytes # (Auto) 1.8 x10^3/uL (1.0-4.8) Monocytes # (Auto) 0.6 x10^3/uL (0.0-1.1) Eosinophils # (Auto) 0.1 x10^3/uL (0.0-0.7) Basophils # (Auto) 0.0 x10^3/uL (0.0-0.2) Maternal Serum HCG Beta Subunit 01581 mIU/mL (0-5) H Sodium Level 141 mmol/L (136-145) Potassium Level 3.7 mmol/L (3.5-5.1) Chloride Level 107 mmol/L (98-107) Carbon Dioxide Level 23 mmol/L (21-32) Anion Gap 11 (6-14) Blood Urea Nitrogen 10 mg/dL (7-20) Creatinine 0.5 mg/dL (0.6-1.0) L Estimated GFR (Cockcroft-Gault) 149.1 BUN/Creatinine Ratio 20 (6-20) Glucose Level 91 mg/dL (70-99) Calcium Level 9.1 mg/dL (8.5-10.1) Total Bilirubin 0.1 mg/dL (0.2-1.0) L Aspartate Amino Transferase (AST) 12 U/L (15-37) L Alanine Aminotransferase (ALT) 18 U/L (14-59) Alkaline Phosphatase 114 U/L (46-116) Total Protein 7.3 g/dL (6.4-8.2) Albumin 3.4 g/dL (3.4-5.0) Albumin/Globulin Ratio 0.9 (1.0-1.7) L Laboratory Tests 01/27/19 23:45 Laboratory Tests 01/27/19 23:45 Microbiology 01/27/19 Wet Prep - Final, Complete EKG EKG [] Radiology/Procedures Radiology/Procedures [] Course & Med Decision Making Course & Med Decision Making Pertinent Labs and Imaging studies reviewed. (See chart for details) 28 y/o F 8wks 1day presents for lower abd cramping. Her abdominal exam is benign she has no tenderness. Pelvic exam is unremarkable as well - os closed, no bleeding, no tenderness. Pt was supposed to be admitted on 01/15/19 for MRI for abd pain. Today she has no tenderness, localizing pain, or signs of appendicitis. She has no white count, her VS are WNL, no signs of sepsis. She has no fever. Labs are all reassuring. UA concerning for UTI. Tx with keflex 500 mg bid x 7 days. Discussed all results and plan of care with the pt and her significant other. She verbalizes understanding and agreement. She will follow up with OB. She understands return precautions. Dragon Disclaimer Dragon Disclaimer This electronic medical record was generated, in whole or in part, using a voice recognition dictation system. Departure Departure Impression: Primary Impression: UTI (urinary tract infection) Disposition: 01 HOME, SELF-CARE Condition: IMPROVED Referrals: UNKNOWN PCP NAME (PCP) Patient Instructions: Urinary Retention, Acute, Male, [id number] Scripts Cephalexin (KEFLEX) 500 Mg Capsule 1 CAP PO BID, #14 CAP Prov: LISBET HA MD 01/28/19 LISBET HA MD January 27, 2019 23:57
[2019-01-27 23:58] LABS: BASO % 1 % (0-3); EOS # 0.1 x10^3/uL (0.0-0.7); EOS % 1 % (0-3); HEMATOCRIT 33.3 % (36.0-47.0); HEMOGLOBIN 11.1 g/dL (12.0-15.5); LYMPH # 1.8 x10^3/uL (1.0-4.8); LYMPH % 29 % (24-48); MEAN CORPUSCULAR HEMOGLOBIN 32 pg (25-35); MEAN CORPUSCULAR HGB CONC 33 g/dL (31-37); MEAN CORPUSCULAR VOLUME 95 fL (79-100); MONO # 0.6 x10^3/uL (0.0-1.1); MONO % 10 % (0-9); NEUT # 3.6 x10^3uL (1.8-7.7); NEUT % 59 % (31-73); PLATELET COUNT 211 x10^3/uL (140-400); RED BLOOD COUNT 3.52 x10^6/uL (3.50-5.40); RED CELL DISTRIBUTION WIDTH 14.5 % (11.5-14.5); WHITE BLOOD COUNT 6.1 x10^3/uL (4.0-11.0)
[2019-01-28 00:11] LABS: CALCIUM 9.1 mg/dL (8.5-10.1); CREATININE 0.5 mg/dL (0.6-1.0); GFR 149.1; POTASSIUM 3.7 mmol/L (3.5-5.1)
[2019-01-28 00:18] LABS: ALBUMIN 3.4 g/dL (3.4-5.0); ALBUMIN/GLOBULIN RATIO 0.9 (1.0-1.7); TOTAL BILIRUBIN 0.1 mg/dL (0.2-1.0); TOTAL PROTEIN 7.3 g/dL (6.4-8.2)
[2019-01-28 01:24] LABS: BILIRUBIN,URINE NEGATIVE (NEG); CLARITY,URINE CLOUDY; COLOR,URINE YELLOW; NITRITE,URINE NEGATIVE (NEG); PROTEIN,URINE NEGATIVE (NEG-TRACE)
[2019-01-28 01:34] VITALS: BP 96/55
[2019-01-28 01:56] LABS: BACTERIA,URINE FEW /HPF (0-FEW); RBC,URINE OCC /HPF (0-2); SQUAMOUS EPITHELIAL CELL,UR MOD /LPF; WBC,URINE OCC /HPF (0-4)
[2019-01-28] MEDS ORDERED: CEPH-264 PO (02:06)
[2019-01-31 14:10] LABS: GC PROBE Negative (Negative)
== END 2019-01-28 02:21 | disposition home or self-care (01) ==
LOC: ER 01-28 00:24
DX: O23.41 Unspecified infection of urinary tract in pregnancy, first trimester (principal); O99.341 Other mental disorders complicating pregnancy, first trimester; O16.1 Unspecified maternal hypertension, first trimester; F41.9 Anxiety disorder, unspecified; O99.511 Diseases of the respiratory system complicating pregnancy, first trimester; J45.909 Unspecified asthma, uncomplicated; O99.611 Diseases of the digestive system complicating pregnancy, first trimester; K21.9 Gastro-esophageal reflux disease without esophagitis; I25.2 Old myocardial infarction; Z3A.01 Less than 8 weeks gestation of pregnancy; Z88.6 Allergy status to analgesic agent; Z91.010 Allergy to peanuts
CPT/HCPCS: 36415; 80053; 81001; 81025; 84702; 85025; 86900; 86901; 87491; 87591; 99284; Q0111

== ENCOUNTER 2019-02-10 22:09 | Emergency (ER) | payer MEDICARE ==
[~2019-02-10] VITALS: Ht 157.5 cm; Wt 99.8 kg
[2019-02-10] MEDS ORDERED: IV NORMAL SALINE 1000ML BAG 1,000 ML IV SCH (23:00)
[2019-02-10] MEDS ORDERED: ONDANSETRON PF 4 MG/2 ML VIAL. IV ONE (23:00)
[2019-02-10 23:07] LABS: BILIRUBIN,URINE NEGATIVE (NEG); CLARITY,URINE CLOUDY; COLOR,URINE YELLOW; NITRITE,URINE NEGATIVE (NEG); PROTEIN,URINE NEGATIVE (NEG-TRACE)
[2019-02-10 23:11] LABS: BACTERIA,URINE 0 /HPF (0-FEW); RBC,URINE 0 /HPF (0-2); SQUAMOUS EPITHELIAL CELL,UR FEW /LPF
[2019-02-10 23:12] LABS: AMORPHOUS SEDIMENT,UR PRESENT /HPF
--- NOTE | 2019-02-10 23:19 | PHYS DOC ---
Past Medical History Past Medical History: Anxiety, Asthma, GERD, Hypotension, Stroke Additional Past Medical Histor: "STRESS INDUCED STROKE" Past Surgical History: Other Additional Past Surgical Histo: "LEADS IN MY HEAD" Alcohol Use: None Drug Use: None Adult General Chief Complaint Chief Complaint: ABDOMINAL PAIN IN HPI HPI Patient is a 28 year old female who presents with diffuse abd pain. She is , . She says she has a one year old and she had a baby born without a heart. She has had lower abd cramping for weeks. She was seen in the ER on 01/15/19 and had an US which revealed a 6w 3d with EDC of 09/07/2019. Reports associated symptoms of nausea, vomiting, and diarrhea that has been ongoing throughout . Also states she has been having intermittent vaginal bleeding for several weeks. Has not seen an [facility] yet. Rates her pain as 10/10 and throbbing. Has been trying Zofran at home but it is not helping. Review of Systems Review of Systems Constitutional: Denies fever or chills [] Eyes: Denies change in visual acuity, redness, or eye pain [] HENT: Denies nasal congestion or sore throat [] Respiratory: Denies cough or shortness of breath [] Cardiovascular: No additional information not addressed in HPI [] GI: Reports abdominal pain, nausea, vomiting, or diarrhea [] : Denies dysuria or hematuria. Gynecological: Reports vaginal bleeding. Musculoskeletal: Denies back pain or joint pain [] Integument: Denies rash or skin lesions [] Neurologic: Denies headache, focal weakness or sensory changes [] Endocrine: Denies polyuria or polydipsia [] Complete systems were reviewed and found to be within normal limits, except as documented in this note. Current Medications Current Medications Current Medications Medications (Trade) Dose Ordered Sig/Brittny Start Time Stop Time Status Last Admin Dose Admin Ondansetron HCl (Zofran) 4 mg 1X ONCE 02/10/19 23:00 02/10/19 23:01 DC 02/10/19 23:29 4 MG Sodium Chloride 1,000 ml @ 1,000 mls/hr Q1H 02/10/19 23:00 02/10/19 23:59 DC 02/10/19 23:30 1,000 MLS/HR Allergies Allergies Allergies Coded Allergies Type Severity Reaction Last Updated Verified ibuprofen Allergy Intermediate 09/02/18 Yes peanut Allergy Intermediate PEANUT BUTTER 08/30/14 Yes Physical Exam Physical Exam Constitutional: Well developed, well nourished, no acute distress, non-toxic appearance. [] HENT: Normocephalic, atraumatic, bilateral external ears normal, oropharynx moist, no oral exudates, nose normal. [] Eyes: PERRLA, EOMI, conjunctiva normal, no discharge. [] Neck: Normal range of motion, no tenderness, supple, no stridor. [] Cardiovascular:Heart rate regular rhythm, no murmur [] Lungs & Thorax: Bilateral breath sounds clear to auscultation [] Abdomen: Bowel sounds normal, soft, diffuse tenderness, no masses, no pulsatile masses. [] Skin: Warm, dry, no erythema, no rash. [] Back: No tenderness, no CVA tenderness. [] Extremities: No tenderness, no cyanosis, no clubbing, ROM intact, no edema. [] Neurologic: Alert and oriented X 3, normal motor function, normal sensory function, no focal deficits noted. [] Psychologic: Affect normal, judgement normal, mood normal. [] Current Patient Data Vital Signs Vital Signs Date Time Temp Pulse Resp B/P (MAP) Pulse Ox O2 Delivery O2 Flow Rate FiO2 02/10/19 22:20 98.1 66 16 119/65 (83) 99 Room Air 98.1 Lab Values Laboratory Tests Test 02/10/19 23:00 02/10/19 23:19 Urine Collection Type U cath Urine Color Yellow Urine Clarity Cloudy Urine pH 7.0 Urine Specific [place] >=1.030 Urine Protein Negative mg/dL (NEG-TRACE) Urine Glucose (UA) Negative mg/dL (NEG) Urine Ketones (Stick) Negative mg/dL (NEG) Urine Blood Negative (NEG) Urine Nitrite Negative (NEG) Urine Bilirubin Negative (NEG) Urine Urobilinogen Dipstick 1.0 mg/dL (0.2 mg/dL) Urine Leukocyte Esterase Trace (NEG) Urine RBC 0 /HPF (0-2) Urine WBC 1-4 /HPF (0-4) Urine Squamous Epithelial Cells Few /LPF Urine Amorphous Sediment Present /HPF Urine Bacteria 0 /HPF (0-FEW) Urine Mucus Marked /LPF White Blood Count 5.4 x10^3/uL (4.0-11.0) Red Blood Count 3.62 x10^6/uL (3.50-5.40) Hemoglobin 11.6 g/dL (12.0-15.5) L Hematocrit 34.1 % (36.0-47.0) L Mean Corpuscular Volume 94 fL (79-100) Mean Corpuscular Hemoglobin 32 pg (25-35) Mean Corpuscular Hemoglobin Concent 34 g/dL (31-37) Red Cell Distribution Width 14.0 % (11.5-14.5) Platelet Count 157 x10^3/uL (140-400) Neutrophils (%) (Auto) 62 % (31-73) Lymphocytes (%) (Auto) 28 % (24-48) Monocytes (%) (Auto) 8 % (0-9) Eosinophils (%) (Auto) 1 % (0-3) Basophils (%) (Auto) 1 % (0-3) Neutrophils # (Auto) 3.4 x10^3uL (1.8-7.7) Lymphocytes # (Auto) 1.5 x10^3/uL (1.0-4.8) Monocytes # (Auto) 0.4 x10^3/uL (0.0-1.1) Eosinophils # (Auto) 0.1 x10^3/uL (0.0-0.7) Basophils # (Auto) 0.0 x10^3/uL (0.0-0.2) Maternal Serum HCG Beta Subunit 95905 mIU/mL (0-5) H Sodium Level 139 mmol/L (136-145) Potassium Level 4.0 mmol/L (3.5-5.1) Chloride Level 106 mmol/L (98-107) Carbon Dioxide Level 21 mmol/L (21-32) Anion Gap 12 (6-14) Blood Urea Nitrogen 12 mg/dL (7-20) Creatinine 0.5 mg/dL (0.6-1.0) L Estimated GFR (Cockcroft-Gault) 149.1 BUN/Creatinine Ratio 24 (6-20) H Glucose Level 98 mg/dL (70-99) Calcium Level 9.0 mg/dL (8.5-10.1) Total Bilirubin 0.2 mg/dL (0.2-1.0) Aspartate Amino Transferase (AST) 18 U/L (15-37) Alanine Aminotransferase (ALT) 19 U/L (14-59) Alkaline Phosphatase 119 U/L (46-116) H Total Protein 7.1 g/dL (6.4-8.2) Albumin 3.2 g/dL (3.4-5.0) L Albumin/Globulin Ratio 0.8 (1.0-1.7) L Laboratory Tests 02/10/19 23:19 Laboratory Tests 02/10/19 23:19 EKG EKG [] Radiology/Procedures Radiology/Procedures []PATIENT: MISAEL JEWELLACCOUNT: [id number]#: [id number] : 1990 LOCATION: ER AGE: 28 SEX: F EXAM STATUS: REG ER ORD. PHYSICIAN: LUZ MARINA BENÍTEZ APRN REASON: abd pain in PROCEDURE: OB < 14 WKS INDICATION: Dizziness in COMPARISON: None. TECHNIQUE: Grayscale and color ultrasound images uterus and adnexa. FINDINGS: The bilateral maternal ovaries are obscured. Uterus is 100 x 84 x 68 mm. Intrauterine gestational sac is identified with a pole with crown-rump length of 32 mm and heart beat of 158. It is too early in to adequately assess placenta. Amniotic sac does not appear enlarged. IMPRESSION: 1. Intrauterine is identified with estimated gestational age of 10 weeks and 1 day with positive heartbeat. Recommend routine anomaly screening at 18-22 weeks. Electronically signed by: Kenny Mackey MD (02/11/2019 12:20 AM) [facility] Course & Med Decision Making Course & Med Decision Making Pertinent Labs and Imaging studies reviewed. (See chart for details) Will get labs, and ultrasound. Will also give supportive care. Patient appears to have small UTI. Will put on Keflex. Labs are unremarkable with the exception of the UTI. Beta HCG appears appropriate for patient presentation. Imaging is negative. Heart rate is in the 150's. Will d/c home to follow up with an [facility]. Melia Disclaimer Dragon Disclaimer This electronic medical record was generated, in whole or in part, using a voice recognition dictation system. Departure Departure Impression: Primary Impression: Urinary tract infection Disposition: HOME, SELF-CARE Condition: STABLE Referrals: UNKNOWN PCP NAME (PCP) MARICRUZ MCKEON MD Patient Instructions: - Urinary Tract Infection Additional Instructions: Please follow up with [facility] about the abdominal pain during . Take all of your antibiotics to clear your UTI. Return to ER as needed. Scripts Cephalexin (KEFLEX) 500 Mg Capsule 1 CAP PO BID for 7 Days, #14 CAP Prov: LUZ MARINA BENÍTEZ APRN 02/11/19 Problem Qualifiers Primary Impression: Urinary tract infection Urinary tract infection type: acute cystitis Hematuria presence: without hematuria Qualified Codes: N30.00 - Acute cystitis without hematuria LUZ MARINA BENÍTEZ APRN Feb 10, 2019 23:19
[2019-02-10 23:27] LABS: BASO % 1 % (0-3); EOS # 0.1 x10^3/uL (0.0-0.7); EOS % 1 % (0-3); HEMATOCRIT 34.1 % (36.0-47.0); HEMOGLOBIN 11.6 g/dL (12.0-15.5); LYMPH # 1.5 x10^3/uL (1.0-4.8); LYMPH % 28 % (24-48); MEAN CORPUSCULAR HEMOGLOBIN 32 pg (25-35); MEAN CORPUSCULAR HGB CONC 34 g/dL (31-37); MEAN CORPUSCULAR VOLUME 94 fL (79-100); MONO # 0.4 x10^3/uL (0.0-1.1); MONO % 8 % (0-9); NEUT # 3.4 x10^3uL (1.8-7.7); NEUT % 62 % (31-73); PLATELET COUNT 157 x10^3/uL (140-400); RED BLOOD COUNT 3.62 x10^6/uL (3.50-5.40); WHITE BLOOD COUNT 5.4 x10^3/uL (4.0-11.0)
[2019-02-10 23:40] LABS: CREATININE 0.5 mg/dL (0.6-1.0); GFR 149.1
[2019-02-10 23:44] LABS: ALBUMIN 3.2 g/dL (3.4-5.0); ALBUMIN/GLOBULIN RATIO 0.8 (1.0-1.7); TOTAL BILIRUBIN 0.2 mg/dL (0.2-1.0); TOTAL PROTEIN 7.1 g/dL (6.4-8.2)
--- NOTE | 2019-02-11 00:22 | RAD ---
INDICATION: Dizziness in COMPARISON: None. TECHNIQUE: Grayscale and color ultrasound images uterus and adnexa. FINDINGS: The bilateral maternal ovaries are obscured. Uterus is 100 x 84 x 68 mm. Intrauterine gestational sac is identified with a pole with crown-rump length of 32 mm and heart beat of 158. It is too early in to adequately assess placenta. Amniotic sac does not appear enlarged. IMPRESSION: 1. Intrauterine is identified with estimated gestational age of 10 weeks and 1 day with positive heartbeat. Recommend routine anomaly screening at 18-22 weeks. Electronically signed by: Kenny Mackey MD (02/11/2019 12:20 AM) [facility]
[2019-02-11] MEDS ORDERED: CEPH-264 PO (00:27)
[2019-02-11 00:30] VITALS: BP 91/53
== END 2019-02-11 00:35 | disposition home or self-care (01) ==
LOC: ER 22:09
DX: O23.11 Infections of bladder in pregnancy, first trimester (principal); O99.341 Other mental disorders complicating pregnancy, first trimester; F41.9 Anxiety disorder, unspecified; O99.511 Diseases of the respiratory system complicating pregnancy, first trimester; J45.909 Unspecified asthma, uncomplicated; O99.611 Diseases of the digestive system complicating pregnancy, first trimester; K21.9 Gastro-esophageal reflux disease without esophagitis; O21.8 Other vomiting complicating pregnancy; O20.8 Other hemorrhage in early pregnancy; O26.51 Maternal hypotension syndrome, first trimester; Z88.6 Allergy status to analgesic agent; Z91.010 Allergy to peanuts; Z3A.10 10 weeks gestation of pregnancy
CPT/HCPCS: 36415; 76801; 80053; 81001; 84702; 85025; 96361; 96374; 99285; J2405; J7030

== ENCOUNTER 2019-02-21 23:18 | Emergency (ER) | payer MEDICARE, MEDICAID ==
[~2019-02-21] VITALS: Ht 175.3 cm; Wt 99.8 kg
[2019-02-22 00:32] LABS: BILIRUBIN,URINE NEGATIVE (NEG); CLARITY,URINE CLOUDY; COLOR,URINE YELLOW; NITRITE,URINE NEGATIVE (NEG); PROTEIN,URINE NEGATIVE (NEG-TRACE)
[2019-02-22 00:39] LABS: BACTERIA,URINE MANY /HPF (0-FEW); RBC,URINE 0 /HPF (0-2); SQUAMOUS EPITHELIAL CELL,UR MANY /LPF
[2019-02-22 00:51] LABS: BASO % 1 % (0-3); EOS # 0.1 x10^3/uL (0.0-0.7); EOS % 1 % (0-3); LYMPH # 1.4 x10^3/uL (1.0-4.8); LYMPH % 31 % (24-48); MEAN CORPUSCULAR HEMOGLOBIN 32 pg (25-35); MEAN CORPUSCULAR HGB CONC 34 g/dL (31-37); MEAN CORPUSCULAR VOLUME 93 fL (79-100); MONO # 0.4 x10^3/uL (0.0-1.1); MONO % 9 % (0-9); NEUT # 2.7 x10^3uL (1.8-7.7); NEUT % 58 % (31-73); PLATELET COUNT 173 x10^3/uL (140-400); RED BLOOD COUNT 3.75 x10^6/uL (3.50-5.40); RED CELL DISTRIBUTION WIDTH 13.7 % (11.5-14.5); WHITE BLOOD COUNT 4.6 x10^3/uL (4.0-11.0)
[2019-02-22 01:01] LABS: CALCIUM 9.4 mg/dL (8.5-10.1); CREATININE 0.4 mg/dL (0.6-1.0); GFR 192.9; POTASSIUM 4.2 mmol/L (3.5-5.1)
[2019-02-22 01:10] LABS: ALBUMIN 3.5 g/dL (3.4-5.0); TOTAL BILIRUBIN 0.2 mg/dL (0.2-1.0); TOTAL PROTEIN 7.1 g/dL (6.4-8.2)
[2019-02-22 01:17] VITALS: BP 97/62
--- NOTE | 2019-02-22 05:24 | PHYS DOC ---
Past Medical History Past Medical History: Anxiety, Asthma, GERD, Hypotension, Stroke Additional Past Medical Histor: "STRESS INDUCED STROKE" Past Surgical History: Other Additional Past Surgical Histo: "LEADS IN MY HEAD" Alcohol Use: None Drug Use: None Adult General Chief Complaint Chief Complaint: SEIZURE HPI HPI Patient is a 28 year old f p/w "seizures." she said she had 13 seizures today. she says her told her she had that many. she does not recall hitting her head. pt denies fever or vomiting. she does have some nausea. she is . no abdo pain or vaginal bleeding. she states she is compliant with her antiseizure medications. per extensive chart review, it sounds like she may carry a diagnosis of nonepileptic seizures but then also has been following with neurology at . Per our nursing staff patient frequently presents this emergency room with very similar complaints and often times has nonepileptic appearing seizure activity. Of note during this ER visit the patient began to flex one leg and then began to apparently volitionally move her arms in a circular movement her eyes were open and she came out of it in less than a minute there was no tongue biting there was no postictal. There was no incontinence. This did not appear to be a tonic- clonic seizure in my opinion and i witnessed nearly the whole thing. Review of Systems Review of Systems Integument: Denies rash or skin lesions [] Neurologic: mild headache Endocrine: Denies polyuria or polydipsia [] All other systems were reviewed and found to be within normal limits, except as documented in this note. Allergies Allergies Allergies Coded Allergies Type Severity Reaction Last Updated Verified ibuprofen Allergy Intermediate 09/02/18 Yes peanut Allergy Intermediate PEANUT BUTTER 08/30/14 Yes Physical Exam Physical Exam Constitutional: Well developed, well nourished, no acute distress, non-toxic appearance. [] HENT: Normocephalic, atraumatic, bilateral external ears normal, oropharynx moist, no oral exudates, nose normal. [] Eyes: PERRLA, EOMI, conjunctiva normal, no discharge. [] Neck: Normal range of motion, no tenderness, supple, no stridor. [] Pulmonary: Normal respiratory effort no increased work of breathing no obvious chest wall trauma Abdomen: Bowel sounds normal, soft, no tenderness, no masses, no pulsatile masses. [] Skin: Warm, dry, no erythema, no rash. [] Back: No tenderness, no CVA tenderness. [] Extremities: No tenderness, no cyanosis, no clubbing, ROM intact, no edema. [] Neurologic: Alert and oriented X 3, normal motor function, normal sensory function, no focal deficits noted. []Patient is slow to answer questions but cranial nerves are intact and strength is intact throughout. Psychologic: Blunted affect Current Patient Data Vital Signs Vital Signs Date Time Temp Pulse Resp B/P (MAP) Pulse Ox O2 Delivery O2 Flow Rate FiO2 02/22/19 01:17 65 14 98 02/21/19 23:45 97.9 112/56 (74) Room Air 97.9 Lab Values Laboratory Tests Test 02/22/19 00:12 02/22/19 00:37 Urine Collection Type Unknown Urine Color Yellow Urine Clarity Cloudy Urine pH 6.0 Urine Specific [place] 1.025 Urine Protein Negative mg/dL (NEG-TRACE) Urine Glucose (UA) Negative mg/dL (NEG) Urine Ketones (Stick) Negative mg/dL (NEG) Urine Blood Negative (NEG) Urine Nitrite Negative (NEG) Urine Bilirubin Negative (NEG) Urine Urobilinogen Dipstick 1.0 mg/dL (0.2 mg/dL) Urine Leukocyte Esterase Trace (NEG) Urine RBC 0 /HPF (0-2) Urine WBC 1-4 /HPF (0-4) Urine Squamous Epithelial Cells Many /LPF Urine Bacteria Many /HPF (0-FEW) Urine Mucus Marked /LPF White Blood Count 4.6 x10^3/uL (4.0-11.0) Red Blood Count 3.75 x10^6/uL (3.50-5.40) Hemoglobin 12.0 g/dL (12.0-15.5) Hematocrit 35.0 % (36.0-47.0) L Mean Corpuscular Volume 93 fL (79-100) Mean Corpuscular Hemoglobin 32 pg (25-35) Mean Corpuscular Hemoglobin Concent 34 g/dL (31-37) Red Cell Distribution Width 13.7 % (11.5-14.5) Platelet Count 173 x10^3/uL (140-400) Neutrophils (%) (Auto) 58 % (31-73) Lymphocytes (%) (Auto) 31 % (24-48) Monocytes (%) (Auto) 9 % (0-9) Eosinophils (%) (Auto) 1 % (0-3) Basophils (%) (Auto) 1 % (0-3) Neutrophils # (Auto) 2.7 x10^3uL (1.8-7.7) Lymphocytes # (Auto) 1.4 x10^3/uL (1.0-4.8) Monocytes # (Auto) 0.4 x10^3/uL (0.0-1.1) Eosinophils # (Auto) 0.1 x10^3/uL (0.0-0.7) Basophils # (Auto) 0.0 x10^3/uL (0.0-0.2) Sodium Level 138 mmol/L (136-145) Potassium Level 4.2 mmol/L (3.5-5.1) Chloride Level 104 mmol/L (98-107) Carbon Dioxide Level 19 mmol/L (21-32) L Anion Gap 15 (6-14) H Blood Urea Nitrogen 9 mg/dL (7-20) Creatinine 0.4 mg/dL (0.6-1.0) L Estimated GFR (Cockcroft-Gault) 192.9 BUN/Creatinine Ratio 23 (6-20) H Glucose Level 88 mg/dL (70-99) Calcium Level 9.4 mg/dL (8.5-10.1) Total Bilirubin 0.2 mg/dL (0.2-1.0) Aspartate Amino Transferase (AST) 19 U/L (15-37) Alanine Aminotransferase (ALT) 20 U/L (14-59) Alkaline Phosphatase 129 U/L (46-116) H Total Protein 7.1 g/dL (6.4-8.2) Albumin 3.5 g/dL (3.4-5.0) Albumin/Globulin Ratio 1.0 (1.0-1.7) Laboratory Tests 02/22/19 00:37 Laboratory Tests 02/22/19 00:37 EKG EKG [] Radiology/Procedures Radiology/Procedures [] Course & Med Decision Making Course & Med Decision Making Pertinent Labs and Imaging studies reviewed. (See chart for details) []28-year-old female with a history of some sort of seizure disorder who is presenting with a complaint of multiple seizures today. In the emergency room patient had no evidence of any tonic-clonic seizure activity she was alert and oriented we checked basic labs. She had no abdominal pain or vaginal bleeding complaints at all. According my chart review and multiple nurses who know her really well over here tonight feel she is at baseline. advised f/u with neurology tomorrow. continue current medications. Dragon Disclaimer Dragon Disclaimer This electronic medical record was generated, in whole or in part, using a voice recognition dictation system. Departure Departure Impression: Primary Impression: Pseudoseizures Disposition: 01 HOME, SELF-CARE Condition: STABLE Referrals: NO PCP (PCP) Patient Instructions: Seizure, Adult RICHAR MARTIN MD Feb 22, 2019 05:24
== END 2019-02-22 01:55 | disposition home or self-care (01) ==
LOC: ER 23:18
DX: R42 Dizziness and giddiness (principal); R51 Headache; J45.909 Unspecified asthma, uncomplicated; F41.9 Anxiety disorder, unspecified; K21.9 Gastro-esophageal reflux disease without esophagitis; Z86.73 Personal history of transient ischemic attack (TIA), and cerebral infarction without residual deficits; Z91.010 Allergy to peanuts; Z88.6 Allergy status to analgesic agent
CPT/HCPCS: 36415; 80053; 81001; 85025; 87086; 99284

== ENCOUNTER 2019-03-11 20:50 | Emergency (ER) | payer MEDICAID, MEDICARE, OTHER ==
[~2019-03-11] VITALS: Ht 152.4 cm; Wt 99.8 kg
--- NOTE | 2019-03-11 21:56 | PHYS DOC ---
Past Medical History Past Medical History: Anxiety, Asthma, Bipolar, Depression, GERD, Hypotension, Stroke Additional Past Medical Histor: "STRESS INDUCED STROKE" (DIANE DUNN APRN) Past Surgical History: Other Additional Past Surgical Histo: "LEADS IN MY HEAD" (DIANE DUNN APRN) Alcohol Use: None Drug Use: None (DIANE DUNN APRN) Adult General Chief Complaint Chief Complaint: HEADACHE HPI HPI Patient is a 28 year old female patient with history of what sounds like nonepileptic seizures from previous documentations in the chart who presents to the ED today complaining of a headache and neck pain. Apparently patient was found laying on the floor. Family reported to EMS she was not responsive. When EMS arrived they did they hand drop exam, patient immediately was awake alert oriented. EMS as well as this ED is well familiar with this patient for many complaints related to nonepileptic seizures as well as psychological issues specifically not acting appropriately. She has history of bipolar. She arrives in the ED initially refusing to answer questions. We had to be had on hand requested to answer questions otherwise we'll send her home. She states she has a headache and neck pain. Patient herself denies any injury. She states she is 14 weeks . Denies any vaginal bleeding, denies any abdominal pain, nausea, vomiting. Denies any vaginal bleeding. (DIANE DUNN APRN) Review of Systems Review of Systems Constitutional: Denies fever or chills [] Eyes: Denies change in visual acuity, redness, or eye pain [] HENT: Denies nasal congestion or sore throat [] Respiratory: Denies cough or shortness of breath [] Cardiovascular: No additional information not addressed in HPI [] GI: Denies abdominal pain, nausea, vomiting, bloody stools or diarrhea [] : Denies dysuria or hematuria [] Musculoskeletal: Reports neck pain. Integument: Denies rash or skin lesions [] Neurologic: Reports headache, denies focal weakness or sensory changes [] All other systems were reviewed and found to be within normal limits, except as documented in this note. (DIANE DUNN APRN) Allergies Allergies Allergies Coded Allergies Type Severity Reaction Last Updated Verified ibuprofen Allergy Intermediate 09/02/18 Yes peanut Allergy Intermediate PEANUT BUTTER 08/30/14 Yes (LUZ MARINA SAWYER DO) Physical Exam Physical Exam Constitutional: Well developed, well nourished, no acute distress, non-toxic appearance. [] HENT: Normocephalic, atraumatic, bilateral external ears normal, oropharynx moist, no oral exudates, nose normal. [] Eyes: PERRLA, EOMI, conjunctiva normal, no discharge. [] Neck: Normal range of motion, no tenderness, supple, no stridor. [] Cardiovascular:Heart rate regular rhythm, no murmur [] Lungs & Thorax: Bilateral breath sounds clear to auscultation [] Abdomen: Bowel sounds normal, soft, no tenderness, no masses, no pulsatile masses. [] Skin: Warm, dry, no erythema, no rash. [] Back: No tenderness, no CVA tenderness. [] Extremities: No tenderness, no cyanosis, no clubbing, ROM intact, no edema. [] Neurologic: Alert and oriented X 3, normal motor function, normal sensory functi on, no focal deficits noted. Cranial nerves II through XII intact Psychologic: Affect normal, judgement normal, mood normal. [] (DIANE DUNN APRN) Current Patient Data Vital Signs Vital Signs Date Time Temp Pulse Resp B/P (MAP) Pulse Ox O2 Delivery O2 Flow Rate FiO2 03/11/19 22:45 88 16 124/58 (80) 99 Room Air 03/11/19 21:00 97.5 97.5 (SAWYERLUZ MARINA FROST DO) Lab Values Laboratory Tests Test 03/11/19 22:00 03/11/19 22:10 03/11/19 22:19 White Blood Count 5.6 x10^3/uL (4.0-11.0) Red Blood Count 3.62 x10^6/uL (3.50-5.40) Hemoglobin 11.9 g/dL (12.0-15.5) L Hematocrit 33.8 % (36.0-47.0) L Mean Corpuscular Volume 94 fL (79-100) Mean Corpuscular Hemoglobin 33 pg (25-35) Mean Corpuscular Hemoglobin Concent 35 g/dL (31-37) Red Cell Distribution Width 13.9 % (11.5-14.5) Platelet Count 180 x10^3/uL (140-400) Neutrophils (%) (Auto) 65 % (31-73) Lymphocytes (%) (Auto) 26 % (24-48) Monocytes (%) (Auto) 7 % (0-9) Eosinophils (%) (Auto) 1 % (0-3) Basophils (%) (Auto) 1 % (0-3) Neutrophils # (Auto) 3.6 x10^3uL (1.8-7.7) Lymphocytes # (Auto) 1.4 x10^3/uL (1.0-4.8) Monocytes # (Auto) 0.4 x10^3/uL (0.0-1.1) Eosinophils # (Auto) 0.1 x10^3/uL (0.0-0.7) Basophils # (Auto) 0.0 x10^3/uL (0.0-0.2) Sodium Level 136 mmol/L (136-145) Potassium Level 3.4 mmol/L (3.5-5.1) L Chloride Level 102 mmol/L (98-107) Carbon Dioxide Level 21 mmol/L (21-32) Anion Gap 13 (6-14) Blood Urea Nitrogen 7 mg/dL (7-20) Creatinine 0.6 mg/dL (0.6-1.0) Estimated GFR (Cockcroft-Gault) 120.8 BUN/Creatinine Ratio 12 (6-20) Glucose Level 100 mg/dL (70-99) H Calcium Level 8.9 mg/dL (8.5-10.1) Total Bilirubin 0.2 mg/dL (0.2-1.0) Aspartate Amino Transferase (AST) 12 U/L (15-37) L Alanine Aminotransferase (ALT) 19 U/L (14-59) Alkaline Phosphatase 124 U/L (46-116) H Total Protein 7.3 g/dL (6.4-8.2) Albumin 3.2 g/dL (3.4-5.0) L Albumin/Globulin Ratio 0.8 (1.0-1.7) L Ethyl Alcohol Level < 10 mg/dL (0-10) Urine Collection Type Unknown Urine Color Yellow Urine Clarity Cloudy Urine pH 7.5 Urine Specific [place] 1.025 Urine Protein Negative mg/dL (NEG-TRACE) Urine Glucose (UA) Negative mg/dL (NEG) Urine Ketones (Stick) 15 mg/dL (NEG) Urine Blood Negative (NEG) Urine Nitrite Negative (NEG) Urine Bilirubin Negative (NEG) Urine Urobilinogen Dipstick 0.2 mg/dL (0.2 mg/dL) Urine Leukocyte Esterase Negative (NEG) Urine RBC 1-2 /HPF (0-2) Urine WBC 1-4 /HPF (0-4) Urine Squamous Epithelial Cells Many /LPF Urine Bacteria Mod /HPF (0-FEW) Urine Opiates Screen Neg (NEG) Urine Methadone Screen Neg (NEG) Urine Barbiturates Neg (NEG) Urine Phencyclidine Screen Neg (NEG) Urine Amphetamine/Methamphetamine Neg (NEG) Urine Benzodiazepines Screen Pos (NEG) Urine Cocaine Screen Neg (NEG) Urine Cannabinoids Screen Neg (NEG) Urine Ethyl Alcohol Neg (NEG) POC Urine HCG, Qualitative Hcg positive (Negative) Laboratory Tests 03/11/19 22:00 Laboratory Tests 03/11/19 22:00 (LUZ MARINA SAWYER DO) Lab Values Laboratory Tests Test 03/11/19 22:00 03/11/19 22:10 03/11/19 22:19 White Blood Count 5.6 x10^3/uL (4.0-11.0) Red Blood Count 3.62 x10^6/uL (3.50-5.40) Hemoglobin 11.9 g/dL (12.0-15.5) L Hematocrit 33.8 % (36.0-47.0) L Mean Corpuscular Volume 94 fL (79-100) Mean Corpuscular Hemoglobin 33 pg (25-35) Mean Corpuscular Hemoglobin Concent 35 g/dL (31-37) Red Cell Distribution Width 13.9 % (11.5-14.5) Platelet Count 180 x10^3/uL (140-400) Neutrophils (%) (Auto) 65 % (31-73) Lymphocytes (%) (Auto) 26 % (24-48) Monocytes (%) (Auto) 7 % (0-9) Eosinophils (%) (Auto) 1 % (0-3) Basophils (%) (Auto) 1 % (0-3) Neutrophils # (Auto) 3.6 x10^3uL (1.8-7.7) Lymphocytes # (Auto) 1.4 x10^3/uL (1.0-4.8) Monocytes # (Auto) 0.4 x10^3/uL (0.0-1.1) Eosinophils # (Auto) 0.1 x10^3/uL (0.0-0.7) Basophils # (Auto) 0.0 x10^3/uL (0.0-0.2) Sodium Level 136 mmol/L (136-145) Potassium Level 3.4 mmol/L (3.5-5.1) L Chloride Level 102 mmol/L (98-107) Carbon Dioxide Level 21 mmol/L (21-32) Anion Gap 13 (6-14) Blood Urea Nitrogen 7 mg/dL (7-20) Creatinine 0.6 mg/dL (0.6-1.0) Estimated GFR (Cockcroft-Gault) 120.8 BUN/Creatinine Ratio 12 (6-20) Glucose Level 100 mg/dL (70-99) H Calcium Level 8.9 mg/dL (8.5-10.1) Total Bilirubin 0.2 mg/dL (0.2-1.0) Aspartate Amino Transferase (AST) 12 U/L (15-37) L Alanine Aminotransferase (ALT) 19 U/L (14-59) Alkaline Phosphatase 124 U/L (46-116) H Total Protein 7.3 g/dL (6.4-8.2) Albumin 3.2 g/dL (3.4-5.0) L Albumin/Globulin Ratio 0.8 (1.0-1.7) L Ethyl Alcohol Level < 10 mg/dL (0-10) Urine Collection Type Unknown Urine Color Yellow Urine Clarity Cloudy Urine pH 7.5 Urine Specific [place] 1.025 Urine Protein Negative mg/dL (NEG-TRACE) Urine Glucose (UA) Negative mg/dL (NEG) Urine Ketones (Stick) 15 mg/dL (NEG) Urine Blood Negative (NEG) Urine Nitrite Negative (NEG) Urine Bilirubin Negative (NEG) Urine Urobilinogen Dipstick 0.2 mg/dL (0.2 mg/dL) Urine Leukocyte Esterase Negative (NEG) Urine RBC 1-2 /HPF (0-2) Urine WBC 1-4 /HPF (0-4) Urine Squamous Epithelial Cells Many /LPF Urine Bacteria Mod /HPF (0-FEW) Urine Opiates Screen Neg (NEG) Urine Methadone Screen Neg (NEG) Urine Barbiturates Neg (NEG) Urine Phencyclidine Screen Neg (NEG) Urine Amphetamine/Methamphetamine Neg (NEG) Urine Benzodiazepines Screen Pos (NEG) Urine Cocaine Screen Neg (NEG) Urine Cannabinoids Screen Neg (NEG) Urine Ethyl Alcohol Neg (NEG) POC Urine HCG, Qualitative Hcg positive (Negative) Laboratory Tests 03/11/19 22:00 Laboratory Tests 03/11/19 22:00 (DIANE DUNN APRN) EKG EKG [] (DIANE DUNN APRN) Radiology/Procedures Radiology/Procedures [] (DIANE DUNN APRN) Course & Med Decision Making Course & Med Decision Making Pertinent Labs and Imaging studies reviewed. (See chart for details) See history of present illness. This is a 28-year-old female patient well known to this ED for multiple visits related to nonepileptic seizures and behavioral issues. She arrives in the ED today complaining of neck and head pain. Denies any injury. She is 14 weeks . Patient's labs are negative for any acute findings, she is awake alert right now. She was informed she'll be discharged to home. She is to follow-up with her own COIL PLACER on PCP in the course of next week. (DIANE DUNN APRN) Dragon Disclaimer Dragon Disclaimer This electronic medical record was generated, in whole or in part, using a voice recognition dictation system. (DIANE DUNN APRN) Departure Departure Impression: Primary Impression: Headache Additional Impression: Neck pain Disposition: 01 HOME, SELF-CARE Condition: STABLE Referrals: NO PCP (PCP) Follow-up with your COIL PLACER and primary care doctor in the course of next week Patient Instructions: Headache, FAQs Additional Instructions: You were evaluated the emergency room for headache. Please follow-up with your own doctor and COIL PLACER in the course of next week. Please take Tylenol as needed for pain. Attending Signature Attending Signature I have reviewed the PA/COMPANY MANAGER's note and plan of care. I was available for consultation as needed during the patient's visit in the emergency department. I agree with the clinical impression, plan, and disposition. (LUZ MARINA SAWYER DO) Problem Qualifiers Primary Impression: Headache Headache type: unspecified Headache chronicity pattern: unspecified pattern Intractability: not intractable Qualified Codes: R51 - Headache DIANE DUNN APRN Mar 11, 2019 21:56 LUZ MARINA SAWYER DO Mar 12, 2019 05:27
[2019-03-11 22:15] LABS: BASO % 1 % (0-3); EOS # 0.1 x10^3/uL (0.0-0.7); EOS % 1 % (0-3); HEMATOCRIT 33.8 % (36.0-47.0); HEMOGLOBIN 11.9 g/dL (12.0-15.5); LYMPH # 1.4 x10^3/uL (1.0-4.8); LYMPH % 26 % (24-48); MEAN CORPUSCULAR HEMOGLOBIN 33 pg (25-35); MEAN CORPUSCULAR HGB CONC 35 g/dL (31-37); MEAN CORPUSCULAR VOLUME 94 fL (79-100); MONO # 0.4 x10^3/uL (0.0-1.1); MONO % 7 % (0-9); NEUT # 3.6 x10^3uL (1.8-7.7); NEUT % 65 % (31-73); PLATELET COUNT 180 x10^3/uL (140-400); RED BLOOD COUNT 3.62 x10^6/uL (3.50-5.40); RED CELL DISTRIBUTION WIDTH 13.9 % (11.5-14.5); WHITE BLOOD COUNT 5.6 x10^3/uL (4.0-11.0)
[2019-03-11 22:25] LABS: BILIRUBIN,URINE NEGATIVE (NEG); CLARITY,URINE CLOUDY; COLOR,URINE YELLOW; NITRITE,URINE NEGATIVE (NEG); PH,URINE 7.5; PROTEIN,URINE NEGATIVE (NEG-TRACE); UROBILINOGEN,URINE 0.2 mg/dL (0.2 mg/dL)
[2019-03-11 22:27] LABS: CALCIUM 8.9 mg/dL (8.5-10.1); CREATININE 0.6 mg/dL (0.6-1.0); GFR 120.8; POTASSIUM 3.4 mmol/L (3.5-5.1)
[2019-03-11 22:32] LABS: BARBITURATES NEG (NEG); BENZODIAZEPINES POS (NEG); CANNABINOIDS NEG (NEG); COCAINE NEG (NEG); METHADONE NEG (NEG); OPIATES NEG (NEG); PHENCYCLIDINE NEG (NEG)
[2019-03-11 22:33] LABS: AMPHETAMINE/METHAMPHETAMINE NEG (NEG)
[2019-03-11 22:33] LABS: ALBUMIN 3.2 g/dL (3.4-5.0); ALBUMIN/GLOBULIN RATIO 0.8 (1.0-1.7); TOTAL BILIRUBIN 0.2 mg/dL (0.2-1.0); TOTAL PROTEIN 7.3 g/dL (6.4-8.2)
[2019-03-11 22:34] LABS: BACTERIA,URINE MOD /HPF (0-FEW); SQUAMOUS EPITHELIAL CELL,UR MANY /LPF
[2019-03-11 22:45] VITALS: BP 124/58
== END 2019-03-11 23:40 | disposition home or self-care (01) ==
LOC: ER 20:50
DX: O99.89 Other specified diseases and conditions complicating pregnancy, childbirth and the puerperium (principal); M54.2 Cervicalgia; R51 Headache; O99.342 Other mental disorders complicating pregnancy, second trimester; F41.9 Anxiety disorder, unspecified; F31.9 Bipolar disorder, unspecified; O99.512 Diseases of the respiratory system complicating pregnancy, second trimester; J45.909 Unspecified asthma, uncomplicated; O99.612 Diseases of the digestive system complicating pregnancy, second trimester; O16.2 Unspecified maternal hypertension, second trimester; K21.9 Gastro-esophageal reflux disease without esophagitis; Z86.73 Personal history of transient ischemic attack (TIA), and cerebral infarction without residual deficits; Z3A.14 14 weeks gestation of pregnancy; Z91.010 Allergy to peanuts; Z88.8 Allergy status to other drugs, medicaments and biological substances
CPT/HCPCS: 36415; 80053; 80177; 80307; 81001; 81025; 85025; 99284; G0480

== ENCOUNTER 2019-03-26 20:51 | Emergency (ER) | payer OTHER, MEDICAID ==
[~2019-03-26] VITALS: Ht 157.5 cm; Wt 92.5 kg
[2019-03-26 21:36] LABS: BILIRUBIN,URINE NEGATIVE (NEG); CLARITY,URINE CLOUDY; COLOR,URINE YELLOW; NITRITE,URINE NEGATIVE (NEG); PH,URINE 8.5; PROTEIN,URINE NEGATIVE (NEG-TRACE); UROBILINOGEN,URINE 0.2 mg/dL (0.2 mg/dL)
[2019-03-26 21:43] LABS: SQUAMOUS EPITHELIAL CELL,UR MOD /LPF
[2019-03-26 21:51] LABS: BACTERIA,URINE FEW /HPF (0-FEW)
[2019-03-26 21:54] LABS: RBC,URINE 0 /HPF (0-2); WBC,URINE 0 /HPF (0-4)
--- NOTE | 2019-03-26 21:57 | PHYS DOC ---
Past Medical History Past Medical History: Anxiety, Asthma, Bipolar, Depression, GERD, Hypotension, Stroke Additional Past Medical Histor: "STRESS INDUCED STROKE" Past Surgical History: Other Additional Past Surgical Histo: "LEADS IN MY HEAD" Alcohol Use: None Drug Use: None Adult General Chief Complaint Chief Complaint: ABDOMINAL PAIN IN HPI HPI Patient is a 28 year old female who is well-known to the department who presents to the ER with complaints of lower abdominal cramping that precedes episodes of diarrhea. Patient states she is 16 weeks and has been having nausea, vomiting, and diarrhea since yesterday. Patient states yesterday she was also experiencing some light vaginal bleeding. She denies any bleeding at this time or abnormal vaginal discharge. She states that she has established care at [facility]. She denies any fever, cough, shortness of breath, dysuria, increased urinary frequency, back pain, or lower extremity swelling. Patient states that she has vomited at least 6 times and had at least 6 episodes of diarrhea in the last 24 hours. She rates her pain a 9 out of 10 on the pain scale, denies any alleviating factors. Patient states she is 2 para 1. Review of Systems Review of Systems Constitutional: Denies fever or chills [] Eyes: Denies change in visual acuity, redness, or eye pain [] HENT: Denies nasal congestion or sore throat [] Respiratory: Denies cough or shortness of breath [] Cardiovascular: No additional information not addressed in HPI [] GI: see HPI, denies bloody stools : Denies dysuria or hematuria; see HPI[] Musculoskeletal: Denies back pain or joint pain [] Integument: Denies rash or skin lesions [] Neurologic: Denies headache, focal weakness or sensory changes [] Complete systems were reviewed and found to be within normal limits, except as documented in this note. Current Medications Current Medications Current Medications Medications (Trade) Dose Ordered Sig/Brittny Start Time Stop Time Status Last Admin Dose Admin Ondansetron HCl (Zofran) 4 mg 1X ONCE 03/26/19 22:30 03/26/19 22:31 DC 03/26/19 22:07 4 MG Sodium Chloride 1,000 ml @ 1,000 mls/hr 1X ONCE 03/26/19 22:30 03/26/19 23:29 DC 03/26/19 22:07 1,000 MLS/HR Allergies Allergies Allergies Coded Allergies Type Severity Reaction Last Updated Verified ibuprofen Allergy Intermediate 09/02/18 Yes peanut Allergy Intermediate PEANUT BUTTER 08/30/14 Yes Physical Exam Physical Exam Constitutional: Well developed, well nourished, no acute distress, ill appearan ce. [] HENT: Normocephalic, atraumatic, bilateral external ears normal, oropharynx moist, , nose normal. [] Eyes: conjunctiva normal, no discharge. [] Neck: Normal range of motion, no stridor. [] Cardiovascular:Heart rate regular rhythm, no murmur [] Lungs & Thorax: Bilateral breath sounds clear to auscultation [] Pelvic Exam: Mammography Tech present Abdomen: Nontender External Genitalia: Normal Skin Speculum: Normal vaginal mucosa, normal cervical discharge,OS closed, cer vix non-friable Bimanual: No adnexal masses or tenderness, No CMT Skin: Warm, dry, no erythema, no rash. [] Extremities: No cyanosis, ROM intact, no edema. [] Neurologic: Alert and oriented X 3, no focal deficits noted. [] Psychologic: Affect normal, judgement normal, mood normal. [] Current Patient Data Vital Signs Vital Signs Date Time Temp Pulse Resp B/P (MAP) Pulse Ox O2 Delivery O2 Flow Rate FiO2 03/26/19 23:20 70 12 95/54 (68) 100 Room Air 03/26/19 21:10 97.9 97.9 Lab Values Laboratory Tests Test 03/26/19 21:28 03/26/19 21:31 03/26/19 22:08 Urine Collection Type U cath Urine Color Yellow Urine Clarity Cloudy Urine pH 8.5 Urine Specific [place] 1.025 Urine Protein Negative mg/dL (NEG-TRACE) Urine Glucose (UA) Negative mg/dL (NEG) Urine Ketones (Stick) Negative mg/dL (NEG) Urine Blood Negative (NEG) Urine Nitrite Negative (NEG) Urine Bilirubin Negative (NEG) Urine Urobilinogen Dipstick 0.2 mg/dL (0.2 mg/dL) Urine Leukocyte Esterase Negative (NEG) Urine RBC 0 /HPF (0-2) Urine WBC 0 /HPF (0-4) Urine Squamous Epithelial Cells Mod /LPF Urine Bacteria Few /HPF (0-FEW) Urine Mucus Marked /LPF POC Urine HCG, Qualitative Hcg positive (Negative) White Blood Count 5.0 x10^3/uL (4.0-11.0) Red Blood Count 3.53 x10^6/uL (3.50-5.40) Hemoglobin 11.4 g/dL (12.0-15.5) L Hematocrit 33.1 % (36.0-47.0) L Mean Corpuscular Volume 94 fL (79-100) Mean Corpuscular Hemoglobin 32 pg (25-35) Mean Corpuscular Hemoglobin Concent 34 g/dL (31-37) Red Cell Distribution Width 13.6 % (11.5-14.5) Platelet Count 185 x10^3/uL (140-400) Neutrophils (%) (Auto) 62 % (31-73) Lymphocytes (%) (Auto) 28 % (24-48) Monocytes (%) (Auto) 9 % (0-9) Eosinophils (%) (Auto) 1 % (0-3) Basophils (%) (Auto) 1 % (0-3) Neutrophils # (Auto) 3.1 x10^3/uL (1.8-7.7) Lymphocytes # (Auto) 1.4 x10^3/uL (1.0-4.8) Monocytes # (Auto) 0.4 x10^3/uL (0.0-1.1) Eosinophils # (Auto) 0.1 x10^3/uL (0.0-0.7) Basophils # (Auto) 0.0 x10^3/uL (0.0-0.2) Sodium Level 136 mmol/L (136-145) Potassium Level 4.0 mmol/L (3.5-5.1) Chloride Level 104 mmol/L (98-107) Carbon Dioxide Level 23 mmol/L (21-32) Anion Gap 9 (6-14) Blood Urea Nitrogen 8 mg/dL (7-20) Creatinine 0.5 mg/dL (0.6-1.0) L Estimated GFR (Cockcroft-Gault) 149.1 BUN/Creatinine Ratio 16 (6-20) Glucose Level 86 mg/dL (70-99) Calcium Level 9.1 mg/dL (8.5-10.1) Magnesium Level 1.6 mg/dL (1.8-2.4) L Total Bilirubin 0.1 mg/dL (0.2-1.0) L Aspartate Amino Transferase (AST) 14 U/L (15-37) L Alanine Aminotransferase (ALT) 12 U/L (14-59) L Alkaline Phosphatase 121 U/L (46-116) H C-Reactive Protein, Quantitative 24.0 mg/L (0-3.3) H Total Protein 7.2 g/dL (6.4-8.2) Albumin 2.9 g/dL (3.4-5.0) L Albumin/Globulin Ratio 0.7 (1.0-1.7) L Laboratory Tests 03/26/19 22:08 Laboratory Tests 03/26/19 22:08 Microbiology 03/26/19 Wet Prep - Final, Complete EKG EKG [] Radiology/Procedures Radiology/Procedures 2156 per lab blood type is O + PROCEDURE: OB LIMITED OB ULTRASOUND, > 14 WEEKS Clinical Indication: Lower abdominal cramping. Comparison: Obstetric ultrasound, 02/10/2019. Technique: Multiple grayscale images, color Doppler, and M-mode images of the uterus are obtained. Findings: There is a single intrauterine gestation in variable presentation. The placenta is anterior in location without evidence of placenta previa. The amount of amniotic fluid appears appropriate. Biometrical data: BPD = 3.3 cm for 16 weeks 2 days. HC = 13.1 cm for 16 weeks 5 days. AC = 11.5 cm for 17 weeks 2 days. FL = 2.4 cm for 17 weeks 1 days. HC/AC ratio = 1.13. Overall, the estimated sonographic gestational age is 16 weeks and 6 days for an estimated date of delivery of September 04, 2019. Estimated weight is 183 +/- 27 grams. The estimated heart rate is 130 beats per minute. A anatomic survey is not performed due to early gestational age. The maternal ovaries are not identified in the adnexa. Impression: Single live intrauterine gestation with estimated sonographic gestational age of 16 weeks and 6 days.[] Course & Med Decision Making Course & Med Decision Making Pertinent Labs and Imaging studies reviewed. (See chart for details) dx: Diarrhea during , nausea and vomiting, abdominal pain and Patient was given a liter of NS, and 4 mg of Zofran in the emergency department she did not have any more episodes of nausea or vomiting while in the ER. Ultra sound reveals a single viable intrauterine that measured 16 weeks and 6 days. Pelvic exam was negative for any cervical bleeding or abnormal discharge. CBC revealed mild anemia, consistent with patient's previous history. CMP is unremarkable, UA unremarkable, wet mount negative for bacterial vaginosis or trichomoniasis While in the department patient complained of some pain to her right posterior scalp on examination it was noted that the patient had inserted a sewing needle superficially into her scalp, no bleeding after the needle was removed. Prescription was written for Zofran, patient was instructed to follow-up with her LAW INSTRUCTOR in the next 1-2 days. Diet instructions given. Return to the emergency room if symptoms worsen. Patient verbalized an understanding of home care, medications, follow-up, and return to ED instructions and was in agreement with the plan of care. [] Dragon Disclaimer Dragon Disclaimer This electronic medical record was generated, in whole or in part, using a voice recognition dictation system. Departure Departure Impression: Primary Impression: Diarrhea during Additional Impressions: Nausea & vomiting Abdominal pain during in second trimester Disposition: 01 HOME, SELF-CARE Condition: STABLE Referrals: NO PCP (PCP) Patient Instructions: Abdominal Pain During , [id number], Diet for Diarrhea, Adult, Nausea and Vomiting, [id number] Additional Instructions: Fill the Prescription and use it as directed. Follow-up with your LAW INSTRUCTOR in the next 1-2 days. Return to the emergency room if symptoms worsen. Scripts Ondansetron (ONDANSETRON ODT) 4 Mg Tab.rapdis 1 TAB PO PRN Q6-8HRS for 4 Days, #16 TAB 0 Refills Prov: KAREN WATERS BALE TIE MACHINE OPERATOR 03/26/19 Problem Qualifiers Additional Impressions: Nausea & vomiting Vomiting type: unspecified Vomiting Intractability: non-intractable Qualified Codes: R11.2 - Nausea with vomiting, unspecified KAREN WATERS BALE TIE MACHINE OPERATOR Mar 26, 2019 21:57
[2019-03-26 22:26] LABS: CALCIUM 9.1 mg/dL (8.5-10.1); CREATININE 0.5 mg/dL (0.6-1.0); GFR 149.1
[2019-03-26] MEDS ORDERED: ONDANSETRON PF 4 MG/2 ML VIAL. IV ONE (22:30)
[2019-03-26] MEDS ORDERED: IV NORMAL SALINE 1000ML BAG 1,000 ML IV ONE (22:30)
[2019-03-26 22:32] LABS: ALBUMIN 2.9 g/dL (3.4-5.0); ALBUMIN/GLOBULIN RATIO 0.7 (1.0-1.7); MAGNESIUM 1.6 mg/dL (1.8-2.4); TOTAL BILIRUBIN 0.1 mg/dL (0.2-1.0); TOTAL PROTEIN 7.2 g/dL (6.4-8.2)
[2019-03-26 22:56] LABS: BASO % 1 % (0-3); EOS # 0.1 x10^3/uL (0.0-0.7); EOS % 1 % (0-3); HEMATOCRIT 33.1 % (36.0-47.0); HEMOGLOBIN 11.4 g/dL (12.0-15.5); LYMPH # 1.4 x10^3/uL (1.0-4.8); LYMPH % 28 % (24-48); MEAN CORPUSCULAR HEMOGLOBIN 32 pg (25-35); MEAN CORPUSCULAR HGB CONC 34 g/dL (31-37); MEAN CORPUSCULAR VOLUME 94 fL (79-100); MONO # 0.4 x10^3/uL (0.0-1.1); MONO % 9 % (0-9); NEUT # 3.1 x10^3/uL (1.8-7.7); NEUT % 62 % (31-73); PLATELET COUNT 185 x10^3/uL (140-400); RED BLOOD COUNT 3.53 x10^6/uL (3.50-5.40); RED CELL DISTRIBUTION WIDTH 13.6 % (11.5-14.5)
[2019-03-26 23:20] VITALS: BP 95/54
[2019-03-26] MEDS ORDERED: ONDA4TAB12 PO (23:36)
--- NOTE | 2019-03-27 | RAD ---
OB ULTRASOUND, > 14 WEEKS Clinical Indication: Lower abdominal cramping. Comparison: Obstetric ultrasound, 02/10/2019. Technique: Multiple grayscale images, color Doppler, and M-mode images of the uterus are obtained. Findings: There is a single intrauterine gestation in variable presentation. The placenta is anterior in location without evidence of placenta previa. The amount of amniotic fluid appears appropriate. Biometrical data: BPD = 3.3 cm for 16 weeks 2 days. HC = 13.1 cm for 16 weeks 5 days. AC = 11.5 cm for 17 weeks 2 days. FL = 2.4 cm for 17 weeks 1 days. HC/AC ratio = 1.13. Overall, the estimated sonographic gestational age is 16 weeks and 6 days for an estimated date of delivery of September 04, 2019. Estimated weight is 183 +/- 27 grams. The estimated heart rate is 130 beats per minute. A anatomic survey is not performed due to early gestational age. The maternal ovaries are not identified in the adnexa. Impression: Single live intrauterine gestation with estimated sonographic gestational age of 16 weeks and 6 days. Electronically signed by: J Luis Khanna MD (03/26/2019 11:57 PM) [id number]
== END 2019-03-26 23:52 | disposition home or self-care (01) ==
LOC: ER 20:51
DX: O21.9 Vomiting of pregnancy, unspecified (principal); R19.7 Diarrhea, unspecified; R10.30 Lower abdominal pain, unspecified; O99.512 Diseases of the respiratory system complicating pregnancy, second trimester; O99.612 Diseases of the digestive system complicating pregnancy, second trimester; K21.9 Gastro-esophageal reflux disease without esophagitis; O99.342 Other mental disorders complicating pregnancy, second trimester; F31.9 Bipolar disorder, unspecified; F41.9 Anxiety disorder, unspecified; J45.909 Unspecified asthma, uncomplicated; Z86.73 Personal history of transient ischemic attack (TIA), and cerebral infarction without residual deficits; Z3A.16 16 weeks gestation of pregnancy; Z91.010 Allergy to peanuts; Z88.8 Allergy status to other drugs, medicaments and biological substances
CPT/HCPCS: 36415; 76815; 80053; 81001; 81025; 83735; 85025; 86140; 96361; 96374; 99285; J2405; J7030; Q0111

== ENCOUNTER 2019-04-12 23:08 | Emergency (ER) | payer OTHER, MEDICAID ==
[~2019-04-12] VITALS: Ht 157.5 cm; Wt 93.4 kg
[2019-04-12 23:34] LABS: BILIRUBIN,URINE SMALL (NEG); CLARITY,URINE CLOUDY; COLOR,URINE AMBER; NITRITE,URINE NEGATIVE (NEG); PROTEIN,URINE 100 mg/dL (NEG-TRACE)
--- NOTE | 2019-04-12 23:34 | PHYS DOC ---
Past Medical History Past Medical History: Anxiety, Asthma, Bipolar, Depression, GERD, Hypotension, Stroke Additional Past Medical Histor: "STRESS INDUCED STROKE" Past Surgical History: Other Additional Past Surgical Histo: "LEADS IN MY HEAD" Alcohol Use: None Drug Use: None Adult General Chief Complaint Chief Complaint: MULTIPLE COMPLAINTS HPI HPI Patient is a 28 year old female that presents for chronic abdominal pain. The patient is 19 weeks and is well known by this provider. The patient been seen multiple times during for similar complaints. She states that her pain is 10 out of 10 sharp. The patient is requesting stronger pain medicine then Tylenol. Patient also complains of dysuria. Review of Systems Review of Systems Constitutional: Denies fever or chills [] Eyes: Denies change in visual acuity, redness, or eye pain [] HENT: Denies nasal congestion or sore throat [] Respiratory: Denies cough or shortness of breath [] Cardiovascular: No additional information not addressed in HPI [] GI: Reports abdominal pain Denies nausea, vomiting, bloody stools or diarrhea [] : Reports dysuria denies hematuria [] Musculoskeletal: Denies back pain or joint pain [] Integument: Denies rash or skin lesions [] Neurologic: Denies headache, focal weakness or sensory changes [] Endocrine: Denies polyuria or polydipsia [] Complete systems were reviewed and found to be within normal limits, except as documented in this note. Current Medications Current Medications Current Medications Medications (Trade) Dose Ordered Sig/Brittny Start Time Stop Time Status Last Admin Dose Admin Acetaminophen (Tylenol) 1,000 mg 1X ONCE 04/12/19 23:45 04/12/19 23:46 DC 04/12/19 23:41 1,000 MG Allergies Allergies Allergies Coded Allergies Type Severity Reaction Last Updated Verified ibuprofen Allergy Intermediate 09/02/18 Yes peanut Allergy Intermediate PEANUT BUTTER 08/30/14 Yes Physical Exam Physical Exam Constitutional: Well developed, well nourished, no acute distress, non-toxic ap pearance. [] HENT: Normocephalic, atraumatic, bilateral external ears normal, oropharynx moist, no oral exudates, nose normal. [] Eyes: PERRLA, EOMI, conjunctiva normal, no discharge. [] Neck: Normal range of motion, no tenderness, supple, no stridor. [] Cardiovascular:Heart rate regular rhythm, no murmur [] Lungs & Thorax: Bilateral breath sounds clear to auscultation [] Abdomen: Bowel sounds normal, soft, diffuse tenderness, no masses, no pulsatile masses. [] Skin: Warm, dry, no erythema, no rash. [] Back: No tenderness, no CVA tenderness. [] Extremities: No tenderness, no cyanosis, no clubbing, ROM intact, no edema. [] Neurologic: Alert and oriented X 3, normal motor function, normal sensory function, no focal deficits noted. [] Psychologic: Affect normal, judgement normal, mood normal. [] Current Patient Data Vital Signs Vital Signs Date Time Temp Pulse Resp B/P (MAP) Pulse Ox O2 Delivery O2 Flow Rate FiO2 04/12/19 23:15 97.8 90 18 106/57 (73) 98 Room Air 97.8 Lab Values Laboratory Tests Test 04/12/19 23:17 Urine Collection Type Unknown Urine Color Lashanda Urine Clarity Cloudy Urine pH 8.0 Urine Specific [place] >=1.030 Urine Protein 100 mg/dL (NEG-TRACE) Urine Glucose (UA) Negative mg/dL (NEG) Urine Ketones (Stick) Trace mg/dL (NEG) Urine Blood Negative (NEG) Urine Nitrite Negative (NEG) Urine Bilirubin Small (NEG) Urine Urobilinogen Dipstick 1.0 mg/dL (0.2 mg/dL) Urine Leukocyte Esterase Large (NEG) Urine RBC 1-2 /HPF (0-2) Urine WBC Tntc /HPF (0-4) Urine Squamous Epithelial Cells Many /LPF Urine Bacteria Many /HPF (0-FEW) Urine Mucus Marked /LPF EKG EKG [] Radiology/Procedures Radiology/Procedures [] Course & Med Decision Making Course & Med Decision Making Pertinent Labs and Imaging studies reviewed. (See chart for details) Patient has been seen numerous times for same complaint and had full workups. Patient states symptoms have not changed. Discussed with patient my inability to give stronger pain medication then Tylenol due to the harm to the baby. Will get UA to check the dysuria complaint and have follow up with BIOMEDICAL EQUIPMENT SPECIALIST. UA shows UTI. Protein is in the urine likely related to UTI (blood pressure is 106 systolic), has leukocytes. Will also PO challenge patient and have hydrate. heart tones were in the 140's. Will give dose of antibiotic here. Dragon Disclaimer Dragon Disclaimer This electronic medical record was generated, in whole or in part, using a voice recognition dictation system. Departure Departure Impression: Primary Impression: UTI (urinary tract infection) Disposition: 01 HOME, SELF-CARE Condition: STABLE Referrals: NO PCP (PCP) Patient Instructions: - Urinary Tract Infection Additional Instructions: Thank you for visiting [facility]. We appreciate you trusting us with your care. If any additional problems come up don't hesitate to return to visit us. Please follow up with your primary care provider so they can plan additional care if needed and know about the problem that you had. If symptoms worsen come back to the Emergency Department. Any concerning symptoms that start such as chest pain, shortness of air, weakness or numbness on one side of the body, running high fevers or any other concerning symptoms return to the ER. You have been prescribed an antibiotic today to help fight your infection. Please take all of the antibiotic as directed. If after 48 hours the infection is not improving, please return for more care. If the infection worsens, return to ER for additional care. Please fill your medications at any pharmacy and follow the prescription instructions. Scripts Cephalexin (KEFLEX) 500 Mg Capsule 1 CAP PO BID for 7 Days, #14 CAP Prov: LUZ MARINA BENÍTEZ APRN 04/12/19 LUZ MARINA BENÍTEZ APRN Apr 12, 2019 23:34
[2019-04-12 23:40] LABS: BACTERIA,URINE MANY /HPF (0-FEW); SQUAMOUS EPITHELIAL CELL,UR MANY /LPF; WBC,URINE TNTC /HPF (0-4)
[2019-04-12] MEDS ORDERED: ACETAMINOPHEN 500 MG TABLET PO ONE (23:45)
[2019-04-12] MEDS ORDERED: CEPH-264 PO (23:59)
[2019-04-13] MEDS ORDERED: CEPHALEXIN 250 MG CAPSULE. PO ONE (00:15)
[2019-04-13 00:17] VITALS: BP 97/55
== END 2019-04-13 00:20 | disposition home or self-care (01) ==
LOC: ER 23:08
DX: O23.42 Unspecified infection of urinary tract in pregnancy, second trimester (principal); G89.29 Other chronic pain; O99.612 Diseases of the digestive system complicating pregnancy, second trimester; K21.9 Gastro-esophageal reflux disease without esophagitis; O99.512 Diseases of the respiratory system complicating pregnancy, second trimester; J45.909 Unspecified asthma, uncomplicated; I25.2 Old myocardial infarction; O99.342 Other mental disorders complicating pregnancy, second trimester; F31.9 Bipolar disorder, unspecified; F41.9 Anxiety disorder, unspecified; Z86.73 Personal history of transient ischemic attack (TIA), and cerebral infarction without residual deficits; Z91.010 Allergy to peanuts; Z3A.19 19 weeks gestation of pregnancy; Z88.8 Allergy status to other drugs, medicaments and biological substances
CPT/HCPCS: 81001; 87086; 99284

== ENCOUNTER 2019-06-24 21:58 | Observation (INO) | payer OTHER, MEDICAID ==
[~2019-06-24 21:58] MED LIST changes: +CLON-77 PO; -CLON0.5T11 PO; +DOXY-96 PO; -DOXY100T9 PO
[2019-06-24] MEDS ORDERED: IV RINGERS,LACTATED 1000ML 1,000 ML IV SCH (22:00)
[2019-06-24 22:37] LABS: BILIRUBIN,URINE NEGATIVE (NEG); CLARITY,URINE TURBID; COLOR,URINE YELLOW; NITRITE,URINE NEGATIVE (NEG); PROTEIN,URINE NEGATIVE (NEG-TRACE); UROBILINOGEN,URINE 0.2 mg/dL (0.2 mg/dL)
[2019-06-24 22:44] LABS: BARBITURATES NEG (NEG); BENZODIAZEPINES POS (NEG); CANNABINOIDS NEG (NEG); COCAINE NEG (NEG); METHADONE NEG (NEG); OPIATES NEG (NEG); PHENCYCLIDINE NEG (NEG)
[2019-06-24 22:45] LABS: AMORPHOUS SEDIMENT,UR PRESENT /HPF; AMPHETAMINE/METHAMPHETAMINE NEG (NEG); BACTERIA,URINE FEW /HPF (0-FEW); SQUAMOUS EPITHELIAL CELL,UR MOD /LPF
[2019-06-24 22:57] LABS: AMNIO PT NEGATIVE
== END 2019-06-24 23:55 | disposition home or self-care (01) ==
LOC: 3 SO LND 21:58
PROVIDERS: ADMIT Obstetrics & Gynecology; ATTEND Obstetrics & Gynecology
DX: O99.353 Diseases of the nervous system complicating pregnancy, third trimester (principal); O99.513 Diseases of the respiratory system complicating pregnancy, third trimester; J45.909 Unspecified asthma, uncomplicated; Z3A.31 31 weeks gestation of pregnancy
CPT/HCPCS: 36415; 80307; 81001; 84112; G0378; G0379; J7120

== ENCOUNTER 2019-09-19 17:09 | Emergency (ER) | payer OTHER, MEDICAID ==
[~2019-09-19] VITALS: Ht 157.5 cm; Wt 81.6 kg
[~2019-09-19 17:09] MED LIST changes: +FLUO20CA19 PO; -FLUO20CA8 PO; -ZONI100C PO; +ZONI100C26 PO
[2019-09-19] MEDS ORDERED: IV NORMAL SALINE 1000ML BAG 1,000 ML IV ONE (18:15)
[2019-09-19 18:25] LABS: BASO % 1 % (0-3); EOS # 0.1 x10^3/uL (0.0-0.7); EOS % 1 % (0-3); HEMATOCRIT 39.6 % (36.0-47.0); HEMOGLOBIN 13.3 g/dL (12.0-15.5); LYMPH % 31 % (24-48); MEAN CORPUSCULAR HEMOGLOBIN 32 pg (25-35); MEAN CORPUSCULAR HGB CONC 34 g/dL (31-37); MEAN CORPUSCULAR VOLUME 94 fL (79-100); MONO # 0.5 x10^3/uL (0.0-1.1); MONO % 7 % (0-9); NEUT # 3.9 x10^3/uL (1.8-7.7); NEUT % 59 % (31-73); PLATELET COUNT 169 x10^3/uL (140-400); RED BLOOD COUNT 4.19 x10^6/uL (3.50-5.40); RED CELL DISTRIBUTION WIDTH 13.2 % (11.5-14.5); WHITE BLOOD COUNT 6.5 x10^3/uL (4.0-11.0)
[2019-09-19 18:27] LABS: BILIRUBIN,URINE SMALL (NEG); CLARITY,URINE CLEAR; COLOR,URINE AMBER; NITRITE,URINE NEGATIVE (NEG); PH,URINE 5.5; PROTEIN,URINE 30 mg/dL (NEG-TRACE)
[2019-09-19 18:37] LABS: BARBITURATES NEG (NEG); BENZODIAZEPINES POS (NEG); CANNABINOIDS NEG (NEG); COCAINE NEG (NEG); METHADONE NEG (NEG); OPIATES NEG (NEG); PHENCYCLIDINE NEG (NEG)
[2019-09-19 18:38] LABS: AMPHETAMINE/METHAMPHETAMINE NEG (NEG); HYALINE CASTS, URINE FEW /HPF; SQUAMOUS EPITHELIAL CELL,UR MANY /LPF
[2019-09-19 18:39] LABS: BACTERIA,URINE FEW /HPF (0-FEW); RBC,URINE >40 /HPF (0-2); WBC,URINE OCC /HPF (0-4)
[2019-09-19 19:41] VITALS: BP 109/68
--- NOTE | 2019-09-19 20:10 | PHYS DOC ---
Past Medical History Past Medical History: Anxiety, Asthma, Bipolar, Depression, GERD, Hypotension, Stroke Additional Past Medical Histor: "STRESS INDUCED STROKE" Past Surgical History: Other Additional Past Surgical Histo: "LEADS IN MY HEAD" Alcohol Use: None Drug Use: None Adult General Chief Complaint Chief Complaint: WEAKNESS/GENERALIZED HPI HPI Patient is a 28 year old female who presents to the ED today complaining of generalized weakness that began a month ago. Patient reports she had a vaginal delivery with no issues on August 18, 2019. She reports she's been bleeding since then. She reports she uses four feminine pads per 24 hours. She states she has an Implanon that was placed after she had the baby. She reports she's been following up with her own PCP. Denies any chest pain. Review of Systems Review of Systems Constitutional: Denies fever or chills [] Eyes: Denies change in visual acuity, redness, or eye pain [] HENT: Denies nasal congestion or sore throat [] Respiratory: Denies cough or shortness of breath [] Cardiovascular: No additional information not addressed in HPI [] GI: Reports vaginal bleeding for 1 month. Denies abdominal pain, nausea, vomiting, bloody stools or diarrhea [] : Denies dysuria or hematuria [] Musculoskeletal: Denies back pain or joint pain [] Integument: Denies rash or skin lesions [] Neurologic: Denies headache, focal weakness or sensory changes [] All other systems were reviewed and found to be within normal limits, except as documented in this note. Current Medications Current Medications Current Medications Medications (Trade) Dose Ordered Sig/Brittny Start Time Stop Time Status Last Admin Dose Admin Sodium Chloride 1,000 ml @ 1,000 mls/hr 1X ONCE 09/19/19 18:15 09/19/19 19:14 DC 09/19/19 18:19 1,000 MLS/HR Allergies Allergies Allergies Coded Allergies Type Severity Reaction Last Updated Verified ibuprofen Allergy Intermediate 09/02/18 Yes peanut Allergy Intermediate PEANUT BUTTER 08/30/14 Yes Physical Exam Physical Exam Constitutional: Well developed, well nourished, no acute distress, non-toxic appearance. [] HENT: Normocephalic, atraumatic, bilateral external ears normal, oropharynx moist, no oral exudates, nose normal. [] Eyes: PERRLA, EOMI, conjunctiva normal, no discharge. [] Neck: Normal range of motion, no tenderness, supple, no stridor. [] Cardiovascular:Heart rate regular rhythm, no murmur [] Lungs & Thorax: Bilateral breath sounds clear to auscultation [] Abdomen: Bowel sounds normal, soft, no tenderness, no masses, no pulsatile masses. [] Skin: Warm, dry, no erythema, no rash. [] Back: No tenderness, no CVA tenderness. [] Extremities: No tenderness, no cyanosis, no clubbing, ROM intact, no edema. [] Neurologic: Alert and oriented X 3, normal motor function, normal sensory function, no focal deficits noted. [] Psychologic: Affect normal, judgement normal, mood normal. [] Current Patient Data Vital Signs Vital Signs Date Time Temp Pulse Resp B/P (MAP) Pulse Ox O2 Delivery O2 Flow Rate FiO2 09/19/19 18:23 44 20 100 09/19/19 18:05 98.2 108/58 (75) Room Air 98.2 Lab Values Laboratory Tests Test 09/19/19 18:04 09/19/19 18:06 09/19/19 18:10 POC Urine HCG, Qualitative Hcg negative (Negative) Urine Collection Type Unknown Urine Color Lashanda Urine Clarity Clear Urine pH 5.5 Urine Specific [place] >=1.030 Urine Protein 30 mg/dL (NEG-TRACE) Urine Glucose (UA) Negative mg/dL (NEG) Urine Ketones (Stick) Trace mg/dL (NEG) Urine Blood Large (NEG) Urine Nitrite Negative (NEG) Urine Bilirubin Small (NEG) Urine Urobilinogen Dipstick 1.0 mg/dL (0.2 mg/dL) Urine Leukocyte Esterase Small (NEG) Urine RBC >40 /HPF (0-2) Urine WBC Occ /HPF (0-4) Urine Squamous Epithelial Cells Many /LPF Urine Bacteria Few /HPF (0-FEW) Urine Hyaline Casts Few /HPF Urine Mucus Marked /LPF Urine Opiates Screen Neg (NEG) Urine Methadone Screen Neg (NEG) Urine Barbiturates Neg (NEG) Urine Phencyclidine Screen Neg (NEG) Urine Amphetamine/Methamphetamine Neg (NEG) Urine Benzodiazepines Screen Pos (NEG) Urine Cocaine Screen Neg (NEG) Urine Cannabinoids Screen Neg (NEG) Urine Ethyl Alcohol Neg (NEG) White Blood Count 6.5 x10^3/uL (4.0-11.0) Red Blood Count 4.19 x10^6/uL (3.50-5.40) Hemoglobin 13.3 g/dL (12.0-15.5) Hematocrit 39.6 % (36.0-47.0) Mean Corpuscular Volume 94 fL (79-100) Mean Corpuscular Hemoglobin 32 pg (25-35) Mean Corpuscular Hemoglobin Concent 34 g/dL (31-37) Red Cell Distribution Width 13.2 % (11.5-14.5) Platelet Count 169 x10^3/uL (140-400) Neutrophils (%) (Auto) 59 % (31-73) Lymphocytes (%) (Auto) 31 % (24-48) Monocytes (%) (Auto) 7 % (0-9) Eosinophils (%) (Auto) 1 % (0-3) Basophils (%) (Auto) 1 % (0-3) Neutrophils # (Auto) 3.9 x10^3/uL (1.8-7.7) Lymphocytes # (Auto) 2.0 x10^3/uL (1.0-4.8) Monocytes # (Auto) 0.5 x10^3/uL (0.0-1.1) Eosinophils # (Auto) 0.1 x10^3/uL (0.0-0.7) Basophils # (Auto) 0.0 x10^3/uL (0.0-0.2) Laboratory Tests 09/19/19 18:10 EKG EKG [] Radiology/Procedures Radiology/Procedures [] Course & Med Decision Making Course & Med Decision Making Pertinent Labs and Imaging studies reviewed. (See chart for details) This is a 28-year-old female patient well known to this ED presenting to the ED today complaining of generalized weakness that began a month ago after having successful vaginal delivery. Also complaining of vaginal bleeding for 1 month. Reports using 4 feminine pads an hour. She does have an Implanon. CBC with a normal WBC, normal hemoglobin and hematocrit. Negative urine hCG, urine analysis with small amount of leukocytes and appears contaminated. I ordered an ultrasound for patient. CMP is pending. Patient left AGAINST MEDICAL ADVICE. She is alert oriented able to make her own decisions. Nursing staff talked to her about her risk of leaving AMA Dragon Disclaimer Dragon Disclaimer This electronic medical record was generated, in whole or in part, using a voice recognition dictation system. Departure Departure Impression: Primary Impression: Dysfunctional uterine bleeding Additional Impression: Weakness Disposition: 07 AGAINST MEDICAL ADVICE Condition: STABLE Referrals: NO PCP (PCP) Problem Qualifiers DIANE DUNN APRN Sep 19, 2019 20:10
== END 2019-09-19 20:03 | disposition left against medical advice (07) ==
LOC: ER 17:09
DX: N93.8 Other specified abnormal uterine and vaginal bleeding (principal); R53.1 Weakness; J45.909 Unspecified asthma, uncomplicated; F31.9 Bipolar disorder, unspecified; K21.9 Gastro-esophageal reflux disease without esophagitis; I10 Essential (primary) hypertension; Z86.73 Personal history of transient ischemic attack (TIA), and cerebral infarction without residual deficits; Z91.010 Allergy to peanuts; Z88.8 Allergy status to other drugs, medicaments and biological substances
CPT/HCPCS: 36415; 80307; 81001; 81025; 85025; 99284; J7030

== ENCOUNTER 2019-11-01 19:33 | Emergency (ER) | payer OTHER, MEDICAID ==
[~2019-11-01] VITALS: Ht 157.5 cm; Wt 90.9 kg
[~2019-11-01 19:33] MED LIST changes: -FLUO20CA19 PO; +FLUO20CA20 PO
[2019-11-01 20:16] LABS: BARBITURATES NEG (NEG); BENZODIAZEPINES POS (NEG); CANNABINOIDS NEG (NEG); COCAINE NEG (NEG); METHADONE NEG (NEG); OPIATES NEG (NEG); PHENCYCLIDINE NEG (NEG)
[2019-11-01 20:17] LABS: AMPHETAMINE/METHAMPHETAMINE NEG (NEG)
--- NOTE | 2019-11-01 20:59 | PHYS DOC ---
Past Medical History Past Medical History: Anxiety, Asthma, Bipolar, Depression, GERD, Hypotension, Stroke Additional Past Medical Histor: "STRESS INDUCED STROKE" (CHRISTOPHER PALACIOS APRN) Past Surgical History: Other Additional Past Surgical Histo: "LEADS IN MY HEAD" (CHRISTOPHER PALACIOS APRN) Smoking Status: Never Smoker Alcohol Use: None Drug Use: None (CHRISTOPHER PALACIOS APRN) Attending Signature I have participated in the care of this patient and I have reviewed and agree with all pertinent clinical information above including history, exam, and recommendations. (DREW PENG MD) Adult General Chief Complaint Chief Complaint: SUICDAL IDEATION HPI HPI Patient is a 28 year old female who presents with patient was currently at [facility] because she was suicidal. Patient states she got mad because 2 weeks ago she was supposed to see physical therapy and no order was ever red dened and so she never got physical therapy. She states she's weak in her leg muscles. Patient states she wanted to be admitted to [facility]. It was explained to patient that [facility] is not a psych facility. Patient states that she's been feeling weak for the last 2 days and she's been bleeding. When asked where she is bleeding from she says I have hemorrhoids and constipation. She states that she can walk but is slow. States that she is suicidal but does not have a plan and does not actually want to harm herself. She usually lives at home with her mother and her children and her . She states this is a safe place for her. States that her dropped her off today. When Kimberly from [facility] team went into the room the patient told her that she is not suicidal and what really happened was 2 weeks ago she fell and she hurt her back and she was supposed to get physical therapy for her back but she never went to the appointment because she was at [facility]. She states that no doctor ever wrote her a physical therapy referral and that is why she actually came to the ER today. She does not currently have a primary care provider. (CHRISTOPHER PALACIOS APRN) Review of Systems Review of Systems Musculoskeletal: Bilateral leg weakness. Denies back pain or joint pain [] All other systems were reviewed and found to be within normal limits, except as documented in this note. (BAFUS,CHRISTOPHER M GLASS PRODUCTION MACHINE OPERATOR) Allergies Allergies Allergies Coded Allergies Type Severity Reaction Last Updated Verified ibuprofen Allergy Intermediate 09/02/18 Yes peanut Allergy Intermediate PEANUT BUTTER 08/30/14 Yes (DREW PENG MD) Physical Exam Physical Exam Constitutional: Well developed, well nourished, no acute distress, non-toxic appearance. [] HENT: Normocephalic, atraumatic, bilateral external ears normal, oropharynx moist, no oral exudates, nose normal. [] Eyes: PERRLA, EOMI, conjunctiva normal, no discharge. [] Neck: Normal range of motion, no tenderness, supple, no stridor. [] Cardiovascular:Heart rate regular rhythm, no murmur [] Lungs & Thorax: Bilateral breath sounds clear to auscultation [] Abdomen: Bowel sounds normal, soft, no tenderness, no masses, no pulsatile masses. [] Skin: Warm, dry, no erythema, no rash. [] Back: No tenderness, no CVA tenderness. [] Extremities: No tenderness, no cyanosis, no clubbing, ROM intact, no edema. [] Neurologic: Alert and oriented X 3, normal motor function, normal sensory function, no focal deficits noted. [] Psychologic: Affect normal, judgement normal, mood normal. Normal physical exam [] (CHRISTOPHER PALACIOS APRN) Current Patient Data Vital Signs Vital Signs Date Time Temp Pulse Resp B/P (MAP) Pulse Ox O2 Delivery O2 Flow Rate FiO2 11/01/19 22:16 72 16 103/62 (76) 99 Room Air 11/01/19 20:08 97.8 97.8 (DREW PENG MD) Lab Values Laboratory Tests Test 11/01/19 19:39 11/01/19 20:03 11/01/19 20:41 11/01/19 21:00 Urine Opiates Screen Neg (NEG) Urine Methadone Screen Neg (NEG) Urine Barbiturates Neg (NEG) Urine Phencyclidine Screen Neg (NEG) Urine Amphetamine/Methamphetamine Neg (NEG) Urine Benzodiazepines Screen Pos (NEG) Urine Cocaine Screen Neg (NEG) Urine Cannabinoids Screen Neg (NEG) Urine Ethyl Alcohol Neg (NEG) POC Urine HCG, Qualitative Hcg negative (Negative) Sodium Level 143 mmol/L (136-145) Potassium Level 4.4 mmol/L (3.5-5.1) Chloride Level 109 mmol/L (98-107) H Carbon Dioxide Level 25 mmol/L (21-32) Anion Gap 9 (6-14) Blood Urea Nitrogen 12 mg/dL (7-20) Creatinine 0.5 mg/dL (0.6-1.0) L Estimated GFR (Cockcroft-Gault) 149.1 Glucose Level 89 mg/dL (70-99) Calcium Level 8.7 mg/dL (8.5-10.1) White Blood Count 8.7 x10^3/uL (4.0-11.0) Red Blood Count 3.49 x10^6/uL (3.50-5.40) L Hemoglobin 11.1 g/dL (12.0-15.5) L Hematocrit 32.9 % (36.0-47.0) L Mean Corpuscular Volume 94 fL (79-100) Mean Corpuscular Hemoglobin 32 pg (25-35) Mean Corpuscular Hemoglobin Concent 34 g/dL (31-37) Red Cell Distribution Width 13.9 % (11.5-14.5) Platelet Count 257 x10^3/uL (140-400) Neutrophils (%) (Auto) 60 % (31-73) Lymphocytes (%) (Auto) 29 % (24-48) Monocytes (%) (Auto) 7 % (0-9) Eosinophils (%) (Auto) 3 % (0-3) Basophils (%) (Auto) 1 % (0-3) Neutrophils # (Auto) 5.2 x10^3/uL (1.8-7.7) Lymphocytes # (Auto) 2.5 x10^3/uL (1.0-4.8) Monocytes # (Auto) 0.6 x10^3/uL (0.0-1.1) Eosinophils # (Auto) 0.2 x10^3/uL (0.0-0.7) Basophils # (Auto) 0.1 x10^3/uL (0.0-0.2) Test 11/01/19 22:11 Stool Occult Blood Positive (NEG) Laboratory Tests 11/01/19 21:00 Laboratory Tests 11/01/19 20:41 (DREW PENG MD) EKG EKG [] (CHRISTOPHER PALACIOS APRN) Radiology/Procedures Radiology/Procedures [] (CHRISTOPHER PALACIOS APRN) Course & Med Decision Making Course & Med Decision Making Pertinent Labs and Imaging studies reviewed. (See chart for details) Kimberly from [facility] team states that the patient is not suicidal and came up with a plan for patient to go home with her family and to follow up with a primary care doctor or call her insurance company as they can also refer her to a physical therapy facility. Patient agrees to this plan. I did see the patient walk to the bathroom and she walked slowly but she is walking with a steady gait. Denies any numbness or tingling. No swelling of extremities or deformity. No swelling, bruising or deformity to her lower back. Patient does state that she has tenderness to the bilateral lower back paraspinal. No loss of bowel or bladder. No saddle paresthesia. Patient also told Kimberly that she follows up at [facility] on November 16 and is scheduled. She states that she's also seen at a clinic but could not remember the name of the clinic and so she has a doctor that she can go to for referral for physical therapy. She also states that she has a appointment at with an OB doctor on November 23 to have her tubes tied. Abdomen soft and nontender. Vital signs are within normal limits. Patient has not had any bloody stools, abdominal pain, vomiting, nausea and the ED. On September 19 patient's hemoglobin was 13.3 and a is 11.1. Hemoglobin and patient are stable. Vital signs are stable. Patient to follow up with GI. Lumbar x-ray read by Dr. Peng as no acute findings. Patient signed a safety contract. Patient agrees to follow-up at her clinic, with her OB doctor as scheduled, with [facility] as scheduled and has agreed not to hurt herself. Rectal Exam: Normal tone, No mass, Positive control, Nonthrombosed external hemorrhoids. Stool: Brown Guaiac: Positive [] (CHRISTOPHER PALACIOS APRN) Dragon Disclaimer Dragon Disclaimer This electronic medical record was generated, in whole or in part, using a voice recognition dictation system. (CHRISTOPHER PALACIOS APRN) Departure Departure Impression: Primary Impression: Acute hemorrhoid Additional Impression: Suicidal thoughts Disposition: HOME, SELF-CARE Condition: STABLE Referrals: NO PCP (PCP) MARJORIE COULTER MD Patient Instructions: Hemorrhoids, [id number] Additional Instructions: Follow-up at your primary care clinic seeking get a referral for physical therapy. Your back x-ray shows no fractures. Follow-up at [facility] and your senior linux administrator as scheduled. Problem Qualifiers CHRISTOPHER PALACIOS APRN Nov 01, 2019 20:59 DREW PENG MD Nov 01, 2019 23:37
[2019-11-01 21:20] LABS: BASO # 0.1 x10^3/uL (0.0-0.2); BASO % 1 % (0-3); EOS # 0.2 x10^3/uL (0.0-0.7); EOS % 3 % (0-3); HEMATOCRIT 32.9 % (36.0-47.0); HEMOGLOBIN 11.1 g/dL (12.0-15.5); LYMPH # 2.5 x10^3/uL (1.0-4.8); LYMPH % 29 % (24-48); MEAN CORPUSCULAR HEMOGLOBIN 32 pg (25-35); MEAN CORPUSCULAR HGB CONC 34 g/dL (31-37); MEAN CORPUSCULAR VOLUME 94 fL (79-100); MONO # 0.6 x10^3/uL (0.0-1.1); MONO % 7 % (0-9); NEUT # 5.2 x10^3/uL (1.8-7.7); NEUT % 60 % (31-73); PLATELET COUNT 257 x10^3/uL (140-400); RED BLOOD COUNT 3.49 x10^6/uL (3.50-5.40); RED CELL DISTRIBUTION WIDTH 13.9 % (11.5-14.5); WHITE BLOOD COUNT 8.7 x10^3/uL (4.0-11.0)
[2019-11-01 21:24] LABS: CALCIUM 8.7 mg/dL (8.5-10.1); CREATININE 0.5 mg/dL (0.6-1.0); GFR 149.1; POTASSIUM 4.4 mmol/L (3.5-5.1)
[2019-11-01 22:16] VITALS: BP 103/62
[2019-11-01 22:20] LABS: FECAL OB PT POSITIVE (NEG)
--- NOTE | 2019-11-02 01:05 | RAD ---
Five-view lumbar spine dated 11/01/2019. No comparison available. Clinical data indication: Low back pain. FINDINGS: AP, lateral, bilateral black and coned-down views of lumbosacral junction obtained. 5 nonrib-bearing vertebral levels. Vertebral body and disc heights are maintained. Sagittal alignment is anatomic. No significant endplate hypertrophic changes or disc space narrowing. There is mild hypertrophic change of the lower lumbar apophyseal joints. No pars defects on the oblique views. IMPRESSION: No acute radiographic abnormality. Electronically signed by: Alex Rubalcava MD (11/02/2019 1:02 AM) [id number]
== END 2019-11-01 22:52 | disposition home or self-care (01) ==
LOC: ER 19:33
DX: K64.9 Unspecified hemorrhoids (principal); R45.851 Suicidal ideations; R53.1 Weakness; F41.9 Anxiety disorder, unspecified; J45.909 Unspecified asthma, uncomplicated; F32.9 Major depressive disorder, single episode, unspecified; I95.9 Hypotension, unspecified; Z98.890 Other specified postprocedural states; Z88.6 Allergy status to analgesic agent; Z91.010 Allergy to peanuts
CPT/HCPCS: 36415; 72110; 80048; 80307; 81025; 82274; 85025; 99285

== ENCOUNTER 2019-11-28 21:40 | Emergency (ER) | payer OTHER, MEDICAID ==
[~2019-11-28] VITALS: Ht 157.5 cm; Wt 99.1 kg
[2019-11-28 22:22] LABS: BASO # 0.1 x10^3/uL (0.0-0.2); BASO % 1 % (0-3); EOS # 0.2 x10^3/uL (0.0-0.7); EOS % 2 % (0-3); HEMATOCRIT 34.4 % (36.0-47.0); HEMOGLOBIN 11.4 g/dL (12.0-15.5); LYMPH # 1.8 x10^3/uL (1.0-4.8); LYMPH % 25 % (24-48); MEAN CORPUSCULAR HEMOGLOBIN 31 pg (25-35); MEAN CORPUSCULAR HGB CONC 33 g/dL (31-37); MEAN CORPUSCULAR VOLUME 94 fL (79-100); MONO # 0.6 x10^3/uL (0.0-1.1); MONO % 8 % (0-9); NEUT # 4.7 x10^3/uL (1.8-7.7); NEUT % 64 % (31-73); PLATELET COUNT 282 x10^3/uL (140-400); RED BLOOD COUNT 3.65 x10^6/uL (3.50-5.40); RED CELL DISTRIBUTION WIDTH 14.2 % (11.5-14.5); WHITE BLOOD COUNT 7.3 x10^3/uL (4.0-11.0)
--- NOTE | 2019-11-28 22:49 | PHYS DOC ---
Past Medical History Past Medical History: Anxiety, Asthma, Bipolar, Depression, GERD, Hypotension, Stroke Additional Past Medical Histor: "STRESS INDUCED STROKE" Past Surgical History: Other Additional Past Surgical Histo: "LEADS IN MY HEAD" Smoking Status: Never Smoker Alcohol Use: None Drug Use: None Adult General Chief Complaint Chief Complaint: SEIZURE HPI HPI Patient is a 29 year old female who presents with complaint of having had a total of 6 seizures in the last 24 hours. Patient states that she also had another seizure yesterday. Patient denies any chest pain or shortness of breath. She does admit to a cough that has not been productive. Patient has had no fever.[] Review of Systems Review of Systems Constitutional: Denies fever or chills [] Respiratory: Positive cough without shortness of breath [] Cardiovascular: No additional information not addressed in HPI [] GI: Denies abdominal pain, nausea, vomiting, bloody stools or diarrhea [] Musculoskeletal: Complains of back pain [] Integument: Denies rash or skin lesions [] Neurologic: Denies headache, focal weakness or sensory changes. Reports seizure activity [] All other systems were reviewed and found to be within normal limits, except as documented in this note. Allergies Allergies Allergies Coded Allergies Type Severity Reaction Last Updated Verified ibuprofen Allergy Intermediate 09/02/18 Yes peanut Allergy Intermediate PEANUT BUTTER 08/30/14 Yes Physical Exam Physical Exam Constitutional: Well developed, well nourished, no acute distress, non-toxic appearance. [] HENT: Normocephalic, atraumatic, bilateral external ears normal, oropharynx moist, no oral exudates, nose normal. [] Eyes: PERRLA, EOMI, conjunctiva normal, no discharge. [] Neck: Normal range of motion, no tenderness, supple, no stridor. [] Cardiovascular:Heart rate regular rhythm, no murmur [] Lungs & Thorax: Bilateral breath sounds clear to auscultation [] Abdomen: Bowel sounds normal, soft, no tenderness. [] Skin: Warm, dry, no erythema, no rash. [] Extremities: No tenderness, no cyanosis, no clubbing, ROM intact. [] Neurologic: Alert and oriented X 3, no focal deficits noted. [] Current Patient Data Vital Signs Vital Signs Date Time Temp Pulse Resp B/P (MAP) Pulse Ox O2 Delivery O2 Flow Rate FiO2 11/28/19 21:45 99.1 104 14 119/75 (90) 100 Room Air 99.1 Lab Values Laboratory Tests Test 11/28/19 22:10 White Blood Count 7.3 x10^3/uL (4.0-11.0) Red Blood Count 3.65 x10^6/uL (3.50-5.40) Hemoglobin 11.4 g/dL (12.0-15.5) L Hematocrit 34.4 % (36.0-47.0) L Mean Corpuscular Volume 94 fL (79-100) Mean Corpuscular Hemoglobin 31 pg (25-35) Mean Corpuscular Hemoglobin Concent 33 g/dL (31-37) Red Cell Distribution Width 14.2 % (11.5-14.5) Platelet Count 282 x10^3/uL (140-400) Neutrophils (%) (Auto) 64 % (31-73) Lymphocytes (%) (Auto) 25 % (24-48) Monocytes (%) (Auto) 8 % (0-9) Eosinophils (%) (Auto) 2 % (0-3) Basophils (%) (Auto) 1 % (0-3) Neutrophils # (Auto) 4.7 x10^3/uL (1.8-7.7) Lymphocytes # (Auto) 1.8 x10^3/uL (1.0-4.8) Monocytes # (Auto) 0.6 x10^3/uL (0.0-1.1) Eosinophils # (Auto) 0.2 x10^3/uL (0.0-0.7) Basophils # (Auto) 0.1 x10^3/uL (0.0-0.2) Lactic Acid Level 1.2 mmol/L (0.4-2.0) Laboratory Tests 11/28/19 22:10 EKG EKG [] Radiology/Procedures Radiology/Procedures [] Course & Med Decision Making Course & Med Decision Making Pertinent Labs and Imaging studies reviewed. (See chart for details) [] Dragon Disclaimer Dragon Disclaimer This electronic medical record was generated, in whole or in part, using a voice recognition dictation system. Departure Departure Impression: Primary Impression: Seizures Disposition: 01 HOME, SELF-CARE Condition: STABLE Referrals: NO PCP (PCP) Patient Instructions: Seizure Disorder, Child, Generalized Tonic-Clonic FRANCO WADSWORTH Jr. DO Nov 28, 2019 22:49
[2019-11-28 23:04] LABS: CALCIUM 8.7 mg/dL (8.5-10.1); CREATININE 0.5 mg/dL (0.6-1.0); POTASSIUM 4.2 mmol/L (3.5-5.1)
[2019-11-28 23:05] VITALS: BP 110/63
[2019-11-28 23:12] LABS: ALBUMIN 3.2 g/dL (3.4-5.0); ALBUMIN/GLOBULIN RATIO 0.9 (1.0-1.7); TOTAL BILIRUBIN 0.1 mg/dL (0.2-1.0); TOTAL PROTEIN 6.6 g/dL (6.4-8.2)
[2019-11-28 23:26] LABS: AMPHETAMINE/METHAMPHETAMINE NEG (NEG); BARBITURATES NEG (NEG); BENZODIAZEPINES POS (NEG); CANNABINOIDS NEG (NEG); COCAINE NEG (NEG); METHADONE NEG (NEG); OPIATES NEG (NEG); PHENCYCLIDINE NEG (NEG)
== END 2019-11-28 21:43 | disposition home or self-care (01) ==
LOC: ER 21:40
DX: R56.9 Unspecified convulsions (principal); R05 Cough; J45.909 Unspecified asthma, uncomplicated; F31.9 Bipolar disorder, unspecified; K21.9 Gastro-esophageal reflux disease without esophagitis; F41.9 Anxiety disorder, unspecified; Z86.73 Personal history of transient ischemic attack (TIA), and cerebral infarction without residual deficits; Z91.010 Allergy to peanuts; Z88.8 Allergy status to other drugs, medicaments and biological substances
CPT/HCPCS: 36415; 80053; 80307; 81025; 83605; 85025; 99283

== ENCOUNTER 2020-02-13 14:08 | Emergency (ER) | payer OTHER, MEDICAID ==
[~2020-02-13] VITALS: Ht 157.5 cm; Wt 95.0 kg
[2020-02-13] MEDS ORDERED: ONDANSETRON PF 4 MG/2 ML VIAL. IV ONE (14:30)
[2020-02-13] MEDS ORDERED: IV NORMAL SALINE 1000ML BAG 1,000 ML IV ONE (14:30)
[2020-02-13 14:43] VITALS: BP 111/63
[2020-02-13 14:55] LABS: BASO % 1 % (0-3); EOS # 0.1 x10^3/uL (0.0-0.7); EOS % 2 % (0-3); HEMATOCRIT 38.1 % (36.0-47.0); HEMOGLOBIN 12.7 g/dL (12.0-15.5); LYMPH # 1.7 x10^3/uL (1.0-4.8); LYMPH % 33 % (24-48); MEAN CORPUSCULAR HEMOGLOBIN 29 pg (25-35); MEAN CORPUSCULAR HGB CONC 33 g/dL (31-37); MEAN CORPUSCULAR VOLUME 88 fL (79-100); MONO # 0.4 x10^3/uL (0.0-1.1); MONO % 7 % (0-9); NEUT % 57 % (31-73); PLATELET COUNT 223 x10^3/uL (140-400); RED BLOOD COUNT 4.32 x10^6/uL (3.50-5.40); RED CELL DISTRIBUTION WIDTH 13.8 % (11.5-14.5); WHITE BLOOD COUNT 5.2 x10^3/uL (4.0-11.0)
--- NOTE | 2020-02-13 14:56 | RAD ---
Examination: CHEST AP ONLY History: Reason: cough x1 week, possible COVID / Spl. Instructions: / History: Comparison: None. Findings: AP portable upright frontal view of the chest was obtained. Left upper thoracic level bilateral cerebellar device with leads extending to the left lower cervical spinal levels seen. The cardiomediastinal silhouette is normal. Lungs are clear. There is no pneumothorax. No pleural effusion is appreciated. No acute bone abnormality. IMPRESSION: No acute cardiopulmonary process. Electronically signed by: Gil Garza MD (02/13/2020 2:54 PM) [id number]
[2020-02-13 14:59] LABS: BILIRUBIN,URINE NEGATIVE (NEG); CLARITY,URINE CLEAR; COLOR,URINE RED; NITRITE,URINE NEGATIVE (NEG); PROTEIN,URINE 100 mg/dL (NEG-TRACE); UROBILINOGEN,URINE 0.2 mg/dL (0.2 mg/dL)
--- NOTE | 2020-02-13 15:06 | PHYS DOC ---
Past Medical History Past Medical History: Anxiety, Asthma, Bipolar, Depression, GERD, Hypotension, Seizure, Stroke Additional Past Medical Histor: "STRESS INDUCED STROKE" Past Surgical History: Other Additional Past Surgical Histo: "LEADS IN MY HEAD" Smoking Status: Never Smoker Alcohol Use: None Drug Use: None General Adult EDM: Chief Complaint: NAUSEA/VOMITING/DIARRHA HPI: HPI: Patient is a 29 year old female who presents to the emergency department with complaints of a dry cough, generalized body aches, headache, nausea, and vomiting for the last 4 days. She denies any fever, shortness of breath, diarrhea, or abdominal pain. Patient states that her child was recently hospitalized at [facility] for a viral syndrome. She states that her child was tested for COVID-19 and he tested negative. She reports generalized weakness and fatigue. Patient states that when she coughs her chest hurts. She denies any chest pain or palpitations without coughing. Patient states that she has vomited twice this morning she denies having any diarrhea. Her last menstrual period began earlier this morning. She currently rates her pain a 2 out of 10 on the pain scale she denies any alleviating factors. Review of Systems: Review of Systems: Complete review of systems was normal unless otherwise documented in HPI. Heart Score: Risk Factors: Risk Factors: DM, Current or recent (<one month) smoker, HTN, HLP, family history of CAD, obesity. Risk Scores: Score 0 - 3: 2.5% MACE over next 6 weeks - Discharge Home Score 4 - 6: 20.3% MACE over next 6 weeks - Admit for Clinical Observation Score 7 - 10: 72.7% MACE over next 6 weeks - Early Invasive Strategies Current Medications: Current Medications Medications (Trade) Dose Ordered Sig/[facility] Start Time Stop Time Status Last Admin Dose Admin Ondansetron HCl (Zofran) 4 mg 1X ONCE 02/13/20 14:30 02/13/20 14:31 DC 02/13/20 14:35 4 MG Sodium Chloride 1,000 ml @ 1,000 mls/hr 1X ONCE 02/13/20 14:30 02/13/20 15:29 02/13/20 14:37 1,000 MLS/HR Allergies: Allergies: Allergies Coded Allergies Type Severity Reaction Last Updated Verified ibuprofen Allergy Intermediate 09/02/18 Yes peanut Allergy Intermediate PEANUT BUTTER 08/30/14 Yes Physical Exam: PE: Constitutional: Well developed, well nourished, no acute distress, ill appearance. HENT: Normocephalic, atraumatic, bilateral external ears normal, oropharynx moist, no oral exudates, nose normal. [] Eyes: PERRLA, EOMI, conjunctiva normal, no discharge. [] Neck: Normal range of motion, no stridor. [] Cardiovascular:Heart rate regular rhythm, no murmur [] Lungs & Thorax: Bilateral breath sounds clear to auscultation [] Abdomen: Bowel sounds normal, soft, no tenderness, no guarding, no rebound tenderness, no masses, no pulsatile masses. [] Skin: Warm, dry, no erythema, no rash. [] Back: No tenderness, no CVA tenderness. [] Extremities: No cyanosis, ROM intact, no edema. [] Neurologic: Alert and oriented X 3, no focal deficits noted. [] Psychologic: Affect normal, judgement normal, mood normal. [] Current Patient Data: Labs: Laboratory Tests Test 02/13/20 14:40 White Blood Count 5.2 x10^3/uL (4.0-11.0) Red Blood Count 4.32 x10^6/uL (3.50-5.40) Hemoglobin 12.7 g/dL (12.0-15.5) Hematocrit 38.1 % (36.0-47.0) Mean Corpuscular Volume 88 fL (79-100) Mean Corpuscular Hemoglobin 29 pg (25-35) Mean Corpuscular Hemoglobin Concent 33 g/dL (31-37) Red Cell Distribution Width 13.8 % (11.5-14.5) Platelet Count 223 x10^3/uL (140-400) Neutrophils (%) (Auto) 57 % (31-73) Lymphocytes (%) (Auto) 33 % (24-48) Monocytes (%) (Auto) 7 % (0-9) Eosinophils (%) (Auto) 2 % (0-3) Basophils (%) (Auto) 1 % (0-3) Neutrophils # (Auto) 3.0 x10^3/uL (1.8-7.7) Lymphocytes # (Auto) 1.7 x10^3/uL (1.0-4.8) Monocytes # (Auto) 0.4 x10^3/uL (0.0-1.1) Eosinophils # (Auto) 0.1 x10^3/uL (0.0-0.7) Basophils # (Auto) 0.0 x10^3/uL (0.0-0.2) Laboratory Tests 02/13/20 14:40 Vital Signs: Vital Signs Date Time Temp Pulse Resp B/P (MAP) Pulse Ox O2 Delivery O2 Flow Rate FiO2 02/13/20 14:43 97.4 60 18 111/63 (79) 97 Room Air 97.4 EKG: EKG: [] Radiology/Procedures: Radiology/Procedures: PROCEDURE: CHEST AP ONLY Examination: CHEST AP ONLY History: Reason: cough x1 week, possible COVID / Spl. Instructions: / History: Comparison: None. Findings: AP portable upright frontal view of the chest was obtained. Left upper thoracic level bilateral cerebellar device with leads extending to the left lower cervical spinal levels seen. The cardiomediastinal silhouette is normal. Lungs are clear. There is no pneumothorax. No pleural effusion is appreciated. No acute bone abnormality. IMPRESSION: No acute cardiopulmonary process. [] Course & Med Decision Making: Course & Med Decision Making Pertinent Labs and Imaging studies reviewed. (See chart for details) Patient is a 29-year-old female who presented to the emergency room with multiple complaints. CBC, CMP, and UA were unremarkable. Patient's urine test was negative. Vital signs are stable throughout her stay. Codey blevins was given a liter of normal saline and 4 mg of Zofran IV. She reported feeling better after these medications. The patient was advised that a COVID-19 test had been done but results would not be available for 2 to 4 days. Patient was encouraged to go home and quarantine until the results of this testing are available. Prescription was written for Zofran to take as needed. Recommended increase clear fluids and bland diet. Patient verbalized an understanding of home care, medications, follow-up, and return to ED instructions and was in agreement with the plan of care. COVID-19 CRITERIA: The patient was evaluated during the global COVID-19 pandemic, and that diagnosis was suspected/considered upon their initial presentation. Their evaluation, treatment and testing was consistent with current guidelines for patients who present with complaints or symptoms that may be related to COVID-19. [] Dragon Disclaimer: Dragon Disclaimer: This electronic medical record was generated, in whole or in part, using a voice recognition dictation system. Departure Departure Impression: Primary Impression: Nausea & vomiting Qualified Codes: R11.2 - Nausea with vomiting, unspecified Additional Impressions: Viral illness Person under investigation for COVID-19 Suspected COVID-19 virus infection Disposition: HOME, SELF-CARE Condition: STABLE Referrals: NO PCP (PCP) Patient Instructions: Nausea and Vomiting, [id number], Viral Infections, [id number] Additional Instructions: Fill prescriptions and use them as directed. Recommend clear fluids for the next 24 hours. Then you may advance to bland foods such as bananas, rice, applesauce, and dry toast. Return to the emergency room if your symptoms worsen. Thank you for visiting [facility]. We appreciate you trusting us with your care. If any additional problems come up please don't hesitate to r eturn to visit us. Follow up with your primary care provider so they can plan additional care if needed and know about the problem that you had today. If symptoms worsen come back to the Emergency Department. Any concerning symptoms that start such as chest pain, shortness of air, weakness or numbness on one side of the body, running high fevers or any other concerning symptoms return to the ER. You have a viral syndrome which may include symptoms like muscle aches, fevers, chills, runny nose, cough, sneezing, sore throat, nausea, vomiting, or diarrhea. One of the potential viruses that you may have is SARS-CoV-2, the virus that causes COVID-19, also known as the Coronavirus. You are just as likely to have a different viral infection such as the common cold, flu, etc. Most patients with the Coronavirus have mild symptoms and recover on their own. Resting, staying hydrated, and sleep based on known cases can be helpful. As of todays visit, you are well enough to go home and treat your symptoms with oral fluids and over the counter medications. Coronavirus testing was performed today, the results will not be available for possibly up to 3-4 days. If your result is positive you will be contacted. Please follow the following precautions at home: 1. Stay home except to get medical care. 2. As advised by the CDC, we recommend that you stay in your home and minimize contact with other people. We do not want you to spread the infection. 3. Those who are older or have significant medical issues may have more severe symptoms from this infection. We recommend self-isolation FOR AT LEAST 7 DAYS after your 1st day of symptoms. AFTER you feel better please wait AT LEAST ANOTHER WEEK before returning to regular activities and being around other people. 4. IF you become sicker and have difficulty breathing, chest pain, are unable to eat/drink, severe vomiting, diarrhea, or weakness you may need to return to the Emergency Department. 5. You should restrict activities outside of your home, except for getting medical care. DO NOT go to work, school, or public areas. Avoid using public transportation, ride sharing, or taxis. 6. Separate yourself from other people in your home. You should use a separate bathroom if possible. 7. Avoid sharing personal household items such as dishes, cups, eating utensils, towels, etc. 8. Clean all high touch surfaces every day (door knobs, counter tops, etc). Use a household cleaning spray or wipe per label instructions. 9. Clean your hands often. Wash your hands with soap and water for at least 20 seconds. 10. Cover your mouth and nose when you cough or sneeze. 11. Throw used tissues in the trash and immediately wash your hands. For additional resources please visit the CDC website or the [facility] ([phone]), you may also call 211 for further information. Scripts Ondansetron Hcl (ONDANSETRON HCL) 4 Mg Tablet 1 TAB PO PRN Q6HRS PRN for NAUSEA/VOMITING for 3 Days, #10 TAB 0 Refills Prov: KAREN WATERS APRN 02/13/20 Justicifation of Admission Dx: Justifications for Admission: Justification of Admission Dx: N/A COVID-19 Assessment: COVID-19 Patient Risks: Age 65 or older: No Sign of co-morbidity: No Exp to person + for COVID: No Exp to PUI: No Travel from affected area: No Lower respiratory symptoms: Yes Fever: No Other: No PPE Use: Full PPE with N95 mask or PAPR: Yes KAREN WATERS APRN Feb 13, 2020 15:06
[2020-02-13 15:11] LABS: BACTERIA,URINE FEW /HPF (0-FEW); RBC,URINE TNTC /HPF (0-2); SQUAMOUS EPITHELIAL CELL,UR MANY /LPF; WBC,URINE RARE /HPF (0-4)
[2020-02-13 15:12] LABS: CALCIUM 8.8 mg/dL (8.5-10.1); CREATININE 0.8 mg/dL (0.6-1.0); POTASSIUM 3.9 mmol/L (3.5-5.1)
[2020-02-13 15:16] LABS: U PREG PATIENT NEGATIVE (NEG)
[2020-02-13 15:20] LABS: ALBUMIN 3.7 g/dL (3.4-5.0); ALBUMIN/GLOBULIN RATIO 0.9 (1.0-1.7); TOTAL BILIRUBIN 0.2 mg/dL (0.2-1.0); TOTAL PROTEIN 7.8 g/dL (6.4-8.2)
[2020-02-13] MEDS ORDERED: ONDA-84 PO (16:48)
== END 2020-02-13 17:41 | disposition home or self-care (01) ==
LOC: ER 14:08
DX: B34.9 Viral infection, unspecified (principal); Z20.828 Contact with and (suspected) exposure to other viral communicable diseases; R11.2 Nausea with vomiting, unspecified; F31.9 Bipolar disorder, unspecified; J45.909 Unspecified asthma, uncomplicated; K21.9 Gastro-esophageal reflux disease without esophagitis; I10 Essential (primary) hypertension; Z86.73 Personal history of transient ischemic attack (TIA), and cerebral infarction without residual deficits; Z91.010 Allergy to peanuts; Z88.8 Allergy status to other drugs, medicaments and biological substances
CPT/HCPCS: 36415; 71045; 80053; 81001; 81025; 85025; 87086; 96361; 96374; 99284; J2405; J7030; U0003

== ENCOUNTER 2020-06-17 17:41 | Emergency (ER) | payer OTHER, MEDICAID ==
[~2020-06-17] VITALS: Ht 157.5 cm; Wt 100.2 kg
[~2020-06-17 17:41] MED LIST changes: +ONDA-84 PO
--- NOTE | 2020-06-17 18:35 | PHYS DOC ---
Past Medical History Past Medical History: Anxiety, Asthma, Bipolar, Depression, GERD, Hypotension, Seizure, Stroke Additional Past Medical Histor: "STRESS INDUCED STROKE" (LUZ MARINA BERG APRN) Past Surgical History: Other Additional Past Surgical Histo: "LEADS IN MY HEAD" (LUZ MARINA BERG APRN) Smoking Status: Never Smoker Alcohol Use: None Drug Use: None (LUZ MARINA BERG APRN) General Adult EDM: Chief Complaint: MULTIPLE COMPLAINTS HPI: HPI: Patient is a 29 year old female who presents with abdominal pains that started 6 days ago. She describes her pain as sharp at times and pressure at other times off and on all over rating her pain between a 2/10 to a 10/10 pain on a 1-10 pain scale. She sates nothing seems to make it worse or better. She reports having 2 bouts of diarrhea yesterday, one small amount in the loan review officer and one small amount in the late evening brown watery stool, she denies seeing blood in her stool. She states she started vomiting 6 days ago after eating what she describes as bad tasting chicken for dinner. She states she vomited small amounts over the next 3 days of food particles after eating approximately one to 3 times per day. She denies vomiting over the past 3 days. Pt denies vaginal discharge or STI concerns. Pt denies urinary problems. Pt denies fever, chills, cough, congestion, shortness of breath, chest pains, or swelling of her extremities. Pt denies back pains or pain in her joints, skin rashes, headaches, weaknesses, increased thirst or increased urination. Pt denies swelling of her glands, depression, anxieties, homicidal or suicidal ideation. She reports her LMP approx one week ago, had her tubes tied on 03/12/2020. (LUZ MARINA BERG APRN) Review of Systems: Review of Systems: Constitutional: Denies fever or chills. Eyes: Denies change in visual acuity. [] HENT: Denies nasal congestion or sore throat. [] Respiratory: Denies cough or shortness of breath. [] Cardiovascular: Denies chest pain or edema. [] GI: Complains of abdominal pain, diarrhea, vomiting. Denies constipation,or blood in her stool. : Denies dysuria, vaginal discharge or STI concerns Musculoskeletal: Denies back pain or joint pain. [] Integument: Denies rash. [] Neurologic: Denies headache, focal weakness or sensory changes. [] Endocrine: Denies polyuria or polydipsia. [] Lymphatic: Denies swollen glands. [] Psychiatric: Denies depression or anxiety, homicidal or suicidal ideation. (LUZ MARINA BERG APRN) Heart Score: Risk Factors: Risk Factors: DM, Current or recent (<one month) smoker, HTN, HLP, family history of CAD, obesity. Risk Scores: Score 0 - 3: 2.5% MACE over next 6 weeks - Discharge Home Score 4 - 6: 20.3% MACE over next 6 weeks - Admit for Clinical Observation Score 7 - 10: 72.7% MACE over next 6 weeks - Early Invasive Strategies (LUZ MARINA BERG APRN) Family History: Family History: Pt denies a family history significant to this ER visit, denies smoking or drinking alcohol or elicit drug use. (LUZ MARINA BERG APRN) Current Medications: Pt denies taking Rx or OTC medications. (LUZ MARINA BERG APRN) Allergies: Allergies: Allergies Coded Allergies Type Severity Reaction Last Updated Verified ibuprofen Allergy Intermediate 09/02/18 Yes peanut Allergy Intermediate PEANUT BUTTER 08/30/14 Yes (LUZ MARINA BERG APRN) Physical Exam: PE: Constitutional: Well developed, well nourished, no acute distress, non-toxic appearance. [] HENT: Normocephalic, atraumatic, bilateral external ears normal, oropharynx moist, no oral exudates, nose normal. [] Eyes: PERRLA, EOMI, conjunctiva normal, no discharge. [] Neck: Normal range of motion, no tenderness, supple, no stridor. [] Cardiovascular:Heart rate regular rhythm, no murmur, heast sounds S1,S2 per auscultation. Lungs & Thorax: Bilateral breath sounds clear to auscultation all lung ramirez. Abdomen: Bowel sounds normal all 4 quadrants, soft, round, with diffuse tenderness all quadrants to palpation, no masses, no pulsatile masses. Skin: Warm, dry, no erythema, no rash. [] Back: No tenderness, no CVA tenderness. [] Extremities: No tenderness, no cyanosis, no clubbing, ROM intact, no edema. [] Neurologic: Alert and oriented X 3, normal motor function, normal sensory function, no focal deficits noted. [] Psychologic: Affect normal, judgement normal, mood normal. [] (LUZ MARINA BERG APRN) Current Patient Data: Labs: Current Medications Medications (Trade) Dose Ordered Sig/Brittny Route PRN Reason Start Time Stop Time Status Last Admin Dose Admin Ketorolac Tromethamine (Toradol 30mg Vial) 30 mg 1X ONCE IVP 06/17/20 18:45 06/17/20 18:46 DC 06/17/20 19:27 Ondansetron HCl (Zofran) 4 mg 1X ONCE IVP 06/17/20 18:45 06/17/20 18:46 DC 06/17/20 19:28 Sodium Chloride 1,000 ml @ 1,000 mls/hr 1X ONCE IV 06/17/20 19:15 06/17/20 20:14 DC 06/17/20 19:28 Iohexol (Omnipaque 300 Mg/ml) 75 ml 1X ONCE IV 06/17/20 21:00 06/17/20 21:01 DC Info (CONTRAST GIVEN -- Rx MONITORING) 1 each PRN DAILY PRN MC SEE COMMENTS 06/17/20 21:00 06/18/20 00:03 DC Laboratory Tests Test 06/17/20 18:28 POC Urine HCG, Qualitative Hcg negative (Negative) Vital Signs: Vital Signs Date Time Temp Pulse Resp B/P (MAP) Pulse Ox O2 Delivery O2 Flow Rate FiO2 06/17/20 17:50 97.5 67 18 100/67 (78) 100 Room Air 97.5 (LUZ MARINA BERG APRN) EKG: EKG: EKG at 17:55 shoed NSR without ectopy, no STEMI or Coronary syndrome noted, interpreted by ED attending Dr. Hall (LUZ MARINA BERG APRN) Radiology/Procedures: Radiology/Procedures: [] (LUZ MARINA BERG APRN) Course & Med Decision Making: Course & Med Decision Making Pertinent Labs and Imaging studies reviewed. (See chart for details) 29 yo patient with diffuse abdominal pains for the past 6 days after eating what she described as bad chicken with nausea and vomiting, focused abdominal exam noted diffuse pain to palpation. Patient did not complain of nausea during ER stay. Labs and imaging ordered. Her urine was not infected, she was not . ED nursing staff and lab techs were unable to draw satisfactory blood samples to result chem profile specifically for creatinine levels for contrast abdominal CT study, pt became upset and wished to leave AMA per nursing staff. I discussed with patient resulted lab values and need for adequate lab draw to perform CT study, pt continued to ask to leave the ER stating she needed to le ave to take care of her children at home. I urged pt to stay to complete exam and reviewed risks/benefits of leaving AMA with focus on abdominal problems that could be treated medically or surgically and possible admition to the hospital as inpatient or observation. Pt stated she could not stay. It is of my opinion that the patient is of sound mind and able to make her own educated medical decisions, she denied suicidal ideation. Pt was urged to return to the ER for completion of her medical examination. Pt was asked to sign AMA for by nursing staff. Nursing staff advised me that she left AMA at 2034 ambulatory without incident. Pts charted vital signs are within normal limits. (LUZ MARINA BERG APRN) Course & Med Decision Making I have reviewed the PA/ROOM COOLER INSTALLER's note and Plan of Care. I was available for consultation as needed during the patient's visit in the emergency department. I agree with the clinical impression, plans and disposition. (MARJORIE HALL MD) Dragon Disclaimer: Dragon Disclaimer: This electronic medical record was generated, in whole or in part, using a voice recognition dictation system. (LUZ MARINA BERG APRN) Departure Departure Impression: Primary Impression: Left against medical advice Disposition: 07 AMA/ELOPED/LWBS Condition: STABLE Referrals: UNKNOWN PCP NAME (PCP) Patient Instructions: Discharge Against Medical Advice Additional Instructions: Please return to the ER if symptoms worsen. LUZ MARINA BERG APRN Jun 17, 2020 18:35 MARJORIE HALL MD Jun 19, 2020 19:46
[2020-06-17 18:37] LABS: BILIRUBIN,URINE NEGATIVE (NEG); CLARITY,URINE CLEAR; COLOR,URINE YELLOW; NITRITE,URINE NEGATIVE (NEG); PH,URINE 7.5 (<5.0-8.0); PROTEIN,URINE NEGATIVE (NEG-TRACE); UROBILINOGEN,URINE 0.2 mg/dL (0.2 mg/dL)
[2020-06-17 18:44] LABS: AMORPHOUS SEDIMENT,UR PRESENT /HPF; BACTERIA,URINE MANY /HPF (0-FEW); RBC,URINE 0 /HPF (0-2)
[2020-06-17] MEDS ORDERED: ONDANSETRON PF 4 MG/2 ML VIAL. IVP ONE (18:45)
[2020-06-17] MEDS ORDERED: KETOROLAC 30 MG/ML VIAL. IVP ONE (18:45)
[2020-06-17 19:05] LABS: BASO % 1 % (0-3); EOS # 0.1 x10^3/uL (0.0-0.7); EOS % 2 % (0-3); HEMATOCRIT 33.7 % (36.0-47.0); HEMOGLOBIN 11.3 g/dL (12.0-15.5); LYMPH # 1.4 x10^3/uL (1.0-4.8); LYMPH % 33 % (24-48); MEAN CORPUSCULAR HEMOGLOBIN 30 pg (25-35); MEAN CORPUSCULAR HGB CONC 34 g/dL (31-37); MEAN CORPUSCULAR VOLUME 89 fL (79-100); MONO # 0.3 x10^3/uL (0.0-1.1); MONO % 8 % (0-9); NEUT # 2.5 x10^3/uL (1.8-7.7); NEUT % 57 % (31-73); PLATELET COUNT 177 x10^3/uL (140-400); RED BLOOD COUNT 3.79 x10^6/uL (3.50-5.40); RED CELL DISTRIBUTION WIDTH 13.8 % (11.5-14.5); WHITE BLOOD COUNT 4.3 x10^3/uL (4.0-11.0)
[2020-06-17] MEDS ORDERED: IV NORMAL SALINE 1000ML BAG 1,000 ML IV ONE (19:15)
[2020-06-17 19:56] VITALS: BP 109/59
[2020-06-17] MEDS ORDERED: IOHEXOL 300 MG/ML 100ML VIAL. IV ONE (21:00)
[2020-06-17] MEDS ORDERED: CONTRAST GIVEN. MC PRN (21:00)
== END 2020-06-17 20:35 | disposition left against medical advice (07) ==
LOC: ER 17:41
DX: R10.84 Generalized abdominal pain (principal); R11.2 Nausea with vomiting, unspecified; R19.7 Diarrhea, unspecified; F31.9 Bipolar disorder, unspecified; J45.909 Unspecified asthma, uncomplicated; K21.9 Gastro-esophageal reflux disease without esophagitis; Z86.73 Personal history of transient ischemic attack (TIA), and cerebral infarction without residual deficits; F41.9 Anxiety disorder, unspecified; Z91.010 Allergy to peanuts; Z88.8 Allergy status to other drugs, medicaments and biological substances
CPT/HCPCS: 36415; 81001; 81025; 85025; 87086; 96361; 96374; 96375; 99285; J1885; J2405; J7030

== ENCOUNTER 2020-08-09 17:12 | Emergency (ER) | payer OTHER, MEDICAID | END 2020-08-09 18:22 | disposition left against medical advice (07) | LOC: ER 17:12 | DX: R53.83 Other fatigue (principal); Z53.21 Procedure and treatment not carried out due to patient leaving prior to being seen by health care provider ==

== ENCOUNTER 2021-03-19 13:53 | Emergency (ER) | payer OTHER, MEDICAID ==
[~2021-03-19] VITALS: Ht 157.5 cm; Wt 102.1 kg
[2021-03-19 16:10] VITALS: BP 114/57
--- NOTE | 2021-03-19 16:13 | PHYS DOC ---
Past Medical History Past Medical History: Anxiety, Asthma, Bipolar, Depression, GERD, Hypotension, Seizure, Stroke Additional Past Medical Histor: "STRESS INDUCED STROKE" Past Surgical History: Other Additional Past Surgical Histo: "LEADS IN MY HEAD" Smoking Status: Never Smoker Alcohol Use: None Drug Use: None General Adult EDM: Chief Complaint: NAUSEA/VOMITING/DIARRHEA HPI: HPI: Patient is a 30 year old female who presented to ER for 1 week history of nausea vomiting diarrhea and nonproductive cough. Patient denies any fever, no chills. Patient denies any chest pain, no abdominal pain. Patient was vaccinated for COVID-19 but only 1 shot, she missed the second dose. Review of Systems: Review of Systems: Constitutional: Denies fever or chills. [] Eyes: Denies change in visual acuity. [] HENT: Denies nasal congestion or sore throat. [] Respiratory: Positive cough, no trouble breathing Cardiovascular: Denies chest pain or edema. [] GI: Positive for nausea vomiting, diarrhea, no abdominal pain : Denies dysuria. [] Musculoskeletal: Denies back pain or joint pain. [] Integument: Denies rash. [] Neurologic: Denies headache, focal weakness or sensory changes. [] Endocrine: Denies polyuria or polydipsia. [] Lymphatic: Denies swollen glands. [] Psychiatric: Denies depression or anxiety. [] Heart Score: C/O Chest Pain: N/A Risk Factors: Risk Factors: DM, Current or recent (<one month) smoker, HTN, HLP, family history of CAD, obesity. Risk Scores: Score 0 - 3: 2.5% MACE over next 6 weeks - Discharge Home Score 4 - 6: 20.3% MACE over next 6 weeks - Admit for Clinical Observation Score 7 - 10: 72.7% MACE over next 6 weeks - Early Invasive Strategies Allergies: Allergies: Allergies Coded Allergies Type Severity Reaction Last Updated Verified ibuprofen Allergy Intermediate 06/17/20 Yes peanut Allergy Intermediate PEANUT BUTTER 08/30/14 Yes Physical Exam: PE: Constitutional: Well developed, well nourished, no acute distress, non-toxic appearance. [] HENT: Normocephalic, atraumatic, bilateral external ears normal, oropharynx moist, no oral exudates, nose normal. [] Eyes: PERRLA, EOMI, conjunctiva normal, no discharge. [] Neck: Normal range of motion, no tenderness, supple, no stridor. [] Cardiovascular:Heart rate regular rhythm, no murmur [] Lungs & Thorax: Bilateral breath sounds clear to auscultation [] Abdomen: Bowel sounds normal, soft, no tenderness, no masses, no pulsatile masses. [] Skin: Warm, dry, no erythema, no rash. [] Back: No tenderness, no CVA tenderness. [] Extremities: No tenderness, no cyanosis, no clubbing, ROM intact, no edema. [] Neurologic: Alert and oriented X 3, normal motor function, normal sensory function, no focal deficits noted. [] Psychologic: Affect normal, judgement normal, mood normal. [] Current Patient Data: Labs: Laboratory Tests Test 03/19/21 16:03 03/19/21 16:21 Urine Collection Type Unknown Urine Color Yellow Urine Clarity Cloudy Urine pH 6.0 Urine Specific Reserve >=1.030 Urine Protein Negative mg/dL Urine Glucose (UA) Negative mg/dL Urine Ketones (Stick) Negative mg/dL Urine Blood Negative Urine Nitrite Negative Urine Bilirubin Negative Urine Urobilinogen Dipstick 1.0 mg/dL Urine Leukocyte Esterase Trace Urine RBC 0 /HPF Urine WBC 1-4 /HPF Urine Squamous Epithelial Cells Many /LPF Urine Bacteria Many /HPF Urine Mucus Mod /LPF Bedside Urine HCG, Qualitative Hcg negative EKG: EKG: [] Radiology/Procedures: Radiology/Procedures: [] Course & Med Decision Making: Course & Med Decision Making Pertinent Labs and Imaging studies reviewed. (See chart for details) Patient is a 30-year-old female who presented to ER for evaluation of 1 week history of nausea vomiting diarrhea, general weakness, nonproductive cough. Patient was taken back to room, IV was started, blood was drawn. Patient then notified the nurse that she wanted to go home because she had family obligations at home. Patient would not wait for lab results. Patient will sign out again medical advice Notified by nurse that patient wishes to leave against medical advice. Had an extensive discussion with the patient regarding the risks of leaving AMA including but not limited to , permanent disability, and worsening condition. Patient acknowledged the risks and agreed to take full respons ibility. Patient was A&Ox4 and had full medical decision making capacity. Patient signed AMA form stating they understood risks and ambulated out of ED with steady gait. Dragon Disclaimer: Dragon Disclaimer: This electronic medical record was generated, in whole or in part, using a voice recognition dictation system. Departure Departure Impression: Primary Impression: Gastroenteritis Additional Impressions: Viral syndrome Person under investigation for COVID-19 Disposition: 07 LEFT AGAINST MEDICAL ADVICE Condition: STABLE Referrals: UNKNOWN PCP NAME (PCP) Patient Instructions: Discharge Against Medical Advice CHRISTINE SANABRIA DO Mar 19, 2021 16:13
[2021-03-19 16:46] LABS: BILIRUBIN,URINE NEGATIVE (NEG); CLARITY,URINE CLOUDY; COLOR,URINE YELLOW; NITRITE,URINE NEGATIVE (NEG); PROTEIN,URINE NEGATIVE (NEG-TRACE)
[2021-03-19 16:54] LABS: BACTERIA,URINE MANY /HPF (0-FEW)
[2021-03-19 16:55] LABS: RBC,URINE 0 /HPF (0-2)
[2021-03-19 16:58] LABS: BASO % 1 % (0-3); EOS # 0.1 x10^3/uL (0.0-0.7); EOS % 2 % (0-3); HEMATOCRIT 36.9 % (36.0-47.0); HEMOGLOBIN 12.2 g/dL (12.0-15.5); LYMPH # 1.4 x10^3/uL (1.0-4.8); LYMPH % 26 % (24-48); MEAN CORPUSCULAR HEMOGLOBIN 31 pg (25-35); MEAN CORPUSCULAR HGB CONC 33 g/dL (31-37); MEAN CORPUSCULAR VOLUME 92 fL (79-100); MONO # 0.5 x10^3/uL (0.0-1.1); MONO % 9 % (0-9); NEUT # 3.2 x10^3/uL (1.8-7.7); NEUT % 62 % (31-73); PLATELET COUNT 179 x10^3/uL (140-400); RED CELL DISTRIBUTION WIDTH 14.1 % (11.5-14.5); WHITE BLOOD COUNT 5.2 x10^3/uL (4.0-11.0)
[2021-03-19 17:19] LABS: ALBUMIN 3.5 g/dL (3.4-5.0); CALCIUM 8.7 mg/dL (8.5-10.1); CREATININE 0.6 mg/dL (0.6-1.0); POTASSIUM 5.1 mmol/L (3.5-5.1); TOTAL PROTEIN 7.3 g/dL (6.4-8.2)
[2021-03-19 17:20] LABS: ALBUMIN/GLOBULIN RATIO 0.9 (1.0-1.7); MAGNESIUM 2.1 mg/dL (1.8-2.4); TOTAL BILIRUBIN 0.3 mg/dL (0.2-1.0)
--- NOTE | 2021-03-20 16:21 | NUR ---
IP: Attempted to contact pt concerning covid results. Phone number in EMR is no longer in service. Contacted mother who does not know where daughter is or how to contact.
== END 2021-03-19 17:00 | disposition left against medical advice (07) ==
LOC: ER 13:53
DX: K52.9 Noninfective gastroenteritis and colitis, unspecified (principal); Z20.822 Contact with and (suspected) exposure to COVID-19; B34.9 Viral infection, unspecified; J45.909 Unspecified asthma, uncomplicated; F31.9 Bipolar disorder, unspecified; K21.9 Gastro-esophageal reflux disease without esophagitis; Z86.73 Personal history of transient ischemic attack (TIA), and cerebral infarction without residual deficits; Z91.010 Allergy to peanuts; Z88.8 Allergy status to other drugs, medicaments and biological substances
CPT/HCPCS: 36415; 80053; 81001; 81025; 83690; 83735; 85025; 87086; 87426; 99284; U0003; U0005; 99283

== ENCOUNTER 2021-11-18 22:49 | Emergency (ER) | payer OTHER, MEDICAID ==
[~2021-11-18] VITALS: Ht 157.5 cm; Wt 97.6 kg
[~2021-11-18 22:49] MED LIST changes: -FLUO20CA20 PO; +FLUO20CA22 PO
--- NOTE | 2021-11-19 01:26 | PHYS DOC ---
Past Medical History Past Medical History: Anxiety, Asthma, Bipolar, Depression, GERD, Hypotension, Seizure, Stroke Additional Past Medical Histor: "STRESS INDUCED STROKE", epilepsy Past Surgical History: No Surgical History Additional Past Surgical Histo: seizure implant device Smoking Status: Never Smoker Alcohol Use: None Drug Use: None General Adult EDM: Chief Complaint: ABDOMINAL PAIN HPI: HPI: 31-year-old female with past medical history of epilepsy, presents to the ED with complaints of multiple episodes of nausea, vomiting and diarrhea with diffuse abdominal pain that started 4 days ago with associated anorexia " I cannot keep anything down." Denies a history of tobacco, alcohol or drug use. Last menstrual period was last month. Has no past surgical history. Cannot recall any sick contacts. Is on Depakote and zonisamide. Review of Systems: Review of Systems: Constitutional: Denies fever or chills. [] Eyes: Denies change in visual acuity. [] HENT: Denies nasal congestion or sore throat. [] Respiratory: Denies cough or shortness of breath. [] Cardiovascular: Denies chest pain or edema. [] GI: Denies abdominal pain, nausea, vomiting, bloody stools or diarrhea. [] : Denies dysuria. [] Musculoskeletal: Denies back pain or joint pain. [] Integument: Denies rash. [] Neurologic: Denies headache, focal weakness or sensory changes. [] Endocrine: Denies polyuria or polydipsia. [] Lymphatic: Denies swollen glands. [] Psychiatric: Denies depression or anxiety. [] Heart Score: C/O Chest Pain: No Risk Factors: Risk Factors: DM, Current or recent (<one month) smoker, HTN, HLP, family history of CAD, obesity. Risk Scores: Score 0 - 3: 2.5% MACE over next 6 weeks - Discharge Home Score 4 - 6: 20.3% MACE over next 6 weeks - Admit for Clinical Observation Score 7 - 10: 72.7% MACE over next 6 weeks - Early Invasive Strategies Allergies: Allergies: Allergies Coded Allergies Type Severity Reaction Last Updated Verified ibuprofen Allergy Intermediate 03/19/21 Yes peanut Allergy Intermediate PEANUT BUTTER 03/19/21 Yes Physical Exam: PE: Constitutional: Nontoxic appearing but does appear uncomfortable, is lying flat w/minimal movement HENT: Normocephalic, atraumatic, very dry mucous membranes Eyes: EOMI, conjunctiva normal, no discharge. Neck: Normal range of motion, supple, Cardiovascular: S1/2 present, regular rhythm Lungs & Thorax: Speaking in full sentences, bilateral equal chest rise, no tachypnea or increased work of breathing Abdomen: soft, warm obese abdomen, when asked for location of pain initially points to right lower quadrant and left upper quadrant, grimaces with palpation of all quadrants, appears worse in right lower quadrant Skin: Warm, dry, no erythema, no rash. [] Back: No midline tenderness, no CVA tenderness. [] Extremities: No tenderness, no cyanosis, Neurologic: Alert and oriented X 3, normal motor function, normal sensory function, no focal deficits noted. [] Psychologic: Very flat affect, normal judgment Current Patient Data: Labs: Laboratory Tests Test 11/19/21 00:41 POC Urine HCG, Qualitative Hcg negative (Negative) Vital Signs: Vital Signs Date Time Temp Pulse Resp B/P (MAP) Pulse Ox O2 Delivery O2 Flow Rate FiO2 11/19/21 00:44 98.4 92 22 110/72 (85) 100 Room Air 98.4 EKG: EKG: [] Radiology/Procedures: Radiology/Procedures: IMAGING REPORT Signed PATIENT: MISAEL JEWELLACCOUNT: [id number] : 1990 LOCATION: ER AGE: 31 SEX: F EXAM STATUS: REG ER ORD. PHYSICIAN: LILLI MCDANIEL DO REASON: luq abd pain; OMNI 300, 75ML PROCEDURE: CT ABD PELV W/ IV CONTRST ONLY CT abdomen and pelvis with contrast PQRS statement: CT scans at this facility use dose reduction including either automated exposure control, iterative reconstructions, and /or weight based radiation dosing via mA and kV modification when appropriate to reduce radiation dose to as low as reasonably achievable. Contrast: 75 mL Omnipaque 300 intravenous contrast. HISTORY: Left upper quadrant abdominal pain. Abdomen findings: There is a chronic mild T11 vertebral compression fracture deformity. Lung bases unremarkable. Kidneys, adrenal glands, pancreas, liver, gallbladder and spleen are normal. There may be subtle wall thickening and enhancement of the duodenum and jejunum at the left upper quadrant abdomen. No bowel obstruction. The appendix is normal. No retroperitoneal adenopathy. However at the left upper quadrant small bowel mesentery there are enlarged lymph nodes and mild surrounding groundglass edema of the largest of these lymph nodes on image 35 measures 1.5 x 0.8 cm. No abdominal fluid. Pelvis findings: 2 cm ring-enhancing hypodense lesion right ovary which is also mildly enlarged. Left ovary, uterus, rectum, bladder and bones are unremarkable. No pelvic fluid or adenopathy. IMPRESSION: 1. Enteritis of the duodenum and proximal jejunum. There is mild mesenteric adenopathy within the upper abdomen which could be reactive lymph nodes from enteritis. Pathologic neoplastic adenopathy is not excluded. Attention on follow-up CT abdomen imaging in 3-6 months may be of benefit to document these lymph nodes resolve over time. 2. Appendix is negative. 3. 2 cm rim-enhancing hypodense lesion in the right ovary and mild enlargement of the ovary is indeterminate, this could represent a cyst or corpus luteum. A underlying ovarian mass or enlargement from torsion is not excluded. This could be further assessed with pelvic sonography. Electronically signed by: Filemon Mathur MD (11/19/2021 3:03 AM) [facility] DICTATED and SIGNED BY: FILEMON MATHUR MD DATE: 11/19/21 0256 IMAGING REPORT Signed PATIENT: MISAEL JEWELLACCOUNT: [id number] : 1990 LOCATION: ER AGE: 31 SEX: F EXAM STATUS: REG ER ORD. PHYSICIAN: LILLI MCDANIEL DO REASON: undetermined right ovarian enlargement, r/o torsion PROCEDURE: TRANSVAGINAL EXAM: Transvaginal pelvic ultrasound INDICATION: Enlarged right ovary on recent CT imaging possibly due to mass or torsion. COMPARISON: CT abdomen November 19, 2021 TECHNIQUE: Transvaginal transducer with grayscale and duplex Doppler sonography was performed. FINDINGS: Anteverted uterus measures 7.2 x 5.2 x 1 cm. No mass documented. Fundal endometrial thickness is normal measuring 1.1 cm. Right ovary measures 2.8 x 3.0 x 2.4 cm containing a anechoic 1.8 x 0.6 x 1.8 cm cystic focus likely a collapsing cyst or corpus luteum given mild peripheral hypervascularity. There is integrity of blood flow. There is no complex cystic or solid mass of the right ovary. Left ovary not visualized due to bowel gas shadowing. IMPRESSION: 1. 1.8 x 0.6 x 1.8 cm right ovarian somewhat collapsed simple cystic structure most likely an involuting corpus luteum or ruptured cyst. There is an intact right ovarian blood flow. No evidence for right ovarian torsion. 2. The left ovary could not be visualized. 3. Uterus and endometrium are normal. Electronically signed by: Filemon Mathur MD (11/19/2021 5:47 AM) [facility] DICTATED and SIGNED BY: FILEMON MATHUR MD DATE: 11/19/21 0544 Course & Med Decision Making: Course & Med Decision Making Pertinent Labs and Imaging studies reviewed. (See chart for details) Concern for abdominal pain in the setting of nausea, vomiting and diarrhea. Patient with leukopenia on labs and an elevated CRP. CT abdomen pelvis with IV contrast and again enteritis. Incidental finding of right ovarian mass vs torsion. TVUS with intact blood flow, no right ovarian torsion. Patient's abdominal soft. Is hemodynamically stable, afebrile with no tachycardia. No electrolyte abnormalities on labs. Tolerates sips of water. Will prescribe Zofran ODT and recommend liquid diet for 1-2 days. Will discharge home with strict ED return precautions were given for bloody vomiting or diarrhea, severe abdominal pain, fever, syncope or persistent nausea and vomiting. Encouraged urgent outpatient follow-up with PMD in 1 to 2 days for reevaluation. Life- threatening processes were considered but are low suspicion at this time, given history, physical exam and ED workup. Pt was educated on all prescription medications and adverse effects. All patient's questions were answered and pt was stable at time of discharge. Life/limb-threatening differential includes but is not limited to, aortic dissection, aortic aneurysm, acute coronary syndrome, surgical abdomen (appendicitis, cholecystitis, ischemic bowel, strangulated hernia, etc), bowel obstruction or volvulus, bladder outlet obstruction, gastrointestinal bleeding, inflammatory bowel disease, peptic ulcer disease, ACS/CAD, sepsis, diverticular disease, ureterolithiasis, nephrolithiasis, ovarian or testicular torsion, ectopic , vaginal hemorrhage, or genitourinary infection. I have spoken with the patient and/or caregivers. I explained the patient's condition, diagnoses and treatment plan based on the information available to me at this time. I have answered the patient and/or caregiver's questions and addressed any concerns. The patient and/or caregivers have a good understanding of patient's diagnosis, condition and treatment plan as can be expected at this point. Vital signs have been stable. Patient's condition is stable and appropriate for discharge from the emergency department. Patient will pursue further outpatient evaluation with primary care physician or other designated or consulting physician as outlined in the discharge instructions. The patient and/or caregivers are agreeable to this plan of care and follow-up instructions have been explained in detail. The patient and/or caregivers have received these instructions in written form and have expressed an understanding of the discharge instructions. The patient and/or caregivers are aware that any significant change of condition or worsening of symptoms should prompt immediate return to this or the closest emergency department or call to 911. Melia Disclaimer: Melia Disclaimer: This electronic medical record was generated, in whole or in part, using a voice recognition dictation system. Departure Departure Impression: Primary Impression: Nausea vomiting and diarrhea Additional Impressions: Abdominal pain Enteritis Right ovarian cyst Disposition: 01 HOME / SELF CARE / HOMELESS Condition: STABLE Referrals: UNKNOWN PCP NAME (PCP) Follow-up with your primary care physician in 24 to 48 hours OR FOLLOW UP WITH FAMILY MEDICINE: [address], [facility] [address] [place] [address] Patient Instructions: Diarrhea, Nausea and Vomiting, Viral Gastroenteritis Additional Instructions: Return to emergency department if she develop any bloody vomiting or diarrhea, severe abdominal pain, fever, syncope or persistent nausea and vomiting. EMERGENCY DEPARTMENT GENERAL DISCHARGE INSTRUCTIONS Thank you for coming to [facility] Emergency Department (ED) today and trusting us with you care. We trust that you had a positive experience in our Emergency Department. If you wish to speak to the department management, you may call the Director at [phone]. YOUR FOLLOW UP INSTRUCTIONS ARE FOLLOWS: 1. Do you have a private Doctor? If you do not have a private doctor, please ask for a resource list of physicians or clinics that may be able to assist you with follow up care. 2. The Emergency Physicain has interpreted your x-rays. The X-Ray specialist will also review them. If there is a change in the findings, you will be notified in 48 hours when at all possible. 3. A lab test or culture has been done, your results will be reviewed and you will be notified if you need a change in treatment. ADDITIONAL INSTRUCTIONS AND INFORMATION: 1. Your care today has been supervised by a physician who is specially trained in emergency care. Many problems require more than one evaluation for a complete diagnosis and treatment. We recommend that you schedule your follow up appointment as recommended to ensure complete treatment of you illness or injury. If you are unable to obtain follow up care and continue to have a problem, or if your condition worsens, we recommend that you return to the ED. 2. We are not able to safely determine your condition over the phone nor are we able to give sound medical advice over the phone. For these safety reasons, if you call for medical advice we will ask you to come to the ED for further evaluation. 3. If you have any questions regarding these discharge instructions please call the ED at [phone]. SAFETY INFORMATION: In the interest of safety, wellness, and injury prevention; we encourage you to wear your sealbelt, if you smoke; quite smoking, and we encourage family to use a protective helmet for bicycling and other sporting events that present an increased risk for head injury. IF YOUR SYMPTOMS WORSEN OR NEW SYMPTOMS DEVELOP, OR YOU HAVE CONCERNS ABOUT YOUR CONDITION; OR IF YOUR CONDITION WORSENS WHILE YOU ARE WAITING FOR YOUR FOLLOW UP APPOINTMENT; EITHER CONTACT YOUR PRIMARY CARE DOCTOR, THE PHYSICIAN WHOSE NAME AND NUMBER YOU WERE GIVEN, OR RETURN TO THE ED IMMEDIATELY. LILLI MCDANIEL DO Nov 19, 2021 01:26
[2021-11-19] MEDS ORDERED: FAMOTIDINE 20 MG/2 ML VIAL IVP ONE (02:00)
[2021-11-19] MEDS ORDERED: ONDANSETRON PF 4 MG/2 ML VIAL. IVP ONE ×2 (02:00→03:00)
[2021-11-19] MEDS ORDERED: IV NORMAL SALINE 1000ML BAG 1,000 ML IV SCH (02:00)
[2021-11-19 02:07] LABS: BASO % 1 % (0-3); EOS % 1 % (0-3); HEMATOCRIT 36.4 % (36.0-47.0); HEMOGLOBIN 12.1 g/dL (12.0-15.5); LYMPH # 0.7 x10^3/uL (1.0-4.8); LYMPH % 22 % (24-48); MEAN CORPUSCULAR HEMOGLOBIN 30 pg (25-35); MEAN CORPUSCULAR HGB CONC 33 g/dL (31-37); MEAN CORPUSCULAR VOLUME 89 fL (79-100); MONO # 0.3 x10^3/uL (0.0-1.1); MONO % 10 % (0-9); NEUT # 2.1 x10^3/uL (1.8-7.7); NEUT % 67 % (31-73); PLATELET COUNT 193 x10^3/uL (140-400); RED BLOOD COUNT 4.07 x10^6/uL (3.50-5.40); WHITE BLOOD COUNT 3.2 x10^3/uL (4.0-11.0)
[2021-11-19 02:14] LABS: ANION GAP 9 (6-14); BLOOD UREA NITROGEN 12 mg/dL (7-20); CALCIUM 8.3 mg/dL (8.5-10.1); CARBON DIOXIDE 20 mmol/L (21-32); CHLORIDE 109 mmol/L (98-107); CREATININE 0.6 mg/dL (0.6-1.0); GFR 118.2; GLUCOSE 92 mg/dL (70-99); SODIUM 138 mmol/L (136-145)
[2021-11-19] MEDS: HYDROmorphone 2 MG/ML INJ. IV/SQ PRN ×2 (02:17→03:45)
[2021-11-19 02:19] LABS: ALBUMIN 3.2 g/dL (3.4-5.0); ALK PHOS 168 U/L (46-116); ALT (SGPT) 20 U/L (14-59); AST (SGOT) 20 U/L (15-37); C-REACTIVE PROTEIN 47.7 mg/L (0-3.3); DIRECT BILIRUBIN < 0.1 mg/dL (0.0-0.2); LIPASE 66 U/L (73-393); TOTAL BILIRUBIN 0.1 mg/dL (0.2-1.0); TOTAL PROTEIN 7.6 g/dL (6.4-8.2)
[2021-11-19 02:22] VITALS: BP 112/68
[2021-11-19] MEDS ORDERED: IOHEXOL 300 MG/ML 100ML VIAL. IV ONE (03:00)
[2021-11-19] MEDS ORDERED: CONTRAST GIVEN. MC PRN (03:00)
[2021-11-19] MEDS ORDERED: METOCLOPRAMIDE HCL 10 MG/2 ML VIAL. ONE (04:02)
[2021-11-19] MEDS ORDERED: KETOROLAC 15 MG/ML VIAL. ONE (04:02)
--- NOTE | 2021-11-19 04:07 | RAD ---
CT abdomen and pelvis with contrast PQRS statement: CT scans at this facility use dose reduction including either automated exposure cont rol, iterative reconstructions, and /or weight based radiation dosing via mA and kV modification when appropriate to reduce radiation dose to as low as reasonably achievable. Contrast: 75 mL Omnipaque 300 intravenous contrast. HISTORY: Left upper quadrant abdominal pain. Abdomen findings: There is a chronic mild T11 vertebral compression fracture deformity. Lung bases un remarkable. Kidneys, adrenal glands, pancreas, liver, gallbladder and spleen are normal. There may be subtle wall thickening and enhancement of the duodenum and jejunum at the left upper quadrant abdome n. No bowel obstruction. The appendix is normal. No retroperitoneal adenopathy. However at the left u pper quadrant small bowel mesentery there are enlarged lymph nodes and mild surrounding groundglass e jason of the largest of these lymph nodes on image 35 measures 1.5 x 0.8 cm. No abdominal fluid. Pelvis findings: 2 cm ring-enhancing hypodense lesion right ovary which is also mildly enlarged. Left ovary, uterus, rectum, bladder and bones are unremarkable. No pelvic fluid or adenopathy. IMPRESSION: 1. Enteritis of the duodenum and proximal jejunum. There is mild mesenteric adenopathy within the upp er abdomen which could be reactive lymph nodes from enteritis. Pathologic neoplastic adenopathy is no t excluded. Attention on follow-up CT abdomen imaging in 3-6 months may be of benefit to document the se lymph nodes resolve over time. 2. Appendix is negative. 3. 2 cm rim-enhancing hypodense lesion in the right ovary and mild enlargement of the ovary is indete rminate, this could represent a cyst or corpus luteum. A underlying ovarian mass or enlargement from torsion is not excluded. This could be further assessed with pelvic sonography. Electronically signed by: Boom Mcgarry MD (11/19/2021 3:03 AM) [facility]
[2021-11-19 04:57] LABS: CREATINE KINASE 54 U/L (26-192)
[2021-11-19 04:58] LABS: VAL ACID < 3 mcg/mL (50-100)
[2021-11-19 05:02] LABS: BARBITURATES NEG (NEG); BENZODIAZEPINES POS (NEG); CANNABINOIDS NEG (NEG); COCAINE NEG (NEG); METHADONE NEG (NEG); OPIATES NEG (NEG); PHENCYCLIDINE NEG (NEG)
[2021-11-19 05:03] LABS: BACTERIA,URINE FEW /HPF (0-FEW); BILIRUBIN,URINE NEGATIVE (NEG); CLARITY,URINE HAZY; COLOR,URINE YELLOW; NITRITE,URINE NEGATIVE (NEG); PROTEIN,URINE NEGATIVE (NEG-TRACE); RBC,URINE 0 /HPF (0-2); UROBILINOGEN,URINE 0.2 mg/dL (0.2 mg/dL)
[2021-11-19 05:04] LABS: YEAST,URINE PRESENT /HPF
[2021-11-19 05:12] LABS: AMPHETAMINE/METHAMPHETAMINE NEG (NEG)
--- NOTE | 2021-11-19 05:49 | RAD ---
EXAM: Transvaginal pelvic ultrasound INDICATION: Enlarged right ovary on recent CT imaging possibly due to mass or torsion. COMPARISON: CT abdomen November 19, 2021 TECHNIQUE: Transvaginal transducer with grayscale and duplex Doppler sonography was performed. FINDINGS: Anteverted uterus measures 7.2 x 5.2 x 1 cm. No mass documented. Fundal endometrial thickness is norm al measuring 1.1 cm. Right ovary measures 2.8 x 3.0 x 2.4 cm containing a anechoic 1.8 x 0.6 x 1.8 cm cystic focus likely a collapsing cyst or corpus luteum given mild peripheral hypervascularity. There is integrity of bloo d flow. There is no complex cystic or solid mass of the right ovary. Left ovary not visualized due to bowel gas shadowing. IMPRESSION: 1. 1.8 x 0.6 x 1.8 cm right ovarian somewhat collapsed simple cystic structure most likely an involut ing corpus luteum or ruptured cyst. There is an intact right ovarian blood flow. No evidence for righ t ovarian torsion. 2. The left ovary could not be visualized. 3. Uterus and endometrium are normal. Electronically signed by: Boom Mcgarry MD (11/19/2021 5:47 AM) [facility]
== END 2021-11-19 06:12 | disposition home or self-care (01) ==
LOC: ER 22:49
DX: K52.9 Noninfective gastroenteritis and colitis, unspecified (principal); N83.201 Unspecified ovarian cyst, right side; J45.909 Unspecified asthma, uncomplicated; F31.9 Bipolar disorder, unspecified; G40.909 Epilepsy, unspecified, not intractable, without status epilepticus; K21.9 Gastro-esophageal reflux disease without esophagitis; Z86.73 Personal history of transient ischemic attack (TIA), and cerebral infarction without residual deficits; Z91.010 Allergy to peanuts; Z88.8 Allergy status to other drugs, medicaments and biological substances
CPT/HCPCS: 36415; 74177; 76830; 80048; 80076; 80164; 80307; 81001; 81025; 82550; 83690; 85025; 86140; 96361; 96374; 96375; 96376; 99285; J1170; J2405; J3490; J7030; Q9967